=== PATIENT | male | born 1945 | race Caucasian/White ===

== ENCOUNTER 2018-04-16 14:55 | Inpatient (IN) | payer MEDICARE ==
[~2018-04-16] VITALS: Ht 170.2 cm; Wt 80.9 kg
[2018-04-16] MEDS: OLANZapine IM 10 MG VIAL. IM PRN (18:30)
--- NOTE | 2018-04-16 19:59 | NUR ---
1430- RN received report from [facility] regarding patient. Was given in report that patient is confused, can identify family, and was hitting himself in the head last night with a nurses call light in order to give himself a concussion so that staff would have to stay with him. RN notified NCM and Nurse Navy Fighter Pilot. Plan to consult Dr Dodge with Psych when patient arrives, will still admit to SNU. 1800- EMS arrives with patient, they report they had to restrain patient in route for combativeness, trying to hit and kick and trying to exit ambulance. Pt placed into room 107 for close monitoring. This RN let the patient out of restraints, patient began making threats, said to this RN, "are you protecting your balbuena? Because Im going to hit it!". Pt began hitting and kicking. Pt placed in soft restraints. Security called. 1814- Dr Carmichael notified. Order for restraints and zyprexa IM. Consult for Dr Dodge. Family present, attempting to calm patient. Pt calling family names, stating staff is from the government and he isn't talking to us. Pt still trying to hit. Daughter Angela, ADELAIDA, aware of restraints and agrees, states, "Do what you need to do to get him better and to protect yourselves." Pt told family to leave. Family left. 1829- Pt tore soft restraints, violent restraints placed by security. Zyprexa IM given. 1839- Dr Dodge on floor, notified of consult. Per Dr Dodge may give Zyprexa 2.5mg orally q 2 hours. Will re-evaluate patient in morning for potential admission upstairs. Pt placed in 1:1 observation. 1899- Pt still combative, making threats. 1929- Pt is beginning to calm down. Is wanting to eat, getting boxed lunch for patient. Patient states he will behave if the RAIL SPECIALIST stays in room with him. 1999- RN entered room, pt stated, "go fuck yourself". Pt still in restraints.
[2018-04-16 20:25] VITALS: BP 134/72
--- NOTE | 2018-04-16 21:30 | NUR ---
PT released from restraints at 2114 for improved behaviors. PT no longer threatening to leave or harm himself or others. PT is still delusional talking about an Ed person. PT thinking everyone is this Ed person but is able to follow directions and is compliant with care.
[2018-04-16 22:57] VITALS: BP 112/67
[2018-04-16] MEDS ORDERED: QUETIAPINE FUMARATE 12.5 MG PO PRN (23:00)
[2018-04-16] MEDS ORDERED: NON FORMULARY ITEM (Melatonin 6 MG) PO PRN (23:00)
[2018-04-17] MEDS ORDERED: BISO1TAB4 PO (00:19)
[2018-04-17] MEDS ORDERED: ACET325T9 PO (00:19)
[2018-04-17] MEDS ORDERED: SENN1TAB7 PO (00:20)
[2018-04-17] MEDS ORDERED: BUDE3CAP15 PO (00:20)
[2018-04-17] MEDS ORDERED: QUET50TA5 PO (00:20)
[2018-04-17] MEDS ORDERED: CARB1TAB2 PO (00:20)
[2018-04-17] MEDS ORDERED: SIMV40TA3 PO (00:20)
[2018-04-17] MEDS ORDERED: KETO15CR2 TP (00:20)
[2018-04-17] MEDS ORDERED: GABA-586 PO (00:20)
[2018-04-17] MEDS ORDERED: QUET25TA5 PO (00:20)
[2018-04-17] MEDS ORDERED: PANT40TA5 PO (00:20)
[2018-04-17] MEDS ORDERED: LIRA0.6P2 SQ (00:20)
[2018-04-17] MEDS ORDERED: LISI10TA2 PO (00:20)
[2018-04-17] MEDS ORDERED: HYDR453.3 TP (00:20)
[2018-04-17] MEDS ORDERED: MELA3TAB2 PO (00:20)
[2018-04-17] MEDS ORDERED: PIOG15TA42 PO (00:20)
[2018-04-17] MEDS ORDERED: PRAM0.255 PO (00:20)
[2018-04-17] MEDS ORDERED: MELATONIN 3 MG TABLET PO PRN (00:30)
[2018-04-17] MEDS ORDERED: QUEtiapine 25 MG TABLET. PO PRN (00:30)
[2018-04-17 06:46] VITALS: BP 122/67
[2018-04-17] MEDS ORDERED: CARBIDOPA/LEVODOPA 25/100MG TABLET PO SCH (08:00)
[2018-04-17] MEDS ORDERED: GABAPENTIN 300 MG CAPSULE. PO PRN (08:00)
[2018-04-17] MEDS ORDERED: PANTOPRAZOLE 40 MG TABLET. PO SCH (08:00)
[2018-04-17] MEDS ORDERED: ACETAMINOPHEN 325 MG TABLET PO PRN (08:00)
--- NOTE | 2018-04-17 08:14 | NUR ---
Nursing Note: This nurse called to pt's room by FEDERICA d/alma pt throwing food from his tray. Upon entering the room, pt was laying in bed and there was a piece of food on the floor. Upon asking the pt what was going on, the pt stated "are my green plaid pants over there?" pointing to chair in corner of room. Upon looking around the room, this nurse noticed the pt's pants in a belongings bag beside the window. Per NEUROSURGERY RESEARCH DIRECTOR, pt was incontinent this morning and pants were wet. After showing the pt the pants, he asked this nurse "are you ready to rub gravel?" After asking for clarification, the pt stated to this nurse "you should know what that phrase means. It means go fuck yourself. And ask him what he's been doing with my . I hope he dies for it." This nurse asked the pt who "he" is but the pt just stated "you don't need it. It's up there," and pointed to the ceiling. Continue to monitor. Addendum: 04/17/18 at 0822 by HEATHER CASTRO RN Pt's call light went off as this nurse was completing this note and upon entering the room, this nurse heard the pt ask the NEUROSURGERY RESEARCH DIRECTOR "am I supposed to put you in the corner and use you as a hostage?" Per NEUROSURGERY RESEARCH DIRECTOR, the "he" the pt was referring to in above note is a person named "Ed." Continue to monitor behaviors.
[2018-04-17] MEDS: OLANZapine IM 10 MG VIAL. IM PRN (08:44)
[2018-04-17] MEDS ORDERED: hydroCHLOROthiazide 25 MG TABLET PO SCH (09:00)
[2018-04-17] MEDS ORDERED: HCTZ PO SCH (09:00)
[2018-04-17] MEDS ORDERED: KETOCONAZOLE 2% TOPICAL CREAM 30GM TUBE. TP SCH (09:00)
[2018-04-17] MEDS ORDERED: BUDESONIDE 3 MG CAP.ER.24H. PO SCH (09:00)
[2018-04-17] MEDS ORDERED: NON FORMULARY ITEM (Liraglutide (Victoza 3-Pak) 0.6 MG) SQ SCH (09:00)
[2018-04-17] MEDS ORDERED: PIOGLITAZONE 15 MG TABLET. PO SCH (09:00)
[2018-04-17] MEDS ORDERED: PRAMIPEXOLE 0.5 MG TABLET. PO SCH (09:00)
[2018-04-17] MEDS ORDERED: HYDROCORTISONE 1% TOPICAL CREAM 30GM TUBE. TP SCH (09:00)
[2018-04-17] MEDS ORDERED: BISOPROLOL FUMARATE PO SCH (09:00)
[2018-04-17] MEDS ORDERED: LISINOPRIL 10 MG TABLET PO SCH (09:00)
[2018-04-17] MEDS ORDERED: SENNOSIDES/DOCUSATE 8.6/50MG TABLET. PO SCH (09:00)
[2018-04-17] MEDS ORDERED: ATENOLOL 50 MG TABLET PO SCH (09:00)
--- NOTE | 2018-04-17 09:32 | NUR ---
Nursing Note: TOOL GRINDER OPERATOR EXTERNAL requested assistance from nurses after pt became agitated and began trying to get out of bed. Two nurses, including this nurse, responded and pt was attempting to stand up and was hitting and kicking at staff as we attempted to stop pt from getting out of bed. Pt is very unsteady and unable to ambulate. Piper Rain called as pt's agitation continued to increase and pt became more combative. Pt began threatening nurses stating "I'll get that knee to bend the other way" and calling out for "Ed" to come because "I want to hurt somebody!" When additional staff responded to Piper Rain, pt stated "things have changed" and made a stronger attempt to get out of bed. Pt continued to attempt to hit and kick at staff and grabbed at his throat in an attempt to choke himself. Pt placed back in bed and 4-point restraints applied at 0840 and PRN Zyprexa administered IM. Pt then attempted to remove his glasses and chew them. Glasses removed from pt for his safety. Dr. Carmichael paged at 0853 and return call received at 0900. DPOA (daughter, Angela) notified of situation as well. Pt reassessed at 0930 and pt stated to this nurse "go fuck yourself. Give Angela a message for me. Tell her to go fuck herself. Tell my other daughter the same thing. Tell anyone daughter with my blood to go fuck themselves." While attempting to check restraints for pt's comfort, pt attempted to hit this nurse. TOOL GRINDER OPERATOR EXTERNAL assessed pt's vitals and BP noted to be elevated. Pt was flexing and fighting restraints while vitals assessed. Continue to monitor.
--- NOTE | 2018-04-17 10:30 | NUR ---
Nursing Note: Pt reassessed and continues to fight with staff during cares. RESEARCH PHYSICIST asked pt if he could behave appropriately if taken out of restraints. Per RESEARCH PHYSICIST, pt stated that he would kill himself. Continue to monitor.
--- NOTE | 2018-04-17 11:00 | NUR ---
Discharge Note: RYLEE GIMENEZ Pt is being discharged from Swing Bed status and readmitted to Med/Surg status. Pt's room number will not change. Continue to monitor.
[2018-04-17] MEDS ORDERED: QUEtiapine 50 MG TABLET. PO SCH ×2 (14:00→21:00)
--- NOTE | 2018-04-17 20:06 | HP ---
ADMIT DATE: 04/16/2018 The patient is a 72-year-old male patient who was transferred from [facility], apparently initially to swing bed, the patient was extremely psychotic and a decision was made to admit him to acute care for further evaluation as he was so combative, restless, agitated, required rest and wrist restraints. All these symptoms started when apparently was diagnosed with what seems to be Crohn's disease and was started on steroids in the form of budesonide 9 mg daily. HISTORY OF PRESENT ILLNESS: The patient is a 72-year-old male with a past medical history significant for Parkinson's disease, type 2 diabetes, coronary artery disease with previous bypass surgery, multiple back surgeries, chronic back, presented to [facility] with 4 days history of diarrhea, malaise, foggy memory, presenting to the ER. He was initially found to be hypoglycemic and received IV dextrose. CT scan of the abdomen and pelvis showed finding of ileus with small bowel wall thickening and mesenteric adenopathy of undetermined significance. The Gastroenterology team was consulted. There was consideration of possible viral gastroenteritis versus food poisoning aggravated by antidiabetic medication as underlying cause, however, given his anemia, he was still concerned for GI pathology. Apparently, the patient had an EGD and colonoscopy that revealed possible Crohn disease on 04/10/2018. EGD showed a superficial nonbleeding pyloric ulcer. The patient was presumptively started on budesonide 9 mg daily, Protonix 40 mg twice a day before meals. The pathology report came back showing chronic ileitis, likely related to inflammatory bowel disease versus chronic nonsteroidal anti-inflammatory medication. His stomach pain and diarrhea have resolved; however, his stay has been complicated by persistent psychosis, delusion and pressured speech and agitation. He was started on Seroquel and has been up titrating as needed. He was seen by the Neurology services and felt that the acute episode of psychosis likely brought on by prolonged hospital stay superimposed on Parkinson's disease and possible medication side effects. He has not cleared greatly, Haldol was tried without much success and he was treated mostly with Seroquel in the morning and at bedtime, and the patient was stabilized medically and he was seen by psychiatrist on 04/16/2018 and they agreed with [facility] placement in order to help stabilize the patient and recover. For some reason, the patient was transferred to swing bed at [facility]. However, the patient continued to be extremely psychotic, delusional and he was not deemed appropriate to be admitted to [facility] upstairs and therefore, a decision was made to admit him to acute care bed in [address] [place] [address] to consult the psychiatrist, Dr. Dodge and neurologist, Dr. Calderon. PAST MEDICAL HISTORY: Significant for Parkinson's disease, type 2 diabetes, chronic coronary artery disease, and chronic back pain. PAST SURGICAL HISTORY: Significant for coronary artery bypass graft surgery, multiple back surgeries. He has also undergone esophageal gastric endoscopy and colonoscopy. ALLERGIES: HE IS ALLERGIC TO METFORMIN AND SITAGLIPTIN. MEDICATIONS: He is currently on following medications: He is on simvastatin 40 mg at bedtime, bisoprolol fumarate/hydrochlorothiazide 1 tablet daily, lisinopril 10 mg once a day, acetaminophen 650 mg p.o. q.4-6 hourly as needed, gabapentin 300 mg daily, quetiapine fumarate 12.5 mg daily, quetiapine fumarate 50 mg 3 times a day, carbidopa/levodopa for Sinemet 25/100 one tablet 3 times a day with meals, Mirapex 0.5 mg 3 times a day, Senna-S 1 tablet twice a day, Protonix 40 mg twice a day, budesonide for Entocort 3 capsules 90 mg daily, liraglutide for Victoza 0.6 mg subcutaneously daily, pioglitazone for Actos 15 mg daily, ketoconazole cream applied topically daily, hydrocortisone cream applied topically twice a day, and melatonin 3 mg at bedtime. FAMILY HISTORY: Unobtainable. SOCIAL HISTORY: Also unobtainable at least for the time being as there are no family members here and I could not get any useful information from the medical record that was sent from the other hospital. His code status is full. PHYSICAL EXAMINATION: GENERAL: When I examined him this afternoon, he was resting slightly propped up in bed, in no apparent distress, slightly pale, but no jaundice, cyanosis, or thyromegaly. No jugular venous distension. No lower limb edema. VITAL SIGNS: Heart rate was 63, blood pressure 122/67, temperature was 98.3, respiratory rate was 18 and oxygen saturation was 97%. HEAD, EYES, EARS, NOSE AND THROAT: Showed he is normocephalic, atraumatic. NECK: Supple. HEART: Showed normal first and second sounds. No gallop, rub or murmur. CHEST: Clear to auscultation. No crepitation or rhonchi. ABDOMEN: Distended, soft, nontender. No guarding or rigidity. No organomegaly. Hernial orifices were intact. Bowel sounds normal. NEUROLOGIC: He is awake, alert, responding. All his cranial nerves are intact. EXTREMITIES: He moves extremities without difficulty. PSYCHOLOGIC: He extremely has pressured speech. He does not stop talking, has flight of ideas and he is clearly psychotic. ASSESSMENT AND PLAN: We will consult Dr. Calderon and also Dr. Dodge. I think it is better to discontinue at least the steroids that might have induced the severe psychosis as the pathology report was not really confirmatory and there is only speculation that this could be ileitis versus a side effect of nonsteroidal anti-inflammatory medication. The patient is not really in any serious condition. He does not have any evidence of bowel obstruction. He is not having nausea or vomiting, and I would definitely discontinue the steroids. I am not sure whether we will be able to substitute his Parkinson disease from Sinemet to perhaps Requip and I leave the decision obviously to Dr. Calderon to eliminate these 2 sources of his psychosis. Meanwhile, we should continue at least with the Seroquel for the time being. We will send blood for CBC, CMP, C-reactive protein and ASR and decide on further management accordingly. DINESH STEVENS MD DR: AMBAR/rebecca JOB#: [id number] / [id number]
[2018-04-17] MEDS ORDERED: SIMVASTATIN 40 MG TABLET. PO SCH (21:00)
== END 2018-04-17 11:19 | disposition short-term general hospital (02) | DRG 392 ==
LOC: 1 SOUTH 18:21
PROVIDERS: ADMIT Internal Medicine; ATTEND Internal Medicine
DX: K52.9 Noninfective gastroenteritis and colitis, unspecified (principal); I25.10 Atherosclerotic heart disease of native coronary artery without angina pectoris; G20 Parkinson's disease; F22 Delusional disorders; G89.29 Other chronic pain; E11.9 Type 2 diabetes mellitus without complications; T39.395A Adverse effect of other nonsteroidal anti-inflammatory drugs [NSAID], initial encounter; Y92.89 Other specified places as the place of occurrence of the external cause; Z88.8 Allergy status to other drugs, medicaments and biological substances; Z79.899 Other long term (current) drug therapy; Z95.1 Presence of aortocoronary bypass graft
CPT/HCPCS: 82947; J3490

== ENCOUNTER 2018-04-17 11:00 | Inpatient (IN) | payer MEDICARE ==
[~2018-04-17] VITALS: Ht 170.2 cm; Wt 77.8 kg
[~2018-04-17 11:00] MED LIST: ACET325T9 PO; BISO1TAB4 PO; BUDE3CAP15 PO; CARB1TAB2 PO; GABA-586 PO; HYDR453.3 TP; KETO15CR2 TP; LIRA0.6P2 SQ; LISI10TA2 PO; MELA3TAB2 PO; PANT40TA5 PO; PIOG15TA42 PO; PRAM0.255 PO; QUET25TA5 PO; QUET50TA5 PO; SENN1TAB7 PO; SIMV40TA3 PO
[2018-04-17 11:32] VITALS: BP 170/64
[2018-04-17 13:51] VITALS: BP 180/63
[2018-04-17] MEDS ORDERED: cloNIDine TTS-2 1 PATCH PATCH TD SCH (15:00)
[2018-04-17] MEDS ORDERED: GABAPENTIN 300 MG CAPSULE. PO PRN (15:15)
[2018-04-17] MEDS ORDERED: ACETAMINOPHEN 325 MG TABLET PO PRN (15:15)
[2018-04-17] MEDS ORDERED: QUEtiapine 25 MG TABLET. PO PRN (15:30)
[2018-04-17] MEDS: QUEtiapine 50 MG TABLET. PO SCH ×2 (15:30→21:23)
[2018-04-17 15:37] VITALS: BP 165/63
[2018-04-17] MEDS: PANTOPRAZOLE 40 MG TABLET. PO SCH ×2 (16:30→18:08)
[2018-04-17] MEDS: CARBIDOPA/LEVODOPA 25/100MG TABLET PO SCH ×2 (17:00→18:07)
--- NOTE | 2018-04-17 17:37 | PDOC ---
Exam Note: [facility] Note: Please also refer to the separate dictated note~for this date of service dictated separately.~Patient seen individually. Discussed the patient with Nursing staff reviewed the chart.~Reviewed interim history and current functioning. Reviewed vital signs,~Labs/ Radiology~and current medications noted below. Continue current treatment with the changes noted in the dictated addendum note. Late entry for 04/16/18 Assessment: Vital Signs: VS - Last 72 Hours, by Label Date Time Temp Pulse Resp B/P (MAP) Pulse Ox O2 Delivery O2 Flow Rate FiO2 04/17/18 15:37 98.2 76 20 165/63 (97) 97 Room Air 04/17/18 13:51 98.2 66 18 180/63 (102) 96 Room Air 04/17/18 11:32 97.8 73 20 170/64 (99) 94 Room Air Vital Signs Date Time Temp Pulse Resp B/P (MAP) Pulse Ox O2 Delivery O2 Flow Rate FiO2 04/17/18 15:37 98.2 76 20 165/63 (97) 97 Room Air Labs: Laboratory Tests Test 04/17/18 11:40 Glucose (Fingerstick) 134 mg/dL (70-99) H Current Medications: Meds: Current Medications Clonidine HCl (Catapres Tts-2) 1 patch WEEKLY TD Last administered on at 15:06; Start 04/17/18 at 15:00 Acetaminophen (Tylenol) 650 mg PRN Q6HRS PRN PO PAIN / TEMP; Start 04/17/18 at 15:15 Carbidopa/Levodopa (Sinemet 25/100) 1 tab TIDWMEALS PO ; Start 04/17/18 at 17:00 Gabapentin (Neurontin) 300 mg PRN DAILY PRN PO NEUROPATHY; Start 04/17/18 at 15 :15 Ketoconazole (Nizoral 2% Topical) 1 giorgio DAILY TP ; Start 04/18/18 at 09:00 Lisinopril (Prinivil) 10 mg DAILY PO ; Start 04/18/18 at 09:00 Senna/Docusate Sodium (Senna Plus) 1 tab BID PO ; Start 04/17/18 at 21:00 Simvastatin (Zocor) 40 mg QHS PO ; Start 04/17/18 at 21:00 Non-Formulary Medication (Bisoprolol Fumarate/Hctz (Bisoprolol-Hctz 5-6.25 Mg Tab)) 1 tab DAILY PO ; Start 04/18/18 at 09:00; Stop 04/18/18 at 09:00; Status DC Budesonide (Entocort) 3 mg DAILY PO ; Start 04/18/18 at 09:00; Stop 04/18/18 at 09:00; Status DC Hydrocortisone (Cortaid) 1 giorgio BID TP ; Start 04/17/18 at 21:00 Non-Formulary Medication (Liraglutide (Victoza 3-Melvin)) 0.6 mg DAILY SQ ; Start 04/18/18 at 09:00; Status UNV Melatonin 6 mg QHS PO ; Start 04/17/18 at 21:00 Pantoprazole Sodium (Protonix) 40 mg BIDBFRMEAL PO ; Start 04/17/18 at 16:30 Pioglitazone HCl (Actos) 15 mg DAILY PO ; Start 04/18/18 at 09:00 Pramipexole Dihydrochloride (miraPEX) 0.5 mg FSC075 PO ; Start 04/17/18 at 21:00 Quetiapine Fumarate (SEROquel) 12.5 mg PRN DAILY PRN PO ANXIETY/AGITATION; Start 04/17/18 at 15:30 Quetiapine Fumarate (SEROquel) 50 mg TID PO ; Start 04/17/18 at 15:30 Olanzapine (ZyPREXA IM) 5 mg PRN Q4HRS PRN IM AGITATION; Start 04/17/18 at 15: 30 Atenolol (Tenormin) 50 mg DAILY PO ; Start 04/18/18 at 09:00 Hydrochlorothiazide (Hydrodiuril) 6.25 mg DAILY PO ; Start 04/18/18 at 09:00 Active Scripts Active Reported Victoza 3-Melvin (Liraglutide) 0.6 Mg/0.1 Ml Pen.injctr 0.6 Mg SQ DAILY Simvastatin 40 Mg Tablet 1 Tab PO QHS Senna-Docusate Sodium Tablet (Sennosides/Docusate Sodium) 1 Each Tablet 1 Each PO BID Seroquel (Quetiapine Fumarate) 50 Mg Tablet 1 Tab PO TID Seroquel (Quetiapine Fumarate) 25 Mg Tablet 12.5 Mg PO PRN DAILY PRN Mirapex (Pramipexole Di-Hcl) 0.25 Mg Tablet 0.5 Mg PO TID Actos (Pioglitazone Hcl) 15 Mg Tablet 1 Tab PO DAILY Pantoprazole Sodium 40 Mg Tablet.dr 1 Tab PO BIDBFRMEAL Melatonin 3 Mg Tablet 6 Mg PO QHS Lisinopril 10 Mg Tablet 10 Mg PO DAILY Ketoconazole 15 Gm Cream..g. 1 Giorgio TP DAILY Hydrocortisone 453.6 Gm Cream..g. 1 Giorgio TP BID Gabapentin 300 Mg Capsule 300 Mg PO PRN DAILY PRN Sinemet 25-100 Mg Tablet (Carbidopa/Levodopa) 1 Each Tablet 1 Tab PO TIDWMEALS Entocort Ec (Budesonide) 3 Mg Capdr...er 3 Cap PO DAILY Bisoprolol-Hctz 5-6.25 Mg Tab (Bisoprolol Fumarate/Hctz) 1 Each Tablet 1 Tab PO DAILY Tylenol (Acetaminophen) 325 Mg Tablet 650 Mg PO PRN Q6HRS PRN I have reviewed the current psychotropics carefully including drug interactions. Risk benefit ratio favors no change other than as noted in my dictated progress note. Diagnosis: Problems: (1) Anxiety disorder (2) Bipolar affective disorder, mixed (3) Dementia due to Parkinson's disease with behavioral disturbance (4) Impulse control disorder (5) Parkinson's disease ALYSHA CHAMPAGNE MD Apr 17, 2018 17:36
[2018-04-17 19:05] VITALS: BP 171/72
[2018-04-17] MEDS ORDERED: risperiDONE ORAL 1 MG/ML 30ml BOTTLE. SL ONE ×2 (19:45→22:15)
--- NOTE | 2018-04-17 20:30 | PDOC ---
Exam Note: [facility]olas Note: Please also refer to the separate dictated note~for this date of service dictated separately.~Patient seen individually. Discussed the patient with Nursing staff reviewed the chart.~Reviewed interim history and current functioning. Reviewed vital signs,~Labs/ Radiology~and current medications noted below. Continue current treatment with the changes noted in the dictated addendum note Assessment: Vital Signs: Vital Signs Date Time Temp Pulse Resp B/P (MAP) Pulse Ox O2 Delivery O2 Flow Rate FiO2 04/17/18 15:37 98.2 76 20 165/63 (97) 97 Room Air Labs: Laboratory Tests Test 04/17/18 11:40 Glucose (Fingerstick) 134 mg/dL (70-99) H Current Medications: Meds: Current Medications Clonidine HCl (Catapres Tts-2) 1 patch WEEKLY TD Last administered on at 15:06; Start 04/17/18 at 15:00 Acetaminophen (Tylenol) 650 mg PRN Q6HRS PRN PO PAIN / TEMP; Start 04/17/18 at 15:15 Carbidopa/Levodopa (Sinemet 25/100) 1 tab TIDWMEALS PO Last administered on at 18:07; Start 04/17/18 at 17:00 Gabapentin (Neurontin) 300 mg PRN DAILY PRN PO NEUROPATHY; Start 04/17/18 at 15 :15 Ketoconazole (Nizoral 2% Topical) 1 giorgio DAILY TP ; Start 04/18/18 at 09:00 Lisinopril (Prinivil) 10 mg DAILY PO ; Start 04/18/18 at 09:00 Senna/Docusate Sodium (Senna Plus) 1 tab BID PO ; Start 04/17/18 at 21:00 Simvastatin (Zocor) 40 mg QHS PO ; Start 04/17/18 at 21:00 Non-Formulary Medication (Bisoprolol Fumarate/Hctz (Bisoprolol-Hctz 5-6.25 Mg Tab)) 1 tab DAILY PO ; Start 04/18/18 at 09:00; Stop 04/18/18 at 09:00; Status DC Budesonide (Entocort) 3 mg DAILY PO ; Start 04/18/18 at 09:00; Stop 04/18/18 at 09:00; Status DC Hydrocortisone (Cortaid) 1 giorgio BID TP ; Start 04/17/18 at 21:00 Non-Formulary Medication (Liraglutide (Victoza 3-Melvin)) 0.6 mg DAILY SQ ; Start 04/18/18 at 09:00; Status UNV Melatonin 6 mg QHS PO ; Start 04/17/18 at 21:00 Pantoprazole Sodium (Protonix) 40 mg BIDBFRMEAL PO Last administered on at 18:08; Start 04/17/18 at 16:30 Pioglitazone HCl (Actos) 15 mg DAILY PO ; Start 04/18/18 at 09:00 Pramipexole Dihydrochloride (miraPEX) 0.5 mg [id number] PO ; Start 04/17/18 at 21:00 Quetiapine Fumarate (SEROquel) 12.5 mg PRN DAILY PRN PO ANXIETY/AGITATION; Start 04/17/18 at 15:30 Quetiapine Fumarate (SEROquel) 50 mg TID PO ; Start 04/17/18 at 15:30 Olanzapine (ZyPREXA IM) 5 mg PRN Q4HRS PRN IM AGITATION; Start 04/17/18 at 15: 30 Atenolol (Tenormin) 50 mg DAILY PO ; Start 04/18/18 at 09:00 Hydrochlorothiazide (Hydrodiuril) 6.25 mg DAILY PO ; Start 04/18/18 at 09:00 Pneumococcal Polyvalent Vaccine (Pneumovax 23) 0.5 ml ONCE ONCE VAX IM ; Start 04/17/18 at 21:00; Stop 04/17/18 at 21:01 Risperidone (RisperDAL) 0.5 mg 1X ONCE SL Last administered on 04/17/18at 20:08 ; Start 04/17/18 at 19:45; Stop 04/17/18 at 19:46; Status DC Active Scripts Active Reported Victoza 3-Melvin (Liraglutide) 0.6 Mg/0.1 Ml Pen.injctr 0.6 Mg SQ DAILY Simvastatin 40 Mg Tablet 1 Tab PO QHS Senna-Docusate Sodium Tablet (Sennosides/Docusate Sodium) 1 Each Tablet 1 Each PO BID Seroquel (Quetiapine Fumarate) 50 Mg Tablet 1 Tab PO TID Seroquel (Quetiapine Fumarate) 25 Mg Tablet 12.5 Mg PO PRN DAILY PRN Mirapex (Pramipexole Di-Hcl) 0.25 Mg Tablet 0.5 Mg PO TID Actos (Pioglitazone Hcl) 15 Mg Tablet 1 Tab PO DAILY Pantoprazole Sodium 40 Mg Tablet.dr 1 Tab PO BIDBFRMEAL Melatonin 3 Mg Tablet 6 Mg PO QHS Lisinopril 10 Mg Tablet 10 Mg PO DAILY Ketoconazole 15 Gm Cream..g. 1 Giorgio TP DAILY Hydrocortisone 453.6 Gm Cream..g. 1 Giorgio TP BID Gabapentin 300 Mg Capsule 300 Mg PO PRN DAILY PRN Sinemet 25-100 Mg Tablet (Carbidopa/Levodopa) 1 Each Tablet 1 Tab PO TIDWMEALS Entocort Ec (Budesonide) 3 Mg Capdr...er 3 Cap PO DAILY Bisoprolol-Hctz 5-6.25 Mg Tab (Bisoprolol Fumarate/Hctz) 1 Each Tablet 1 Tab PO DAILY Tylenol (Acetaminophen) 325 Mg Tablet 650 Mg PO PRN Q6HRS PRN I have reviewed the current psychotropics carefully including drug interactions. Risk benefit ratio favors no change other than as noted in my dictated progress note. Diagnosis: Problems: (1) Psychosis (2) Anxiety disorder (3) Impulse control disorder (4) Bipolar affective disorder, mixed (5) Parkinson's disease (6) Dementia due to Parkinson's disease with behavioral disturbance ALYSHA CHAMPAGNE MD Apr 17, 2018 20:30
[2018-04-17] MEDS: SIMVASTATIN 40 MG TABLET. PO SCH ×2 (21:00→21:23)
[2018-04-17] MEDS: SENNOSIDES/DOCUSATE 8.6/50MG TABLET. PO SCH ×2 (21:00→21:23)
[2018-04-17] MEDS ORDERED: PNEUMOC CONJ VACC 23-VALENT 0.5 ML VIAL. VAX IM ONE (21:00)
[2018-04-17] MEDS: HYDROCORTISONE 1% TOPICAL CREAM 30GM TUBE. TP SCH ×2 (21:00→21:25)
[2018-04-17] MEDS: MELATONIN 3 MG TABLET PO SCH (21:23)
[2018-04-17] MEDS: PRAMIPEXOLE 0.5 MG TABLET. PO SCH (21:25)
[2018-04-17] MEDS: OLANZapine IM 10 MG VIAL. IM PRN (22:13)
[2018-04-18 00:30] VITALS: BP 161/78
[2018-04-18] MEDS: QUEtiapine 50 MG TABLET. PO SCH ×4 (01:30→21:00)
[2018-04-18] MEDS: MELATONIN 3 MG TABLET PO SCH ×2 (01:31→21:00)
[2018-04-18 06:34] VITALS: BP 153/78
[2018-04-18] MEDS: NON FORMULARY ITEM (Liraglutide (Victoza 3-Pak) 0.6 MG) SQ SCH (07:55)
[2018-04-18] MEDS ORDERED: BUDESONIDE 3 MG CAP.ER.24H. PO SCH (09:00)
[2018-04-18] MEDS ORDERED: BISOPROLOL FUMARATE PO SCH (09:00)
[2018-04-18] MEDS: KETOCONAZOLE 2% TOPICAL CREAM 30GM TUBE. TP SCH (09:00)
[2018-04-18] MEDS: HYDROCORTISONE 1% TOPICAL CREAM 30GM TUBE. TP SCH ×2 (09:00→21:00)
[2018-04-18] MEDS ORDERED: HCTZ PO SCH (09:00)
[2018-04-18] MEDS: hydroCHLOROthiazide 25 MG TABLET PO SCH (09:00)
[2018-04-18] MEDS: PRAMIPEXOLE 0.5 MG TABLET. PO SCH ×3 (09:00→21:00)
[2018-04-18] MEDS: CARBIDOPA/LEVODOPA 25/100MG TABLET PO SCH ×3 (09:16→17:18)
[2018-04-18] MEDS: SENNOSIDES/DOCUSATE 8.6/50MG TABLET. PO SCH ×2 (09:16→21:00)
[2018-04-18] MEDS: PIOGLITAZONE 15 MG TABLET. PO SCH (09:16)
[2018-04-18] MEDS: PANTOPRAZOLE 40 MG TABLET. PO SCH ×2 (09:16→17:18)
[2018-04-18] MEDS: LISINOPRIL 10 MG TABLET PO SCH (09:16)
[2018-04-18] MEDS: ATENOLOL 50 MG TABLET PO SCH (09:17)
[2018-04-18 11:27] VITALS: BP 101/63
--- NOTE | 2018-04-18 11:28 | CONS ---
DATE OF CONSULTATION: 04/17/2018 This is a late entry for 04/16/2018 and covers elements not covered in my initial note. IDENTIFYING DATA: The patient is a 72-year-old male, seen in bed [address], [address], [facility], very shortly after he arrived from [facility] with increasing agitation, psychosis, suicidal ideation and marked disruptive, aggressive, out of control behaviors for which he had to be restrained since he was trying to strike out at everyone around him and threatening to kill himself and actively hallucinating intermittently. I have been asked and requested to follow the patient from a psychiatric standpoint for his psychosis. He has been making statements to the nursing staff, "If you were really helping me, why would not you let me to kill myself." HISTORY OF PRESENT ILLNESS: Reportedly, the patient was an inpatient on the medical/surgical side at [facility] where he presented from home. After he was medically stabilized, he continued to be extremely psychotic, aggressive, disruptive, threatening to kill himself and striking out at others around him. He was actively hallucinating, appeared confused and disorganized. He was transferred to [facility] for skilled care and possible inpatient psychiatric stabilization. I am unaware of past relevant psychiatric history. He has nevertheless been living at home by himself and family have been involved in his care. PAST MEDICAL HISTORY: Positive Parkinson's disease, diabetes mellitus, hyperlipidemia, hypertension, possible Crohn's disease. ALLERGIES: METFORMIN, SITAGLIPTIN. CURRENT PSYCHOTROPICS: Seroquel 50 mg p.o. at bedtime, melatonin 6 mg at bedtime and we had added Zyprexa p.r.n. following admission given his marked psychosis, mood lability. FAMILY HISTORY: Noncontributory. SOCIAL HISTORY: Not aware of any alcohol or drug abuse history. MENTAL STATUS EXAMINATION: The patient was seen individually evening of 04/16/2018. He is oriented to himself, unaware of the date, unaware when he came to the hospital. He is in a 4-point restraint because he has been trying to punch at nursing staff, trying to hit himself, banging his head. Speech coherent, rapid. Abstraction fair, computation impaired, language function intact. Mood and affect remains labile. He admits to the suicidal ideation, and wanting to hit anyone around him, "Just let my hand loose and let me punch you." IMPRESSION: Psychotic disorder, unspecified, probable bipolar 1 disorder, mixed with psychotic features; impulse control disorder; anxiety disorder, unspecified; cognitive disorder, unspecified versus major neurocognitive disorder, vascular with delusions, possible psychosis, aggravated by his anti-parkinsonian medications. PLAN: Would suggest Neurology consult with Dr. Calderon to see if his anti-parkinsonian medications could be reduced and the Entocort discontinued if possible since the steroids could be worsening the psychosis. We will increase the Seroquel to 50 mg 3 times a day, start Zyprexa p.r.n. Consider Depakote as a mood stabilizer. Consider transferring [facility] once he is medically stable. Dr. Carmichael, thank you for the opportunity to participate in your patient's care. We will follow with you. We will have a CT head done if not done recently. ALYSHA CHAMPAGNE MD DR: SERENITY/rebecca JOB#: [id number] / [id number]
[2018-04-18 12:47] LABS: BASO # 0.1 x10^3/uL (0.0-0.2); BASO % 1 % (0-3); EOS # 0.3 x10^3/uL (0.0-0.7); EOS % 4 % (0-3); HEMATOCRIT 34.4 % (39.0-53.0); HEMOGLOBIN 10.8 g/dL (13.0-17.5); LYMPH # 2.6 x10^3/uL (1.0-4.8); LYMPH % 27 % (24-48); MEAN CORPUSCULAR HEMOGLOBIN 24 pg (25-35); MEAN CORPUSCULAR HGB CONC 31 g/dL (31-37); MEAN CORPUSCULAR VOLUME 77 fL (79-100); MONO # 0.7 x10^3/uL (0.0-1.1); MONO % 7 % (0-9); NEUT % 61 % (31-73); PLATELET COUNT 242 x10^3/uL (140-400); RED BLOOD COUNT 4.47 x10^6/uL (4.30-5.70); RED CELL DISTRIBUTION WIDTH 16.6 % (11.5-14.5); WHITE BLOOD COUNT 9.8 x10^3/uL (4.0-11.0)
[2018-04-18 12:57] LABS: ALBUMIN 2.7 g/dL (3.4-5.0); ALBUMIN/GLOBULIN RATIO 0.7 (1.0-1.7); C REACTIVE PROTEIN 23.4 mg/L (0-3.3); CALCIUM 8.8 mg/dL (8.5-10.1); CREATININE 1.4 mg/dL (0.7-1.3); GFR 49.8; POTASSIUM 3.9 mmol/L (3.5-5.1); TOTAL BILIRUBIN 0.5 mg/dL (0.2-1.0); TOTAL PROTEIN 6.8 g/dL (6.4-8.2)
--- NOTE | 2018-04-18 13:35 | PDOC ---
SUBJECTIVE: I find the patient to be sleeping soundly upon arrival to his room. The patient skin care specialist says the patient has been asleep for approximately the past hour. He says the patient was up all night and appeared to be coherent. He says that he played cards with the patient and that they discuss the patient's daughters and other various interests of the patient including guns. When I wake the patient he rouses easily to verbal stimuli but does appear to be confused. He answers correctly to the year 2018 and to the name of the president however then asks "will you take me shopping first." The patient denies any current pain complaints and no trouble breathing. No family is available to talk with. Patient's vital signs were stable overnight and his fingerstick blood sugars ran in the 130s. CBC, CMP, and inflammatory markers were not ordered and will be done so at this time. OBJECTIVE: Vital Signs: Vital Signs Date Time Temp Pulse Resp B/P (MAP) Pulse Ox O2 Delivery O2 Flow Rate FiO2 04/18/18 11:27 97.3 62 18 101/63 (76) 94 Room Air I & O Intake and Output 04/18/18 07:00 Intake Total 290 ml Balance 290 ml Intake Oral 290 ml # Voids 4 Labs: Laboratory Tests Test 04/17/18 11:40 04/17/18 20:27 04/18/18 07:55 04/18/18 12:37 Glucose (Fingerstick) 134 mg/dL (70-99) 144 mg/dL (70-99) 122 mg/dL (70-99) White Blood Count 9.8 x10^3/uL (4.0-11.0) Red Blood Count 4.47 x10^6/uL (4.30-5.70) Hemoglobin 10.8 g/dL (13.0-17.5) Hematocrit 34.4 % (39.0-53.0) Mean Corpuscular Volume 77 fL (79-100) Mean Corpuscular Hemoglobin 24 pg (25-35) Mean Corpuscular Hemoglobin Concent 31 g/dL (31-37) Red Cell Distribution Width 16.6 % (11.5-14.5) Platelet Count 242 x10^3/uL (140-400) Neutrophils (%) (Auto) 61 % (31-73) Lymphocytes (%) (Auto) 27 % (24-48) Monocytes (%) (Auto) 7 % (0-9) Eosinophils (%) (Auto) 4 % (0-3) Basophils (%) (Auto) 1 % (0-3) Neutrophils # (Auto) 6.0 x10^3uL (1.8-7.7) Lymphocytes # (Auto) 2.6 x10^3/uL (1.0-4.8) Monocytes # (Auto) 0.7 x10^3/uL (0.0-1.1) Eosinophils # (Auto) 0.3 x10^3/uL (0.0-0.7) Basophils # (Auto) 0.1 x10^3/uL (0.0-0.2) Sodium Level 141 mmol/L (136-145) Potassium Level 3.9 mmol/L (3.5-5.1) Chloride Level 104 mmol/L (98-107) Carbon Dioxide Level 32 mmol/L (21-32) Anion Gap 5 (6-14) Blood Urea Nitrogen 21 mg/dL (8-26) Creatinine 1.4 mg/dL (0.7-1.3) Estimated GFR (Cockcroft-Gault) 49.8 BUN/Creatinine Ratio 15 (6-20) Glucose Level 137 mg/dL (70-99) Calcium Level 8.8 mg/dL (8.5-10.1) Total Bilirubin 0.5 mg/dL (0.2-1.0) Aspartate Amino Transf (AST/SGOT) 38 U/L (15-37) Alanine Aminotransferase (ALT/SGPT) 9 U/L (16-63) Alkaline Phosphatase 81 U/L (46-116) C-Reactive Protein 23.4 mg/L (0-3.3) Total Protein 6.8 g/dL (6.4-8.2) Albumin 2.7 g/dL (3.4-5.0) Albumin/Globulin Ratio 0.7 (1.0-1.7) ASSESSMENT: 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
[2018-04-18 13:52] LABS: SEDIMENTATION RATE 42 (0-15)
[2018-04-18] MEDS: OLANZapine IM 10 MG VIAL. IM PRN ×2 (14:19→22:39)
[2018-04-18] MEDS: SIMVASTATIN 40 MG TABLET. PO SCH (21:00)
[2018-04-18] MEDS: risperiDONE ORAL 1 MG/ML 30ml BOTTLE. SL SCH (21:00)
--- NOTE | 2018-04-18 21:27 | PDOC ---
Exam Note: Nickolas Note: Please also refer to the separate dictated note~for this date of service dictated separately.~Patient seen individually. Discussed the patient with Nursing staff reviewed the chart.~Reviewed interim history and current functioning. Reviewed vital signs,~Labs/ Radiology~and current medications noted below. Continue current treatment with the changes noted in the dictated addendum note Assessment: Vital Signs: Vital Signs Date Time Temp Pulse Resp B/P (MAP) Pulse Ox O2 Delivery O2 Flow Rate FiO2 04/18/18 19:57 04/18/18 19:57 Room Air 04/18/18 11:27 97.3 62 18 94 I&O Intake and Output 04/18/18 07:00 Intake Total 290 ml Balance 290 ml Intake Oral 290 ml # Voids 4 Labs: Laboratory Tests Test 04/18/18 07:55 04/18/18 12:37 04/18/18 17:01 Glucose (Fingerstick) 122 mg/dL (70-99) H 140 mg/dL (70-99) H White Blood Count 9.8 x10^3/uL (4.0-11.0) Red Blood Count 4.47 x10^6/uL (4.30-5.70) Hemoglobin 10.8 g/dL (13.0-17.5) L Hematocrit 34.4 % (39.0-53.0) L Mean Corpuscular Volume 77 fL (79-100) L Mean Corpuscular Hemoglobin 24 pg (25-35) L Mean Corpuscular Hemoglobin Concent 31 g/dL (31-37) Red Cell Distribution Width 16.6 % (11.5-14.5) H Platelet Count 242 x10^3/uL (140-400) Neutrophils (%) (Auto) 61 % (31-73) Lymphocytes (%) (Auto) 27 % (24-48) Monocytes (%) (Auto) 7 % (0-9) Eosinophils (%) (Auto) 4 % (0-3) H Basophils (%) (Auto) 1 % (0-3) Neutrophils # (Auto) 6.0 x10^3uL (1.8-7.7) Lymphocytes # (Auto) 2.6 x10^3/uL (1.0-4.8) Monocytes # (Auto) 0.7 x10^3/uL (0.0-1.1) Eosinophils # (Auto) 0.3 x10^3/uL (0.0-0.7) Basophils # (Auto) 0.1 x10^3/uL (0.0-0.2) Erythrocyte Sedimentation Rate 42 (0-15) H Sodium Level 141 mmol/L (136-145) Potassium Level 3.9 mmol/L (3.5-5.1) Chloride Level 104 mmol/L (98-107) Carbon Dioxide Level 32 mmol/L (21-32) Anion Gap 5 (6-14) L Blood Urea Nitrogen 21 mg/dL (8-26) Creatinine 1.4 mg/dL (0.7-1.3) H Estimated GFR (Cockcroft-Gault) 49.8 BUN/Creatinine Ratio 15 (6-20) Glucose Level 137 mg/dL (70-99) H Calcium Level 8.8 mg/dL (8.5-10.1) Total Bilirubin 0.5 mg/dL (0.2-1.0) Aspartate Amino Transferase (AST) 38 U/L (15-37) H Alanine Aminotransferase (ALT) 9 U/L (16-63) L Alkaline Phosphatase 81 U/L (46-116) C-Reactive Protein 23.4 mg/L (0-3.3) H Total Protein 6.8 g/dL (6.4-8.2) Albumin 2.7 g/dL (3.4-5.0) L Albumin/Globulin Ratio 0.7 (1.0-1.7) L Current Medications: Meds: Current Medications Clonidine HCl (Catapres Tts-2) 1 patch WEEKLY TD Last administered on at 15:06; Start 04/17/18 at 15:00 Acetaminophen (Tylenol) 650 mg PRN Q6HRS PRN PO PAIN / TEMP Last administered on 04/18/18at 13:54; Start 04/17/18 at 15:15 Carbidopa/Levodopa (Sinemet 25/100) 1 tab TIDWMEALS PO Last administered on at 17:18; Start 04/17/18 at 17:00 Gabapentin (Neurontin) 300 mg PRN DAILY PRN PO NEUROPATHY; Start 04/17/18 at 15 :15 Ketoconazole (Nizoral 2% Topical) 1 giorgio DAILY TP ; Start 04/18/18 at 09:00 Lisinopril (Prinivil) 10 mg DAILY PO Last administered on 04/18/18at 09:16; Start 04/18/18 at 09:00 Senna/Docusate Sodium (Senna Plus) 1 tab BID PO Last administered on 04/18/18at 09:16; Start 04/17/18 at 21:00 Simvastatin (Zocor) 40 mg QHS PO ; Start 04/17/18 at 21:00 Non-Formulary Medication (Bisoprolol Fumarate/Hctz (Bisoprolol-Hctz 5-6.25 Mg Tab)) 1 tab DAILY PO ; Start 04/18/18 at 09:00; Stop 04/18/18 at 09:00; Status DC Budesonide (Entocort) 3 mg DAILY PO ; Start 04/18/18 at 09:00; Stop 04/18/18 at 09:00; Status DC Hydrocortisone (Cortaid) 1 giorgio BID TP ; Start 04/17/18 at 21:00 Non-Formulary Medication (Liraglutide (Victoza 3-Melvin)) 0.6 mg DAILY SQ ; Start 04/18/18 at 09:00; Status UNV Melatonin 6 mg QHS PO Last administered on 04/18/18at 01:31; Start 04/17/18 at 21:00 Pantoprazole Sodium (Protonix) 40 mg BIDBFRMEAL PO Last administered on at 17:18; Start 04/17/18 at 16:30 Pioglitazone HCl (Actos) 15 mg DAILY PO Last administered on 04/18/18at 09:16; Start 04/18/18 at 09:00 Pramipexole Dihydrochloride (miraPEX) 0.5 mg [id number] PO Last administered on at 21:25; Start 04/17/18 at 21:00 Quetiapine Fumarate (SEROquel) 12.5 mg PRN DAILY PRN PO ANXIETY/AGITATION; Start 04/17/18 at 15:30 Quetiapine Fumarate (SEROquel) 50 mg TID PO Last administered on 04/18/18at 09: 16; Start 04/17/18 at 15:30 Olanzapine (ZyPREXA IM) 5 mg PRN Q4HRS PRN IM AGITATION Last administered on at 14:19; Start 04/17/18 at 15:30 Atenolol (Tenormin) 50 mg DAILY PO Last administered on 04/18/18at 09:17; Start 04/18/18 at 09:00 Hydrochlorothiazide (Hydrodiuril) 6.25 mg DAILY PO ; Start 04/18/18 at 09:00 Pneumococcal Polyvalent Vaccine (Pneumovax 23) 0.5 ml ONCE ONCE VAX IM ; Start 04/17/18 at 21:00; Stop 04/17/18 at 21:01; Status DC Risperidone (RisperDAL) 0.5 mg 1X ONCE SL Last administered on 04/17/18at 20:08 ; Start 04/17/18 at 19:45; Stop 04/17/18 at 19:46; Status DC Risperidone (RisperDAL) 0.5 mg 1X ONCE SL ; Start 04/17/18 at 22:15; Stop 04/17 at 22:16; Status DC Risperidone (RisperDAL) 1 mg QHS SL ; Start 04/18/18 at 21:00 Active Scripts Active Reported Victoza 3-Melvin (Liraglutide) 0.6 Mg/0.1 Ml Pen.injctr 0.6 Mg SQ DAILY Simvastatin 40 Mg Tablet 1 Tab PO QHS Senna-Docusate Sodium Tablet (Sennosides/Docusate Sodium) 1 Each Tablet 1 Each PO BID Seroquel (Quetiapine Fumarate) 50 Mg Tablet 1 Tab PO TID Seroquel (Quetiapine Fumarate) 25 Mg Tablet 12.5 Mg PO PRN DAILY PRN Mirapex (Pramipexole Di-Hcl) 0.25 Mg Tablet 0.5 Mg PO TID Actos (Pioglitazone Hcl) 15 Mg Tablet 1 Tab PO DAILY Pantoprazole Sodium 40 Mg Tablet.dr 1 Tab PO BIDBFRMEAL Melatonin 3 Mg Tablet 6 Mg PO QHS Lisinopril 10 Mg Tablet 10 Mg PO DAILY Ketoconazole 15 Gm Cream..g. 1 Giorgio TP DAILY Hydrocortisone 453.6 Gm Cream..g. 1 Giorgio TP BID Gabapentin 300 Mg Capsule 300 Mg PO PRN DAILY PRN Sinemet 25-100 Mg Tablet (Carbidopa/Levodopa) 1 Each Tablet 1 Tab PO TIDWMEALS Entocort Ec (Budesonide) 3 Mg Capdr...er 3 Cap PO DAILY Bisoprolol-Hctz 5-6.25 Mg Tab (Bisoprolol Fumarate/Hctz) 1 Each Tablet 1 Tab PO DAILY Tylenol (Acetaminophen) 325 Mg Tablet 650 Mg PO PRN Q6HRS PRN I have reviewed the current psychotropics carefully including drug interactions. Risk benefit ratio favors no change other than as noted in my dictated progress note. 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
--- NOTE | 2018-04-19 03:52 | CONS ---
DATE OF CONSULTATION: 04/17/2018 NEUROLOGIC CONSULTATION REFERRING PHYSICIAN: Dr. Carmichael. REASON FOR CONSULTATION: Acute mental status changes. HISTORY OF PRESENT ILLNESS: This is a 72-year-old right-handed male, who has had longstanding history of Parkinson disease, was transferred from [facility] to be [facility] to [facility]. The patient apparently had been at [facility] - medical floor for approximately 7-8 days. He was admitted because of diarrhea and abdominal pain. The patient had a complete GI workup including EGD, which showed a superficial nonbleeding pyloric ulcer and had a colonoscopy, which revealed possible Crohn disease. According to his daughter, the patient's mental status deteriorated and started having agitation, delusion, and psychosis. The symptoms have been aggravated after taking steroid treatment for possible underlying acute Crohn disease. Neuro consult was requested because of the patient's mental status has been worsened and because the patient needs evaluation for Parkinson disease and his medications. Apparently, the patient refused to take his Parkinson medicine and others since he has been in [facility]. He is very restless, agitated with destructive behavior. He has been aggressive, threatening to kill himself and striking out at the others. He has had intermittent suicidal ideation. According to his daughter, the patient [facility], which revealed no significant abnormalities. The patient has been on carbidopa/levodopa and Mirapex, which was reduced by his previous neurologist to 0.5 mg t.i.d. During the interview, the patient was found to be extremely agitated and striking out at others around him. He refused to answer questions and he was not cooperative. PAST MEDICAL HISTORY: Quite significant for coronary artery disease, status post coronary artery bypass graft, diabetes mellitus type 2, intermittent hypoglycemia, recent diagnosis of possible Crohn disease and pyloric nonbleeding ulcer, anxiety disorders and possible depression, hyperlipidemia, chronic lower back pain, and Parkinson disease diagnosed 7 years ago. PAST SURGICAL HISTORY: Significant for lumbar spine surgery, lumbosacral ____, and status post coronary artery bypass graft. FAMILY HISTORY: Mother had heart disease. Father had bone cancer. SOCIAL HISTORY: The patient is a . His 5 years ago, and he has been depressed and anxious since he lives independently. He drives. He denies smoking but he drinks alcohol occasionally. CURRENT HOSPITAL MEDICATIONS: Hydrochlorothiazide 6.25 mg daily, atenolol 50 mg daily, Actos 15 mg daily, Victoza, lisinopril 10 mg daily, ketoconazole 2% topical, Mirapex 0.5 mg t.i.d., melatonin 6 mg at bedtime, simvastatin or Zocor 40 mg at bedtime, carbidopa/levodopa 25/100 t.i.d., Protonix 40 mg b.i.d. before meals, Zyprexa 5 mg IM q.4 hours p.r.n. for agitation, Seroquel 50 mg t.i.d., gabapentin 300 mg daily, Tylenol, and clonidine patches TTS-2 one patch weekly. ALLERGIES: METFORMIN AND SITAGLIPTIN. REVIEW OF SYSTEMS: A 10-point review of system was performed as mentioned above in the history of present illness. PHYSICAL EXAMINATION: GENERAL: A well-developed and well-nourished male, not in acute distress. He weighs 170 pounds. VITAL SIGNS: Blood pressure 165/63, respiratory rate 20, pulse 76 and regular, temperature 98.2, and oxygen saturation 97% on room air. HEENT: Normocephalic and atraumatic. Otherwise, no obvious abnormalities. NECK: Supple. Negative for carotid bruit, lymphadenopathy or thyromegaly. LUNGS: Clear to A and P. CARDIOVASCULAR: Regular rate and rhythm, normal S1 and S2. ABDOMEN: Soft. Bowel sounds positive. EXTREMITIES: Negative for cyanosis, clubbing, pitting edema. NEUROLOGICAL: MENTAL STATUS: The patient is awake, but restless, agitated, refused to cooperate further with mental status evaluation, he refused to follow any commands. CRANIAL NERVES: The patient appears to have equal pupils, reactive to light and accommodation. The extraocular movements are intact. No nystagmus. No facial motor or sensory deficit. Hearing appeared to be intact. Further evaluation is limited at this time. MOTOR EXAMINATION: The patient moves all extremities equally. The tone was normal. The strength is difficult to evaluate at this time. The patient has persistent resting tremor of the upper extremity, more prominent on the right side. SENSORY EXAMINATION: Normal pinprick and light touch senses throughout. Deep tendon reflexes were symmetric and hypoactive. Gait not tested. LABORATORY DATA: From 04/15/2018, revealed sodium of 142, potassium 3.8, chloride 102, CO2 of 29, glucose 159, BUN 24, creatinine 1.1. CBC revealed white blood cells of 9200, hemoglobin 10.3, hematocrit 33, and platelet count 279,000. DIAGNOSTIC DATA: Nonenhanced head CT scan performed on 04/11/2018, revealed no acute intracranial process, otherwise unremarkable. IMPRESSION: 1. Acute encephalopathy, probably due to prolonged hospitalization complicated with psychosis, which is probably aggravated by underlying medical conditions and parkinsonism; however, psychosis has started before the patient receive steroid for possible underlying Crohn disease. 2. Multiple medical problems include possible Crohn disease, hypertension, hyperlipidemia, diabetes mellitus, coronary artery disease, anemia, and chronic low back pain. 3. Multiple psychiatric problems include anxiety, possible history of depressions or bipolar. RECOMMENDATIONS: 1. Continue with current management initiated by Dr. Carmichael. 2. Agree with discontinuing the steroids for now. 3. Continue with current medication for Parkinson's disease including Mirapex 0.5 mg t.i.d. and carbidopa/levodopa 25/100 t.i.d. 4. Psychiatric evaluation. M Sp STRONG MD DR: MARCUS/rebecca JOB#: [id number] / [id number]
[2018-04-19 07:03] LABS: CALCIUM 8.8 mg/dL (8.5-10.1); CREATININE 1.3 mg/dL (0.7-1.3); GFR 54.3; POTASSIUM 3.9 mmol/L (3.5-5.1)
[2018-04-19 07:09] VITALS: BP 157/74
[2018-04-19 07:09] LABS: BASO # 0.1 x10^3/uL (0.0-0.2); BASO % 1 % (0-3); EOS # 0.5 x10^3/uL (0.0-0.7); EOS % 5 % (0-3); HEMATOCRIT 35.8 % (39.0-53.0); HEMOGLOBIN 11.2 g/dL (13.0-17.5); LYMPH # 2.8 x10^3/uL (1.0-4.8); LYMPH % 26 % (24-48); MEAN CORPUSCULAR HEMOGLOBIN 24 pg (25-35); MEAN CORPUSCULAR HGB CONC 31 g/dL (31-37); MEAN CORPUSCULAR VOLUME 77 fL (79-100); MONO # 0.6 x10^3/uL (0.0-1.1); MONO % 6 % (0-9); NEUT # 6.9 x10^3uL (1.8-7.7); NEUT % 63 % (31-73); PLATELET COUNT 269 x10^3/uL (140-400); RED BLOOD COUNT 4.65 x10^6/uL (4.30-5.70); RED CELL DISTRIBUTION WIDTH 17.1 % (11.5-14.5); WHITE BLOOD COUNT 10.9 x10^3/uL (4.0-11.0)
[2018-04-19] MEDS: SENNOSIDES/DOCUSATE 8.6/50MG TABLET. PO SCH (07:32)
[2018-04-19] MEDS: PIOGLITAZONE 15 MG TABLET. PO SCH (07:32)
[2018-04-19] MEDS: LISINOPRIL 10 MG TABLET PO SCH (07:32)
[2018-04-19] MEDS: QUEtiapine 50 MG TABLET. PO SCH ×2 (07:32→13:32)
[2018-04-19 07:33] VITALS: BP 157/74
[2018-04-19] MEDS: PRAMIPEXOLE 0.5 MG TABLET. PO SCH ×2 (07:33→13:32)
[2018-04-19] MEDS: CARBIDOPA/LEVODOPA 25/100MG TABLET PO SCH ×3 (07:33→16:42)
[2018-04-19] MEDS: hydroCHLOROthiazide 25 MG TABLET PO SCH (07:33)
[2018-04-19] MEDS: ATENOLOL 50 MG TABLET PO SCH (07:33)
[2018-04-19] MEDS: PANTOPRAZOLE 40 MG TABLET. PO SCH ×2 (07:33→16:42)
[2018-04-19] MEDS: NON FORMULARY ITEM (Liraglutide (Victoza 3-Pak) 0.6 MG) SQ SCH (07:35)
[2018-04-19] MEDS: HYDROCORTISONE 1% TOPICAL CREAM 30GM TUBE. TP SCH (07:35)
[2018-04-19] MEDS: KETOCONAZOLE 2% TOPICAL CREAM 30GM TUBE. TP SCH (07:35)
--- NOTE | 2018-04-19 09:39 | PN ---
DATE: 04/18/2018 SUBJECTIVE: The patient denies any new medical or neurological complaints. The patient has been restless and sometime agitated. He could not sleep last night; however, his mental status has been somewhat better this morning, but currently he is somewhat cooperative and also some questions, but he continues to be confused and restless. OBJECTIVE: GENERAL: Well-developed, well-nourished male, not in acute distress. VITAL SIGNS: Blood pressure 101/63, respiratory rate 18, pulse 62, temperature 97.3, oxygen saturation 94% on room air. HEENT: Normocephalic, atraumatic, otherwise unremarkable. NECK: Supple. LUNGS: Clear. CARDIOVASCULAR: Regular rate and rhythm, normal S1, S2. ABDOMEN: Soft. EXTREMITIES: Are negative for cyanosis, clubbing or pitting edema. NEUROLOGIC: The patient is alert and he knows he is in the hospital, but further evaluation is limited at this time. Cranial nerves appeared to be grossly intact; however, the examination is limited. Motor examination: The patient moves his all upper and lower extremities, but he refused to cooperate with manual muscle examination. Sensory examination revealed normal pinprick and light touch senses. Further neurological examination is limited at this time. LABORATORY DATA: CBC revealed white blood cells of 9.8 thousand, hemoglobin 10.8, hematocrit 34.4, platelet count 242,000. Chemistry revealed sodium of 141, potassium 3.9, chloride 104, CO2 of 32, BUN 21, creatinine 1.4, glucose 137, calcium 8.8. Liver enzymes are slightly elevated, AST and low ALT with elevated CRP. IMPRESSION: 1. Acute encephalopathy -- intermittent acute psychosis. 2. Parkinson's disease. 3. Possible Crohn disease. 4. Multiple medical problems include diabetes mellitus, hypertension, hyperlipidemia, coronary artery disease. 5. Multiple psychiatric problems including anxiety, depressive disorders, and possible underlying early dementia. RECOMMENDATIONS: Would continue with current managements initiated by Dr. Carmichael and Dr. Dodge and continue with current medications including Mirapex and carbidopa/levodopa. M Sp STRONG MD DR: MARCUS/rebecca JOB#: [id number] / [id number]
--- NOTE | 2018-04-19 12:25 | PN ---
DATE: 04/17/2018 This late entry, 04/17/2018, covers elements not covered in my initial note. SUBJECTIVE: I met with the patient in the evening. Discussed with nursing staff on a couple of occasions earlier in the day. The patient remains extremely psychotic, agitated, remains on one-on-one status, threatening to hurt himself. He has not acted out on it, but very paranoid, rambling in his speech. REVIEW OF SYSTEMS: Ambulation impaired. No CV, , pulmonary, eye, ENT system symptoms on review. Reliability poor. MENTAL STATUS EXAM: Oriented to himself and situation. Speech is coherent, pressured. Abstraction fair, computation impaired, language function intact, attention span short. The patient did not remember meeting me the evening before or any of the conversation we had had at that time. He threatened to hurt the nursing staff on one occasion earlier in the day as well. LABORATORY DATA: Reviewed. I have also reviewed extensive records from the psychiatric consult at [facility]. IMPRESSION: Possible diagnosis of bipolar disorder and psychosis secondary to general medical condition and perhaps anti-parkinsonian medications. Additional review is suggestive of possible Lewy body dementia or dementia secondary to Parkinson's with psychosis. PLAN: Dr. Calderon has seen the patient for Neurology consult and Sinemet dosage is not being reduced. The restraints continue intermittently. We will go ahead and start Risperdal 0.5 mg p.o. at bedtime x 1. If he tolerates it well, we will repeat it and I would call the nursing staff back after my rounds to initiate this. Continue rest unchanged. Consider Depakote as a mood stabilizer. MAN Dalton CHAMPAGNE MD DR: SERENITY/rebecca JOB#: [id number] / [id number]
--- NOTE | 2018-04-19 12:29 | PN ---
DATE: 04/18/2018 This note covers elements not covered in my initial note, 04/18/2018. SUBJECTIVE: I met with the patient in the evening. Discussed with nursing staff. The patient remains intermittently psychotic. He has received Zyprexa IM yesterday and today as well. He is no longer in restraints, remains on one-on-one status, quite anxious, restless, disorganized, repetitively rubbing on the tags he has removed from his pillow. REVIEW OF SYSTEMS: No CV, , pulmonary, eye, ENT system symptoms on review. MENTAL STATUS EXAM: Oriented to himself. Insight, judgment, recent memory is impaired. Language function intact. Attention span short. Mood and affect remains somewhat labile. LABORATORY DATA: Reviewed. IMPRESSION: Bipolar I disorder, mixed with psychotic features; anxiety disorder, unspecified; Lewy body dementia versus major neurocognitive disorder secondary to Parkinson's with delusions; psychosis due to general medical condition. PLAN: We will go ahead and increase the Risperdal to 1 mg p.o. at bedtime. Continue the Zyprexa p.r.n. Consider adding Depakote as a mood stabilizer. He remains on Seroquel 50 mg 3 times a day and for now, we will continue this, but once he responds to the Risperdal, we may go ahead and discontinue it. May consider adding Exelon patch given the questionable diagnosis of Lewy body dementia. ALYSHA CHAMPAGNE MD DR: SERENITY/rebecca JOB#: [id number] / [id number]
[2018-04-19] MEDS: risperiDONE ORAL 1 MG/ML 30ml BOTTLE. SL SCH (13:07)
[2018-04-19] MEDS ORDERED: RISP37.5 SL (18:26)
[2018-04-19] MEDS ORDERED: CLON0.1T PO (18:26)
[2018-04-19] MEDS ORDERED: OLAN5TAB9 PO (18:26)
[2018-04-19] MEDS ORDERED: CLON1PAT2 TD (19:41)
--- NOTE | 2018-04-20 04:31 | PN ---
DATE: SUBJECTIVE: The patient denies any new medical neurological complaints. He has been more cooperative and resting comfortably. However, he has difficulty to walk without assistance. He denies headache, visual disturbances, nausea, vomiting, chest pain, shortness of breath or palpitation. OBJECTIVE: GENERAL: Well developed and well nourished male, not in acute distress. VITAL SIGNS: Afebrile, temperature 97.8, oxygen saturation is 99%, pulse is 60 and regular, blood pressure 152/74 with a respiratory rate of 22. HEENT: Normocephalic and atraumatic, otherwise unremarkable. NECK: Supple. Negative for carotid bruit, lymphadenopathy or thyromegaly. LUNGS: Clear to A and P. CARDIOVASCULAR: Regular rate and rhythm. Normal S1 and S2. There is no S3, S4 or murmur. ABDOMEN: Soft. Bowel sounds positive. EXTREMITIES: Negative for cyanosis, clubbing or pitting edema. NEUROLOGICAL EXAM: Mental Status: The patient is alert and oriented to himself, place, and person. He named the [employer]. He is oriented to time. He denies hallucination or delusion. Cranial nerves are grossly intact. No focal motor or sensory deficit. Deep tendon reflexes were symmetric and hypoactive with absent Achilles responses. Gait not tested as the patient declined. LABORATORY DATA: CBC revealed white blood cells of 10.9, hemoglobin 11.2, hematocrit 35.8, and platelet count 269,000. IMPRESSION: 1. Acute encephalopathy with intermittent psychosis - improved. 2. Longstanding history of Parkinson's disease. 3. Possible underlying dementia. 4. Multiple medical problems including hypertension, hyperlipidemia, and diabetes mellitus. 5. Multiple psychiatric problems including anxiety disorders and possible bipolar disorder. RECOMMENDATIONS: 1. Continue with current management. Continue with current medical and psychiatric care. 2. We will follow up with Dr. Dodge and possible starting tapering his anti-Parkinson medications. M Sp STRONG MD DR: MARCUS/rebecca JOB#: [id number] / [id number]
== END 2018-04-19 17:00 | DRG 71 ==
LOC: 1 SOUTH 11:20
PROVIDERS: ADMIT Internal Medicine; ATTEND Internal Medicine
DX: G93.40 Encephalopathy, unspecified (principal); F02.81 Dementia in other diseases classified elsewhere, unspecified severity, with behavioral disturbance; F23 Brief psychotic disorder; F31.60 Bipolar disorder, current episode mixed, unspecified; R45.851 Suicidal ideations; E11.9 Type 2 diabetes mellitus without complications; E78.5 Hyperlipidemia, unspecified; G20 Parkinson's disease; F09 Unspecified mental disorder due to known physiological condition; F41.9 Anxiety disorder, unspecified; F63.9 Impulse disorder, unspecified; I10 Essential (primary) hypertension; I25.10 Atherosclerotic heart disease of native coronary artery without angina pectoris; Z79.899 Other long term (current) drug therapy; Z80.8 Family history of malignant neoplasm of other organs or systems; Z82.49 Family history of ischemic heart disease and other diseases of the circulatory system; Z95.1 Presence of aortocoronary bypass graft; Z88.8 Allergy status to other drugs, medicaments and biological substances
CPT/HCPCS: 36415; 80048; 80053; 82947; 85025; 85651; 86140; J3490

== ENCOUNTER 2018-04-19 17:25 | Inpatient (IN) | payer MEDICARE ==
[~2018-04-19] VITALS: Ht 170.2 cm; Wt 80.6 kg
[2018-04-19] MEDS ORDERED: METHYL SALICYLATE/MENTHOL TOPICAL OINTMENT 29GM TUBE. TP PRN (18:00)
[2018-04-19] MEDS ORDERED: MAG HYDROX/AL HYDROX/SIMETH 30 ML ORAL.SUSP PO PRN (18:00)
[2018-04-19 18:09] VITALS: BP 117/55
[2018-04-19] MEDS ORDERED: OLAN5TAB9 PO (18:26)
[2018-04-19] MEDS ORDERED: CLON0.1T PO (18:26)
[2018-04-19] MEDS ORDERED: RISP37.5 SL (18:26)
[2018-04-19] MEDS ORDERED: GABAPENTIN 300 MG CAPSULE. PO PRN (19:30)
[2018-04-19] MEDS ORDERED: ACETAMINOPHEN 325 MG TABLET PO PRN (19:30)
[2018-04-19] MEDS ORDERED: CLON1PAT2 TD (19:41)
[2018-04-19] MEDS ORDERED: OLANZapine IM 10 MG VIAL. IM PRN (19:45)
[2018-04-19] MEDS ORDERED: QUEtiapine 25 MG TABLET. PO PRN (19:45)
[2018-04-19] MEDS ORDERED: OLANZapine 5 MG TABLET PO PRN (19:49)
[2018-04-19] MEDS: MELATONIN 3 MG TABLET PO SCH (19:54)
[2018-04-19] MEDS: SIMVASTATIN 40 MG TABLET. PO SCH (19:54)
[2018-04-19] MEDS: QUEtiapine 50 MG TABLET. PO SCH (19:54)
[2018-04-19] MEDS: SENNOSIDES/DOCUSATE 8.6/50MG TABLET. PO SCH (19:55)
[2018-04-19] MEDS: PRAMIPEXOLE 0.5 MG TABLET. PO SCH (19:55)
[2018-04-19] MEDS: HYDROCORTISONE 1% TOPICAL CREAM 30GM TUBE. TP SCH (20:32)
--- NOTE | 2018-04-19 20:49 | PDOC ---
Exam Note: Nickolas Note: Please also refer to the separate dictated note~for this date of service dictated separately.~Patient seen individually. Discussed the patient with Nursing staff reviewed the chart.~Reviewed interim history and current functioning. Reviewed vital signs,~Labs/ Radiology~and current medications noted below. Continue current treatment with the changes noted in the dictated addendum note Assessment: Vital Signs: Vital Signs Date Time Temp Pulse Resp B/P (MAP) Pulse Ox O2 Delivery O2 Flow Rate FiO2 04/19/18 18:09 98.5 84 20 117/55 (75) 92 Labs: Laboratory Tests Test 04/19/18 18:20 04/19/18 19:50 Magnesium Level 1.9 mg/dL (1.8-2.4) Glucose (Fingerstick) 176 mg/dL (70-99) H Current Medications: Meds: Current Medications Acetaminophen (Tylenol) 650 mg PRN Q6HRS PRN PO PAIN / TEMP; Start 04/19/18 at 18:00 Multi-Ingredient Ointment (Analgesic [place]) 1 giorgio PRN QID PRN TP MUSCLE PAIN; Start 04/19/18 at 18:00 Al Hydroxide/Mg Hydroxide (Mylanta Plus Xs) 15 ml PRN AFTMEALHC PRN PO DYSPEPSIA; Start 04/19/18 at 18:00 Magnesium Hydroxide (Milk Of Magnesia) 2,400 mg PRN QHS PRN PO CONSTIPATION; Start 04/19/18 at 18:00 Melatonin 6 mg QHS PO Last administered on 04/19/18at 19:54; Start 04/19/18 at 21:00 Olanzapine (ZyPREXA IM) 5 mg PRN Q4HRS PRN IM AGITATION; Start 04/19/18 at 19: 45; Status Cancel Quetiapine Fumarate (SEROquel) 12.5 mg PRN DAILY PRN PO ANXIETY / AGITATION; Start 04/19/18 at 19:45 Quetiapine Fumarate (SEROquel) 50 mg TID PO Last administered on 04/19/18at 19: 54; Start 04/19/18 at 21:00 Acetaminophen (Tylenol) 650 mg PRN Q6HRS PRN PO PAIN / TEMP; Start 04/19/18 at 19:30; Status UNV Carbidopa/Levodopa (Sinemet 25/100) 1 tab TIDWMEALS PO ; Start 04/20/18 at 08:00 Clonidine HCl (Catapres Tts-2) 1 patch WEEKLY TD ; Start 04/24/18 at 09:00 Gabapentin (Neurontin) 300 mg PRN DAILY PRN PO NEUROPATHY; Start 04/19/18 at 19 :30 Ketoconazole (Nizoral 2% Topical) 1 giorgio DAILY TP ; Start 04/20/18 at 09:00 Lisinopril (Prinivil) 10 mg DAILY PO ; Start 04/20/18 at 09:00 Senna/Docusate Sodium (Senna Plus) 1 tab BID PO Last administered on 04/19/18at 19:55; Start 04/19/18 at 21:00 Simvastatin (Zocor) 40 mg QHS PO Last administered on 04/19/18at 19:54; Start at 21:00 Atenolol (Tenormin) 50 mg DAILY PO ; Start 04/20/18 at 09:00 Budesonide (Entocort) 3 mg DAILY PO ; Start 04/20/18 at 09:00 Hydrocortisone (Cortaid) 1 giorgio BID TP ; Start 04/19/18 at 21:00 Non-Formulary Medication (Liraglutide (Victoza 3-Melvin)) 0.6 mg DAILY SQ ; Start 04/20/18 at 09:00; Status UNV Pantoprazole Sodium (Protonix) 40 mg BIDBFRMEAL PO ; Start 04/20/18 at 07:30 Pioglitazone HCl (Actos) 15 mg DAILY PO ; Start 04/20/18 at 09:00 Pramipexole Dihydrochloride (miraPEX) 0.5 mg [id number] PO Last administered on at 19:55; Start 04/19/18 at 21:00 Risperidone (RisperDAL) 1 mg DAILY SL ; Start 04/20/18 at 09:00 Olanzapine (ZyPREXA ZYDIS) 5 mg PRN Q2HR PRN PO ANXIETY / AGITATION Last administered on 04/19/18at 19:55; Start 04/19/18 at 20:00 Olanzapine (ZyPREXA) 5 mg PRN Q4HRS PRN PO AGITATION; Start 04/19/18 at 19:49; Status Cancel Hydrochlorothiazide (Hydrodiuril) 6.25 mg DAILY PO ; Start 04/20/18 at 09:00 Active Scripts Active Reported Clonidine Tts-2 (Clonidine) 1 Each Patch.tdwk 1 Patch TD WEEKLY Olanzapine 5 Mg Tablet 1 Tab PO PRN Q4HRS PRN Victoza 3-Melvin (Liraglutide) 0.6 Mg/0.1 Ml Pen.injctr 0.6 Mg SQ DAILY Simvastatin 40 Mg Tablet 1 Tab PO QHS Senna-Docusate Sodium Tablet (Sennosides/Docusate Sodium) 1 Each Tablet 1 Each PO BID Seroquel (Quetiapine Fumarate) 50 Mg Tablet 1 Tab PO TID Seroquel (Quetiapine Fumarate) 25 Mg Tablet 12.5 Mg PO PRN DAILY PRN Mirapex (Pramipexole Di-Hcl) 0.25 Mg Tablet 0.5 Mg PO TID Actos (Pioglitazone Hcl) 15 Mg Tablet 1 Tab PO DAILY Pantoprazole Sodium 40 Mg Tablet.dr 1 Tab PO BIDBFRMEAL Melatonin 3 Mg Tablet 6 Mg PO QHS Lisinopril 10 Mg Tablet 10 Mg PO DAILY Ketoconazole 15 Gm Cream..g. 1 Giorgio TP DAILY Hydrocortisone 453.6 Gm Cream..g. 1 Giorgio TP BID Gabapentin 300 Mg Capsule 300 Mg PO PRN DAILY PRN Sinemet 25-100 Mg Tablet (Carbidopa/Levodopa) 1 Each Tablet 1 Tab PO TIDWMEALS Entocort Ec (Budesonide) 3 Mg Capdr...er 3 Cap PO DAILY Bisoprolol-Hctz 5-6.25 Mg Tab (Bisoprolol Fumarate/Hctz) 1 Each Tablet 1 Tab PO DAILY Tylenol (Acetaminophen) 325 Mg Tablet 650 Mg PO PRN Q6HRS PRN I have reviewed the current psychotropics carefully including drug interactions. Risk benefit ratio favors no change other than as noted in my dictated progress note. Diagnosis: Problems: (1) Anxiety disorder (2) Impulse control disorder (3) Bipolar affective disorder, mixed (4) Parkinson's disease (5) Dementia due to Parkinson's disease with behavioral disturbance (6) Psychosis ALYSHA CHAMPAGNE MD Apr 19, 2018 20:49
[2018-04-20 06:19] LABS: BACTERIA,URINE FEW /HPF (0-FEW); BILIRUBIN,URINE NEG (NEG); CLARITY,URINE HAZY; COLOR,URINE YELLOW; GLUCOSE,URINE NEG (NEG); HYALINE CASTS, URINE MOD /HPF; NITRITE,URINE NEG (NEG); SQUAMOUS EPITHELIAL CELL,UR FEW /LPF; UROBILINOGEN,URINE 1 mg/dL (0.2 mg/dL)
[2018-04-20 06:20] LABS: GRANULAR CASTS,URINE OCC /HPF; SPERM,URINE PRESENT /HPF
[2018-04-20 06:21] VITALS: BP 118/67
[2018-04-20] MEDS: PANTOPRAZOLE 40 MG TABLET. PO SCH ×2 (07:30→16:30)
[2018-04-20] MEDS: CARBIDOPA/LEVODOPA 25/100MG TABLET PO SCH ×3 (08:00→17:16)
[2018-04-20] MEDS: KETOCONAZOLE 2% TOPICAL CREAM 30GM TUBE. TP SCH (09:00)
[2018-04-20] MEDS: ATENOLOL 50 MG TABLET PO SCH (09:00)
[2018-04-20] MEDS: hydroCHLOROthiazide 25 MG TABLET PO SCH (09:00)
[2018-04-20] MEDS: QUEtiapine 50 MG TABLET. PO SCH (09:00)
[2018-04-20] MEDS: SENNOSIDES/DOCUSATE 8.6/50MG TABLET. PO SCH ×2 (09:00→21:00)
[2018-04-20] MEDS: LISINOPRIL 10 MG TABLET PO SCH (09:00)
[2018-04-20] MEDS: HYDROCORTISONE 1% TOPICAL CREAM 30GM TUBE. TP SCH ×2 (09:00→21:00)
[2018-04-20] MEDS: BUDESONIDE 3 MG CAP.ER.24H. PO SCH (09:00)
[2018-04-20] MEDS: PIOGLITAZONE 15 MG TABLET. PO SCH (09:00)
[2018-04-20] MEDS: PRAMIPEXOLE 0.5 MG TABLET. PO SCH ×3 (09:00→21:00)
[2018-04-20] MEDS ORDERED: NON FORMULARY ITEM (Liraglutide (Victoza 3-Pak) 0.6 MG) SQ SCH (09:00)
[2018-04-20] MEDS: OLANZapine IM 10 MG VIAL. IM SCH (10:51)
[2018-04-20] MEDS: risperiDONE ORAL 1 MG/ML 30ml BOTTLE. SL SCH ×2 (13:41→14:38)
[2018-04-20 14:04] LABS: THYROID STIM HORMONE (TSH) 3.323 uIU/mL (0.358-3.740)
[2018-04-20 16:27] VITALS: BP 122/78
[2018-04-20] MEDS ORDERED: cloNIDine TTS-2 1 PATCH PATCH TD ONE (18:15)
--- NOTE | 2018-04-20 18:24 | HP ---
ADMIT DATE: 04/19/2018 This is a late entry, 04/19/2018, covers the elements not covered in my initial note. SUMMARY OF PROGRESS: I met with the patient evening of 04/19/2018, previously discussed with the nursing staff on 4 or 5 occasions, both on [address] [place] [address] where he was admitted prior to this admission on the medical/surgical floor and since he has been transferred to the [facility] for ongoing psychotic symptoms, agitation, aggression, marked mood lability. IDENTIFYING DATA: The patient is a 72-year-old male who was initially referred to [facility] from [facility] following an endoscopic procedure, after which he had become extremely psychotic, agitated, aggressive, threatening to kill himself and everyone around him. He was sent to the half-way unit admitted to [address] [place] [address] where I followed him as a consultation. At certain points, he was trying to suffocate himself with a pillow banging his head on the bed rail, was on one-on-one status for extended period of time. He had a Neurology consult for his Parkinson's, but the anti-Parkinson's medications were not reduced. We did start him on atypical antipsychotics and I reviewed extensive records from [facility] including a psychiatric consultation with a diagnosis of psychosis versus bipolar, mixed with psychotic features. In the psychosis, the consequence of his Parkinson's medications are general medical condition. Behavior is persisted. He was unmanageable on [address] [place] [address], needing psychiatric stabilization and then referred to the [facility]. CHIEF COMPLAINT: "There is always so much noise here." It was somewhat noisy evening of 04/19/2018, when I met with him and I reassured him that most of the time things are less noisy." HISTORY OF PRESENT ILLNESS: The patient reportedly was living home alone in his apartment being assisted by his family and then went in for endoscopic procedure at [facility] and since then as noted, he has been extremely psychotic, aggressive, disruptive, volatile. He has had significant mood swings, sleep and appetite changes. He has appeared more confused as well. CT head at [facility] was unremarkable. PAST PSYCHIATRIC HISTORY: Nothing significant prior to this. PAST MEDICAL HISTORY: Parkinson's disease, history of coronary artery bypass graft, coronary artery disease, GERD, hypertension, diabetes mellitus, possible Crohn's disease, hyperlipidemia, pyloric nonbleeding ulcer, status post lumbar spine and lumbosacral surgery. Accu-Cheks a.c. and at bedtime. CODE STATUS: DNR. ALLERGIES: METFORMIN, SITAGLIPTIN. DIET: Regular diabetic. MEDICATIONS: Takes medications, takes them hidden, and takes them whole when he is not psychotic. Ambulates in a wheelchair with 2-person assist to transfer. Psychotropics at the time of this transfer, Risperdal 1 mg daily, Zyprexa IM 5 mg daily, Seroquel 25 mg 3 times a day. FAMILY HISTORY: Noncontributory. SOCIAL HISTORY: No alcohol, drug abuse, physical, sexual or elder abuse history is noted. Not known to be a perpetrator. MENTAL STATUS EXAMINATION: The patient was seen individually evening of 04/19/2018. He is quite anxious, restless, paranoid, suspicious, irritable, but denies active suicidal or homicidal ideation. He appears quite impulsive. Attention span short. Language function intact. Intellect average. Insight poor. Judgment marginal. Again, no active suicidal or homicidal ideation. ASSETS: Supportive family. Reaction to hospitalization, the patient is agreeable to it, reluctantly. IMPRESSION: Psychotic disorder, unspecified, probable bipolar 1 disorder, mixed with psychotic features; anxiety disorder, unspecified; impulse control disorder, unspecified; possible major neurocognitive disorder, Lewy body with delusion, depression, behavioral disturbance. Rest unchanged from above. PLAN: Admit to geropsychiatry unit at [facility]. I will see the patient daily individually from a psychiatric standpoint, medical followup per Dr. Carmichael/Dr. Buckner. Stop the patient's Seroquel. Continue the Zyprexa scheduled intramuscularly for efficacy, Risperdal liquid 1 mg daily, anytime of the day, he takes it. Consider adding Depakote. Further changes depending on his progress. We will consult Dr. Calderon for neurological followup and Parkinson's. MAN Dalton CHAMPAGNE MD DR: SERENITY/rebecca JOB#: [id number] / [id number]
[2018-04-20 19:08] LABS: THYROXINE 10.2 ug/dL (4.5-12.0)
--- NOTE | 2018-04-20 19:52 | PDOC ---
Exam Note: Nickolas Note: Please also refer to the separate dictated note~for this date of service dictated separately.~Patient seen individually. Discussed the patient with Nursing staff reviewed the chart.~Reviewed interim history and current functioning. Reviewed vital signs,~Labs/ Radiology~and current medications noted below. Continue current treatment with the changes noted in the dictated addendum note Assessment: Vital Signs: Vital Signs Date Time Temp Pulse Resp B/P (MAP) Pulse Ox O2 Delivery O2 Flow Rate FiO2 04/20/18 16:27 97.3 79 20 122/78 (93) 92 I&O Intake and Output 04/20/18 06:59 Intake Total 480 ml Balance 480 ml Intake Oral 480 ml Labs: Laboratory Tests Test 04/20/18 06:00 04/20/18 07:43 04/20/18 11:42 04/20/18 17:05 Urine Collection Type Unknown Urine Color Yellow Urine Clarity Hazy Urine pH 6.0 Urine Specific [place] <=1.005 Urine Protein Neg (NEG-TRACE) Urine Glucose (UA) Neg mg/dL (NEG) Urine Ketones (Stick) Trace mg/dL (NEG) Urine Blood Neg (NEG) Urine Nitrite Neg (NEG) Urine Bilirubin Neg (NEG) Urine Urobilinogen Dipstick 1 mg/dL (0.2 mg/dL) Urine Leukocyte Esterase Neg (NEG) Urine RBC 1-2 /HPF (0-2) Urine WBC 1-4 /HPF (0-4) Urine Squamous Epithelial Cells Few /LPF Urine Transitional Epithelial Cells /LPF Urine Bacteria Few /HPF (0-FEW) Urine Hyaline Casts Mod /HPF Urine Granular Casts Occ /HPF Urine Mucus Slight /LPF Urine Sperm Present /HPF Glucose (Fingerstick) 130 mg/dL (70-99) H 149 mg/dL (70-99) H 173 mg/dL (70-99) H Test 04/20/18 19:10 Glucose (Fingerstick) 138 mg/dL (70-99) H Current Medications: Meds: Current Medications Acetaminophen (Tylenol) 650 mg PRN Q6HRS PRN PO PAIN / TEMP; Start 04/19/18 at 18:00 Multi-Ingredient Ointment (Analgesic [employer]) 1 giorgio PRN QID PRN TP MUSCLE PAIN; Start 04/19/18 at 18:00 Al Hydroxide/Mg Hydroxide (Mylanta Plus Xs) 15 ml PRN AFTMEALHC PRN PO DYSPEPSIA; Start 04/19/18 at 18:00 Magnesium Hydroxide (Milk Of Magnesia) 2,400 mg PRN QHS PRN PO CONSTIPATION; Start 04/19/18 at 18:00 Melatonin 6 mg QHS PO Last administered on 04/19/18at 19:54; Start 04/19/18 at 21:00 Olanzapine (ZyPREXA IM) 5 mg PRN Q4HRS PRN IM AGITATION; Start 04/19/18 at 19: 45; Status Cancel Quetiapine Fumarate (SEROquel) 12.5 mg PRN DAILY PRN PO ANXIETY / AGITATION; Start 04/19/18 at 19:45; Stop 04/20/18 at 13:43; Status DC Quetiapine Fumarate (SEROquel) 50 mg TID PO Last administered on 04/19/18at 19: 54; Start 04/19/18 at 21:00; Stop 04/20/18 at 13:43; Status DC Acetaminophen (Tylenol) 650 mg PRN Q6HRS PRN PO PAIN / TEMP; Start 04/19/18 at 19:30; Status UNV Carbidopa/Levodopa (Sinemet 25/100) 1 tab TIDWMEALS PO ; Start 04/20/18 at 08:00 Clonidine HCl (Catapres Tts-2) 1 patch WEEKLY TD ; Start 04/24/18 at 09:00 Gabapentin (Neurontin) 300 mg PRN DAILY PRN PO NEUROPATHY; Start 04/19/18 at 19 :30 Ketoconazole (Nizoral 2% Topical) 1 giorgio DAILY TP ; Start 04/20/18 at 09:00 Lisinopril (Prinivil) 10 mg DAILY PO ; Start 04/20/18 at 09:00 Senna/Docusate Sodium (Senna Plus) 1 tab BID PO Last administered on 04/19/18at 19:55; Start 04/19/18 at 21:00 Simvastatin (Zocor) 40 mg QHS PO Last administered on 04/19/18at 19:54; Start at 21:00 Atenolol (Tenormin) 50 mg DAILY PO ; Start 04/20/18 at 09:00 Budesonide (Entocort) 3 mg DAILY PO ; Start 04/20/18 at 09:00 Hydrocortisone (Cortaid) 1 giorgio BID TP ; Start 04/19/18 at 21:00 Non-Formulary Medication (Liraglutide (Victoza 3-Melvin)) 0.6 mg DAILY SQ ; Start 04/20/18 at 09:00; Status UNV Pantoprazole Sodium (Protonix) 40 mg BIDBFRMEAL PO ; Start 04/20/18 at 07:30 Pioglitazone HCl (Actos) 15 mg DAILY PO ; Start 04/20/18 at 09:00 Pramipexole Dihydrochloride (miraPEX) 0.5 mg [id number] PO Last administered on at 19:55; Start 04/19/18 at 21:00 Risperidone (RisperDAL) 1 mg DAILY SL Last administered on 04/20/18at 14:38; Start 04/20/18 at 09:00 Olanzapine (ZyPREXA ZYDIS) 5 mg PRN Q2HR PRN PO ANXIETY / AGITATION Last administered on 04/19/18at 19:55; Start 04/19/18 at 20:00 Olanzapine (ZyPREXA) 5 mg PRN Q4HRS PRN PO AGITATION; Start 04/19/18 at 19:49; Status Cancel Hydrochlorothiazide (Hydrodiuril) 6.25 mg DAILY PO ; Start 04/20/18 at 09:00 Olanzapine (ZyPREXA IM) 5 mg DAILY IM Last administered on 04/20/18at 10:51; Start 04/20/18 at 10:00 Clonidine HCl (Catapres Tts-2) 1 patch 1X ONCE TD Last administered on at 18:11; Start 04/20/18 at 18:15; Stop 04/20/18 at 18:16; Status DC Active Scripts Active Reported Clonidine Tts-2 (Clonidine) 1 Each Patch.tdwk 1 Patch TD WEEKLY Olanzapine 5 Mg Tablet 1 Tab PO PRN Q4HRS PRN Victoza 3-Melvin (Liraglutide) 0.6 Mg/0.1 Ml Pen.injctr 0.6 Mg SQ DAILY Simvastatin 40 Mg Tablet 1 Tab PO QHS Senna-Docusate Sodium Tablet (Sennosides/Docusate Sodium) 1 Each Tablet 1 Each PO BID Seroquel (Quetiapine Fumarate) 50 Mg Tablet 1 Tab PO TID Seroquel (Quetiapine Fumarate) 25 Mg Tablet 12.5 Mg PO PRN DAILY PRN Mirapex (Pramipexole Di-Hcl) 0.25 Mg Tablet 0.5 Mg PO TID Actos (Pioglitazone Hcl) 15 Mg Tablet 1 Tab PO DAILY Pantoprazole Sodium 40 Mg Tablet.dr 1 Tab PO BIDBFRMEAL Melatonin 3 Mg Tablet 6 Mg PO QHS Lisinopril 10 Mg Tablet 10 Mg PO DAILY Ketoconazole 15 Gm Cream..g. 1 Giorgio TP DAILY Hydrocortisone 453.6 Gm Cream..g. 1 Giorgio TP BID Gabapentin 300 Mg Capsule 300 Mg PO PRN DAILY PRN Sinemet 25-100 Mg Tablet (Carbidopa/Levodopa) 1 Each Tablet 1 Tab PO TIDWMEALS Entocort Ec (Budesonide) 3 Mg Capdr...er 3 Cap PO DAILY Bisoprolol-Hctz 5-6.25 Mg Tab (Bisoprolol Fumarate/Hctz) 1 Each Tablet 1 Tab PO DAILY Tylenol (Acetaminophen) 325 Mg Tablet 650 Mg PO PRN Q6HRS PRN I have reviewed the current psychotropics carefully including drug interactions. Risk benefit ratio favors no change other than as noted in my dictated progress note. Diagnosis: Problems: (1) Anxiety disorder (2) Impulse control disorder (3) Bipolar affective disorder, mixed (4) Parkinson's disease (5) Dementia due to Parkinson's disease with behavioral disturbance (6) Psychosis ALYSHA CHAMPAGNE MD Apr 20, 2018 19:52
[2018-04-20] MEDS: MELATONIN 3 MG TABLET PO SCH (21:00)
[2018-04-20] MEDS: SIMVASTATIN 40 MG TABLET. PO SCH (21:00)
[2018-04-21 03:12] LABS: HEMOGLOBIN A1C 6.9 % (4.8-5.6)
[2018-04-21 05:54] VITALS: BP 124/62
[2018-04-21] MEDS: CARBIDOPA/LEVODOPA 25/100MG TABLET PO SCH ×3 (08:01→17:06)
[2018-04-21] MEDS: ATENOLOL 50 MG TABLET PO SCH (08:01)
[2018-04-21] MEDS: hydroCHLOROthiazide 25 MG TABLET PO SCH (08:01)
[2018-04-21] MEDS: LISINOPRIL 10 MG TABLET PO SCH (08:01)
[2018-04-21] MEDS: PRAMIPEXOLE 0.5 MG TABLET. PO SCH ×3 (08:01→19:55)
[2018-04-21] MEDS: SENNOSIDES/DOCUSATE 8.6/50MG TABLET. PO SCH ×2 (08:01→19:54)
[2018-04-21] MEDS: PANTOPRAZOLE 40 MG TABLET. PO SCH ×2 (08:01→17:06)
[2018-04-21] MEDS: PIOGLITAZONE 15 MG TABLET. PO SCH (08:02)
[2018-04-21] MEDS: risperiDONE ORAL 1 MG/ML 30ml BOTTLE. SL SCH (08:04)
[2018-04-21] MEDS: BUDESONIDE 3 MG CAP.ER.24H. PO SCH (08:04)
[2018-04-21] MEDS: KETOCONAZOLE 2% TOPICAL CREAM 30GM TUBE. TP SCH (09:00)
[2018-04-21] MEDS: HYDROCORTISONE 1% TOPICAL CREAM 30GM TUBE. TP SCH ×2 (09:00→19:55)
[2018-04-21] MEDS: OLANZapine IM 10 MG VIAL. IM SCH (12:10)
[2018-04-21] MEDS: CHOLECALCIFEROL (VITAMIN D3) 50,000 UNIT CAPSULE PO SCH (14:31)
[2018-04-21 15:57] VITALS: BP 103/59
[2018-04-21] MEDS ORDERED: traZODone 100 MG TABLET. PO PRN (17:00)
--- NOTE | 2018-04-21 19:50 | PDOC ---
Exam Note: Nickolas Note: Please also refer to the separate dictated note~for this date of service dictated separately.~Patient seen individually. Discussed the patient with Nursing staff reviewed the chart.~Reviewed interim history and current functioning. Reviewed vital signs,~Labs/ Radiology~and current medications noted below. Continue current treatment with the changes noted in the dictated addendum note Assessment: Vital Signs: Vital Signs Date Time Temp Pulse Resp B/P (MAP) Pulse Ox O2 Delivery O2 Flow Rate FiO2 04/21/18 15:57 97.6 65 16 103/59 (74) 94 I&O Intake and Output 04/21/18 07:00 Intake Total 600 ml Balance 600 ml Intake Oral 600 ml # Voids 1 Labs: Laboratory Tests Test 04/21/18 07:04 04/21/18 11:28 Glucose (Fingerstick) 115 mg/dL (70-99) H 143 mg/dL (70-99) H Current Medications: Meds: Current Medications Acetaminophen (Tylenol) 650 mg PRN Q6HRS PRN PO PAIN / TEMP; Start 04/19/18 at 18:00 Multi-Ingredient Ointment (Analgesic [place]) 1 giorgio PRN QID PRN TP MUSCLE PAIN; Start 04/19/18 at 18:00 Al Hydroxide/Mg Hydroxide (Mylanta Plus Xs) 15 ml PRN AFTMEALHC PRN PO DYSPEPSIA; Start 04/19/18 at 18:00 Magnesium Hydroxide (Milk Of Magnesia) 2,400 mg PRN QHS PRN PO CONSTIPATION; Start 04/19/18 at 18:00 Melatonin 6 mg QHS PO Last administered on 04/19/18at 19:54; Start 04/19/18 at 21:00 Olanzapine (ZyPREXA IM) 5 mg PRN Q4HRS PRN IM AGITATION; Start 04/19/18 at 19: 45; Status Cancel Quetiapine Fumarate (SEROquel) 12.5 mg PRN DAILY PRN PO ANXIETY / AGITATION; Start 04/19/18 at 19:45; Stop 04/20/18 at 13:43; Status DC Quetiapine Fumarate (SEROquel) 50 mg TID PO Last administered on 04/19/18at 19: 54; Start 04/19/18 at 21:00; Stop 04/20/18 at 13:43; Status DC Acetaminophen (Tylenol) 650 mg PRN Q6HRS PRN PO PAIN / TEMP; Start 04/19/18 at 19:30; Status UNV Carbidopa/Levodopa (Sinemet 25/100) 1 tab TIDWMEALS PO Last administered on at 17:06; Start 04/20/18 at 08:00 Clonidine HCl (Catapres Tts-2) 1 patch WEEKLY TD ; Start 04/24/18 at 09:00 Gabapentin (Neurontin) 300 mg PRN DAILY PRN PO NEUROPATHY; Start 04/19/18 at 19 :30 Ketoconazole (Nizoral 2% Topical) 1 giorgio DAILY TP ; Start 04/20/18 at 09:00 Lisinopril (Prinivil) 10 mg DAILY PO Last administered on 04/21/18at 08:01; Start 04/20/18 at 09:00 Senna/Docusate Sodium (Senna Plus) 1 tab BID PO Last administered on 04/21/18at 08:01; Start 04/19/18 at 21:00 Simvastatin (Zocor) 40 mg QHS PO Last administered on 04/19/18at 19:54; Start at 21:00 Atenolol (Tenormin) 50 mg DAILY PO Last administered on 04/21/18at 08:01; Start 04/20/18 at 09:00 Budesonide (Entocort) 3 mg DAILY PO Last administered on 04/21/18at 08:04; Start 04/20/18 at 09:00 Hydrocortisone (Cortaid) 1 giorgio BID TP ; Start 04/19/18 at 21:00 Non-Formulary Medication (Liraglutide (Victoza 3-Melvin)) 0.6 mg DAILY SQ ; Start 04/20/18 at 09:00; Status UNV Pantoprazole Sodium (Protonix) 40 mg BIDBFRMEAL PO Last administered on at 17:06; Start 04/20/18 at 07:30 Pioglitazone HCl (Actos) 15 mg DAILY PO Last administered on 04/21/18at 08:02; Start 04/20/18 at 09:00 Pramipexole Dihydrochloride (miraPEX) 0.5 mg [id number] PO Last administered on at 14:31; Start 04/19/18 at 21:00 Risperidone (RisperDAL) 1 mg DAILY SL Last administered on 04/21/18at 08:04; Start 04/20/18 at 09:00; Stop 04/21/18 at 18:50; Status DC Olanzapine (ZyPREXA ZYDIS) 5 mg PRN Q2HR PRN PO ANXIETY / AGITATION Last administered on 04/19/18at 19:55; Start 04/19/18 at 20:00 Olanzapine (ZyPREXA) 5 mg PRN Q4HRS PRN PO AGITATION; Start 04/19/18 at 19:49; Status Cancel Hydrochlorothiazide (Hydrodiuril) 6.25 mg DAILY PO Last administered on at 08:01; Start 04/20/18 at 09:00 Olanzapine (ZyPREXA IM) 5 mg DAILY IM Last administered on 04/21/18at 12:10; Start 04/20/18 at 10:00 Clonidine HCl (Catapres Tts-2) 1 patch 1X ONCE TD Last administered on at 18:11; Start 04/20/18 at 18:15; Stop 04/20/18 at 18:16; Status DC Vitamin D (Vitamin D3) 50,000 unit WEEKLY PO Last administered on 04/21/18at 14: 31; Start 04/21/18 at 13:30 Cyanocobalamin (Vitamin B-12) 1,000 mcg DAILY IM ; Start 04/22/18 at 09:00 Trazodone HCl (Desyrel) 100 mg QHS PO ; Start 04/21/18 at 21:00 Trazodone HCl (Desyrel) 100 mg PRN QHS PRN PO insomnia; Start 04/21/18 at 17:00 Active Scripts Active Reported Clonidine Tts-2 (Clonidine) 1 Each Patch.tdwk 1 Patch TD WEEKLY Olanzapine 5 Mg Tablet 1 Tab PO PRN Q4HRS PRN Victoza 3-Melvin (Liraglutide) 0.6 Mg/0.1 Ml Pen.injctr 0.6 Mg SQ DAILY Simvastatin 40 Mg Tablet 1 Tab PO QHS Senna-Docusate Sodium Tablet (Sennosides/Docusate Sodium) 1 Each Tablet 1 Each PO BID Seroquel (Quetiapine Fumarate) 50 Mg Tablet 1 Tab PO TID Seroquel (Quetiapine Fumarate) 25 Mg Tablet 12.5 Mg PO PRN DAILY PRN Mirapex (Pramipexole Di-Hcl) 0.25 Mg Tablet 0.5 Mg PO TID Actos (Pioglitazone Hcl) 15 Mg Tablet 1 Tab PO DAILY Pantoprazole Sodium 40 Mg Tablet.dr 1 Tab PO BIDBFRMEAL Melatonin 3 Mg Tablet 6 Mg PO QHS Lisinopril 10 Mg Tablet 10 Mg PO DAILY Ketoconazole 15 Gm Cream..g. 1 Giorgio TP DAILY Hydrocortisone 453.6 Gm Cream..g. 1 Giorgio TP BID Gabapentin 300 Mg Capsule 300 Mg PO PRN DAILY PRN Sinemet 25-100 Mg Tablet (Carbidopa/Levodopa) 1 Each Tablet 1 Tab PO TIDWMEALS Entocort Ec (Budesonide) 3 Mg Capdr...er 3 Cap PO DAILY Bisoprolol-Hctz 5-6.25 Mg Tab (Bisoprolol Fumarate/Hctz) 1 Each Tablet 1 Tab PO DAILY Tylenol (Acetaminophen) 325 Mg Tablet 650 Mg PO PRN Q6HRS PRN I have reviewed the current psychotropics carefully including drug interactions. Risk benefit ratio favors no change other than as noted in my dictated progress note. Diagnosis: Problems: (1) Anxiety disorder (2) Impulse control disorder (3) Bipolar affective disorder, mixed (4) Parkinson's disease (5) Dementia due to Parkinson's disease with behavioral disturbance (6) Psychosis ALYSHA CHAMPAGNE MD Apr 21, 2018 19:50
[2018-04-21] MEDS: SIMVASTATIN 40 MG TABLET. PO SCH (19:54)
[2018-04-21] MEDS: MELATONIN 3 MG TABLET PO SCH (19:54)
[2018-04-21] MEDS: traZODone 100 MG TABLET. PO SCH (19:54)
[2018-04-22 05:41] VITALS: BP 124/58
--- NOTE | 2018-04-22 08:39 | PN ---
DATE: 04/20/2018 PSYCHIATRIC PROGRESS NOTE This is a late entry 04/20/2018, covers elements not covered in my initial note. SUBJECTIVE: I met with the patient in the evening of 04/20/2018 and had been called by the nursing staff on 4 or 5 separate occasions, all during the night and during the day on 04/20/2018 on account of his marked mood lability, agitation, aggression. At one point, he had grabbed the nursing staff by the arm, threatening to break her arm and then threatening to hurt other staff members, threatening to break down the television set. He was refusing his psychotropic, started on Zyprexa, scheduled IM 5 mg daily, also remains on the Risperdal 1 mg liquid daily and we will stop the Seroquel 50 mg 3 times a day. We will defer the Depakote until we have some stability on his psychosis on the atypical antipsychotics. REVIEW OF SYSTEMS: Ambulation impaired, in wheelchair. No CV, , pulmonary, eye, ENT system symptoms on review. Reliability poor. MENTAL STATUS EXAM: Oriented to himself. Insight, judgment, recent and remote memory, attention, concentration, fund of knowledge poor, consistent with his diagnoses. IMPRESSION: Bipolar 1 disorder, mixed with psychotic features; major neurocognitive disorder, early Lewy body with delusion, behavioral disturbance; anxiety disorder, unspecified; impulse control disorder, unspecified. PLAN: Continue psychotropics mentioned in my initial note. Consider adding Depakote in due course. ALYSHA CHAMPAGNE MD DR: SERENITY/rebecca JOB#: [id number] / [id number]
--- NOTE | 2018-04-22 09:17 | CONS ---
DATE OF CONSULTATION: 04/21/2018 REASON FOR CONSULTATION: Medical management. 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 He became extremely psychotic, agitated, aggressive, threatening to kill himself and everyone around him. He was initially sent to the jail unit and admitted to [address] [place] [address] where he at certain point in time he is trying to suffocate himself with a pillow, banging his head on the bed rail and was 1:1 status for extended period of time. He was seen in consultation by the neurologist for his Parkinson's disease. I did actually discontinue his steroids and he was seen by Dr. Calderon and also Dr. Dodge and given that his behavior becomes unmanageable because of his psychosis he was [facility] for inpatient psychiatric stabilization. PAST MEDICAL HISTORY: Significant for Parkinson's disease, coronary artery disease, status post bypass graft surgery, gastroesophageal reflux disease, hypertension, type 2 diabetes, possible Crohn's disease, hyperlipidemia, pyloric nonbleeding ulcer. PAST SURGICAL HISTORY: Significant for coronary artery bypass graft surgery, lumbar spine and lumbosacral surgery, esophagogastroduodenoscopy, and colonoscopy. ALLERGIES: He is allergic to METFORMIN and SITAGLIPTIN. MEDICATIONS: He is currently on following medications: He is currently on simvastatin 40 mg at bedtime, clonidine patch TTS-2 one patch weekly, bisoprolol fumarate/hydrochlorothiazide 5/6.25 mg 1 tablet daily, lisinopril 10 mg once a day, Tylenol 650 mg every 6 hours, gabapentin 300 mg daily, olanzapine 5 mg every 4 hours, quetiapine fumarate 12.5 mg daily, Seroquel 50 mg 3 times a day, carbidopa/levodopa 25/100 one tablet 3 times a day, pramipexole 0.25 mg 3 times a day, Senna S 1 tablet twice a day, Protonix 40 mg twice a day, Entocort 9 mg daily, Victoza 0.6 mg subcutaneous daily, pioglitazone 15 mg tablet daily, ketoconazole 15 gram cream applied topically daily, hydrocortisone apply topically twice a day and melatonin 6 mg at bedtime. REVIEW OF SYSTEMS: Unobtainable. PHYSICAL EXAMINATION: GENERAL: When I saw him today, he was sitting comfortably in his wheelchair, in no apparent respiratory distress, slightly pale, but no jaundice, cyanosis, or thyromegaly. No jugular venous distension. No limb edema. VITAL SIGNS: His heart rate was 77, blood pressure was 124/62, temperature was 97.6, respiratory rate 20, and oxygen saturation was 98%. HEAD, EYES, EARS, NOSE AND THROAT: Showed normocephalic, atraumatic. NECK: Supple. HEART: Showed normal first and second heart sounds. No gallop, rub or murmur. CHEST: Clear to auscultation. No crepitation or rhonchi. ABDOMEN: Distended, soft, nontender. No guarding or rigidity. No organomegaly. All hernial orifice intact. Bowel sounds normal. NEUROLOGIC: He is definitely more lucid. Not restless, agitated or combative. He was downstairs. All his cranial nerves are intact. EXTREMITIES: He moves extremities without difficulty, although he is wheelchair bound. He apparently ambulates with a walker. LABORATORY DATA: His urine analysis showed the urine was yellow, hazy with a pH of 6, specific gravity 1.005. The urine was negative for protein, glucose, ketones, blood, nitrite and leukocyte esterase. There are 1-2 rbc's, 1-4 wbc's, very few bacteria. His blood sugar seems to be reasonably controlled. His treponema pallidum antibodies unreactive. His most recent lab work showed a white cell count 10,900, hemoglobin 11, hematocrit 36, MCV 77 and platelet count 269,000. His chemistry showed that his serum sodium was 143, potassium 3.9, chloride 104, bicarbonate 31, anion gap of 8, BUN 20, creatinine 1.3, estimated GFR was 54 mL per minute. His glucose 127, calcium was 8.8. Total bilirubin, AST, ALT, alkaline phosphatase were normal. Total protein was 6.8, albumin 2.7. His sedimentation rate was 42 mm per hour and his C-reactive protein was 23 mg/dL. His magnesium was 1.6. Hemoglobin A1c was 6.9. Serum triglycerides was 103. Total cholesterol 113, LDL cholesterol was 52, VLDL was 20, and HDL cholesterol was 41. The ratio was 2. His TSH was 3.323. His total T4 was 10.2 mcg/dL and total T4 was 95 mg/dL. His 25-hydroxy vitamin D3 was only 10.8 mg/dL, which is low. Also vitamin B12 is extremely low at 189 mcg/dL. IMPRESSION: In summary, this is a 72-year-old male patient, who developed acute psychosis after he was admitted to [facility] with what seems to be bowel obstruction. He has upper and lower GI endoscopy to assess and biopsies showed possible Crohn's disease for which he was started on Entocort 9 mg daily and became extremely restless, agitated, combative and banging his head, threatening to kill himself and the surrounding him. Medically, he has multiple medical problems including Parkinson's disease, type 2 diabetes, coronary artery disease, chronic back pain and possible Crohn's disease. The patient seems to be stable. His vital signs are well within normal limits. His lab work as well as blood sugar within acceptable range. He definitely has vitamin D deficiency as well as vitamin B12 deficiency. I will start him on cholecalciferol 50,000 units once a week as well as cyanocobalamin 1000 mcg/mL intramuscular daily for 5 days, then weekly for 4 weeks and finally monthly thereafter. Thank you, Dr. Dodge for allowing me to participate in the care of this patient. DINESH STEVENS MD DR: AMBAR/rebecca JOB#: [id number] / [id number]
[2018-04-22] MEDS: PRAMIPEXOLE 0.5 MG TABLET. PO SCH ×3 (11:25→20:02)
[2018-04-22] MEDS: CARBIDOPA/LEVODOPA 25/100MG TABLET PO SCH ×3 (11:25→17:03)
[2018-04-22] MEDS: LISINOPRIL 10 MG TABLET PO SCH (11:25)
[2018-04-22] MEDS: PANTOPRAZOLE 40 MG TABLET. PO SCH ×2 (11:25→17:03)
[2018-04-22] MEDS: ATENOLOL 50 MG TABLET PO SCH (11:25)
[2018-04-22] MEDS: SENNOSIDES/DOCUSATE 8.6/50MG TABLET. PO SCH ×2 (11:25→19:59)
[2018-04-22] MEDS: PIOGLITAZONE 15 MG TABLET. PO SCH (11:25)
[2018-04-22] MEDS: KETOCONAZOLE 2% TOPICAL CREAM 30GM TUBE. TP SCH (11:26)
[2018-04-22] MEDS: hydroCHLOROthiazide 25 MG TABLET PO SCH (11:26)
[2018-04-22] MEDS: HYDROCORTISONE 1% TOPICAL CREAM 30GM TUBE. TP SCH ×2 (11:26→20:02)
[2018-04-22] MEDS: CYANOCOBALAMIN (VITAMIN B-12) 1,000 MCG/ML VIAL IM SCH (11:28)
[2018-04-22] MEDS: OLANZapine IM 10 MG VIAL. IM SCH (11:28)
[2018-04-22] MEDS: BUDESONIDE 3 MG CAP.ER.24H. PO SCH (11:28)
[2018-04-22 15:48] VITALS: BP 101/57
[2018-04-22] MEDS: SIMVASTATIN 40 MG TABLET. PO SCH (19:58)
[2018-04-22] MEDS: traZODone 100 MG TABLET. PO SCH (19:58)
[2018-04-22] MEDS: MELATONIN 3 MG TABLET PO SCH (19:58)
--- NOTE | 2018-04-22 20:49 | PDOC ---
Exam Note: Nickolas Note: Please also refer to the separate dictated note~for this date of service dictated separately.~Patient seen individually. Discussed the patient with Nursing staff reviewed the chart.~Reviewed interim history and current functioning. Reviewed vital signs,~Labs/ Radiology~and current medications noted below. Continue current treatment with the changes noted in the dictated addendum note Assessment: Vital Signs: Vital Signs Date Time Temp Pulse Resp B/P (MAP) Pulse Ox O2 Delivery O2 Flow Rate FiO2 04/22/18 15:48 98.1 67 18 101/57 (72) 96 I&O Intake and Output 04/22/18 07:00 Intake Total 1200 ml Balance 1200 ml Intake Oral 1200 ml # Voids 1 Current Medications: Meds: Current Medications Acetaminophen (Tylenol) 650 mg PRN Q6HRS PRN PO PAIN / TEMP; Start 04/19/18 at 18:00 Multi-Ingredient Ointment (Analgesic [place]) 1 giorgio PRN QID PRN TP MUSCLE PAIN; Start 04/19/18 at 18:00 Al Hydroxide/Mg Hydroxide (Mylanta Plus Xs) 15 ml PRN AFTMEALHC PRN PO DYSPEPSIA; Start 04/19/18 at 18:00 Magnesium Hydroxide (Milk Of Magnesia) 2,400 mg PRN QHS PRN PO CONSTIPATION; Start 04/19/18 at 18:00 Melatonin 6 mg QHS PO Last administered on 04/22/18at 19:58; Start 04/19/18 at 21 :00 Olanzapine (ZyPREXA IM) 5 mg PRN Q4HRS PRN IM AGITATION; Start 04/19/18 at 19: 45; Status Cancel Quetiapine Fumarate (SEROquel) 12.5 mg PRN DAILY PRN PO ANXIETY / AGITATION; Start 04/19/18 at 19:45; Stop 04/20/18 at 13:43; Status DC Quetiapine Fumarate (SEROquel) 50 mg TID PO Last administered on 04/19/18at 19: 54; Start 04/19/18 at 21:00; Stop 04/20/18 at 13:43; Status DC Acetaminophen (Tylenol) 650 mg PRN Q6HRS PRN PO PAIN / TEMP; Start 04/19/18 at 19:30; Status UNV Carbidopa/Levodopa (Sinemet 25/100) 1 tab TIDWMEALS PO Last administered on 04/22 17:03; Start 04/20/18 at 08:00 Clonidine HCl (Catapres Tts-2) 1 patch WEEKLY TD ; Start 04/24/18 at 09:00 Gabapentin (Neurontin) 300 mg PRN DAILY PRN PO NEUROPATHY; Start 04/19/18 at 19 :30 Ketoconazole (Nizoral 2% Topical) 1 giorgio DAILY TP Last administered on 04/22/18 11:26; Start 04/20/18 at 09:00 Lisinopril (Prinivil) 10 mg DAILY PO Last administered on 04/22/18 11:25; Start 04/20/18 at 09:00 Senna/Docusate Sodium (Senna Plus) 1 tab BID PO Last administered on 04/22/18 19:59; Start 04/19/18 at 21:00 Simvastatin (Zocor) 40 mg QHS PO Last administered on 04/22/18 19:58; Start at 21:00 Atenolol (Tenormin) 50 mg DAILY PO Last administered on 04/22/18 11:25; Start 04/20/18 at 09:00 Budesonide (Entocort) 3 mg DAILY PO Last administered on 04/22/18 11:28; Start 04/20/18 at 09:00 Hydrocortisone (Cortaid) 1 giorgio BID TP Last administered on 04/22/18 20:02; Start 04/19/18 at 21:00 Non-Formulary Medication (Liraglutide (Victoza 3-Melvin)) 0.6 mg DAILY SQ ; Start 04/20/18 at 09:00; Status UNV Pantoprazole Sodium (Protonix) 40 mg BIDBFRMEAL PO Last administered on 17:03; Start 04/20/18 at 07:30 Pioglitazone HCl (Actos) 15 mg DAILY PO Last administered on 04/22/18 11:25; Start 04/20/18 at 09:00 Pramipexole Dihydrochloride (miraPEX) 0.5 mg [id number] PO Last administered on 04/22 20:02; Start 04/19/18 at 21:00 Risperidone (RisperDAL) 1 mg DAILY SL Last administered on 7/31/18at 08:04; Start 04/20/18 at 09:00; Stop 04/21/18 at 18:50; Status DC Olanzapine (ZyPREXA ZYDIS) 5 mg PRN Q2HR PRN PO ANXIETY / AGITATION Last administered on 04/19/18at 19:55; Start 04/19/18 at 20:00 Olanzapine (ZyPREXA) 5 mg PRN Q4HRS PRN PO AGITATION; Start 04/19/18 at 19:49; Status Cancel Hydrochlorothiazide (Hydrodiuril) 6.25 mg DAILY PO Last administered on at 11:26; Start 04/20/18 at 09:00 Olanzapine (ZyPREXA IM) 5 mg DAILY IM Last administered on 04/22/18at 11:28; Start 04/20/18 at 10:00; Stop 04/22/18 at 16:24; Status DC Clonidine HCl (Catapres Tts-2) 1 patch 1X ONCE TD Last administered on at 18:11; Start 04/20/18 at 18:15; Stop 04/20/18 at 18:16; Status DC Vitamin D (Vitamin D3) 50,000 unit WEEKLY PO Last administered on 04/21/18at 14: 31; Start 04/21/18 at 13:30 Cyanocobalamin (Vitamin B-12) 1,000 mcg DAILY IM Last administered on 04/22/18at 11:28; Start 04/22/18 at 09:00 Trazodone HCl (Desyrel) 100 mg QHS PO Last administered on 04/22/18at 19:58; Start 04/21/18 at 21:00 Trazodone HCl (Desyrel) 100 mg PRN QHS PRN PO insomnia; Start 04/21/18 at 17:00 Olanzapine (ZyPREXA ZYDIS) 5 mg DAILY PO ; Start 04/23/18 at 09:00 Active Scripts Active Reported Clonidine Tts-2 (Clonidine) 1 Each Patch.tdwk 1 Patch TD WEEKLY Olanzapine 5 Mg Tablet 1 Tab PO PRN Q4HRS PRN Victoza 3-Melvin (Liraglutide) 0.6 Mg/0.1 Ml Pen.injctr 0.6 Mg SQ DAILY Simvastatin 40 Mg Tablet 1 Tab PO QHS Senna-Docusate Sodium Tablet (Sennosides/Docusate Sodium) 1 Each Tablet 1 Each PO BID Seroquel (Quetiapine Fumarate) 50 Mg Tablet 1 Tab PO TID Seroquel (Quetiapine Fumarate) 25 Mg Tablet 12.5 Mg PO PRN DAILY PRN Mirapex (Pramipexole Di-Hcl) 0.25 Mg Tablet 0.5 Mg PO TID Actos (Pioglitazone Hcl) 15 Mg Tablet 1 Tab PO DAILY Pantoprazole Sodium 40 Mg Tablet.dr 1 Tab PO BIDBFRMEAL Melatonin 3 Mg Tablet 6 Mg PO QHS Lisinopril 10 Mg Tablet 10 Mg PO DAILY Ketoconazole 15 Gm Cream..g. 1 Giorgio TP DAILY Hydrocortisone 453.6 Gm Cream..g. 1 Giorgio TP BID Gabapentin 300 Mg Capsule 300 Mg PO PRN DAILY PRN Sinemet 25-100 Mg Tablet (Carbidopa/Levodopa) 1 Each Tablet 1 Tab PO TIDWMEALS Entocort Ec (Budesonide) 3 Mg Capdr...er 3 Cap PO DAILY Bisoprolol-Hctz 5-6.25 Mg Tab (Bisoprolol Fumarate/Hctz) 1 Each Tablet 1 Tab PO DAILY Tylenol (Acetaminophen) 325 Mg Tablet 650 Mg PO PRN Q6HRS PRN I have reviewed the current psychotropics carefully including drug interactions. Risk benefit ratio favors no change other than as noted in my dictated progress note. Diagnosis: Problems: (1) Anxiety disorder (2) Impulse control disorder (3) Bipolar affective disorder, mixed (4) Parkinson's disease (5) Dementia due to Parkinson's disease with behavioral disturbance (6) Psychosis ALYSHA CHAMPAGNE MD Apr 22, 2018 20:49
--- NOTE | 2018-04-23 04:22 | PN ---
DATE: 04/21/2018 This is a late entry, 04/21, covers elements not covered in my initial note. SUBJECTIVE: I met with the patient in the evening. The patient is somewhat withdrawn to his room after breakfast. Received his IM Zyprexa, then was less agitated, slept 4-1/4 hours previous evening. When I met with him in the evening, he was somewhat withdrawn with some worsening of his parkinsonian features. He has been overall less aggressive, confused . REVIEW OF SYSTEMS: Ambulation impaired. No CV, , pulmonary, eye, ENT system symptoms on review. MENTAL STATUS EXAM: Oriented to himself. Insight, judgment, recent and remote memory, attention, concentration, fund of knowledge poor, consistent with his diagnosis. IMPRESSION: Bipolar 1 disorder, mixed with psychotic features; Lewy body dementia with delusion; behavioral disturbance; psychotic disorder, unspecified. PLAN: Stop the Risperdal for now, continue Zyprexa 5 mg IM daily. Add trazodone 100 mg at bedtime p.r.n., january repeat x 1 for insomnia. Further adjustments as clinically indicated. ALYSHA CHAMPAGNE MD DR: SERENITY/rebecca JOB#: [id number] / [id number]
[2018-04-23 05:29] VITALS: BP 137/66
[2018-04-23] MEDS: CYANOCOBALAMIN (VITAMIN B-12) 1,000 MCG/ML VIAL IM SCH ×2 (08:07→08:20)
[2018-04-23] MEDS: SENNOSIDES/DOCUSATE 8.6/50MG TABLET. PO SCH ×3 (08:07→20:22)
[2018-04-23] MEDS: LISINOPRIL 10 MG TABLET PO SCH ×2 (08:07→08:20)
[2018-04-23] MEDS: PANTOPRAZOLE 40 MG TABLET. PO SCH ×3 (08:07→16:21)
[2018-04-23] MEDS: PIOGLITAZONE 15 MG TABLET. PO SCH ×2 (08:07→08:20)
[2018-04-23] MEDS: PRAMIPEXOLE 0.5 MG TABLET. PO SCH ×4 (08:08→20:22)
[2018-04-23] MEDS: ATENOLOL 50 MG TABLET PO SCH ×2 (08:08→08:20)
[2018-04-23] MEDS: CARBIDOPA/LEVODOPA 25/100MG TABLET PO SCH ×4 (08:08→16:21)
[2018-04-23] MEDS: hydroCHLOROthiazide 25 MG TABLET PO SCH ×2 (08:08→08:20)
[2018-04-23] MEDS: BUDESONIDE 3 MG CAP.ER.24H. PO SCH ×2 (08:09→08:20)
[2018-04-23] MEDS: HYDROCORTISONE 1% TOPICAL CREAM 30GM TUBE. TP SCH ×2 (08:39→20:25)
[2018-04-23] MEDS: KETOCONAZOLE 2% TOPICAL CREAM 30GM TUBE. TP SCH (08:39)
[2018-04-23 15:52] VITALS: BP 104/65
[2018-04-23] MEDS: SIMVASTATIN 40 MG TABLET. PO SCH (20:21)
[2018-04-23] MEDS: MELATONIN 3 MG TABLET PO SCH (20:21)
[2018-04-23] MEDS: traZODone 100 MG TABLET. PO SCH (20:22)
--- NOTE | 2018-04-23 20:48 | PDOC ---
Exam Note: Nickolas Note: Please also refer to the separate dictated note~for this date of service dictated separately.~Patient seen individually. Discussed the patient with Nursing staff reviewed the chart.~Reviewed interim history and current functioning. Reviewed vital signs,~Labs/ Radiology~and current medications noted below. Continue current treatment with the changes noted in the dictated addendum note Assessment: Vital Signs: Vital Signs Date Time Temp Pulse Resp B/P (MAP) Pulse Ox O2 Delivery O2 Flow Rate FiO2 04/23/18 15:52 97.5 62 20 104/65 (78) 98 I&O Intake and Output 04/23/18 07:00 Intake Total 960 ml Balance 960 ml Intake Oral 960 ml # Voids 1 Labs: Laboratory Tests Test 04/23/18 12:55 04/23/18 14:04 04/23/18 17:07 Glucose (Fingerstick) 237 mg/dL (70-99) H 224 mg/dL (70-99) H 212 mg/dL (70-99) H Current Medications: Meds: Current Medications Acetaminophen (Tylenol) 650 mg PRN Q6HRS PRN PO PAIN / TEMP; Start 04/19/18 at 18:00 Multi-Ingredient Ointment (Analgesic [place]) 1 giorgio PRN QID PRN TP MUSCLE PAIN; Start 04/19/18 at 18:00 Al Hydroxide/Mg Hydroxide (Mylanta Plus Xs) 15 ml PRN AFTMEALHC PRN PO DYSPEPSIA; Start 04/19/18 at 18:00 Magnesium Hydroxide (Milk Of Magnesia) 2,400 mg PRN QHS PRN PO CONSTIPATION; Start 04/19/18 at 18:00 Melatonin 6 mg QHS PO Last administered on 04/23/18at 20:21; Start 04/19/18 at 21 :00 Olanzapine (ZyPREXA IM) 5 mg PRN Q4HRS PRN IM AGITATION; Start 04/19/18 at 19: 45; Status Cancel Quetiapine Fumarate (SEROquel) 12.5 mg PRN DAILY PRN PO ANXIETY / AGITATION; Start 04/19/18 at 19:45; Stop 04/20/18 at 13:43; Status DC Quetiapine Fumarate (SEROquel) 50 mg TID PO Last administered on 04/19/18at 19: 54; Start 04/19/18 at 21:00; Stop 04/20/18 at 13:43; Status DC Acetaminophen (Tylenol) 650 mg PRN Q6HRS PRN PO PAIN / TEMP; Start 04/19/18 at 19:30; Status UNV Carbidopa/Levodopa (Sinemet 25/100) 1 tab TIDWMEALS PO Last administered on 04/23 16:21; Start 04/20/18 at 08:00 Clonidine HCl (Catapres Tts-2) 1 patch WEEKLY TD ; Start 04/24/18 at 09:00 Gabapentin (Neurontin) 300 mg PRN DAILY PRN PO NEUROPATHY; Start 04/19/18 at 19 :30 Ketoconazole (Nizoral 2% Topical) 1 giorgio DAILY TP Last administered on 04/22/18 11:26; Start 04/20/18 at 09:00 Lisinopril (Prinivil) 10 mg DAILY PO Last administered on 04/22/18 11:25; Start 04/20/18 at 09:00 Senna/Docusate Sodium (Senna Plus) 1 tab BID PO Last administered on 04/23/18 20:22; Start 04/19/18 at 21:00 Simvastatin (Zocor) 40 mg QHS PO Last administered on 04/23/18 20:21; Start at 21:00 Atenolol (Tenormin) 50 mg DAILY PO Last administered on 04/22/18 11:25; Start 04/20/18 at 09:00 Budesonide (Entocort) 3 mg DAILY PO Last administered on 04/22/18 11:28; Start 04/20/18 at 09:00 Hydrocortisone (Cortaid) 1 giorgio BID TP Last administered on 04/22/18 20:02; Start 04/19/18 at 21:00 Non-Formulary Medication (Liraglutide (Victoza 3-Melvin)) 0.6 mg DAILY SQ ; Start 04/20/18 at 09:00; Status UNV Pantoprazole Sodium (Protonix) 40 mg BIDBFRMEAL PO Last administered on 16:21; Start 04/20/18 at 07:30 Pioglitazone HCl (Actos) 15 mg DAILY PO Last administered on 04/22/18 11:25; Start 04/20/18 at 09:00 Pramipexole Dihydrochloride (miraPEX) 0.5 mg [id number] PO Last administered on 04/23 20:22; Start 04/19/18 at 21:00 Risperidone (RisperDAL) 1 mg DAILY SL Last administered on 04/21/18at 08:04; Start 04/20/18 at 09:00; Stop 04/21/18 at 18:50; Status DC Olanzapine (ZyPREXA ZYDIS) 5 mg PRN Q2HR PRN PO ANXIETY / AGITATION Last administered on 04/19/18at 19:55; Start 04/19/18 at 20:00 Olanzapine (ZyPREXA) 5 mg PRN Q4HRS PRN PO AGITATION; Start 04/19/18 at 19:49; Status Cancel Hydrochlorothiazide (Hydrodiuril) 6.25 mg DAILY PO Last administered on at 11:26; Start 04/20/18 at 09:00 Olanzapine (ZyPREXA IM) 5 mg DAILY IM Last administered on 04/22/18at 11:28; Start 04/20/18 at 10:00; Stop 04/22/18 at 16:24; Status DC Clonidine HCl (Catapres Tts-2) 1 patch 1X ONCE TD Last administered on at 18:11; Start 04/20/18 at 18:15; Stop 04/20/18 at 18:16; Status DC Vitamin D (Vitamin D3) 50,000 unit WEEKLY PO Last administered on 04/21/18at 14: 31; Start 04/21/18 at 13:30 Cyanocobalamin (Vitamin B-12) 1,000 mcg DAILY IM Last administered on 04/22/18at 11:28; Start 04/22/18 at 09:00 Trazodone HCl (Desyrel) 100 mg QHS PO Last administered on 04/23/18 20:22; Start 04/21/18 at 21:00 Trazodone HCl (Desyrel) 100 mg PRN QHS PRN PO insomnia; Start 04/21/18 at 17:00 Olanzapine (ZyPREXA ZYDIS) 5 mg DAILY PO Last administered on 04/23/18at 08:10; Start 04/23/18 at 09:00 Active Scripts Active Reported Clonidine Tts-2 (Clonidine) 1 Each Patch.tdwk 1 Patch TD WEEKLY Olanzapine 5 Mg Tablet 1 Tab PO PRN Q4HRS PRN Victoza 3-Melvin (Liraglutide) 0.6 Mg/0.1 Ml Pen.injctr 0.6 Mg SQ DAILY Simvastatin 40 Mg Tablet 1 Tab PO QHS Senna-Docusate Sodium Tablet (Sennosides/Docusate Sodium) 1 Each Tablet 1 Each PO BID Seroquel (Quetiapine Fumarate) 50 Mg Tablet 1 Tab PO TID Seroquel (Quetiapine Fumarate) 25 Mg Tablet 12.5 Mg PO PRN DAILY PRN Mirapex (Pramipexole Di-Hcl) 0.25 Mg Tablet 0.5 Mg PO TID Actos (Pioglitazone Hcl) 15 Mg Tablet 1 Tab PO DAILY Pantoprazole Sodium 40 Mg Tablet.dr 1 Tab PO BIDBFRMEAL Melatonin 3 Mg Tablet 6 Mg PO QHS Lisinopril 10 Mg Tablet 10 Mg PO DAILY Ketoconazole 15 Gm Cream..g. 1 Giorgio TP DAILY Hydrocortisone 453.6 Gm Cream..g. 1 Giorgio TP BID Gabapentin 300 Mg Capsule 300 Mg PO PRN DAILY PRN Sinemet 25-100 Mg Tablet (Carbidopa/Levodopa) 1 Each Tablet 1 Tab PO TIDWMEALS Entocort Ec (Budesonide) 3 Mg Capdr...er 3 Cap PO DAILY Bisoprolol-Hctz 5-6.25 Mg Tab (Bisoprolol Fumarate/Hctz) 1 Each Tablet 1 Tab PO DAILY Tylenol (Acetaminophen) 325 Mg Tablet 650 Mg PO PRN Q6HRS PRN I have reviewed the current psychotropics carefully including drug interactions. Risk benefit ratio favors no change other than as noted in my dictated progress note. 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
--- NOTE | 2018-04-23 20:54 | PN ---
DATE: 04/22/2018 This is a late entry, 04/22/2018, covers the elements not covered in my initial note. SUBJECTIVE: I met with the patient evening of 04/22/2018. The patient slept 7 hours and more the previous night and slept partly during the day, slept until lunchtime. He is cooperative with physical therapy staff and his medications. We will go ahead and change the scheduled Zyprexa 5 mg IM to p.o. He is on vitamin B supplements. He was somewhat delusional previous night, per nursing report, was asking if one of the female nursing staff was "real." REVIEW OF SYSTEMS: Ambulation impaired, in wheelchair. No CV, , pulmonary, eye, ENT system symptoms on review. Gait unsteady. He is not very verbal and interactive some stiffness as well. MENTAL STATUS EXAM: Oriented to himself. Insight, judgment, recent and remote memory, attention, concentration, fund of knowledge poor, consistent with his diagnosis. LABORATORY DATA: Psychotic disorder, unspecified, bipolar 1 disorder, mixed with psychotic features, Lewy body dementia with delusion, behavioral disturbance. PLAN: Stop the oral Risperdal, change intramuscular Zyprexa to schedule by mouth, continue rest unchanged. ALYSHA CHAMPAGNE MD DR: SERENITY/rebecca JOB#: [id number] / [id number]
[2018-04-24 05:51] VITALS: BP 120/63
[2018-04-24] MEDS: CARBIDOPA/LEVODOPA 25/100MG TABLET PO SCH ×3 (08:35→16:33)
[2018-04-24] MEDS: PANTOPRAZOLE 40 MG TABLET. PO SCH ×2 (08:35→16:33)
[2018-04-24] MEDS: BUDESONIDE 3 MG CAP.ER.24H. PO SCH (08:35)
[2018-04-24] MEDS: SENNOSIDES/DOCUSATE 8.6/50MG TABLET. PO SCH ×2 (08:36→19:41)
[2018-04-24] MEDS: LISINOPRIL 10 MG TABLET PO SCH (08:36)
[2018-04-24] MEDS: ATENOLOL 50 MG TABLET PO SCH (08:36)
[2018-04-24] MEDS: PRAMIPEXOLE 0.5 MG TABLET. PO SCH ×3 (08:36→19:41)
[2018-04-24] MEDS: CYANOCOBALAMIN (VITAMIN B-12) 1,000 MCG/ML VIAL IM SCH ×2 (08:36→12:14)
[2018-04-24] MEDS: hydroCHLOROthiazide 25 MG TABLET PO SCH (08:37)
[2018-04-24] MEDS: PIOGLITAZONE 15 MG TABLET. PO SCH (08:37)
[2018-04-24] MEDS: cloNIDine TTS-2 1 PATCH PATCH TD SCH (08:41)
[2018-04-24] MEDS: HYDROCORTISONE 1% TOPICAL CREAM 30GM TUBE. TP SCH ×2 (08:41→19:41)
[2018-04-24] MEDS: KETOCONAZOLE 2% TOPICAL CREAM 30GM TUBE. TP SCH (08:43)
[2018-04-24] MEDS ORDERED: CYANOCOBALAMIN (VITAMIN B-12) 1,000 MCG/ML VIAL IM ONE (12:00)
[2018-04-24 15:56] VITALS: BP 112/68
[2018-04-24] MEDS: traZODone 100 MG TABLET. PO SCH (19:40)
[2018-04-24] MEDS: MELATONIN 3 MG TABLET PO SCH (19:41)
[2018-04-24] MEDS: SIMVASTATIN 40 MG TABLET. PO SCH (19:41)
--- NOTE | 2018-04-24 20:43 | PDOC ---
Exam Note: Nickolas Note: Please also refer to the separate dictated note~for this date of service dictated separately.~Patient seen individually. Discussed the patient with Nursing staff reviewed the chart.~Reviewed interim history and current functioning. Reviewed vital signs,~Labs/ Radiology~and current medications noted below. Continue current treatment with the changes noted in the dictated addendum note Assessment: Vital Signs: Vital Signs Date Time Temp Pulse Resp B/P (MAP) Pulse Ox O2 Delivery O2 Flow Rate FiO2 04/24/18 15:56 97.5 62 18 112/68 (83) 96 I&O Intake and Output 04/24/18 07:00 Intake Total 820 ml Balance 820 ml Intake Oral 720 ml Tube Feeding 100 ml # Voids 1 Current Medications: Meds: Current Medications Acetaminophen (Tylenol) 650 mg PRN Q6HRS PRN PO PAIN / TEMP; Start 04/19/18 at 18:00 Multi-Ingredient Ointment (Analgesic [place]) 1 giorgio PRN QID PRN TP MUSCLE PAIN; Start 04/19/18 at 18:00 Al Hydroxide/Mg Hydroxide (Mylanta Plus Xs) 15 ml PRN AFTMEALHC PRN PO DYSPEPSIA; Start 04/19/18 at 18:00 Magnesium Hydroxide (Milk Of Magnesia) 2,400 mg PRN QHS PRN PO CONSTIPATION; Start 04/19/18 at 18:00 Melatonin 6 mg QHS PO Last administered on 04/24/18at 19:41; Start 04/19/18 at 21 :00 Olanzapine (ZyPREXA IM) 5 mg PRN Q4HRS PRN IM AGITATION; Start 04/19/18 at 19: 45; Status Cancel Quetiapine Fumarate (SEROquel) 12.5 mg PRN DAILY PRN PO ANXIETY / AGITATION; Start 04/19/18 at 19:45; Stop 04/20/18 at 13:43; Status DC Quetiapine Fumarate (SEROquel) 50 mg TID PO Last administered on 04/19/18at 19: 54; Start 04/19/18 at 21:00; Stop 04/20/18 at 13:43; Status DC Acetaminophen (Tylenol) 650 mg PRN Q6HRS PRN PO PAIN / TEMP; Start 04/19/18 at 19:30; Status UNV Carbidopa/Levodopa (Sinemet 25/100) 1 tab TIDWMEALS PO Last administered on 04/24 16:33; Start 04/20/18 at 08:00 Clonidine HCl (Catapres Tts-2) 1 patch WEEKLY TD Last administered on 04/24/18 08:41; Start 04/24/18 at 09:00 Gabapentin (Neurontin) 300 mg PRN DAILY PRN PO NEUROPATHY; Start 04/19/18 at 19 :30 Ketoconazole (Nizoral 2% Topical) 1 giorgio DAILY TP Last administered on 04/24/18 08:43; Start 04/20/18 at 09:00 Lisinopril (Prinivil) 10 mg DAILY PO Last administered on 04/24/18 08:36; Start 04/20/18 at 09:00 Senna/Docusate Sodium (Senna Plus) 1 tab BID PO Last administered on 04/24/18 19:41; Start 04/19/18 at 21:00 Simvastatin (Zocor) 40 mg QHS PO Last administered on 04/24/18 19:41; Start at 21:00 Atenolol (Tenormin) 50 mg DAILY PO Last administered on 04/24/18 08:36; Start 04/20/18 at 09:00 Budesonide (Entocort) 3 mg DAILY PO Last administered on 04/24/18 08:35; Start 04/20/18 at 09:00 Hydrocortisone (Cortaid) 1 giorgio BID TP Last administered on 04/24/18 19:41; Start 04/19/18 at 21:00 Non-Formulary Medication (Liraglutide (Victoza 3-Melvin)) 0.6 mg DAILY SQ ; Start 04/20/18 at 09:00; Status UNV Pantoprazole Sodium (Protonix) 40 mg BIDBFRMEAL PO Last administered on 16:33; Start 04/20/18 at 07:30 Pioglitazone HCl (Actos) 15 mg DAILY PO Last administered on 04/24/18 08:37; Start 04/20/18 at 09:00 Pramipexole Dihydrochloride (miraPEX) 0.5 mg [id number] PO Last administered on 04/24 19:41; Start 04/19/18 at 21:00 Risperidone (RisperDAL) 1 mg DAILY SL Last administered on 04/21/18at 08:04; Start 04/20/18 at 09:00; Stop 04/21/18 at 18:50; Status DC Olanzapine (ZyPREXA ZYDIS) 5 mg PRN Q2HR PRN PO ANXIETY / AGITATION Last administered on 04/19/18at 19:55; Start 04/19/18 at 20:00 Olanzapine (ZyPREXA) 5 mg PRN Q4HRS PRN PO AGITATION; Start 04/19/18 at 19:49; Status Cancel Hydrochlorothiazide (Hydrodiuril) 6.25 mg DAILY PO Last administered on at 08:37; Start 04/20/18 at 09:00 Olanzapine (ZyPREXA IM) 5 mg DAILY IM Last administered on 04/22/18at 11:28; Start 04/20/18 at 10:00; Stop 04/22/18 at 16:24; Status DC Clonidine HCl (Catapres Tts-2) 1 patch 1X ONCE TD Last administered on at 18:11; Start 04/20/18 at 18:15; Stop 04/20/18 at 18:16; Status DC Vitamin D (Vitamin D3) 50,000 unit WEEKLY PO Last administered on 04/21/18at 14: 31; Start 04/21/18 at 13:30 Cyanocobalamin (Vitamin B-12) 1,000 mcg DAILY IM Last administered on 04/24/18at 08:36; Start 04/22/18 at 09:00 Trazodone HCl (Desyrel) 100 mg QHS PO Last administered on 04/24/18at 19:40; Start 04/21/18 at 21:00 Trazodone HCl (Desyrel) 100 mg PRN QHS PRN PO insomnia; Start 04/21/18 at 17:00 Olanzapine (ZyPREXA ZYDIS) 5 mg DAILY PO Last administered on 04/24/18at 08:36; Start 04/23/18 at 09:00 Cyanocobalamin (Vitamin B-12) 1,000 mcg 1X ONCE IM Last administered on at 12:13; Start 04/24/18 at 12:00; Stop 04/24/18 at 12:01; Status DC Active Scripts Active Reported Clonidine Tts-2 (Clonidine) 1 Each Patch.tdwk 1 Patch TD WEEKLY Olanzapine 5 Mg Tablet 1 Tab PO PRN Q4HRS PRN Victoza 3-Melvin (Liraglutide) 0.6 Mg/0.1 Ml Pen.injctr 0.6 Mg SQ DAILY Simvastatin 40 Mg Tablet 1 Tab PO QHS Senna-Docusate Sodium Tablet (Sennosides/Docusate Sodium) 1 Each Tablet 1 Each PO BID Seroquel (Quetiapine Fumarate) 50 Mg Tablet 1 Tab PO TID Seroquel (Quetiapine Fumarate) 25 Mg Tablet 12.5 Mg PO PRN DAILY PRN Mirapex (Pramipexole Di-Hcl) 0.25 Mg Tablet 0.5 Mg PO TID Actos (Pioglitazone Hcl) 15 Mg Tablet 1 Tab PO DAILY Pantoprazole Sodium 40 Mg Tablet.dr 1 Tab PO BIDBFRMEAL Melatonin 3 Mg Tablet 6 Mg PO QHS Lisinopril 10 Mg Tablet 10 Mg PO DAILY Ketoconazole 15 Gm Cream..g. 1 Giorgio TP DAILY Hydrocortisone 453.6 Gm Cream..g. 1 Giorgio TP BID Gabapentin 300 Mg Capsule 300 Mg PO PRN DAILY PRN Sinemet 25-100 Mg Tablet (Carbidopa/Levodopa) 1 Each Tablet 1 Tab PO TIDWMEALS Entocort Ec (Budesonide) 3 Mg Capdr...er 3 Cap PO DAILY Bisoprolol-Hctz 5-6.25 Mg Tab (Bisoprolol Fumarate/Hctz) 1 Each Tablet 1 Tab PO DAILY Tylenol (Acetaminophen) 325 Mg Tablet 650 Mg PO PRN Q6HRS PRN I have reviewed the current psychotropics carefully including drug interactions. Risk benefit ratio favors no change other than as noted in my dictated progress note. Diagnosis: Problems: (1) Anxiety disorder (2) Impulse control disorder (3) Bipolar affective disorder, mixed (4) Parkinson's disease (5) Dementia due to Parkinson's disease with behavioral disturbance (6) Psychosis ALYSHA CHAMPAGNE MD Apr 24, 2018 20:43
--- NOTE | 2018-04-25 01:49 | PN ---
DATE: 04/23/2018 PSYCHIATRIC PROGRESS NOTE This is a late entry for 04/23/2018, covers elements not covered in my initial note. SUBJECTIVE: I met with the patient in the evening and staffed a treatment team, meeting with the entire team in the morning and the patient's daughter, Angela, attended the conference. Lengthy discussion about his history. No clear premorbid history of bipolar disorder. Angela stated her father was always into motorcycles and dirt bikes and guns, and he was learning the guitar and owns 3 guitars prior to all this changing his cognition, psychosis. 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 He slept 6-1/2 hours previous evening, sleeps in the morning, goes to groups, but disorganized. REVIEW OF SYSTEMS: Ambulation impaired, in wheelchair. No CV, , pulmonary, eye, ENT system symptoms on review. MENTAL STATUS EXAM: Oriented to himself. Insight, judgment, recent and remote memory, attention, concentration, fund of knowledge poor, consistent with his diagnosis mentioned in my initial note. Angela wants a letter for her criminal attorney that she can make financial decisions for the patient including shutting off his cable television and paying other bills. She already has the medical power of criminal attorney. Social service staff will check see what needs to be in the letter, will draft one to help facilitate this. LABORATORY DATA: Reviewed. IMPRESSION: Psychotic disorder, unspecified; possible Lewy body dementia, rule out bipolar 1 disorder, mixed with psychotic features. PLAN: Continue current psychotropics, Zyprexa 5 mg daily, Seroquel 50 mg t.i.d., trazodone at bedtime p.r.n. May consider Depakote as a mood stabilizer. ALYSHA CHAMPAGNE MD DR: SERENITY/rebecca JOB#: [id number] / [id number]
[2018-04-25] MEDS: BUDESONIDE 3 MG CAP.ER.24H. PO SCH (08:06)
[2018-04-25] MEDS: PRAMIPEXOLE 0.5 MG TABLET. PO SCH ×3 (08:07→19:50)
[2018-04-25] MEDS: PANTOPRAZOLE 40 MG TABLET. PO SCH ×2 (08:07→16:32)
[2018-04-25] MEDS: hydroCHLOROthiazide 25 MG TABLET PO SCH (08:07)
[2018-04-25] MEDS: ATENOLOL 50 MG TABLET PO SCH (08:07)
[2018-04-25] MEDS: CARBIDOPA/LEVODOPA 25/100MG TABLET PO SCH ×3 (08:08→16:32)
[2018-04-25] MEDS: LISINOPRIL 10 MG TABLET PO SCH (08:08)
[2018-04-25] MEDS: PIOGLITAZONE 15 MG TABLET. PO SCH (08:09)
[2018-04-25] MEDS: SENNOSIDES/DOCUSATE 8.6/50MG TABLET. PO SCH ×2 (08:09→19:50)
[2018-04-25] MEDS: CYANOCOBALAMIN (VITAMIN B-12) 1,000 MCG/ML VIAL IM SCH (08:12)
[2018-04-25] MEDS: HYDROCORTISONE 1% TOPICAL CREAM 30GM TUBE. TP SCH ×2 (08:12→20:01)
[2018-04-25] MEDS: KETOCONAZOLE 2% TOPICAL CREAM 30GM TUBE. TP SCH ×2 (08:13→19:51)
[2018-04-25 16:10] VITALS: BP 127/58
[2018-04-25] MEDS: traZODone 100 MG TABLET. PO SCH (19:50)
[2018-04-25] MEDS: SIMVASTATIN 40 MG TABLET. PO SCH (19:50)
[2018-04-25] MEDS: MELATONIN 3 MG TABLET PO SCH (19:50)
[2018-04-26 05:46] VITALS: BP 104/59
[2018-04-26] MEDS: CARBIDOPA/LEVODOPA 25/100MG TABLET PO SCH ×3 (08:11→16:52)
[2018-04-26] MEDS: CYANOCOBALAMIN (VITAMIN B-12) 1,000 MCG/ML VIAL IM SCH (08:11)
[2018-04-26] MEDS: SENNOSIDES/DOCUSATE 8.6/50MG TABLET. PO SCH ×2 (08:11→19:55)
[2018-04-26] MEDS: PANTOPRAZOLE 40 MG TABLET. PO SCH ×3 (08:11→17:00)
[2018-04-26] MEDS: BUDESONIDE 3 MG CAP.ER.24H. PO SCH (08:12)
[2018-04-26] MEDS: PIOGLITAZONE 15 MG TABLET. PO SCH (08:12)
[2018-04-26] MEDS: HYDROCORTISONE 1% TOPICAL CREAM 30GM TUBE. TP SCH ×2 (08:13→19:58)
[2018-04-26] MEDS: PRAMIPEXOLE 0.5 MG TABLET. PO SCH ×3 (08:13→19:55)
[2018-04-26] MEDS: hydroCHLOROthiazide 25 MG TABLET PO SCH (09:00)
[2018-04-26] MEDS: ATENOLOL 50 MG TABLET PO SCH (09:00)
[2018-04-26] MEDS: LISINOPRIL 10 MG TABLET PO SCH (09:00)
[2018-04-26 10:44] LABS: BASO # 0.1 x10^3/uL (0.0-0.2); BASO % 1 % (0-3); EOS # 0.4 x10^3/uL (0.0-0.7); EOS % 4 % (0-3); HEMATOCRIT 32.6 % (39.0-53.0); HEMOGLOBIN 10.3 g/dL (13.0-17.5); LYMPH # 2.3 x10^3/uL (1.0-4.8); LYMPH % 22 % (24-48); MEAN CORPUSCULAR HEMOGLOBIN 24 pg (25-35); MEAN CORPUSCULAR HGB CONC 32 g/dL (31-37); MEAN CORPUSCULAR VOLUME 77 fL (79-100); MONO # 0.5 x10^3/uL (0.0-1.1); MONO % 5 % (0-9); NEUT # 6.9 x10^3uL (1.8-7.7); NEUT % 69 % (31-73); PLATELET COUNT 239 x10^3/uL (140-400); RED BLOOD COUNT 4.21 x10^6/uL (4.30-5.70); RED CELL DISTRIBUTION WIDTH 16.9 % (11.5-14.5); WHITE BLOOD COUNT 10.1 x10^3/uL (4.0-11.0)
[2018-04-26] MEDS: MAGNESIUM HYDROXIDE 2,400 MG/30 ML ORAL.SUSP. PO PRN (10:47)
[2018-04-26 11:11] LABS: ALBUMIN 2.5 g/dL (3.4-5.0); ALBUMIN/GLOBULIN RATIO 0.6 (1.0-1.7); CALCIUM 8.5 mg/dL (8.5-10.1); CREATININE 1.7 mg/dL (0.7-1.3); GFR 39.8; POTASSIUM 4.6 mmol/L (3.5-5.1); TOTAL BILIRUBIN 0.3 mg/dL (0.2-1.0); TOTAL PROTEIN 6.5 g/dL (6.4-8.2)
[2018-04-26 16:19] VITALS: BP 102/65
--- NOTE | 2018-04-26 19:49 | PDOC ---
Exam Note: Nickolas Note: Late entry for date of service April. Please also refer to the separate dictated note~for this date of service dictated separately.~Patient seen individually. Discussed the patient with Nursing staff reviewed the chart.~ Reviewed interim history and current functioning. Reviewed vital signs,~Labs/ Radiology~and current medications noted below. Continue current treatment with the changes noted in the dictated addendum note Assessment: Vital Signs: VS - Last 72 Hours, by Label Date Time Temp Pulse Resp B/P (MAP) Pulse Ox O2 Delivery O2 Flow Rate FiO2 04/26/18 16:19 99.0 72 16 102/65 (77) 94 Room Air 04/26/18 05:46 97.2 54 20 104/59 (74) 96 04/25/18 16:10 98.0 58 18 127/58 (81) 94 04/25/18 08:08 62 112/68 04/25/18 08:07 62 112/68 04/24/18 15:56 97.5 62 18 112/68 (83) 96 04/24/18 08:36 61 120/63 04/24/18 08:36 61 120/63 04/24/18 05:51 97.3 61 17 120/63 (82) 98 Vital Signs Date Time Temp Pulse Resp B/P (MAP) Pulse Ox O2 Delivery O2 Flow Rate FiO2 04/26/18 16:19 99.0 72 16 102/65 (77) 94 Room Air I&O Intake and Output 04/26/18 07:00 Intake Total 720 ml Balance 720 ml Intake Oral 720 ml Labs: Laboratory Tests Test 04/26/18 10:22 White Blood Count 10.1 x10^3/uL (4.0-11.0) Red Blood Count 4.21 x10^6/uL (4.30-5.70) L Hemoglobin 10.3 g/dL (13.0-17.5) L Hematocrit 32.6 % (39.0-53.0) L Mean Corpuscular Volume 77 fL (79-100) L Mean Corpuscular Hemoglobin 24 pg (25-35) L Mean Corpuscular Hemoglobin Concent 32 g/dL (31-37) Red Cell Distribution Width 16.9 % (11.5-14.5) H Platelet Count 239 x10^3/uL (140-400) Neutrophils (%) (Auto) 69 % (31-73) Lymphocytes (%) (Auto) 22 % (24-48) L Monocytes (%) (Auto) 5 % (0-9) Eosinophils (%) (Auto) 4 % (0-3) H Basophils (%) (Auto) 1 % (0-3) Neutrophils # (Auto) 6.9 x10^3uL (1.8-7.7) Lymphocytes # (Auto) 2.3 x10^3/uL (1.0-4.8) Monocytes # (Auto) 0.5 x10^3/uL (0.0-1.1) Eosinophils # (Auto) 0.4 x10^3/uL (0.0-0.7) Basophils # (Auto) 0.1 x10^3/uL (0.0-0.2) Sodium Level 133 mmol/L (136-145) L Potassium Level 4.6 mmol/L (3.5-5.1) Chloride Level 99 mmol/L (98-107) Carbon Dioxide Level 27 mmol/L (21-32) Anion Gap 7 (6-14) Blood Urea Nitrogen 43 mg/dL (8-26) H Creatinine 1.7 mg/dL (0.7-1.3) H Estimated GFR (Cockcroft-Gault) 39.8 BUN/Creatinine Ratio 25 (6-20) H Glucose Level 269 mg/dL (70-99) H Calcium Level 8.5 mg/dL (8.5-10.1) Total Bilirubin 0.3 mg/dL (0.2-1.0) Aspartate Amino Transferase (AST) 23 U/L (15-37) Alanine Aminotransferase (ALT) 10 U/L (16-63) L Alkaline Phosphatase 95 U/L (46-116) Total Protein 6.5 g/dL (6.4-8.2) Albumin 2.5 g/dL (3.4-5.0) L Albumin/Globulin Ratio 0.6 (1.0-1.7) L Current Medications: Meds: Current Medications Acetaminophen (Tylenol) 650 mg PRN Q6HRS PRN PO PAIN / TEMP; Start 04/19/18 at 18:00 Multi-Ingredient Ointment (Analgesic [place]) 1 giorgio PRN QID PRN TP MUSCLE PAIN; Start 04/19/18 at 18:00 Al Hydroxide/Mg Hydroxide (Mylanta Plus Xs) 15 ml PRN AFTMEALHC PRN PO DYSPEPSIA; Start 04/19/18 at 18:00 Magnesium Hydroxide (Milk Of Magnesia) 2,400 mg PRN QHS PRN PO CONSTIPATION Last administered on 04/26/18 10:47; Start 04/19/18 at 18:00 Melatonin 6 mg QHS PO Last administered on 04/25/18 19:50; Start 04/19/18 at 21 :00 Olanzapine (ZyPREXA IM) 5 mg PRN Q4HRS PRN IM AGITATION; Start 04/19/18 at 19: 45; Status Cancel Quetiapine Fumarate (SEROquel) 12.5 mg PRN DAILY PRN PO ANXIETY / AGITATION; Start 04/19/18 at 19:45; Stop 04/20/18 at 13:43; Status DC Quetiapine Fumarate (SEROquel) 50 mg TID PO Last administered on 04/19/18at 19: 54; Start 04/19/18 at 21:00; Stop 04/20/18 at 13:43; Status DC Acetaminophen (Tylenol) 650 mg PRN Q6HRS PRN PO PAIN / TEMP; Start 04/19/18 at 19:30; Status UNV Carbidopa/Levodopa (Sinemet 25/100) 1 tab TIDWMEALS PO Last administered on 04/26 16:52; Start 04/20/18 at 08:00 Clonidine HCl (Catapres Tts-2) 1 patch WEEKLY TD Last administered on 04/24/18at 08:41; Start 04/24/18 at 09:00 Gabapentin (Neurontin) 300 mg PRN DAILY PRN PO NEUROPATHY; Start 04/19/18 at 19 :30 Ketoconazole (Nizoral 2% Topical) 1 giorgoi DAILY TP Last administered on 04/25/18 19:51; Start 04/20/18 at 09:00 Lisinopril (Prinivil) 10 mg DAILY PO Last administered on 04/25/18 08:08; Start 04/20/18 at 09:00 Senna/Docusate Sodium (Senna Plus) 1 tab BID PO Last administered on 04/26/18at 08:11; Start 04/19/18 at 21:00 Simvastatin (Zocor) 40 mg QHS PO Last administered on 04/25/18 19:50; Start at 21:00 Atenolol (Tenormin) 50 mg DAILY PO Last administered on 04/25/18 08:07; Start 04/20/18 at 09:00 Budesonide (Entocort) 3 mg DAILY PO Last administered on 04/26/18 08:12; Start 04/20/18 at 09:00 Hydrocortisone (Cortaid) 1 giorgio BID TP Last administered on 04/26/18 08:13; Start 04/19/18 at 21:00 Non-Formulary Medication (Liraglutide (Victoza 3-Melvin)) 0.6 mg DAILY SQ ; Start 04/20/18 at 09:00; Status UNV Pantoprazole Sodium (Protonix) 40 mg BIDBFRMEAL PO Last administered on 08:11; Start 04/20/18 at 07:30 Pioglitazone HCl (Actos) 15 mg DAILY PO Last administered on 04/26/18 08:12; Start 04/20/18 at 09:00 Pramipexole Dihydrochloride (miraPEX) 0.5 mg [id number] PO Last administered on 04/26 12:53; Start 04/19/18 at 21:00 Risperidone (RisperDAL) 1 mg DAILY SL Last administered on 04/21/18at 08:04; Start 04/20/18 at 09:00; Stop 04/21/18 at 18:50; Status DC Olanzapine (ZyPREXA ZYDIS) 5 mg PRN Q2HR PRN PO ANXIETY / AGITATION Last administered on 04/19/18at 19:55; Start 04/19/18 at 20:00 Olanzapine (ZyPREXA) 5 mg PRN Q4HRS PRN PO AGITATION; Start 04/19/18 at 19:49; Status Cancel Hydrochlorothiazide (Hydrodiuril) 6.25 mg DAILY PO Last administered on 08:07; Start 04/20/18 at 09:00 Olanzapine (ZyPREXA IM) 5 mg DAILY IM Last administered on 04/22/18at 11:28; Start 04/20/18 at 10:00; Stop 04/22/18 at 16:24; Status DC Clonidine HCl (Catapres Tts-2) 1 patch 1X ONCE TD Last administered on at 18:11; Start 04/20/18 at 18:15; Stop 04/20/18 at 18:16; Status DC Vitamin D (Vitamin D3) 50,000 unit WEEKLY PO Last administered on 04/21/18at 14: 31; Start 04/21/18 at 13:30 Cyanocobalamin (Vitamin B-12) 1,000 mcg DAILY IM Last administered on 04/26/18at 08:11; Start 04/22/18 at 09:00 Trazodone HCl (Desyrel) 100 mg QHS PO Last administered on 04/25/18at 19:50; Start 04/21/18 at 21:00 Trazodone HCl (Desyrel) 100 mg PRN QHS PRN PO insomnia; Start 04/21/18 at 17:00 Olanzapine (ZyPREXA ZYDIS) 5 mg DAILY PO Last administered on 04/26/18at 08:13; Start 04/23/18 at 09:00 Cyanocobalamin (Vitamin B-12) 1,000 mcg 1X ONCE IM Last administered on at 12:13; Start 04/24/18 at 12:00; Stop 04/24/18 at 12:01; Status DC Active Scripts Active Reported Clonidine Tts-2 (Clonidine) 1 Each Patch.tdwk 1 Patch TD WEEKLY Olanzapine 5 Mg Tablet 1 Tab PO PRN Q4HRS PRN Victoza 3-Melvin (Liraglutide) 0.6 Mg/0.1 Ml Pen.injctr 0.6 Mg SQ DAILY Simvastatin 40 Mg Tablet 1 Tab PO QHS Senna-Docusate Sodium Tablet (Sennosides/Docusate Sodium) 1 Each Tablet 1 Each PO BID Seroquel (Quetiapine Fumarate) 50 Mg Tablet 1 Tab PO TID Seroquel (Quetiapine Fumarate) 25 Mg Tablet 12.5 Mg PO PRN DAILY PRN Mirapex (Pramipexole Di-Hcl) 0.25 Mg Tablet 0.5 Mg PO TID Actos (Pioglitazone Hcl) 15 Mg Tablet 1 Tab PO DAILY Pantoprazole Sodium 40 Mg Tablet.dr 1 Tab PO BIDBFRMEAL Melatonin 3 Mg Tablet 6 Mg PO QHS Lisinopril 10 Mg Tablet 10 Mg PO DAILY Ketoconazole 15 Gm Cream..g. 1 Giorgio TP DAILY Hydrocortisone 453.6 Gm Cream..g. 1 Giorgio TP BID Gabapentin 300 Mg Capsule 300 Mg PO PRN DAILY PRN Sinemet 25-100 Mg Tablet (Carbidopa/Levodopa) 1 Each Tablet 1 Tab PO TIDWMEALS Entocort Ec (Budesonide) 3 Mg Capdr...er 3 Cap PO DAILY Bisoprolol-Hctz 5-6.25 Mg Tab (Bisoprolol Fumarate/Hctz) 1 Each Tablet 1 Tab PO DAILY Tylenol (Acetaminophen) 325 Mg Tablet 650 Mg PO PRN Q6HRS PRN I have reviewed the current psychotropics carefully including drug interactions. Risk benefit ratio favors no change other than as noted in my dictated progress note. Diagnosis: Problems: (1) Anxiety disorder (2) Impulse control disorder (3) Bipolar affective disorder, mixed (4) Parkinson's disease (5) Dementia due to Parkinson's disease with behavioral disturbance (6) Psychosis ALYSHA CHAMPAGNE MD Apr 26, 2018 19:49
--- NOTE | 2018-04-26 19:50 | PDOC ---
Exam Note: Nickolas Note: Please also refer to the separate dictated note~for this date of service dictated separately.~Patient seen individually. Discussed the patient with Nursing staff reviewed the chart.~Reviewed interim history and current functioning. Reviewed vital signs,~Labs/ Radiology~and current medications noted below. Continue current treatment with the changes noted in the dictated addendum note Assessment: Vital Signs: Vital Signs Date Time Temp Pulse Resp B/P (MAP) Pulse Ox O2 Delivery O2 Flow Rate FiO2 04/26/18 16:19 99.0 72 16 102/65 (77) 94 Room Air I&O Intake and Output 04/26/18 07:00 Intake Total 720 ml Balance 720 ml Intake Oral 720 ml Labs: Laboratory Tests Test 04/26/18 10:22 White Blood Count 10.1 x10^3/uL (4.0-11.0) Red Blood Count 4.21 x10^6/uL (4.30-5.70) L Hemoglobin 10.3 g/dL (13.0-17.5) L Hematocrit 32.6 % (39.0-53.0) L Mean Corpuscular Volume 77 fL (79-100) L Mean Corpuscular Hemoglobin 24 pg (25-35) L Mean Corpuscular Hemoglobin Concent 32 g/dL (31-37) Red Cell Distribution Width 16.9 % (11.5-14.5) H Platelet Count 239 x10^3/uL (140-400) Neutrophils (%) (Auto) 69 % (31-73) Lymphocytes (%) (Auto) 22 % (24-48) L Monocytes (%) (Auto) 5 % (0-9) Eosinophils (%) (Auto) 4 % (0-3) H Basophils (%) (Auto) 1 % (0-3) Neutrophils # (Auto) 6.9 x10^3uL (1.8-7.7) Lymphocytes # (Auto) 2.3 x10^3/uL (1.0-4.8) Monocytes # (Auto) 0.5 x10^3/uL (0.0-1.1) Eosinophils # (Auto) 0.4 x10^3/uL (0.0-0.7) Basophils # (Auto) 0.1 x10^3/uL (0.0-0.2) Sodium Level 133 mmol/L (136-145) L Potassium Level 4.6 mmol/L (3.5-5.1) Chloride Level 99 mmol/L (98-107) Carbon Dioxide Level 27 mmol/L (21-32) Anion Gap 7 (6-14) Blood Urea Nitrogen 43 mg/dL (8-26) H Creatinine 1.7 mg/dL (0.7-1.3) H Estimated GFR (Cockcroft-Gault) 39.8 BUN/Creatinine Ratio 25 (6-20) H Glucose Level 269 mg/dL (70-99) H Calcium Level 8.5 mg/dL (8.5-10.1) Total Bilirubin 0.3 mg/dL (0.2-1.0) Aspartate Amino Transferase (AST) 23 U/L (15-37) Alanine Aminotransferase (ALT) 10 U/L (16-63) L Alkaline Phosphatase 95 U/L (46-116) Total Protein 6.5 g/dL (6.4-8.2) Albumin 2.5 g/dL (3.4-5.0) L Albumin/Globulin Ratio 0.6 (1.0-1.7) L Current Medications: Meds: Current Medications Acetaminophen (Tylenol) 650 mg PRN Q6HRS PRN PO PAIN / TEMP; Start 04/19/18 at 18:00 Multi-Ingredient Ointment (Analgesic [place]) 1 giorgio PRN QID PRN TP MUSCLE PAIN; Start 04/19/18 at 18:00 Al Hydroxide/Mg Hydroxide (Mylanta Plus Xs) 15 ml PRN AFTMEALHC PRN PO DYSPEPSIA; Start 04/19/18 at 18:00 Magnesium Hydroxide (Milk Of Magnesia) 2,400 mg PRN QHS PRN PO CONSTIPATION Last administered on 04/26/18at 10:47; Start 04/19/18 at 18:00 Melatonin 6 mg QHS PO Last administered on 04/25/18at 19:50; Start 04/19/18 at 21 :00 Olanzapine (ZyPREXA IM) 5 mg PRN Q4HRS PRN IM AGITATION; Start 04/19/18 at 19: 45; Status Cancel Quetiapine Fumarate (SEROquel) 12.5 mg PRN DAILY PRN PO ANXIETY / AGITATION; Start 04/19/18 at 19:45; Stop 04/20/18 at 13:43; Status DC Quetiapine Fumarate (SEROquel) 50 mg TID PO Last administered on 04/19/18 19: 54; Start 04/19/18 at 21:00; Stop 04/20/18 at 13:43; Status DC Acetaminophen (Tylenol) 650 mg PRN Q6HRS PRN PO PAIN / TEMP; Start 04/19/18 at 19:30; Status UNV Carbidopa/Levodopa (Sinemet 25/100) 1 tab TIDWMEALS PO Last administered on 04/26 16:52; Start 04/20/18 at 08:00 Clonidine HCl (Catapres Tts-2) 1 patch WEEKLY TD Last administered on 04/24/18 08:41; Start 04/24/18 at 09:00 Gabapentin (Neurontin) 300 mg PRN DAILY PRN PO NEUROPATHY; Start 04/19/18 at 19 :30 Ketoconazole (Nizoral 2% Topical) 1 giorgio DAILY TP Last administered on 04/25/18 19:51; Start 04/20/18 at 09:00 Lisinopril (Prinivil) 10 mg DAILY PO Last administered on 04/25/18 08:08; Start 04/20/18 at 09:00 Senna/Docusate Sodium (Senna Plus) 1 tab BID PO Last administered on 04/26/18 08:11; Start 04/19/18 at 21:00 Simvastatin (Zocor) 40 mg QHS PO Last administered on 04/25/18 19:50; Start at 21:00 Atenolol (Tenormin) 50 mg DAILY PO Last administered on 04/25/18 08:07; Start 04/20/18 at 09:00 Budesonide (Entocort) 3 mg DAILY PO Last administered on 04/26/18 08:12; Start 04/20/18 at 09:00 Hydrocortisone (Cortaid) 1 giorgio BID TP Last administered on 04/26/18 08:13; Start 04/19/18 at 21:00 Non-Formulary Medication (Liraglutide (Victoza 3-Melvin)) 0.6 mg DAILY SQ ; Start 04/20/18 at 09:00; Status UNV Pantoprazole Sodium (Protonix) 40 mg BIDBFRMEAL PO Last administered on 08:11; Start 04/20/18 at 07:30 Pioglitazone HCl (Actos) 15 mg DAILY PO Last administered on 04/26/18 08:12; Start 04/20/18 at 09:00 Pramipexole Dihydrochloride (miraPEX) 0.5 mg [id number] PO Last administered on 04/26 12:53; Start 04/19/18 at 21:00 Risperidone (RisperDAL) 1 mg DAILY SL Last administered on 04/21/18 08:04; Start 04/20/18 at 09:00; Stop 04/21/18 at 18:50; Status DC Olanzapine (ZyPREXA ZYDIS) 5 mg PRN Q2HR PRN PO ANXIETY / AGITATION Last administered on 04/19/18at 19:55; Start 04/19/18 at 20:00 Olanzapine (ZyPREXA) 5 mg PRN Q4HRS PRN PO AGITATION; Start 04/19/18 at 19:49; Status Cancel Hydrochlorothiazide (Hydrodiuril) 6.25 mg DAILY PO Last administered on 08:07; Start 04/20/18 at 09:00 Olanzapine (ZyPREXA IM) 5 mg DAILY IM Last administered on 04/22/18 11:28; Start 04/20/18 at 10:00; Stop 04/22/18 at 16:24; Status DC Clonidine HCl (Catapres Tts-2) 1 patch 1X ONCE TD Last administered on at 18:11; Start 04/20/18 at 18:15; Stop 04/20/18 at 18:16; Status DC Vitamin D (Vitamin D3) 50,000 unit WEEKLY PO Last administered on 04/21/18at 14: 31; Start 04/21/18 at 13:30 Cyanocobalamin (Vitamin B-12) 1,000 mcg DAILY IM Last administered on 04/26/18 08:11; Start 04/22/18 at 09:00 Trazodone HCl (Desyrel) 100 mg QHS PO Last administered on 04/25/18 19:50; Start 04/21/18 at 21:00 Trazodone HCl (Desyrel) 100 mg PRN QHS PRN PO insomnia; Start 04/21/18 at 17:00 Olanzapine (ZyPREXA ZYDIS) 5 mg DAILY PO Last administered on 04/26/18at 08:13; Start 04/23/18 at 09:00 Cyanocobalamin (Vitamin B-12) 1,000 mcg 1X ONCE IM Last administered on at 12:13; Start 04/24/18 at 12:00; Stop 04/24/18 at 12:01; Status DC Active Scripts Active Reported Clonidine Tts-2 (Clonidine) 1 Each Patch.tdwk 1 Patch TD WEEKLY Olanzapine 5 Mg Tablet 1 Tab PO PRN Q4HRS PRN Victoza 3-Melivn (Liraglutide) 0.6 Mg/0.1 Ml Pen.injctr 0.6 Mg SQ DAILY Simvastatin 40 Mg Tablet 1 Tab PO QHS Senna-Docusate Sodium Tablet (Sennosides/Docusate Sodium) 1 Each Tablet 1 Each PO BID Seroquel (Quetiapine Fumarate) 50 Mg Tablet 1 Tab PO TID Seroquel (Quetiapine Fumarate) 25 Mg Tablet 12.5 Mg PO PRN DAILY PRN Mirapex (Pramipexole Di-Hcl) 0.25 Mg Tablet 0.5 Mg PO TID Actos (Pioglitazone Hcl) 15 Mg Tablet 1 Tab PO DAILY Pantoprazole Sodium 40 Mg Tablet.dr 1 Tab PO BIDBFRMEAL Melatonin 3 Mg Tablet 6 Mg PO QHS Lisinopril 10 Mg Tablet 10 Mg PO DAILY Ketoconazole 15 Gm Cream..g. 1 Giorgio TP DAILY Hydrocortisone 453.6 Gm Cream..g. 1 Giorgio TP BID Gabapentin 300 Mg Capsule 300 Mg PO PRN DAILY PRN Sinemet 25-100 Mg Tablet (Carbidopa/Levodopa) 1 Each Tablet 1 Tab PO TIDWMEALS Entocort Ec (Budesonide) 3 Mg Capdr...er 3 Cap PO DAILY Bisoprolol-Hctz 5-6.25 Mg Tab (Bisoprolol Fumarate/Hctz) 1 Each Tablet 1 Tab PO DAILY Tylenol (Acetaminophen) 325 Mg Tablet 650 Mg PO PRN Q6HRS PRN I have reviewed the current psychotropics carefully including drug interactions. Risk benefit ratio favors no change other than as noted in my dictated progress note. Diagnosis: Problems: (1) Anxiety disorder (2) Impulse control disorder (3) Bipolar affective disorder, mixed (4) Parkinson's disease (5) Dementia due to Parkinson's disease with behavioral disturbance (6) Psychosis ALYSHA CHAMPAGNE MD Apr 26, 2018 19:50
[2018-04-26] MEDS: SIMVASTATIN 40 MG TABLET. PO SCH (19:55)
[2018-04-26] MEDS: traZODone 100 MG TABLET. PO SCH (19:55)
[2018-04-26] MEDS: MELATONIN 3 MG TABLET PO SCH (19:55)
--- NOTE | 2018-04-26 23:08 | PN ---
DATE: 04/24/2018 PSYCHIATRIC PROGRESS NOTE This is a late entry 04/24/2018 covers elements not covered in my initial note. SUBJECTIVE: I met with the patient in the evening. The patient is doing better with the Zyprexa, seems a little bit clearer cognitively, less psychotic. REVIEW OF SYSTEMS: Ambulation impaired, in wheelchair. No CV, , pulmonary, eye, ENT system symptoms on review. MENTAL STATUS EXAM: Oriented to himself and situation. Speech coherent, abstraction fair, computation impaired, language function intact, attention span short. Mood and affect still somewhat labile. LABORATORY DATA: Reviewed. IMPRESSION: Unchanged from initial note. PLAN: No change from initial note. MAN Dalton CHAMPAGNE MD DR: SERENITY/rebecca JOB#: [id number] / [id number]
[2018-04-27 06:28] VITALS: BP 144/70
[2018-04-27 07:47] LABS: CALCIUM 9.2 mg/dL (8.5-10.1); CREATININE 1.6 mg/dL (0.7-1.3); GFR 42.7; POTASSIUM 4.6 mmol/L (3.5-5.1)
[2018-04-27] MEDS: PANTOPRAZOLE 40 MG TABLET. PO SCH ×2 (08:56→17:10)
[2018-04-27] MEDS: CARBIDOPA/LEVODOPA 25/100MG TABLET PO SCH ×3 (08:56→17:10)
[2018-04-27] MEDS: BUDESONIDE 3 MG CAP.ER.24H. PO SCH (08:57)
[2018-04-27] MEDS: CYANOCOBALAMIN (VITAMIN B-12) 1,000 MCG/ML VIAL IM SCH (08:57)
[2018-04-27] MEDS: PIOGLITAZONE 15 MG TABLET. PO SCH (08:57)
[2018-04-27] MEDS: SENNOSIDES/DOCUSATE 8.6/50MG TABLET. PO SCH ×2 (08:59→20:07)
[2018-04-27] MEDS: PRAMIPEXOLE 0.5 MG TABLET. PO SCH ×3 (08:59→20:07)
[2018-04-27] MEDS: ATENOLOL 50 MG TABLET PO SCH (09:00)
[2018-04-27] MEDS: ACETAMINOPHEN 325 MG TABLET PO PRN (09:00)
[2018-04-27] MEDS: KETOCONAZOLE 2% TOPICAL CREAM 30GM TUBE. TP SCH (09:00)
[2018-04-27] MEDS: HYDROCORTISONE 1% TOPICAL CREAM 30GM TUBE. TP SCH ×2 (09:00→20:08)
[2018-04-27 16:07] VITALS: BP 105/67
[2018-04-27] MEDS: SIMVASTATIN 40 MG TABLET. PO SCH (20:06)
[2018-04-27] MEDS: MELATONIN 3 MG TABLET PO SCH (20:07)
[2018-04-27] MEDS: traZODone 100 MG TABLET. PO SCH (20:07)
--- NOTE | 2018-04-27 20:24 | PN ---
DATE: 04/25/2018 PSYCHIATRIC PROGRESS NOTE This late entry 04/25/2018 covers elements not covered in my initial note. SUBJECTIVE: Met with the patient in the evening. The patient slept 6 hours previous evening. He seems more alert and coherent, believed the date was 04/24/2018, which is quite a change for him. REVIEW OF SYSTEMS: Ambulation impaired, in wheelchair. No CV, , pulmonary, eye system symptoms on review. MENTAL STATUS EXAM: Oriented to himself, situation. Speech has some latency, often responses monosyllabic. Abstraction fair, computation impaired, language function is intact. He remains somewhat paranoid, psychotic, but much improved. LABORATORY DATA: Reviewed. IMPRESSION: Unchanged from initial note. PLAN: No change from initial note. MAN Dalton CHAMPAGNE MD DR: SERENITY/rebecca JOB#: [id number] / [id number]
--- NOTE | 2018-04-27 20:38 | PN ---
DATE: 04/26/2018 PSYCHIATRIC PROGRESS NOTE This late entry 04/26/2018 covers elements not covered in my initial note. SUBJECTIVE: Met with the patient in the evening. The patient slept 6-1/2 hours previous evening. BUN 43, creatinine 1.7. Previous night, he was somewhat grandiose, talking about wanting to pay for the meals of all the other patients. He seemed a little more aware of what medications he was taking. REVIEW OF SYSTEMS: Ambulation impaired, in wheelchair. No CV, , pulmonary, eye, ENT system symptoms on review. MENTAL STATUS EXAM: Oriented to himself, situation. Insight, judgment, recent memory is impaired. Language function intact. Attention span short. Mood and affect showing improvement, much less psychotic. LABORATORY DATA: Reviewed. IMPRESSION: Psychotic disorder, unspecified; bipolar 1 disorder, mixed with psychotic features; major neurocognitive disorder, early Lewy body with delusion, depression, behavioral disturbance. PLAN: No change from initial note. MAN Dalton CHAMPAGNE MD DR: SERENITY/rebecca JOB#: [id number] / [id number]
--- NOTE | 2018-04-27 21:05 | PDOC ---
Exam Note: Nickolas Note: Please also refer to the separate dictated note~for this date of service dictated separately.~Patient seen individually. Discussed the patient with Nursing staff reviewed the chart.~Reviewed interim history and current functioning. Reviewed vital signs,~Labs/ Radiology~and current medications noted below. Continue current treatment with the changes noted in the dictated addendum note Assessment: Vital Signs: Vital Signs Date Time Temp Pulse Resp B/P (MAP) Pulse Ox O2 Delivery O2 Flow Rate FiO2 04/27/18 16:07 97.9 63 18 105/67 (80) 98 04/27/18 06:28 Room Air I&O Intake and Output 04/27/18 07:00 Intake Total 960 ml Balance 960 ml Intake Oral 960 ml # Bowel Movements 1 Labs: Laboratory Tests Test 04/27/18 07:10 Sodium Level 135 mmol/L (136-145) L Potassium Level 4.6 mmol/L (3.5-5.1) Chloride Level 100 mmol/L (98-107) Carbon Dioxide Level 29 mmol/L (21-32) Anion Gap 6 (6-14) Blood Urea Nitrogen 47 mg/dL (8-26) H Creatinine 1.6 mg/dL (0.7-1.3) H Estimated GFR (Cockcroft-Gault) 42.7 Glucose Level 184 mg/dL (70-99) H Calcium Level 9.2 mg/dL (8.5-10.1) Current Medications: Meds: Current Medications Acetaminophen (Tylenol) 650 mg PRN Q6HRS PRN PO PAIN / TEMP Last administered on 04/27/18at 09:00; Start 04/19/18 at 18:00 Multi-Ingredient Ointment (Analgesic [place]) 1 giorgio PRN QID PRN TP MUSCLE PAIN; Start 04/19/18 at 18:00 Al Hydroxide/Mg Hydroxide (Mylanta Plus Xs) 15 ml PRN AFTMEALHC PRN PO DYSPEPSIA; Start 04/19/18 at 18:00 Magnesium Hydroxide (Milk Of Magnesia) 2,400 mg PRN QHS PRN PO CONSTIPATION Last administered on 04/26/18at 10:47; Start 04/19/18 at 18:00 Melatonin 6 mg QHS PO Last administered on 04/27/18at 20:07; Start 04/19/18 at 21 :00 Olanzapine (ZyPREXA IM) 5 mg PRN Q4HRS PRN IM AGITATION; Start 04/19/18 at 19: 45; Status Cancel Quetiapine Fumarate (SEROquel) 12.5 mg PRN DAILY PRN PO ANXIETY / AGITATION; Start 04/19/18 at 19:45; Stop 04/20/18 at 13:43; Status DC Quetiapine Fumarate (SEROquel) 50 mg TID PO Last administered on 04/19/18at 19: 54; Start 04/19/18 at 21:00; Stop 04/20/18 at 13:43; Status DC Acetaminophen (Tylenol) 650 mg PRN Q6HRS PRN PO PAIN / TEMP; Start 04/19/18 at 19:30; Status UNV Carbidopa/Levodopa (Sinemet 25/100) 1 tab TIDWMEALS PO Last administered on 04/27 17:10; Start 04/20/18 at 08:00 Clonidine HCl (Catapres Tts-2) 1 patch WEEKLY TD Last administered on 04/24/18at 08:41; Start 04/24/18 at 09:00 Gabapentin (Neurontin) 300 mg PRN DAILY PRN PO NEUROPATHY; Start 04/19/18 at 19 :30 Ketoconazole (Nizoral 2% Topical) 1 giorgio DAILY TP Last administered on 04/27/18at 09:00; Start 04/20/18 at 09:00 Lisinopril (Prinivil) 10 mg DAILY PO Last administered on 04/25/18 08:08; Start 04/20/18 at 09:00; Stop 04/27/18 at 11:13; Status DC Senna/Docusate Sodium (Senna Plus) 1 tab BID PO Last administered on 04/27/18 20:07; Start 04/19/18 at 21:00 Simvastatin (Zocor) 40 mg QHS PO Last administered on 04/27/18at 20:06; Start at 21:00 Atenolol (Tenormin) 50 mg DAILY PO Last administered on 04/25/18 08:07; Start 04/20/18 at 09:00 Budesonide (Entocort) 3 mg DAILY PO Last administered on 04/27/18at 08:57; Start 04/20/18 at 09:00; Stop 04/27/18 at 11:13; Status DC Hydrocortisone (Cortaid) 1 giorgio BID TP Last administered on 04/27/18at 20:08; Start 04/19/18 at 21:00 Non-Formulary Medication (Liraglutide (Victoza 3-Melvin)) 0.6 mg DAILY SQ ; Start 04/20/18 at 09:00; Status UNV Pantoprazole Sodium (Protonix) 40 mg BIDBFRMEAL PO Last administered on at 17:10; Start 04/20/18 at 07:30 Pioglitazone HCl (Actos) 15 mg DAILY PO Last administered on 04/27/18at 08:57; Start 04/20/18 at 09:00 Pramipexole Dihydrochloride (miraPEX) 0.5 mg [id number] PO Last administered on 04/27at 20:07; Start 04/19/18 at 21:00 Risperidone (RisperDAL) 1 mg DAILY SL Last administered on 04/21/18at 08:04; Start 04/20/18 at 09:00; Stop 04/21/18 at 18:50; Status DC Olanzapine (ZyPREXA ZYDIS) 5 mg PRN Q2HR PRN PO ANXIETY / AGITATION Last administered on 04/19/18at 19:55; Start 04/19/18 at 20:00 Olanzapine (ZyPREXA) 5 mg PRN Q4HRS PRN PO AGITATION; Start 04/19/18 at 19:49; Status Cancel Hydrochlorothiazide (Hydrodiuril) 6.25 mg DAILY PO Last administered on at 08:07; Start 04/20/18 at 09:00; Stop 04/27/18 at 11:13; Status DC Olanzapine (ZyPREXA IM) 5 mg DAILY IM Last administered on 04/22/18at 11:28; Start 04/20/18 at 10:00; Stop 04/22/18 at 16:24; Status DC Clonidine HCl (Catapres Tts-2) 1 patch 1X ONCE TD Last administered on at 18:11; Start 04/20/18 at 18:15; Stop 04/20/18 at 18:16; Status DC Vitamin D (Vitamin D3) 50,000 unit WEEKLY PO Last administered on 04/21/18at 14: 31; Start 04/21/18 at 13:30 Cyanocobalamin (Vitamin B-12) 1,000 mcg DAILY IM Last administered on 04/27/18at 08:57; Start 04/22/18 at 09:00 Trazodone HCl (Desyrel) 100 mg QHS PO Last administered on 04/27/18at 20:07; Start 04/21/18 at 21:00 Trazodone HCl (Desyrel) 100 mg PRN QHS PRN PO insomnia; Start 04/21/18 at 17:00 Olanzapine (ZyPREXA ZYDIS) 5 mg DAILY PO Last administered on 04/27/18at 08:59; Start 04/23/18 at 09:00 Cyanocobalamin (Vitamin B-12) 1,000 mcg 1X ONCE IM Last administered on at 12:13; Start 04/24/18 at 12:00; Stop 04/24/18 at 12:01; Status DC Active Scripts Active Reported Clonidine Tts-2 (Clonidine) 1 Each Patch.tdwk 1 Patch TD WEEKLY Olanzapine 5 Mg Tablet 1 Tab PO PRN Q4HRS PRN Victoza 3-Melvin (Liraglutide) 0.6 Mg/0.1 Ml Pen.injctr 0.6 Mg SQ DAILY Simvastatin 40 Mg Tablet 1 Tab PO QHS Senna-Docusate Sodium Tablet (Sennosides/Docusate Sodium) 1 Each Tablet 1 Each PO BID Seroquel (Quetiapine Fumarate) 50 Mg Tablet 1 Tab PO TID Seroquel (Quetiapine Fumarate) 25 Mg Tablet 12.5 Mg PO PRN DAILY PRN Mirapex (Pramipexole Di-Hcl) 0.25 Mg Tablet 0.5 Mg PO TID Actos (Pioglitazone Hcl) 15 Mg Tablet 1 Tab PO DAILY Pantoprazole Sodium 40 Mg Tablet.dr 1 Tab PO BIDBFRMEAL Melatonin 3 Mg Tablet 6 Mg PO QHS Lisinopril 10 Mg Tablet 10 Mg PO DAILY Ketoconazole 15 Gm Cream..g. 1 Giorgio TP DAILY Hydrocortisone 453.6 Gm Cream..g. 1 Giorgio TP BID Gabapentin 300 Mg Capsule 300 Mg PO PRN DAILY PRN Sinemet 25-100 Mg Tablet (Carbidopa/Levodopa) 1 Each Tablet 1 Tab PO TIDWMEALS Entocort Ec (Budesonide) 3 Mg Capdr...er 3 Cap PO DAILY Bisoprolol-Hctz 5-6.25 Mg Tab (Bisoprolol Fumarate/Hctz) 1 Each Tablet 1 Tab PO DAILY Tylenol (Acetaminophen) 325 Mg Tablet 650 Mg PO PRN Q6HRS PRN I have reviewed the current psychotropics carefully including drug interactions. Risk benefit ratio favors no change other than as noted in my dictated progress note. 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
[2018-04-28 07:31] LABS: BASO # 0.1 x10^3/uL (0.0-0.2); BASO % 1 % (0-3); EOS # 0.4 x10^3/uL (0.0-0.7); EOS % 4 % (0-3); HEMATOCRIT 31.6 % (39.0-53.0); HEMOGLOBIN 10.3 g/dL (13.0-17.5); LYMPH # 2.1 x10^3/uL (1.0-4.8); LYMPH % 26 % (24-48); MEAN CORPUSCULAR HEMOGLOBIN 25 pg (25-35); MEAN CORPUSCULAR HGB CONC 33 g/dL (31-37); MEAN CORPUSCULAR VOLUME 75 fL (79-100); MONO # 0.5 x10^3/uL (0.0-1.1); MONO % 6 % (0-9); NEUT % 63 % (31-73); PLATELET COUNT 233 x10^3/uL (140-400); RED CELL DISTRIBUTION WIDTH 16.6 % (11.5-14.5)
[2018-04-28 07:46] LABS: ALBUMIN 2.7 g/dL (3.4-5.0); ALBUMIN/GLOBULIN RATIO 0.7 (1.0-1.7); CREATININE 1.5 mg/dL (0.7-1.3); POTASSIUM 4.6 mmol/L (3.5-5.1); TOTAL BILIRUBIN 0.4 mg/dL (0.2-1.0); TOTAL PROTEIN 6.7 g/dL (6.4-8.2)
[2018-04-28] MEDS: CYANOCOBALAMIN (VITAMIN B-12) 1,000 MCG/ML VIAL IM SCH (10:39)
[2018-04-28] MEDS: PIOGLITAZONE 15 MG TABLET. PO SCH (10:40)
[2018-04-28] MEDS: PANTOPRAZOLE 40 MG TABLET. PO SCH ×2 (10:40→17:39)
[2018-04-28] MEDS: PRAMIPEXOLE 0.5 MG TABLET. PO SCH ×3 (10:41→20:03)
[2018-04-28] MEDS: SENNOSIDES/DOCUSATE 8.6/50MG TABLET. PO SCH ×2 (10:41→20:03)
[2018-04-28] MEDS: CARBIDOPA/LEVODOPA 25/100MG TABLET PO SCH ×3 (10:41→17:39)
[2018-04-28] MEDS: ATENOLOL 50 MG TABLET PO SCH (10:41)
[2018-04-28] MEDS: KETOCONAZOLE 2% TOPICAL CREAM 30GM TUBE. TP SCH (10:42)
[2018-04-28] MEDS: HYDROCORTISONE 1% TOPICAL CREAM 30GM TUBE. TP SCH ×2 (10:42→20:03)
[2018-04-28] MEDS: CHOLECALCIFEROL (VITAMIN D3) 50,000 UNIT CAPSULE PO SCH (10:42)
[2018-04-28 16:19] VITALS: BP 113/71
[2018-04-28] MEDS: MELATONIN 3 MG TABLET PO SCH (20:02)
[2018-04-28] MEDS: traZODone 100 MG TABLET. PO SCH (20:03)
[2018-04-28] MEDS: SIMVASTATIN 40 MG TABLET. PO SCH (20:03)
[2018-04-28] MEDS: ACETAMINOPHEN 325 MG TABLET PO PRN (20:26)
--- NOTE | 2018-04-28 20:31 | PDOC ---
Exam Note: Nickolas Note: Please also refer to the separate dictated note~for this date of service dictated separately.~Patient seen individually. Discussed the patient with Nursing staff reviewed the chart.~Reviewed interim history and current functioning. Reviewed vital signs,~Labs/ Radiology~and current medications noted below. Continue current treatment with the changes noted in the dictated addendum note Assessment: Vital Signs: Vital Signs Date Time Temp Pulse Resp B/P (MAP) Pulse Ox O2 Delivery O2 Flow Rate FiO2 04/28/18 16:19 98.5 63 18 113/71 (85) 97 04/27/18 06:28 Room Air I&O Intake and Output 04/28/18 06:59 Intake Total 1280 ml Balance 1280 ml Intake Oral 1280 ml # Bowel Movements 1 Labs: Laboratory Tests Test 04/28/18 07:13 White Blood Count 8.0 x10^3/uL (4.0-11.0) Red Blood Count 4.20 x10^6/uL (4.30-5.70) L Hemoglobin 10.3 g/dL (13.0-17.5) L Hematocrit 31.6 % (39.0-53.0) L Mean Corpuscular Volume 75 fL (79-100) L Mean Corpuscular Hemoglobin 25 pg (25-35) Mean Corpuscular Hemoglobin Concent 33 g/dL (31-37) Red Cell Distribution Width 16.6 % (11.5-14.5) H Platelet Count 233 x10^3/uL (140-400) Neutrophils (%) (Auto) 63 % (31-73) Lymphocytes (%) (Auto) 26 % (24-48) Monocytes (%) (Auto) 6 % (0-9) Eosinophils (%) (Auto) 4 % (0-3) H Basophils (%) (Auto) 1 % (0-3) Neutrophils # (Auto) 5.0 x10^3uL (1.8-7.7) Lymphocytes # (Auto) 2.1 x10^3/uL (1.0-4.8) Monocytes # (Auto) 0.5 x10^3/uL (0.0-1.1) Eosinophils # (Auto) 0.4 x10^3/uL (0.0-0.7) Basophils # (Auto) 0.1 x10^3/uL (0.0-0.2) Sodium Level 133 mmol/L (136-145) L Potassium Level 4.6 mmol/L (3.5-5.1) Chloride Level 99 mmol/L (98-107) Carbon Dioxide Level 30 mmol/L (21-32) Anion Gap 4 (6-14) L Blood Urea Nitrogen 40 mg/dL (8-26) H Creatinine 1.5 mg/dL (0.7-1.3) H Estimated GFR (Cockcroft-Gault) 46.0 BUN/Creatinine Ratio 27 (6-20) H Glucose Level 210 mg/dL (70-99) H Calcium Level 9.0 mg/dL (8.5-10.1) Total Bilirubin 0.4 mg/dL (0.2-1.0) Aspartate Amino Transferase (AST) 23 U/L (15-37) Alanine Aminotransferase (ALT) 26 U/L (16-63) Alkaline Phosphatase 99 U/L (46-116) Total Protein 6.7 g/dL (6.4-8.2) Albumin 2.7 g/dL (3.4-5.0) L Albumin/Globulin Ratio 0.7 (1.0-1.7) L Current Medications: Meds: Current Medications Acetaminophen (Tylenol) 650 mg PRN Q6HRS PRN PO PAIN / TEMP Last administered on 04/27/18at 09:00; Start 04/19/18 at 18:00 Multi-Ingredient Ointment (Analgesic [place]) 1 giorgio PRN QID PRN TP MUSCLE PAIN; Start 04/19/18 at 18:00 Al Hydroxide/Mg Hydroxide (Mylanta Plus Xs) 15 ml PRN AFTMEALHC PRN PO DYSPEPSIA; Start 04/19/18 at 18:00 Magnesium Hydroxide (Milk Of Magnesia) 2,400 mg PRN QHS PRN PO CONSTIPATION Last administered on 04/26/18at 10:47; Start 04/19/18 at 18:00 Melatonin 6 mg QHS PO Last administered on 04/28/18at 20:02; Start 04/19/18 at 21 :00 Olanzapine (ZyPREXA IM) 5 mg PRN Q4HRS PRN IM AGITATION; Start 04/19/18 at 19: 45; Status Cancel Quetiapine Fumarate (SEROquel) 12.5 mg PRN DAILY PRN PO ANXIETY / AGITATION; Start 04/19/18 at 19:45; Stop 04/20/18 at 13:43; Status DC Quetiapine Fumarate (SEROquel) 50 mg TID PO Last administered on 04/19/18at 19: 54; Start 04/19/18 at 21:00; Stop 04/20/18 at 13:43; Status DC Acetaminophen (Tylenol) 650 mg PRN Q6HRS PRN PO PAIN / TEMP; Start 04/19/18 at 19:30; Status UNV Carbidopa/Levodopa (Sinemet 25/100) 1 tab TIDWMEALS PO Last administered on 04/28 17:39; Start 04/20/18 at 08:00 Clonidine HCl (Catapres Tts-2) 1 patch WEEKLY TD Last administered on 04/24/18 08:41; Start 04/24/18 at 09:00 Gabapentin (Neurontin) 300 mg PRN DAILY PRN PO NEUROPATHY; Start 04/19/18 at 19 :30 Ketoconazole (Nizoral 2% Topical) 1 giorgio DAILY TP Last administered on 04/28/18 10:42; Start 04/20/18 at 09:00 Lisinopril (Prinivil) 10 mg DAILY PO Last administered on 04/25/18 08:08; Start 04/20/18 at 09:00; Stop 04/27/18 at 11:13; Status DC Senna/Docusate Sodium (Senna Plus) 1 tab BID PO Last administered on 04/28/18 20:03; Start 04/19/18 at 21:00 Simvastatin (Zocor) 40 mg QHS PO Last administered on 04/28/18 20:03; Start at 21:00 Atenolol (Tenormin) 50 mg DAILY PO Last administered on 04/28/18 10:41; Start 04/20/18 at 09:00 Budesonide (Entocort) 3 mg DAILY PO Last administered on 04/27/18 08:57; Start 04/20/18 at 09:00; Stop 04/27/18 at 11:13; Status DC Hydrocortisone (Cortaid) 1 giorgio BID TP Last administered on 04/28/18at 20:03; Start 04/19/18 at 21:00 Non-Formulary Medication (Liraglutide (Victoza 3-Melvin)) 0.6 mg DAILY SQ ; Start 04/20/18 at 09:00; Status UNV Pantoprazole Sodium (Protonix) 40 mg BIDBFRMEAL PO Last administered on at 17:39; Start 04/20/18 at 07:30 Pioglitazone HCl (Actos) 15 mg DAILY PO Last administered on 04/28/18at 10:40; Start 04/20/18 at 09:00 Pramipexole Dihydrochloride (miraPEX) 0.5 mg [id number] PO Last administered on 04/28at 20:03; Start 04/19/18 at 21:00 Risperidone (RisperDAL) 1 mg DAILY SL Last administered on 04/21/18at 08:04; Start 04/20/18 at 09:00; Stop 04/21/18 at 18:50; Status DC Olanzapine (ZyPREXA ZYDIS) 5 mg PRN Q2HR PRN PO ANXIETY / AGITATION Last administered on 04/19/18at 19:55; Start 04/19/18 at 20:00 Olanzapine (ZyPREXA) 5 mg PRN Q4HRS PRN PO AGITATION; Start 04/19/18 at 19:49; Status Cancel Hydrochlorothiazide (Hydrodiuril) 6.25 mg DAILY PO Last administered on 08:07; Start 04/20/18 at 09:00; Stop 04/27/18 at 11:13; Status DC Olanzapine (ZyPREXA IM) 5 mg DAILY IM Last administered on 04/22/18at 11:28; Start 04/20/18 at 10:00; Stop 04/22/18 at 16:24; Status DC Clonidine HCl (Catapres Tts-2) 1 patch 1X ONCE TD Last administered on at 18:11; Start 04/20/18 at 18:15; Stop 04/20/18 at 18:16; Status DC Vitamin D (Vitamin D3) 50,000 unit WEEKLY PO Last administered on 04/28/18at 10: 42; Start 04/21/18 at 13:30 Cyanocobalamin (Vitamin B-12) 1,000 mcg DAILY IM Last administered on 8/6/18at 08:57; Start 04/22/18 at 09:00; Stop 04/28/18 at 10:40; Status DC Trazodone HCl (Desyrel) 100 mg QHS PO Last administered on 04/28/18at 20:03; Start 04/21/18 at 21:00 Trazodone HCl (Desyrel) 100 mg PRN QHS PRN PO insomnia; Start 04/21/18 at 17:00 Olanzapine (ZyPREXA ZYDIS) 5 mg DAILY PO Last administered on 04/28/18at 10:40; Start 04/23/18 at 09:00 Cyanocobalamin (Vitamin B-12) 1,000 mcg 1X ONCE IM Last administered on at 12:13; Start 04/24/18 at 12:00; Stop 04/24/18 at 12:01; Status DC Active Scripts Active Reported Clonidine Tts-2 (Clonidine) 1 Each Patch.tdwk 1 Patch TD WEEKLY Olanzapine 5 Mg Tablet 1 Tab PO PRN Q4HRS PRN Victoza 3-Melvin (Liraglutide) 0.6 Mg/0.1 Ml Pen.injctr 0.6 Mg SQ DAILY Simvastatin 40 Mg Tablet 1 Tab PO QHS Senna-Docusate Sodium Tablet (Sennosides/Docusate Sodium) 1 Each Tablet 1 Each PO BID Seroquel (Quetiapine Fumarate) 50 Mg Tablet 1 Tab PO TID Seroquel (Quetiapine Fumarate) 25 Mg Tablet 12.5 Mg PO PRN DAILY PRN Mirapex (Pramipexole Di-Hcl) 0.25 Mg Tablet 0.5 Mg PO TID Actos (Pioglitazone Hcl) 15 Mg Tablet 1 Tab PO DAILY Pantoprazole Sodium 40 Mg Tablet.dr 1 Tab PO BIDBFRMEAL Melatonin 3 Mg Tablet 6 Mg PO QHS Lisinopril 10 Mg Tablet 10 Mg PO DAILY Ketoconazole 15 Gm Cream..g. 1 Giorgio TP DAILY Hydrocortisone 453.6 Gm Cream..g. 1 Giorgio TP BID Gabapentin 300 Mg Capsule 300 Mg PO PRN DAILY PRN Sinemet 25-100 Mg Tablet (Carbidopa/Levodopa) 1 Each Tablet 1 Tab PO TIDWMEALS Entocort Ec (Budesonide) 3 Mg Capdr...er 3 Cap PO DAILY Bisoprolol-Hctz 5-6.25 Mg Tab (Bisoprolol Fumarate/Hctz) 1 Each Tablet 1 Tab PO DAILY Tylenol (Acetaminophen) 325 Mg Tablet 650 Mg PO PRN Q6HRS PRN I have reviewed the current psychotropics carefully including drug interactions. Risk benefit ratio favors no change other than as noted in my dictated progress note. 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
--- NOTE | 2018-04-28 22:36 | PN ---
DATE: 04/27/2018 This is a late entry of 04/27/2018, covers elements not covered in my initial note. SUBJECTIVE: I met with the patient in the evening. The patient slept 6-3/4 hours previous evening. BUN and creatinine are elevated. Hydrochlorothiazide discontinued per Dr. Carmichael. Cognitively, he has appeared clear. Still intermittently anxious, delusional, but less so than before. REVIEW OF SYSTEMS: Ambulation impaired, in wheelchair. No CV, , pulmonary, eye, ENT system symptoms on review. MENTAL STATUS EXAM: Oriented to himself, situation. He was aware of the date, though he is one day off. Complains of difficulty with his movements and this consequent to the Parkinson's. Speech, moderate latency, often responses monosyllabic. Abstraction fair, computation impaired, language function intact, and attention span short. Mood and affect somewhat withdrawn. LABORATORY DATA: Reviewed. IMPRESSION: Psychotic disorder, unspecified; bipolar 1 disorder, mixed with psychotic features; major neurocognitive disorder; Lewy body early with delusions. PLAN: Continue psychotropics from initial note. May consider reducing Zyprexa with the ultimate goal of discontinuing it. Continue Seroquel at current dosage. Rest unchanged. I have completed yet another form to activate the healthcare DPOA for the patient's daughter and previously had completed a statement indicating that he needed assistance for making financial decisions. MAN Dalton CHAMPAGNE MD DR: SERENITY/rebecca JOB#: [id number] / [id number]
[2018-04-29 05:50] VITALS: BP 140/58
[2018-04-29] MEDS: MAGNESIUM HYDROXIDE 2,400 MG/30 ML ORAL.SUSP. PO PRN ×2 (08:27→23:14)
[2018-04-29] MEDS: PRAMIPEXOLE 0.5 MG TABLET. PO SCH ×3 (08:30→20:34)
[2018-04-29] MEDS: CARBIDOPA/LEVODOPA 25/100MG TABLET PO SCH ×3 (08:30→17:28)
[2018-04-29] MEDS: PIOGLITAZONE 15 MG TABLET. PO SCH (08:30)
[2018-04-29] MEDS: SENNOSIDES/DOCUSATE 8.6/50MG TABLET. PO SCH ×2 (08:31→20:34)
[2018-04-29] MEDS: KETOCONAZOLE 2% TOPICAL CREAM 30GM TUBE. TP SCH (08:31)
[2018-04-29] MEDS: HYDROCORTISONE 1% TOPICAL CREAM 30GM TUBE. TP SCH ×2 (08:31→20:34)
[2018-04-29] MEDS: ATENOLOL 50 MG TABLET PO SCH (08:31)
[2018-04-29] MEDS: PANTOPRAZOLE 40 MG TABLET. PO SCH ×3 (08:31→17:28)
[2018-04-29 16:19] VITALS: BP 129/68
[2018-04-29] MEDS: MELATONIN 3 MG TABLET PO SCH (20:31)
[2018-04-29] MEDS: traZODone 100 MG TABLET. PO SCH (20:33)
[2018-04-29] MEDS: SIMVASTATIN 40 MG TABLET. PO SCH (20:34)
--- NOTE | 2018-04-29 21:03 | PDOC ---
Exam Note: Nickolas Note: Please also refer to the separate dictated note~for this date of service dictated separately.~Patient seen individually. Discussed the patient with Nursing staff reviewed the chart.~Reviewed interim history and current functioning. Reviewed vital signs,~Labs/ Radiology~and current medications noted below. Continue current treatment with the changes noted in the dictated addendum note Assessment: Vital Signs: Vital Signs Date Time Temp Pulse Resp B/P (MAP) Pulse Ox O2 Delivery O2 Flow Rate FiO2 04/29/18 16:19 98.0 63 20 129/68 (88) 97 04/27/18 06:28 Room Air I&O Intake and Output 04/29/18 06:59 Intake Total 1320 ml Balance 1320 ml Intake Oral 1320 ml # Bowel Movements 1 Current Medications: Meds: Current Medications Acetaminophen (Tylenol) 650 mg PRN Q6HRS PRN PO PAIN / TEMP Last administered on 04/28/18 20:26; Start 04/19/18 at 18:00 Multi-Ingredient Ointment (Analgesic [place]) 1 giorgio PRN QID PRN TP MUSCLE PAIN; Start 04/19/18 at 18:00 Al Hydroxide/Mg Hydroxide (Mylanta Plus Xs) 15 ml PRN AFTMEALHC PRN PO DYSPEPSIA; Start 04/19/18 at 18:00 Magnesium Hydroxide (Milk Of Magnesia) 2,400 mg PRN QHS PRN PO CONSTIPATION Last administered on 04/29/18at 08:27; Start 04/19/18 at 18:00 Melatonin 6 mg QHS PO Last administered on 04/29/18at 20:31; Start 04/19/18 at 21 :00 Olanzapine (ZyPREXA IM) 5 mg PRN Q4HRS PRN IM AGITATION; Start 04/19/18 at 19: 45; Status Cancel Quetiapine Fumarate (SEROquel) 12.5 mg PRN DAILY PRN PO ANXIETY / AGITATION; Start 04/19/18 at 19:45; Stop 04/20/18 at 13:43; Status DC Quetiapine Fumarate (SEROquel) 50 mg TID PO Last administered on 04/19/18at 19: 54; Start 04/19/18 at 21:00; Stop 04/20/18 at 13:43; Status DC Acetaminophen (Tylenol) 650 mg PRN Q6HRS PRN PO PAIN / TEMP; Start 04/19/18 at 19:30; Status UNV Carbidopa/Levodopa (Sinemet 25/100) 1 tab TIDWMEALS PO Last administered on 04/29 17:28; Start 04/20/18 at 08:00 Clonidine HCl (Catapres Tts-2) 1 patch WEEKLY TD Last administered on 04/24/18 08:41; Start 04/24/18 at 09:00 Gabapentin (Neurontin) 300 mg PRN DAILY PRN PO NEUROPATHY; Start 04/19/18 at 19 :30 Ketoconazole (Nizoral 2% Topical) 1 giorgio DAILY TP Last administered on 04/29/18 08:31; Start 04/20/18 at 09:00 Lisinopril (Prinivil) 10 mg DAILY PO Last administered on 04/25/18 08:08; Start 04/20/18 at 09:00; Stop 04/27/18 at 11:13; Status DC Senna/Docusate Sodium (Senna Plus) 1 tab BID PO Last administered on 04/29/18 20:34; Start 04/19/18 at 21:00 Simvastatin (Zocor) 40 mg QHS PO Last administered on 04/29/18 20:34; Start at 21:00 Atenolol (Tenormin) 50 mg DAILY PO Last administered on 04/29/18 08:31; Start 04/20/18 at 09:00 Budesonide (Entocort) 3 mg DAILY PO Last administered on 04/27/18 08:57; Start 04/20/18 at 09:00; Stop 04/27/18 at 11:13; Status DC Hydrocortisone (Cortaid) 1 giorgio BID TP Last administered on 04/29/18 20:34; Start 04/19/18 at 21:00 Non-Formulary Medication (Liraglutide (Victoza 3-Melvin)) 0.6 mg DAILY SQ ; Start 04/20/18 at 09:00; Status UNV Pantoprazole Sodium (Protonix) 40 mg BIDBFRMEAL PO Last administered on 17:28; Start 04/20/18 at 07:30 Pioglitazone HCl (Actos) 15 mg DAILY PO Last administered on 04/29/18 08:30; Start 04/20/18 at 09:00 Pramipexole Dihydrochloride (miraPEX) 0.5 mg [id number] PO Last administered on 04/29at 20:34; Start 04/19/18 at 21:00 Risperidone (RisperDAL) 1 mg DAILY SL Last administered on 04/21/18at 08:04; Start 04/20/18 at 09:00; Stop 04/21/18 at 18:50; Status DC Olanzapine (ZyPREXA ZYDIS) 5 mg PRN Q2HR PRN PO ANXIETY / AGITATION Last administered on 04/19/18at 19:55; Start 04/19/18 at 20:00 Olanzapine (ZyPREXA) 5 mg PRN Q4HRS PRN PO AGITATION; Start 04/19/18 at 19:49; Status Cancel Hydrochlorothiazide (Hydrodiuril) 6.25 mg DAILY PO Last administered on at 08:07; Start 04/20/18 at 09:00; Stop 04/27/18 at 11:13; Status DC Olanzapine (ZyPREXA IM) 5 mg DAILY IM Last administered on 04/22/18at 11:28; Start 04/20/18 at 10:00; Stop 04/22/18 at 16:24; Status DC Clonidine HCl (Catapres Tts-2) 1 patch 1X ONCE TD Last administered on at 18:11; Start 04/20/18 at 18:15; Stop 04/20/18 at 18:16; Status DC Vitamin D (Vitamin D3) 50,000 unit WEEKLY PO Last administered on 04/28/18at 10: 42; Start 04/21/18 at 13:30 Cyanocobalamin (Vitamin B-12) 1,000 mcg DAILY IM Last administered on 04/27/18at 08:57; Start 04/22/18 at 09:00; Stop 04/28/18 at 10:40; Status DC Trazodone HCl (Desyrel) 100 mg QHS PO Last administered on 04/29/18at 20:33; Start 04/21/18 at 21:00 Trazodone HCl (Desyrel) 100 mg PRN QHS PRN PO insomnia; Start 04/21/18 at 17:00 Olanzapine (ZyPREXA ZYDIS) 5 mg DAILY PO Last administered on 04/29/18at 08:31; Start 04/23/18 at 09:00 Cyanocobalamin (Vitamin B-12) 1,000 mcg 1X ONCE IM Last administered on at 12:13; Start 04/24/18 at 12:00; Stop 04/24/18 at 12:01; Status DC Active Scripts Active Reported Clonidine Tts-2 (Clonidine) 1 Each Patch.tdwk 1 Patch TD WEEKLY Olanzapine 5 Mg Tablet 1 Tab PO PRN Q4HRS PRN Victoza 3-Melvin (Liraglutide) 0.6 Mg/0.1 Ml Pen.injctr 0.6 Mg SQ DAILY Simvastatin 40 Mg Tablet 1 Tab PO QHS Senna-Docusate Sodium Tablet (Sennosides/Docusate Sodium) 1 Each Tablet 1 Each PO BID Seroquel (Quetiapine Fumarate) 50 Mg Tablet 1 Tab PO TID Seroquel (Quetiapine Fumarate) 25 Mg Tablet 12.5 Mg PO PRN DAILY PRN Mirapex (Pramipexole Di-Hcl) 0.25 Mg Tablet 0.5 Mg PO TID Actos (Pioglitazone Hcl) 15 Mg Tablet 1 Tab PO DAILY Pantoprazole Sodium 40 Mg Tablet.dr 1 Tab PO BIDBFRMEAL Melatonin 3 Mg Tablet 6 Mg PO QHS Lisinopril 10 Mg Tablet 10 Mg PO DAILY Ketoconazole 15 Gm Cream..g. 1 Giorgio TP DAILY Hydrocortisone 453.6 Gm Cream..g. 1 Giorgio TP BID Gabapentin 300 Mg Capsule 300 Mg PO PRN DAILY PRN Sinemet 25-100 Mg Tablet (Carbidopa/Levodopa) 1 Each Tablet 1 Tab PO TIDWMEALS Entocort Ec (Budesonide) 3 Mg Capdr...er 3 Cap PO DAILY Bisoprolol-Hctz 5-6.25 Mg Tab (Bisoprolol Fumarate/Hctz) 1 Each Tablet 1 Tab PO DAILY Tylenol (Acetaminophen) 325 Mg Tablet 650 Mg PO PRN Q6HRS PRN I have reviewed the current psychotropics carefully including drug interactions. Risk benefit ratio favors no change other than as noted in my dictated progress note. Diagnosis: Problems: (1) Anxiety disorder (2) Impulse control disorder (3) Bipolar affective disorder, mixed (4) Parkinson's disease (5) Dementia due to Parkinson's disease with behavioral disturbance (6) Psychosis ALYSHA CHAMPAGNE MD Apr 29, 2018 21:02
--- NOTE | 2018-04-29 22:39 | PN ---
DATE: 04/28/2018 PSYCHIATRIC PROGRESS NOTE This is a late entry, 04/28, covers the elements not covered in my initial note 04/28. SUBJECTIVE: I met with the patient in the evening. The patient slept 6-1/4 hours previous evening. He is somewhat obsessed about his bowels, wanting milk of mag daily. He is compliant with medications, less confused. REVIEW OF SYSTEMS: Positive for the constipation, impaired ambulation, in wheelchair. No CV, , pulmonary, eye system symptoms on review. MENTAL STATUS EXAM: Oriented to himself and situation. Speech has some latency, coherent. Abstraction fair, computation impaired, language function intact, attention span short. Mood and affect somewhat withdrawn. He has a parkinsonian facial expression, but improved. No clear suicidal or homicidal ideations. Psychotic symptoms are much better. LABORATORY DATA: Reviewed. IMPRESSION: Psychotic disorder, unspecified; bipolar 1 disorder, mixed with psychotic features, rule out early Lewy body dementia. PLAN: No change from a psychiatric standpoint, continue psychotropics from initial note. MAN Dalton CHAMPAGNE MD DR: SERENITY/rebecca JOB#: [id number] / [id number]
[2018-04-30 06:20] VITALS: BP 140/57
[2018-04-30] MEDS: PANTOPRAZOLE 40 MG TABLET. PO SCH ×2 (09:36→17:33)
[2018-04-30] MEDS: PIOGLITAZONE 15 MG TABLET. PO SCH (09:36)
[2018-04-30] MEDS: CARBIDOPA/LEVODOPA 25/100MG TABLET PO SCH ×3 (09:36→17:33)
[2018-04-30] MEDS: HYDROCORTISONE 1% TOPICAL CREAM 30GM TUBE. TP SCH ×2 (09:37→19:23)
[2018-04-30] MEDS: SENNOSIDES/DOCUSATE 8.6/50MG TABLET. PO SCH ×2 (09:37→19:24)
[2018-04-30] MEDS: PRAMIPEXOLE 0.5 MG TABLET. PO SCH ×3 (09:37→19:24)
[2018-04-30] MEDS: ATENOLOL 50 MG TABLET PO SCH (09:37)
[2018-04-30] MEDS: KETOCONAZOLE 2% TOPICAL CREAM 30GM TUBE. TP SCH (09:37)
[2018-04-30 15:39] VITALS: BP 125/65
[2018-04-30] MEDS: MELATONIN 3 MG TABLET PO SCH (19:22)
[2018-04-30] MEDS: traZODone 100 MG TABLET. PO SCH (19:22)
[2018-04-30] MEDS: SIMVASTATIN 40 MG TABLET. PO SCH (19:23)
--- NOTE | 2018-04-30 20:21 | PDOC ---
Exam Note: Nickolas Note: Please also refer to the separate dictated note~for this date of service dictated separately.~Patient seen individually. Discussed the patient with Nursing staff reviewed the chart.~Reviewed interim history and current functioning. Reviewed vital signs,~Labs/ Radiology~and current medications noted below. Continue current treatment with the changes noted in the dictated addendum note Assessment: Vital Signs: Vital Signs Date Time Temp Pulse Resp B/P (MAP) Pulse Ox O2 Delivery O2 Flow Rate FiO2 04/30/18 15:39 98.0 72 16 125/65 (85) 96 Room Air I&O Intake and Output 04/30/18 07:00 Intake Total 1440 ml Balance 1440 ml Intake Oral 1440 ml Current Medications: Meds: Current Medications Acetaminophen (Tylenol) 650 mg PRN Q6HRS PRN PO PAIN / TEMP Last administered on 04/28/18at 20:26; Start 04/19/18 at 18:00 Multi-Ingredient Ointment (Analgesic [place]) 1 giorgio PRN QID PRN TP MUSCLE PAIN; Start 04/19/18 at 18:00 Al Hydroxide/Mg Hydroxide (Mylanta Plus Xs) 15 ml PRN AFTMEALHC PRN PO DYSPEPSIA; Start 04/19/18 at 18:00 Magnesium Hydroxide (Milk Of Magnesia) 2,400 mg PRN QHS PRN PO CONSTIPATION Last administered on 04/29/18at 23:14; Start 04/19/18 at 18:00 Melatonin 6 mg QHS PO Last administered on 04/30/18at 19:22; Start 04/19/18 at 21 :00 Olanzapine (ZyPREXA IM) 5 mg PRN Q4HRS PRN IM AGITATION; Start 04/19/18 at 19: 45; Status Cancel Quetiapine Fumarate (SEROquel) 12.5 mg PRN DAILY PRN PO ANXIETY / AGITATION; Start 04/19/18 at 19:45; Stop 04/20/18 at 13:43; Status DC Quetiapine Fumarate (SEROquel) 50 mg TID PO Last administered on 04/19/18at 19: 54; Start 04/19/18 at 21:00; Stop 04/20/18 at 13:43; Status DC Acetaminophen (Tylenol) 650 mg PRN Q6HRS PRN PO PAIN / TEMP; Start 04/19/18 at 19:30; Status UNV Carbidopa/Levodopa (Sinemet 25/100) 1 tab TIDWMEALS PO Last administered on 04/30 17:33; Start 04/20/18 at 08:00 Clonidine HCl (Catapres Tts-2) 1 patch WEEKLY TD Last administered on 04/24/18 08:41; Start 04/24/18 at 09:00 Gabapentin (Neurontin) 300 mg PRN DAILY PRN PO NEUROPATHY; Start 04/19/18 at 19 :30 Ketoconazole (Nizoral 2% Topical) 1 giorgio DAILY TP Last administered on 04/30/18 09:37; Start 04/20/18 at 09:00 Lisinopril (Prinivil) 10 mg DAILY PO Last administered on 04/25/18 08:08; Start 04/20/18 at 09:00; Stop 04/27/18 at 11:13; Status DC Senna/Docusate Sodium (Senna Plus) 1 tab BID PO Last administered on 04/30/18 19:24; Start 04/19/18 at 21:00 Simvastatin (Zocor) 40 mg QHS PO Last administered on 04/30/18 19:23; Start at 21:00 Atenolol (Tenormin) 50 mg DAILY PO Last administered on 04/30/18 09:37; Start 04/20/18 at 09:00 Budesonide (Entocort) 3 mg DAILY PO Last administered on 04/27/18 08:57; Start 04/20/18 at 09:00; Stop 04/27/18 at 11:13; Status DC Hydrocortisone (Cortaid) 1 giorgio BID TP Last administered on 04/30/18 19:23; Start 04/19/18 at 21:00 Non-Formulary Medication (Liraglutide (Victoza 3-Melvin)) 0.6 mg DAILY SQ ; Start 04/20/18 at 09:00; Status UNV Pantoprazole Sodium (Protonix) 40 mg BIDBFRMEAL PO Last administered on 17:33; Start 04/20/18 at 07:30 Pioglitazone HCl (Actos) 15 mg DAILY PO Last administered on 04/30/18 09:36; Start 04/20/18 at 09:00 Pramipexole Dihydrochloride (miraPEX) 0.5 mg [id number] PO Last administered on 04/30at 19:24; Start 04/19/18 at 21:00 Risperidone (RisperDAL) 1 mg DAILY SL Last administered on 04/21/18at 08:04; Start 04/20/18 at 09:00; Stop 04/21/18 at 18:50; Status DC Olanzapine (ZyPREXA ZYDIS) 5 mg PRN Q2HR PRN PO ANXIETY / AGITATION Last administered on 04/19/18at 19:55; Start 04/19/18 at 20:00 Olanzapine (ZyPREXA) 5 mg PRN Q4HRS PRN PO AGITATION; Start 04/19/18 at 19:49; Status Cancel Hydrochlorothiazide (Hydrodiuril) 6.25 mg DAILY PO Last administered on at 08:07; Start 04/20/18 at 09:00; Stop 04/27/18 at 11:13; Status DC Olanzapine (ZyPREXA IM) 5 mg DAILY IM Last administered on 04/22/18at 11:28; Start 04/20/18 at 10:00; Stop 04/22/18 at 16:24; Status DC Clonidine HCl (Catapres Tts-2) 1 patch 1X ONCE TD Last administered on at 18:11; Start 04/20/18 at 18:15; Stop 04/20/18 at 18:16; Status DC Vitamin D (Vitamin D3) 50,000 unit WEEKLY PO Last administered on 04/28/18at 10: 42; Start 04/21/18 at 13:30 Cyanocobalamin (Vitamin B-12) 1,000 mcg DAILY IM Last administered on 04/27/18at 08:57; Start 04/22/18 at 09:00; Stop 04/28/18 at 10:40; Status DC Trazodone HCl (Desyrel) 100 mg QHS PO Last administered on 04/30/18at 19:22; Start 04/21/18 at 21:00 Trazodone HCl (Desyrel) 100 mg PRN QHS PRN PO insomnia; Start 04/21/18 at 17:00 Olanzapine (ZyPREXA ZYDIS) 5 mg DAILY PO Last administered on 04/30/18at 09:37; Start 04/23/18 at 09:00; Stop 04/30/18 at 11:14; Status DC Cyanocobalamin (Vitamin B-12) 1,000 mcg 1X ONCE IM Last administered on at 12:13; Start 04/24/18 at 12:00; Stop 04/24/18 at 12:01; Status DC Olanzapine (ZyPREXA ZYDIS) 7.5 mg DAILY PO ; Start 05/01/18 at 09:00 Active Scripts Active Reported Clonidine Tts-2 (Clonidine) 1 Each Patch.tdwk 1 Patch TD WEEKLY Olanzapine 5 Mg Tablet 1 Tab PO PRN Q4HRS PRN Victoza 3-Melvin (Liraglutide) 0.6 Mg/0.1 Ml Pen.injctr 0.6 Mg SQ DAILY Simvastatin 40 Mg Tablet 1 Tab PO QHS Senna-Docusate Sodium Tablet (Sennosides/Docusate Sodium) 1 Each Tablet 1 Each PO BID Seroquel (Quetiapine Fumarate) 50 Mg Tablet 1 Tab PO TID Seroquel (Quetiapine Fumarate) 25 Mg Tablet 12.5 Mg PO PRN DAILY PRN Mirapex (Pramipexole Di-Hcl) 0.25 Mg Tablet 0.5 Mg PO TID Actos (Pioglitazone Hcl) 15 Mg Tablet 1 Tab PO DAILY Pantoprazole Sodium 40 Mg Tablet.dr 1 Tab PO BIDBFRMEAL Melatonin 3 Mg Tablet 6 Mg PO QHS Lisinopril 10 Mg Tablet 10 Mg PO DAILY Ketoconazole 15 Gm Cream..g. 1 Giorgio TP DAILY Hydrocortisone 453.6 Gm Cream..g. 1 Giorgio TP BID Gabapentin 300 Mg Capsule 300 Mg PO PRN DAILY PRN Sinemet 25-100 Mg Tablet (Carbidopa/Levodopa) 1 Each Tablet 1 Tab PO TIDWMEALS Entocort Ec (Budesonide) 3 Mg Capdr...er 3 Cap PO DAILY Bisoprolol-Hctz 5-6.25 Mg Tab (Bisoprolol Fumarate/Hctz) 1 Each Tablet 1 Tab PO DAILY Tylenol (Acetaminophen) 325 Mg Tablet 650 Mg PO PRN Q6HRS PRN I have reviewed the current psychotropics carefully including drug interactions. Risk benefit ratio favors no change other than as noted in my dictated progress note. Diagnosis: Problems: (1) Anxiety disorder (2) Impulse control disorder (3) Bipolar affective disorder, mixed (4) Parkinson's disease (5) Dementia due to Parkinson's disease with behavioral disturbance (6) Psychosis ALYSHA CHAMPAGNE MD Apr 30, 2018 20:20
[2018-05-01 05:54] VITALS: BP 118/58
[2018-05-01] MEDS: SENNOSIDES/DOCUSATE 8.6/50MG TABLET. PO SCH ×2 (08:35→19:32)
[2018-05-01] MEDS: PRAMIPEXOLE 0.5 MG TABLET. PO SCH ×3 (08:35→19:31)
[2018-05-01] MEDS: PIOGLITAZONE 15 MG TABLET. PO SCH (08:35)
[2018-05-01] MEDS: PANTOPRAZOLE 40 MG TABLET. PO SCH ×2 (08:35→17:09)
[2018-05-01] MEDS: CARBIDOPA/LEVODOPA 25/100MG TABLET PO SCH ×3 (08:35→17:09)
[2018-05-01] MEDS: cloNIDine TTS-2 1 PATCH PATCH TD SCH (08:38)
[2018-05-01] MEDS: KETOCONAZOLE 2% TOPICAL CREAM 30GM TUBE. TP SCH (08:39)
[2018-05-01] MEDS: HYDROCORTISONE 1% TOPICAL CREAM 30GM TUBE. TP SCH ×2 (08:39→19:45)
[2018-05-01] MEDS: ATENOLOL 50 MG TABLET PO SCH (09:00)
--- NOTE | 2018-05-01 13:48 | PN ---
DATE: 04/29/2018 PSYCHIATRIC PROGRESS NOTE This is a late entry, 04/29, covers elements not covered in my initial note. SUBJECTIVE: I met with the patient evening of 04/29. Family expressed concern to the nursing staff previous evening that the patient had talked about wanting to be discharged from the hospital against medical advice. He needs continuous stay on account of his intermittent ongoing paranoia, delusions. He also needs longterm care and is receiving PT, OT for now. He has talked to his daughter about feeling this magnets on the floor holding him from walking. REVIEW OF SYSTEMS: Positive for impaired ambulation consequent to his Parkinson's. No CV, , pulmonary, eye, ENT system symptoms on review. MENTAL STATUS EXAM: Oriented to himself and situation. Speech has some latency consequent to his Parkinson's. Has a parkinsonian facial expression, low in rate and rhythm, low in volume. Abstraction fair, computation impaired, language function intact. Mood and affect somewhat withdrawn. LABORATORY DATA: Reviewed. IMPRESSION: Psychotic disorder, unspecified; bipolar 1 disorder, mixed with psychotic features; dementia, Lewy body early with delusions; behavioral disturbance. PLAN: Continue Seroquel 50 mg twice a day, but increase the 9 p.m. dosage to 62.5 mg due to his ongoing psychotic symptoms. Make further adjustments as clinically indicated. Rest unchanged. MAN Dalton CHAMPAGNE MD DR: SERENITY/rebecca JOB#: [id number] / [id number]
--- NOTE | 2018-05-01 13:54 | PN ---
DATE: 04/30/2018 PSYCHIATRIC PROGRESS NOTE This is a late entry, 04/30, covers elements not covered in my initial note. SUBJECTIVE: I met with the patient evening of 04/30 and staffed at treatment team meeting with the entire team in the morning and the patient attended this conference with Social Service, nursing staff and patient's daughter and son attended as well. Daughter shared how the previous evening patient had shared with her that there was a helicopter moving this unit, people were being poisoned, and he was talking about the "motorcycle thing." On careful review of all this information, he remains intermittently psychotic. REVIEW OF SYSTEMS: Ambulation impaired consequent to his Parkinson's. Abstraction fair. Computation impaired. MENTAL STATUS EXAM: Speech moderate latency, low in rate and rhythm, low in volume, remains delusional. No active suicidal or homicidal ideation. LABORATORY DATA: Reviewed. IMPRESSION: Unchanged from initial note. Psychotic disorder, unspecified; Lewy body dementia, early with delusions; bipolar 1 disorder, mixed with psychotic features. PLAN: We will go ahead and increase the Zyprexa to 7.5 mg daily from his current 5 mg a day. Scheduled Seroquel has been discontinued. Rest unchanged from initial note. The patient may need senior care care after he is psychiatrically stable. ALYSHA CHAMPAGNE MD DR: SERENITY/rebecca JOB#: [id number] / [id number]
[2018-05-01 16:15] VITALS: BP 103/64
[2018-05-01] MEDS: SIMVASTATIN 40 MG TABLET. PO SCH (19:32)
[2018-05-01] MEDS: MELATONIN 3 MG TABLET PO SCH (19:32)
[2018-05-01] MEDS: traZODone 100 MG TABLET. PO SCH (19:32)
--- NOTE | 2018-05-01 20:48 | PDOC ---
Exam Note: Nickolas Note: Please also refer to the separate dictated note~for this date of service dictated separately.~Patient seen individually. Discussed the patient with Nursing staff reviewed the chart.~Reviewed interim history and current functioning. Reviewed vital signs,~Labs/ Radiology~and current medications noted below. Continue current treatment with the changes noted in the dictated addendum note Assessment: Vital Signs: Vital Signs Date Time Temp Pulse Resp B/P (MAP) Pulse Ox O2 Delivery O2 Flow Rate FiO2 05/01/18 16:15 98.9 63 18 103/64 (77) 97 04/30/18 15:39 Room Air I&O Intake and Output 05/01/18 07:00 Intake Total 720 ml Balance 720 ml Intake Oral 720 ml # Voids 2 Current Medications: Meds: Current Medications Acetaminophen (Tylenol) 650 mg PRN Q6HRS PRN PO PAIN / TEMP Last administered on 04/28/18at 20:26; Start 04/19/18 at 18:00 Multi-Ingredient Ointment (Analgesic [place]) 1 giorgio PRN QID PRN TP MUSCLE PAIN; Start 04/19/18 at 18:00 Al Hydroxide/Mg Hydroxide (Mylanta Plus Xs) 15 ml PRN AFTMEALHC PRN PO DYSPEPSIA; Start 04/19/18 at 18:00 Magnesium Hydroxide (Milk Of Magnesia) 2,400 mg PRN QHS PRN PO CONSTIPATION Last administered on 04/29/18at 23:14; Start 04/19/18 at 18:00 Melatonin 6 mg QHS PO Last administered on 05/01/18at 19:32; Start 04/19/18 at 21:00 Olanzapine (ZyPREXA IM) 5 mg PRN Q4HRS PRN IM AGITATION; Start 04/19/18 at 19: 45; Status Cancel Quetiapine Fumarate (SEROquel) 12.5 mg PRN DAILY PRN PO ANXIETY / AGITATION; Start 04/19/18 at 19:45; Stop 04/20/18 at 13:43; Status DC Quetiapine Fumarate (SEROquel) 50 mg TID PO Last administered on 04/19/18at 19: 54; Start 04/19/18 at 21:00; Stop 04/20/18 at 13:43; Status DC Acetaminophen (Tylenol) 650 mg PRN Q6HRS PRN PO PAIN / TEMP; Start 04/19/18 at 19:30; Status UNV Carbidopa/Levodopa (Sinemet 25/100) 1 tab TIDWMEALS PO Last administered on 17:09; Start 04/20/18 at 08:00 Clonidine HCl (Catapres Tts-2) 1 patch WEEKLY TD Last administered on 08:38; Start 04/24/18 at 09:00 Gabapentin (Neurontin) 300 mg PRN DAILY PRN PO NEUROPATHY; Start 04/19/18 at 19 :30 Ketoconazole (Nizoral 2% Topical) 1 giorgio DAILY TP Last administered on 08:39; Start 04/20/18 at 09:00 Lisinopril (Prinivil) 10 mg DAILY PO Last administered on 04/25/18 08:08; Start 04/20/18 at 09:00; Stop 04/27/18 at 11:13; Status DC Senna/Docusate Sodium (Senna Plus) 1 tab BID PO Last administered on 05/01/18 19:32; Start 04/19/18 at 21:00 Simvastatin (Zocor) 40 mg QHS PO Last administered on 05/01/18 19:32; Start at 21:00 Atenolol (Tenormin) 50 mg DAILY PO Last administered on 04/30/18 09:37; Start 04/20/18 at 09:00 Budesonide (Entocort) 3 mg DAILY PO Last administered on 04/27/18 08:57; Start 04/20/18 at 09:00; Stop 04/27/18 at 11:13; Status DC Hydrocortisone (Cortaid) 1 giorgio BID TP Last administered on 05/01/18 19:45; Start 04/19/18 at 21:00 Non-Formulary Medication (Liraglutide (Victoza 3-Melvin)) 0.6 mg DAILY SQ ; Start 04/20/18 at 09:00; Status UNV Pantoprazole Sodium (Protonix) 40 mg BIDBFRMEAL PO Last administered on 17:09; Start 04/20/18 at 07:30 Pioglitazone HCl (Actos) 15 mg DAILY PO Last administered on 8/10/18at 08:35; Start 04/20/18 at 09:00 Pramipexole Dihydrochloride (miraPEX) 0.5 mg [id number] PO Last administered on 07/09at 19:31; Start 04/19/18 at 21:00 Risperidone (RisperDAL) 1 mg DAILY SL Last administered on 04/21/18at 08:04; Start 04/20/18 at 09:00; Stop 04/21/18 at 18:50; Status DC Olanzapine (ZyPREXA ZYDIS) 5 mg PRN Q2HR PRN PO ANXIETY / AGITATION Last administered on 04/19/18at 19:55; Start 04/19/18 at 20:00 Olanzapine (ZyPREXA) 5 mg PRN Q4HRS PRN PO AGITATION; Start 04/19/18 at 19:49; Status Cancel Hydrochlorothiazide (Hydrodiuril) 6.25 mg DAILY PO Last administered on at 08:07; Start 04/20/18 at 09:00; Stop 04/27/18 at 11:13; Status DC Olanzapine (ZyPREXA IM) 5 mg DAILY IM Last administered on 04/22/18at 11:28; Start 04/20/18 at 10:00; Stop 04/22/18 at 16:24; Status DC Clonidine HCl (Catapres Tts-2) 1 patch 1X ONCE TD Last administered on at 18:11; Start 04/20/18 at 18:15; Stop 04/20/18 at 18:16; Status DC Vitamin D (Vitamin D3) 50,000 unit WEEKLY PO Last administered on 04/28/18at 10: 42; Start 04/21/18 at 13:30 Cyanocobalamin (Vitamin B-12) 1,000 mcg DAILY IM Last administered on 04/27/18at 08:57; Start 04/22/18 at 09:00; Stop 04/28/18 at 10:40; Status DC Trazodone HCl (Desyrel) 100 mg QHS PO Last administered on 05/01/18at 19:32; Start 04/21/18 at 21:00 Trazodone HCl (Desyrel) 100 mg PRN QHS PRN PO insomnia; Start 04/21/18 at 17:00 Olanzapine (ZyPREXA ZYDIS) 5 mg DAILY PO Last administered on 04/30/18at 09:37; Start 04/23/18 at 09:00; Stop 04/30/18 at 11:14; Status DC Cyanocobalamin (Vitamin B-12) 1,000 mcg 1X ONCE IM Last administered on at 12:13; Start 04/24/18 at 12:00; Stop 04/24/18 at 12:01; Status DC Olanzapine (ZyPREXA ZYDIS) 7.5 mg DAILY PO Last administered on 05/01/18at 08:37 ; Start 05/01/18 at 09:00 Active Scripts Active Reported Clonidine Tts-2 (Clonidine) 1 Each Patch.tdwk 1 Patch TD WEEKLY Olanzapine 5 Mg Tablet 1 Tab PO PRN Q4HRS PRN Victoza 3-Melvin (Liraglutide) 0.6 Mg/0.1 Ml Pen.injctr 0.6 Mg SQ DAILY Simvastatin 40 Mg Tablet 1 Tab PO QHS Senna-Docusate Sodium Tablet (Sennosides/Docusate Sodium) 1 Each Tablet 1 Each PO BID Seroquel (Quetiapine Fumarate) 50 Mg Tablet 1 Tab PO TID Seroquel (Quetiapine Fumarate) 25 Mg Tablet 12.5 Mg PO PRN DAILY PRN Mirapex (Pramipexole Di-Hcl) 0.25 Mg Tablet 0.5 Mg PO TID Actos (Pioglitazone Hcl) 15 Mg Tablet 1 Tab PO DAILY Pantoprazole Sodium 40 Mg Tablet.dr 1 Tab PO BIDBFRMEAL Melatonin 3 Mg Tablet 6 Mg PO QHS Lisinopril 10 Mg Tablet 10 Mg PO DAILY Ketoconazole 15 Gm Cream..g. 1 Giorgio TP DAILY Hydrocortisone 453.6 Gm Cream..g. 1 Giorgio TP BID Gabapentin 300 Mg Capsule 300 Mg PO PRN DAILY PRN Sinemet 25-100 Mg Tablet (Carbidopa/Levodopa) 1 Each Tablet 1 Tab PO TIDWMEALS Entocort Ec (Budesonide) 3 Mg Capdr...er 3 Cap PO DAILY Bisoprolol-Hctz 5-6.25 Mg Tab (Bisoprolol Fumarate/Hctz) 1 Each Tablet 1 Tab PO DAILY Tylenol (Acetaminophen) 325 Mg Tablet 650 Mg PO PRN Q6HRS PRN I have reviewed the current psychotropics carefully including drug interactions. Risk benefit ratio favors no change other than as noted in my dictated progress note. Diagnosis: Problems: (1) Anxiety disorder (2) Impulse control disorder (3) Bipolar affective disorder, mixed (4) Parkinson's disease (5) Dementia due to Parkinson's disease with behavioral disturbance (6) Psychosis ALYSHA CHAMPAGNE MD May 01, 2018 20:48
[2018-05-02 06:42] VITALS: BP 115/58
[2018-05-02] MEDS: CARBIDOPA/LEVODOPA 25/100MG TABLET PO SCH ×3 (08:04→16:47)
[2018-05-02] MEDS: PANTOPRAZOLE 40 MG TABLET. PO SCH ×2 (08:04→16:47)
[2018-05-02] MEDS: SENNOSIDES/DOCUSATE 8.6/50MG TABLET. PO SCH ×2 (08:04→20:41)
[2018-05-02] MEDS: PRAMIPEXOLE 0.5 MG TABLET. PO SCH ×3 (08:04→20:41)
[2018-05-02] MEDS: PIOGLITAZONE 15 MG TABLET. PO SCH (08:04)
[2018-05-02] MEDS: ATENOLOL 50 MG TABLET PO SCH (08:05)
[2018-05-02] MEDS: HYDROCORTISONE 1% TOPICAL CREAM 30GM TUBE. TP SCH ×2 (08:22→20:41)
[2018-05-02] MEDS: KETOCONAZOLE 2% TOPICAL CREAM 30GM TUBE. TP SCH (08:22)
--- NOTE | 2018-05-02 13:24 | PN ---
DATE: 04/22/2018 SUBJECTIVE: The patient denies any new medical neurological complaints. [facility] was [facility] the [facility] for further evaluation of his psychosis. Neuro Service was called to follow up on the patient from neurological standpoint. The patient has had longstanding history of Parkinson disease and has been on his medication for several years. The patient had acute psychosis, required steroid injection. Dr. Carmichael has been following the patient from medical standpoint and he tapering his steroids gradually. Currently, the patient denies any new neurological complaints. He has been eating and sleeping well. However, he has been intermittently delusional. OBJECTIVE: GENERAL: Well-developed, well-nourished male, not in acute distress. VITAL SIGNS: Blood pressure is 101/57, respiratory rate 18, pulse is 67 and regular, temperature 98.1, oxygen saturation 96% on room air. HEENT: Normocephalic, atraumatic, otherwise unremarkable. NECK: Supple. Negative for carotid bruit, lymphadenopathy or thyromegaly. LUNGS: Clear to A and P. CARDIOVASCULAR: Regular rate and rhythm, normal S1, S2. ABDOMEN: Soft. Bowel sounds positive. EXTREMITIES: Negative for cyanosis, clubbing, or pitting edema. NEUROLOGICAL EXAM: Mental Status: The patient is alert and oriented to place and person. Speech is fluent. There are no language dysfunctions. He denies hallucination or delusion. Cranial nerves are intact. No focal motor or sensory deficit. Deep tendon reflexes were symmetric and hypoactive with absent Achilles responses. Gait: The patient started using a walker for ambulation. IMPRESSION: 1. Acute encephalopathy with intermittent psychosis - improved. 2. Longstanding history of Parkinson disease with dementia and possible Lewy body dementia type. 3. Multiple medical problems, includes hypertension, hyperlipidemia and diabetes mellitus. 4. Multiple psychiatric problems, includes depressions, bipolar disorder, and anxiety disorder. RECOMMENDATIONS: 1. We will continue with current management initiated by Dr. Carmichael and Dr. Dodge from medical and psychiatric standpoint, respectively. 2. We will continue with carbidopa/levodopa and Mirapex as it is. M Sp STRONG MD DR: MARCUS/rebecca JOB#: [id number] / [id number]
--- NOTE | 2018-05-02 13:31 | PN ---
DATE: 04/24/2018 SUBJECTIVE: The patient denies any new medical or neurological complaints. He eats and drinks well. He has been somewhat delusional, but less psychotic since admission to the [facility]. He is cooperative and interacts with other staff and patients. He denies any falls or injuries. Physical Therapy has been working with him and he is very cooperative with them as well. The patient continues to complain of intermittent tremor and some difficulty with walking. OBJECTIVE: GENERAL: Well-developed, well-nourished white male, not in acute distress. VITAL SIGNS: Blood pressure 120/63, respiratory rate is 17, pulse is 61 and regular, temperature 97.5, oxygen saturation is 98% on room air. HEENT: Normocephalic, atraumatic, otherwise unremarkable. NECK: Supple. Negative for carotid bruit, lymphadenopathy or thyromegaly. LUNGS: Clear to A and P. CARDIOVASCULAR: Regular rhythm, normal S1 and S2. There is no S3, S4, or murmur. ABDOMEN: Soft. Bowel sounds positive. EXTREMITIES: Negative for cyanosis, clubbing, or pitting edema. NEUROLOGICAL EXAM: Mental Status: The patient is alert and oriented x 3. Speech is fluent. There is no language dysfunction. The patient recalls 1/3 immediately and after 1 and 3 minutes. Judgment abstract and thinking are fair. The patient denies hallucination or delusion. The cranial nerves are intact. Motor Examination: No focal muscle bulk was seen. The tone is normal. The strength is 4/5 throughout. The patient has intermittent resting tremor of both hands. The tone is slightly increased in the lower extremities. Sensory examination revealed normal pinprick to light touch, vibratory, and position senses. Deep tendon reflexes were symmetric and hypoactive with absent Achilles responses. Gait: The patient uses a wheelchair and sometimes uses a walker, but he could not straight up his back. IMPRESSION: 1. Longstanding history of Parkinson's with early dementia, may represent Lewy body dementia. 2. Multiple medical problems, includes diabetes mellitus, hypertension, and hyperlipidemia. 3. Multiple psychiatric problems, includes bipolar disorder, depressions, and anxiety disorders. RECOMMENDATIONS: 1. We will continue with current medical and psychiatric care and continue with current Parkinson medications including carbidopa/levodopa and Mirapex as before. 2. Physical therapy as tolerated and encouraged patient with normal activities as walking. M Sp STRONG MD DR: MARCUS/rebecca JOB#: [id number] / [id number]
--- NOTE | 2018-05-02 13:53 | PN ---
DATE: 04/27/2018 SUBJECTIVE: The patient continues to have intermittent tremor of the upper extremities along with intermittent difficulty walking. He denies falls or injuries. The patient continues to have intermittent delusion and confusion. OBJECTIVE: GENERAL: Well-developed, well-nourished male, not in acute distress. VITAL SIGNS: Blood pressure 144/70, respiratory rate 18, pulse is 62 and regular, temperature 97.3, oxygen saturation 97% on room air. HEENT: Normocephalic, atraumatic, otherwise unremarkable. NECK: Supple. Negative for carotid bruit, lymphadenopathy or thyromegaly. LUNGS: Clear to A and P. CARDIOVASCULAR: Regular rhythm, normal S1, S2. ABDOMEN: Soft. Bowel sounds positive. EXTREMITIES: Negative for cyanosis, clubbing or pitting edema. NEUROLOGICAL EXAM: Mental Status: The patient is alert and oriented to himself. Speech is somewhat slow and . He recalls 1/3 immediately and after 1 and 3 minutes. Judgment abstract and thinkings are fair. The patient denies hallucination or delusion. The patient has difficulty in calculation and abstract thinking. Cranial nerves are intact. Motor examination: No focal muscle bulk was seen. The tone is normal. The strength is 5/5 throughout. The patient has intermittent resting tremor of the hands bilaterally. Sensory examination revealed normal pinprick and light touch senses throughout. Deep tendon reflexes were symmetric and hypoactive with absent Achilles responses. Gait: The patient uses a walker for ambulation. LABORATORY DATA: On 04/26/2018, CBC revealed white blood cells of 7.1, hemoglobin 10.3, hematocrit 32.6, platelet count 239,000. Chemistry revealed a sodium of 133, potassium of 4.6, chloride 99, CO2 27, BUN 43, creatinine 1.7, glucose is high at 269, calcium 8.5, protein is low at 2.5. IMPRESSION: 1. Acute encephalopathy - resolved. 2. Early dementia. 3. A long history of Parkinson disease - stable with the underlying dementia, these findings may represent early Lewy body dementia. 4. Multiple medical problems, includes diabetes mellitus, hypertension, hyperlipidemia and multiple psychiatric problems to include anxiety, bipolar disorder, and intermittent behavior disturbances. 5. His BUN/creatinine represents renal insufficiency/failure. RECOMMENDATIONS: 1. Treat underlying dehydration and renal failure probably by discontinuing hydrochlorothiazide and IV fluid. 2. Continue with current medical and psychiatric care. 3. Continue with carbidopa/levodopa and Mirapex for parkinsonism. M Sp STRONG MD DR: MARCUS/rebecca JOB#: [id number] / [id number]
--- NOTE | 2018-05-02 14:30 | PN ---
DATE: 04/29/2018 SUBJECTIVE: The patient denies any new medical or neurological complaints; however, he has been somewhat delusional and paranoid. The patient stated he wants to go home as soon as possible. When he walks, he uses a wheelchair and sometimes a walker. Physical Therapy has been walking with him as needed. The patient denies any medical complaints at this point. OBJECTIVE: GENERAL: Well-developed, well-nourished male, not in acute distress. VITAL SIGNS: Afebrile, blood pressure 129/68, respiratory rate 20, pulse is 63 and regular, temperature 98, oxygen saturation 97% on room air. HEENT: Normocephalic, atraumatic, otherwise unremarkable. NECK: Supple. Negative for carotid bruit, lymphadenopathy or thyromegaly. LUNGS: Clear to A and P. CARDIOVASCULAR: Regular rhythm, normal S1 and S2. ABDOMEN: Soft. Bowel sounds positive. EXTREMITIES: Negative for cyanosis, clubbing or pitting edema. NEUROLOGICAL EXAM: Mental Status: The patient is alert and oriented x 2. The speech is slow, but no language dysfunction. Memory, judgment, and abstract thinkings are fair. The patient denies hallucination or delusion. Cranial nerves are intact. Motor Examination: No focal muscle bulk was seen. The tone is increased in the lower extremities. There is a mild resting tremor of both upper extremities. The strength was 4/5 throughout. Sensory examination revealed normal pinprick and light touch senses throughout. Deep tendon reflexes were symmetric and hypoactive with absent Achilles responses. Gait: The patient ambulates with a wheelchair today. LABORATORY DATA: From 04/28/2018 revealed a sodium of 133, potassium 4.6, chloride 99, CO2 30, BUN 40, creatinine 1.5, glucose 210, calcium 9. IMPRESSION: 1. Acute encephalopathy - resolved. 2. Parkinson disease with early dementia raise a possibility of early Lewy body dementia. 3. Dehydration versus renal failure. 4. Multiple medical problems to include hypertension, hyperlipidemia, diabetes mellitus. 5. Multiple psychiatric problems to include bipolar disorder and anxiety disorder. RECOMMENDATIONS: 1. Continue his current medical care. 2. Continue with levodopa/depression 1 tablet t.i.d. and continue with Mirapex generic 0.5 mg t.i.d. 3. Encourage increased physical activities and walking and increase water intake. M Sp STRONG MD DR: MARCUS/rebecca JOB#: [id number] / [id number]
--- NOTE | 2018-05-02 14:40 | PN ---
DATE: 05/02/2018 SUBJECTIVE: The patient denies any new medical or neurological complaints; however, I saw him in the room this morning having difficulty getting up of the wheelchair. I tried to help him and he was able to get up and use the walker in the [place] without difficulties. I examined the patient in his room when he came back, he started having mild resting tremor in the upper extremity and the tremor is less than in the last visit. PHYSICAL EXAMINATION: GENERAL: Well-developed, well-nourished male, not in acute distress. VITAL SIGNS: Blood pressure 115/58, respiratory rate 18, pulse is 59, temperature 97, oxygen saturation 100% on room air. HEENT: Normocephalic, atraumatic, otherwise unremarkable. NECK: Supple. Negative for carotid bruit, lymphadenopathy or thyromegaly. LUNGS: Clear to A and P. CARDIOVASCULAR: Regular rhythm, normal S1, S2. ABDOMEN: Soft. Bowel sounds positive. EXTREMITIES: Negative for cyanosis, clubbing or pitting edema. NEUROLOGICAL EXAM: Mental Status: The patient is alert and oriented to himself and to situation. Speech is fluent. There is no language dysfunction. The patient recalls 2/3 immediately and 1/3 after 1 and 3 minutes. Judgment and abstract thinkings are fair. The patient denies hallucination or delusion. Cranial nerves are intact. No focal, motor, or sensory deficit. The tone is increased in the lower extremity, mild resting tremor was also noticed in both hands. Sensory examination revealed normal pinprick and light touch senses. Deep tendon reflexes were symmetric and hypoactive with absent Achilles responses. Gait: The patient uses a walker for ambulation. IMPRESSION: 1. Intermittent resting tremor with early dementia, may represent Lewy body dementia. 2. Multiple medical problems to include diabetes mellitus, hypertension, hyperlipidemia. 3. Multiple psychiatric problems to include Parkinson disease and possible early Lewy body dementia. 4. Multiple psychiatric problems to include depressions and anxiety. RECOMMENDATIONS: 1. Continue with current medical and psychiatric care. 2. Continue with current medications for Parkinson disease with carbidopa/levodopa 1 tablet 3 times a day and Mirapex 0.5 mg 1 tablet 3 times a day. M Sp STRONG MD DR: MARCUS/rebecca JOB#: [id number] / [id number]
[2018-05-02 16:30] VITALS: BP 137/66
[2018-05-02] MEDS: traZODone 100 MG TABLET. PO SCH (20:40)
[2018-05-02] MEDS: SIMVASTATIN 40 MG TABLET. PO SCH (20:41)
[2018-05-02] MEDS: MELATONIN 3 MG TABLET PO SCH (20:41)
--- NOTE | 2018-05-02 23:05 | PDOC ---
Exam Note: Nickolas Note: Please also refer to the separate dictated note~for this date of service dictated separately.~Patient seen individually. Discussed the patient with Nursing staff reviewed the chart.~Reviewed interim history and current functioning. Reviewed vital signs,~Labs/ Radiology~and current medications noted below. Continue current treatment with the changes noted in the dictated addendum note Assessment: Vital Signs: Vital Signs Date Time Temp Pulse Resp B/P (MAP) Pulse Ox O2 Delivery O2 Flow Rate FiO2 05/02/18 16:30 98.0 65 18 137/66 (89) 96 04/30/18 15:39 Room Air I&O Intake and Output 05/02/18 07:00 Intake Total 600 ml Balance 600 ml Intake Oral 600 ml Current Medications: Meds: Current Medications Acetaminophen (Tylenol) 650 mg PRN Q6HRS PRN PO PAIN / TEMP Last administered on 04/28/18at 20:26; Start 04/19/18 at 18:00 Multi-Ingredient Ointment (Analgesic Sims) 1 giorgio PRN QID PRN TP MUSCLE PAIN; Start 04/19/18 at 18:00 Al Hydroxide/Mg Hydroxide (Mylanta Plus Xs) 15 ml PRN AFTMEALHC PRN PO DYSPEPSIA; Start 04/19/18 at 18:00 Magnesium Hydroxide (Milk Of Magnesia) 2,400 mg PRN QHS PRN PO CONSTIPATION Last administered on 04/29/18at 23:14; Start 04/19/18 at 18:00 Melatonin 6 mg QHS PO Last administered on 05/02/18at 20:41; Start 04/19/18 at 21:00 Olanzapine (ZyPREXA IM) 5 mg PRN Q4HRS PRN IM AGITATION; Start 04/19/18 at 19: 45; Status Cancel Quetiapine Fumarate (SEROquel) 12.5 mg PRN DAILY PRN PO ANXIETY / AGITATION; Start 04/19/18 at 19:45; Stop 04/20/18 at 13:43; Status DC Quetiapine Fumarate (SEROquel) 50 mg TID PO Last administered on 04/19/18at 19: 54; Start 04/19/18 at 21:00; Stop 04/20/18 at 13:43; Status DC Acetaminophen (Tylenol) 650 mg PRN Q6HRS PRN PO PAIN / TEMP; Start 04/19/18 at 19:30; Status UNV Carbidopa/Levodopa (Sinemet 25/100) 1 tab TIDWMEALS PO Last administered on 16:47; Start 04/20/18 at 08:00 Clonidine HCl (Catapres Tts-2) 1 patch WEEKLY TD Last administered on 08:38; Start 04/24/18 at 09:00 Gabapentin (Neurontin) 300 mg PRN DAILY PRN PO NEUROPATHY; Start 04/19/18 at 19 :30 Ketoconazole (Nizoral 2% Topical) 1 giorgio DAILY TP Last administered on 08:22; Start 04/20/18 at 09:00 Lisinopril (Prinivil) 10 mg DAILY PO Last administered on 04/25/18 08:08; Start 04/20/18 at 09:00; Stop 04/27/18 at 11:13; Status DC Senna/Docusate Sodium (Senna Plus) 1 tab BID PO Last administered on 05/02/18 20:41; Start 04/19/18 at 21:00 Simvastatin (Zocor) 40 mg QHS PO Last administered on 05/02/18 20:41; Start at 21:00 Atenolol (Tenormin) 50 mg DAILY PO Last administered on 04/30/18 09:37; Start 04/20/18 at 09:00; Stop 05/02/18 at 13:19; Status DC Budesonide (Entocort) 3 mg DAILY PO Last administered on 04/27/18at 08:57; Start 04/20/18 at 09:00; Stop 04/27/18 at 11:13; Status DC Hydrocortisone (Cortaid) 1 giorgio BID TP Last administered on 05/02/18 20:41; Start 04/19/18 at 21:00 Non-Formulary Medication (Liraglutide (Victoza 3-Melvin)) 0.6 mg DAILY SQ ; Start 04/20/18 at 09:00; Status UNV Pantoprazole Sodium (Protonix) 40 mg BIDBFRMEAL PO Last administered on 16:47; Start 04/20/18 at 07:30 Pioglitazone HCl (Actos) 15 mg DAILY PO Last administered on 05/02/18at 08:04; Start 04/20/18 at 09:00 Pramipexole Dihydrochloride (miraPEX) 0.5 mg [id number] PO Last administered on 08/09at 20:41; Start 04/19/18 at 21:00 Risperidone (RisperDAL) 1 mg DAILY SL Last administered on 04/21/18at 08:04; Start 04/20/18 at 09:00; Stop 04/21/18 at 18:50; Status DC Olanzapine (ZyPREXA ZYDIS) 5 mg PRN Q2HR PRN PO ANXIETY / AGITATION Last administered on 04/19/18at 19:55; Start 04/19/18 at 20:00 Olanzapine (ZyPREXA) 5 mg PRN Q4HRS PRN PO AGITATION; Start 04/19/18 at 19:49; Status Cancel Hydrochlorothiazide (Hydrodiuril) 6.25 mg DAILY PO Last administered on at 08:07; Start 04/20/18 at 09:00; Stop 04/27/18 at 11:13; Status DC Olanzapine (ZyPREXA IM) 5 mg DAILY IM Last administered on 04/22/18at 11:28; Start 04/20/18 at 10:00; Stop 04/22/18 at 16:24; Status DC Clonidine HCl (Catapres Tts-2) 1 patch 1X ONCE TD Last administered on at 18:11; Start 04/20/18 at 18:15; Stop 04/20/18 at 18:16; Status DC Vitamin D (Vitamin D3) 50,000 unit WEEKLY PO Last administered on 04/28/18at 10: 42; Start 04/21/18 at 13:30 Cyanocobalamin (Vitamin B-12) 1,000 mcg DAILY IM Last administered on 04/27/18at 08:57; Start 04/22/18 at 09:00; Stop 04/28/18 at 10:40; Status DC Trazodone HCl (Desyrel) 100 mg QHS PO Last administered on 05/02/18at 20:40; Start 04/21/18 at 21:00 Trazodone HCl (Desyrel) 100 mg PRN QHS PRN PO insomnia; Start 04/21/18 at 17:00 Olanzapine (ZyPREXA ZYDIS) 5 mg DAILY PO Last administered on 04/30/18at 09:37; Start 04/23/18 at 09:00; Stop 04/30/18 at 11:14; Status DC Cyanocobalamin (Vitamin B-12) 1,000 mcg 1X ONCE IM Last administered on at 12:13; Start 04/24/18 at 12:00; Stop 04/24/18 at 12:01; Status DC Olanzapine (ZyPREXA ZYDIS) 7.5 mg DAILY PO Last administered on 05/02/18at 08:07 ; Start 05/01/18 at 09:00 Atenolol (Tenormin) 25 mg DAILY PO ; Start 05/03/18 at 09:00 Active Scripts Active Reported Clonidine Tts-2 (Clonidine) 1 Each Patch.tdwk 1 Patch TD WEEKLY Olanzapine 5 Mg Tablet 1 Tab PO PRN Q4HRS PRN Victoza 3-Melvin (Liraglutide) 0.6 Mg/0.1 Ml Pen.injctr 0.6 Mg SQ DAILY Simvastatin 40 Mg Tablet 1 Tab PO QHS Senna-Docusate Sodium Tablet (Sennosides/Docusate Sodium) 1 Each Tablet 1 Each PO BID Seroquel (Quetiapine Fumarate) 50 Mg Tablet 1 Tab PO TID Seroquel (Quetiapine Fumarate) 25 Mg Tablet 12.5 Mg PO PRN DAILY PRN Mirapex (Pramipexole Di-Hcl) 0.25 Mg Tablet 0.5 Mg PO TID Actos (Pioglitazone Hcl) 15 Mg Tablet 1 Tab PO DAILY Pantoprazole Sodium 40 Mg Tablet.dr 1 Tab PO BIDBFRMEAL Melatonin 3 Mg Tablet 6 Mg PO QHS Lisinopril 10 Mg Tablet 10 Mg PO DAILY Ketoconazole 15 Gm Cream..g. 1 Giorgio TP DAILY Hydrocortisone 453.6 Gm Cream..g. 1 Giorgio TP BID Gabapentin 300 Mg Capsule 300 Mg PO PRN DAILY PRN Sinemet 25-100 Mg Tablet (Carbidopa/Levodopa) 1 Each Tablet 1 Tab PO TIDWMEALS Entocort Ec (Budesonide) 3 Mg Capdr...er 3 Cap PO DAILY Bisoprolol-Hctz 5-6.25 Mg Tab (Bisoprolol Fumarate/Hctz) 1 Each Tablet 1 Tab PO DAILY Tylenol (Acetaminophen) 325 Mg Tablet 650 Mg PO PRN Q6HRS PRN I have reviewed the current psychotropics carefully including drug interactions. Risk benefit ratio favors no change other than as noted in my dictated progress note. Diagnosis: Problems: (1) Anxiety disorder (2) Impulse control disorder (3) Bipolar affective disorder, mixed (4) Parkinson's disease (5) Dementia due to Parkinson's disease with behavioral disturbance (6) Psychosis ALYSHA CHAMPAGNE MD May 02, 2018 23:05
[2018-05-03 07:13] VITALS: BP 126/60
[2018-05-03 07:30] LABS: BASO # 0.1 x10^3/uL (0.0-0.2); BASO % 1 % (0-3); EOS # 0.3 x10^3/uL (0.0-0.7); EOS % 4 % (0-3); HEMATOCRIT 32.8 % (39.0-53.0); HEMOGLOBIN 10.5 g/dL (13.0-17.5); LYMPH # 2.4 x10^3/uL (1.0-4.8); LYMPH % 31 % (24-48); MEAN CORPUSCULAR HEMOGLOBIN 24 pg (25-35); MEAN CORPUSCULAR HGB CONC 32 g/dL (31-37); MEAN CORPUSCULAR VOLUME 76 fL (79-100); MONO # 0.4 x10^3/uL (0.0-1.1); MONO % 5 % (0-9); NEUT # 4.4 x10^3uL (1.8-7.7); NEUT % 59 % (31-73); PLATELET COUNT 237 x10^3/uL (140-400); RED CELL DISTRIBUTION WIDTH 16.9 % (11.5-14.5); WHITE BLOOD COUNT 7.6 x10^3/uL (4.0-11.0)
[2018-05-03 07:43] LABS: ALBUMIN 2.9 g/dL (3.4-5.0); ALBUMIN/GLOBULIN RATIO 0.7 (1.0-1.7); CALCIUM 9.2 mg/dL (8.5-10.1); CREATININE 1.5 mg/dL (0.7-1.3); POTASSIUM 4.4 mmol/L (3.5-5.1); TOTAL BILIRUBIN 0.4 mg/dL (0.2-1.0)
[2018-05-03] MEDS: CARBIDOPA/LEVODOPA 25/100MG TABLET PO SCH ×3 (08:21→17:14)
[2018-05-03] MEDS: ATENOLOL 25 MG TABLET PO SCH (08:21)
[2018-05-03] MEDS: PANTOPRAZOLE 40 MG TABLET. PO SCH ×2 (08:21→17:14)
[2018-05-03] MEDS: PIOGLITAZONE 15 MG TABLET. PO SCH (08:21)
[2018-05-03] MEDS: SENNOSIDES/DOCUSATE 8.6/50MG TABLET. PO SCH ×2 (08:21→21:06)
[2018-05-03] MEDS: PRAMIPEXOLE 0.5 MG TABLET. PO SCH ×3 (08:21→21:06)
--- NOTE | 2018-05-03 11:01 | PN ---
DATE: 05/02/2018 This is a late entry for 05/02/2018, covers elements not covered in my initial note. SUBJECTIVE: I met with the patient in the evening. The patient slept 6-3/4 hours previous evening. At one point, he was inappropriate with female staff stating that he could look down her shirt and grabbed the bottom of another female staff member. Though this was addressed with him, he did redirect. REVIEW OF SYSTEMS: Ambulation impaired with walker. No CV, , pulmonary, eye, ENT system symptoms on review. MENTAL STATUS EXAM: Oriented to himself and situation. Speech moderate latency, often responses monosyllabic. Abstraction fair, computation impaired, language function intact, attention span short. Mood and affect consistent with Parkinson's. LABORATORY DATA: Reviewed. IMPRESSION: Bipolar 1 disorder, mixed with psychotic features; psychotic disorder, unspecified; probable Lewy body dementia with delusion; behavioral disturbance. PLAN: Continue psychotropics from initial note. Zyprexa was increased for his psychotic symptoms. MAN Dalton CHAMPAGNE MD DR: SERENITY/rebecca JOB#: [id number] / [id number]
--- NOTE | 2018-05-03 11:46 | PN ---
DATE: 05/01/2018 PSYCHIATRIC PROGRESS NOTE This late entry 05/01/2018 covers elements, not covered in my initial note. SUBJECTIVE: I met with the patient in the evening. The patient has been somewhat delusional at times, asking nursing staff to check him for ticks because he thinks he might have [place] spotted fever. He has been somewhat suspicious of staff as well. REVIEW OF SYSTEMS: Ambulation impaired, ambulates with a walker consistent with his Parkinson's, has some tremors, parkinsonian facial expression. No CV, , pulmonary, eye, ENT system symptoms on review. MENTAL STATUS EXAM: Oriented to himself and situation. Speech has some latency, coherent. Abstraction fair, computation impaired, language function intact, attention span short. Mood and affect somewhat withdrawn. LABORATORY DATA: Reviewed. IMPRESSION: Unchanged from initial note. Psychotic disorder, unspecified; bipolar 1 disorder, mixed with psychotic features. PLAN: No change from a psychiatric standpoint, defer management to Parkinson's to Dr. Calderon. MAN Dalton CHAMPAGNE MD DR: SERENITY/rebecca JOB#: [id number] / [id number]
[2018-05-03] MEDS: HYDROCORTISONE 1% TOPICAL CREAM 30GM TUBE. TP SCH ×2 (12:08→21:07)
[2018-05-03] MEDS: KETOCONAZOLE 2% TOPICAL CREAM 30GM TUBE. TP SCH (12:09)
[2018-05-03 15:59] VITALS: BP 107/56
--- NOTE | 2018-05-03 20:01 | PDOC ---
Exam Note: Nickolas Note: Please also refer to the separate dictated note~for this date of service dictated separately.~Patient seen individually. Discussed the patient with Nursing staff reviewed the chart.~Reviewed interim history and current functioning. Reviewed vital signs,~Labs/ Radiology~and current medications noted below. Continue current treatment with the changes noted in the dictated addendum note Assessment: Vital Signs: Vital Signs Date Time Temp Pulse Resp B/P (MAP) Pulse Ox O2 Delivery O2 Flow Rate FiO2 05/03/18 15:59 98.6 58 18 107/56 (73) 96 04/30/18 15:39 Room Air I&O Intake and Output 05/03/18 06:59 Intake Total 1200 ml Balance 1200 ml Intake Oral 1200 ml Labs: Laboratory Tests Test 05/03/18 07:22 White Blood Count 7.6 x10^3/uL (4.0-11.0) Red Blood Count 4.30 x10^6/uL (4.30-5.70) Hemoglobin 10.5 g/dL (13.0-17.5) L Hematocrit 32.8 % (39.0-53.0) L Mean Corpuscular Volume 76 fL (79-100) L Mean Corpuscular Hemoglobin 24 pg (25-35) L Mean Corpuscular Hemoglobin Concent 32 g/dL (31-37) Red Cell Distribution Width 16.9 % (11.5-14.5) H Platelet Count 237 x10^3/uL (140-400) Neutrophils (%) (Auto) 59 % (31-73) Lymphocytes (%) (Auto) 31 % (24-48) Monocytes (%) (Auto) 5 % (0-9) Eosinophils (%) (Auto) 4 % (0-3) H Basophils (%) (Auto) 1 % (0-3) Neutrophils # (Auto) 4.4 x10^3uL (1.8-7.7) Lymphocytes # (Auto) 2.4 x10^3/uL (1.0-4.8) Monocytes # (Auto) 0.4 x10^3/uL (0.0-1.1) Eosinophils # (Auto) 0.3 x10^3/uL (0.0-0.7) Basophils # (Auto) 0.1 x10^3/uL (0.0-0.2) Sodium Level 136 mmol/L (136-145) Potassium Level 4.4 mmol/L (3.5-5.1) Chloride Level 102 mmol/L (98-107) Carbon Dioxide Level 28 mmol/L (21-32) Anion Gap 6 (6-14) Blood Urea Nitrogen 27 mg/dL (8-26) H Creatinine 1.5 mg/dL (0.7-1.3) H Estimated GFR (Cockcroft-Gault) 46.0 BUN/Creatinine Ratio 18 (6-20) Glucose Level 194 mg/dL (70-99) H Calcium Level 9.2 mg/dL (8.5-10.1) Total Bilirubin 0.4 mg/dL (0.2-1.0) Aspartate Amino Transferase (AST) 22 U/L (15-37) Alanine Aminotransferase (ALT) 24 U/L (16-63) Alkaline Phosphatase 110 U/L (46-116) Total Protein 7.0 g/dL (6.4-8.2) Albumin 2.9 g/dL (3.4-5.0) L Albumin/Globulin Ratio 0.7 (1.0-1.7) L Current Medications: Meds: Current Medications Acetaminophen (Tylenol) 650 mg PRN Q6HRS PRN PO PAIN / TEMP Last administered on 04/28/18at 20:26; Start 04/19/18 at 18:00 Multi-Ingredient Ointment (Analgesic [place]) 1 giorgio PRN QID PRN TP MUSCLE PAIN; Start 04/19/18 at 18:00 Al Hydroxide/Mg Hydroxide (Mylanta Plus Xs) 15 ml PRN AFTMEALHC PRN PO DYSPEPSIA; Start 04/19/18 at 18:00 Magnesium Hydroxide (Milk Of Magnesia) 2,400 mg PRN QHS PRN PO CONSTIPATION Last administered on 04/29/18 23:14; Start 04/19/18 at 18:00 Melatonin 6 mg QHS PO Last administered on 05/02/18at 20:41; Start 04/19/18 at 21:00 Olanzapine (ZyPREXA IM) 5 mg PRN Q4HRS PRN IM AGITATION; Start 04/19/18 at 19: 45; Status Cancel Quetiapine Fumarate (SEROquel) 12.5 mg PRN DAILY PRN PO ANXIETY / AGITATION; Start 04/19/18 at 19:45; Stop 04/20/18 at 13:43; Status DC Quetiapine Fumarate (SEROquel) 50 mg TID PO Last administered on 04/19/18at 19: 54; Start 04/19/18 at 21:00; Stop 04/20/18 at 13:43; Status DC Acetaminophen (Tylenol) 650 mg PRN Q6HRS PRN PO PAIN / TEMP; Start 04/19/18 at 19:30; Status UNV Carbidopa/Levodopa (Sinemet 25/100) 1 tab TIDWMEALS PO Last administered on 09/08at 17:14; Start 04/20/18 at 08:00 Clonidine HCl (Catapres Tts-2) 1 patch WEEKLY TD Last administered on at 08:38; Start 04/24/18 at 09:00 Gabapentin (Neurontin) 300 mg PRN DAILY PRN PO NEUROPATHY; Start 04/19/18 at 19 :30 Ketoconazole (Nizoral 2% Topical) 1 giorgio DAILY TP Last administered on at 12:09; Start 04/20/18 at 09:00 Lisinopril (Prinivil) 10 mg DAILY PO Last administered on 04/25/18 08:08; Start 04/20/18 at 09:00; Stop 04/27/18 at 11:13; Status DC Senna/Docusate Sodium (Senna Plus) 1 tab BID PO Last administered on 05/03/18at 08:21; Start 04/19/18 at 21:00 Simvastatin (Zocor) 40 mg QHS PO Last administered on 05/02/18at 20:41; Start at 21:00 Atenolol (Tenormin) 50 mg DAILY PO Last administered on 04/30/18at 09:37; Start 04/20/18 at 09:00; Stop 05/02/18 at 13:19; Status DC Budesonide (Entocort) 3 mg DAILY PO Last administered on 04/27/18at 08:57; Start 04/20/18 at 09:00; Stop 04/27/18 at 11:13; Status DC Hydrocortisone (Cortaid) 1 giorgio BID TP Last administered on 05/03/18at 12:08; Start 04/19/18 at 21:00 Non-Formulary Medication (Liraglutide (Victoza 3-Melvin)) 0.6 mg DAILY SQ ; Start 04/20/18 at 09:00; Status UNV Pantoprazole Sodium (Protonix) 40 mg BIDBFRMEAL PO Last administered on at 17:14; Start 04/20/18 at 07:30 Pioglitazone HCl (Actos) 15 mg DAILY PO Last administered on 05/03/18at 08:21; Start 04/20/18 at 09:00 Pramipexole Dihydrochloride (miraPEX) 0.5 mg [id number] PO Last administered on 13:01; Start 04/19/18 at 21:00 Risperidone (RisperDAL) 1 mg DAILY SL Last administered on 04/21/18at 08:04; Start 04/20/18 at 09:00; Stop 04/21/18 at 18:50; Status DC Olanzapine (ZyPREXA ZYDIS) 5 mg PRN Q2HR PRN PO ANXIETY / AGITATION Last administered on 04/19/18at 19:55; Start 04/19/18 at 20:00 Olanzapine (ZyPREXA) 5 mg PRN Q4HRS PRN PO AGITATION; Start 04/19/18 at 19:49; Status Cancel Hydrochlorothiazide (Hydrodiuril) 6.25 mg DAILY PO Last administered on at 08:07; Start 04/20/18 at 09:00; Stop 04/27/18 at 11:13; Status DC Olanzapine (ZyPREXA IM) 5 mg DAILY IM Last administered on 04/22/18at 11:28; Start 04/20/18 at 10:00; Stop 04/22/18 at 16:24; Status DC Clonidine HCl (Catapres Tts-2) 1 patch 1X ONCE TD Last administered on at 18:11; Start 04/20/18 at 18:15; Stop 04/20/18 at 18:16; Status DC Vitamin D (Vitamin D3) 50,000 unit WEEKLY PO Last administered on 04/28/18at 10: 42; Start 04/21/18 at 13:30 Cyanocobalamin (Vitamin B-12) 1,000 mcg DAILY IM Last administered on 04/27/18at 08:57; Start 04/22/18 at 09:00; Stop 04/28/18 at 10:40; Status DC Trazodone HCl (Desyrel) 100 mg QHS PO Last administered on 05/02/18at 20:40; Start 04/21/18 at 21:00 Trazodone HCl (Desyrel) 100 mg PRN QHS PRN PO insomnia; Start 04/21/18 at 17:00 Olanzapine (ZyPREXA ZYDIS) 5 mg DAILY PO Last administered on 04/30/18at 09:37; Start 04/23/18 at 09:00; Stop 04/30/18 at 11:14; Status DC Cyanocobalamin (Vitamin B-12) 1,000 mcg 1X ONCE IM Last administered on at 12:13; Start 04/24/18 at 12:00; Stop 04/24/18 at 12:01; Status DC Olanzapine (ZyPREXA ZYDIS) 7.5 mg DAILY PO Last administered on 05/03/18at 08:22 ; Start 05/01/18 at 09:00 Atenolol (Tenormin) 25 mg DAILY PO ; Start 05/03/18 at 09:00 Active Scripts Active Reported Clonidine Tts-2 (Clonidine) 1 Each Patch.tdwk 1 Patch TD WEEKLY Olanzapine 5 Mg Tablet 1 Tab PO PRN Q4HRS PRN Victoza 3-Melvin (Liraglutide) 0.6 Mg/0.1 Ml Pen.injctr 0.6 Mg SQ DAILY Simvastatin 40 Mg Tablet 1 Tab PO QHS Senna-Docusate Sodium Tablet (Sennosides/Docusate Sodium) 1 Each Tablet 1 Each PO BID Seroquel (Quetiapine Fumarate) 50 Mg Tablet 1 Tab PO TID Seroquel (Quetiapine Fumarate) 25 Mg Tablet 12.5 Mg PO PRN DAILY PRN Mirapex (Pramipexole Di-Hcl) 0.25 Mg Tablet 0.5 Mg PO TID Actos (Pioglitazone Hcl) 15 Mg Tablet 1 Tab PO DAILY Pantoprazole Sodium 40 Mg Tablet.dr 1 Tab PO BIDBFRMEAL Melatonin 3 Mg Tablet 6 Mg PO QHS Lisinopril 10 Mg Tablet 10 Mg PO DAILY Ketoconazole 15 Gm Cream..g. 1 Giorgio TP DAILY Hydrocortisone 453.6 Gm Cream..g. 1 Giorgio TP BID Gabapentin 300 Mg Capsule 300 Mg PO PRN DAILY PRN Sinemet 25-100 Mg Tablet (Carbidopa/Levodopa) 1 Each Tablet 1 Tab PO TIDWMEALS Entocort Ec (Budesonide) 3 Mg Capdr...er 3 Cap PO DAILY Bisoprolol-Hctz 5-6.25 Mg Tab (Bisoprolol Fumarate/Hctz) 1 Each Tablet 1 Tab PO DAILY Tylenol (Acetaminophen) 325 Mg Tablet 650 Mg PO PRN Q6HRS PRN I have reviewed the current psychotropics carefully including drug interactions. Risk benefit ratio favors no change other than as noted in my dictated progress note. Diagnosis: Problems: (1) Anxiety disorder (2) Impulse control disorder (3) Bipolar affective disorder, mixed (4) Parkinson's disease (5) Dementia due to Parkinson's disease with behavioral disturbance (6) Psychosis ALYSHA CHAMPAGNE MD May 03, 2018 20:01
[2018-05-03] MEDS: MELATONIN 3 MG TABLET PO SCH (21:06)
[2018-05-03] MEDS: SIMVASTATIN 40 MG TABLET. PO SCH (21:06)
[2018-05-03] MEDS: traZODone 100 MG TABLET. PO SCH (21:06)
[2018-05-04 06:16] VITALS: BP 112/82
[2018-05-04] MEDS: CARBIDOPA/LEVODOPA 25/100MG TABLET PO SCH ×3 (07:45→17:10)
[2018-05-04] MEDS: PANTOPRAZOLE 40 MG TABLET. PO SCH ×2 (07:45→17:10)
[2018-05-04] MEDS: PRAMIPEXOLE 0.5 MG TABLET. PO SCH ×3 (07:46→19:50)
[2018-05-04] MEDS: SENNOSIDES/DOCUSATE 8.6/50MG TABLET. PO SCH ×2 (07:46→19:50)
[2018-05-04] MEDS: PIOGLITAZONE 15 MG TABLET. PO SCH (07:46)
[2018-05-04] MEDS: KETOCONAZOLE 2% TOPICAL CREAM 30GM TUBE. TP SCH (09:00)
[2018-05-04] MEDS: HYDROCORTISONE 1% TOPICAL CREAM 30GM TUBE. TP SCH ×2 (09:00→19:53)
[2018-05-04] MEDS: ATENOLOL 25 MG TABLET PO SCH (09:00)
[2018-05-04 16:19] VITALS: BP 116/58
[2018-05-04] MEDS: SIMVASTATIN 40 MG TABLET. PO SCH (19:50)
[2018-05-04] MEDS: traZODone 100 MG TABLET. PO SCH (19:50)
[2018-05-04] MEDS: MELATONIN 3 MG TABLET PO SCH (19:50)
[2018-05-04] MEDS: DIVALPROEX 125 MG CAP.SPRINK PO SCH (19:56)
--- NOTE | 2018-05-04 22:20 | PDOC ---
Exam Note: Nickolas Note: Please also refer to the separate dictated note~for this date of service dictated separately.~Patient seen individually. Discussed the patient with Nursing staff reviewed the chart.~Reviewed interim history and current functioning. Reviewed vital signs,~Labs/ Radiology~and current medications noted below. Continue current treatment with the changes noted in the dictated addendum note Assessment: Vital Signs: Vital Signs Date Time Temp Pulse Resp B/P (MAP) Pulse Ox O2 Delivery O2 Flow Rate FiO2 05/04/18 16:19 97.2 64 16 116/58 (77) 99 05/04/18 06:16 Room Air I&O Intake and Output 05/04/18 06:59 Intake Total 720 ml Balance 720 ml Intake Oral 720 ml Current Medications: Meds: Current Medications Acetaminophen (Tylenol) 650 mg PRN Q6HRS PRN PO PAIN / TEMP Last administered on 04/28/18at 20:26; Start 04/19/18 at 18:00 Multi-Ingredient Ointment (Analgesic [place]) 1 giorgio PRN QID PRN TP MUSCLE PAIN; Start 04/19/18 at 18:00 Al Hydroxide/Mg Hydroxide (Mylanta Plus Xs) 15 ml PRN AFTMEALHC PRN PO DYSPEPSIA; Start 04/19/18 at 18:00 Magnesium Hydroxide (Milk Of Magnesia) 2,400 mg PRN QHS PRN PO CONSTIPATION Last administered on 04/29/18at 23:14; Start 04/19/18 at 18:00 Melatonin 6 mg QHS PO Last administered on 05/04/18at 19:50; Start 04/19/18 at 21:00 Olanzapine (ZyPREXA IM) 5 mg PRN Q4HRS PRN IM AGITATION; Start 04/19/18 at 19: 45; Status Cancel Quetiapine Fumarate (SEROquel) 12.5 mg PRN DAILY PRN PO ANXIETY / AGITATION; Start 04/19/18 at 19:45; Stop 04/20/18 at 13:43; Status DC Quetiapine Fumarate (SEROquel) 50 mg TID PO Last administered on 04/19/18at 19: 54; Start 04/19/18 at 21:00; Stop 04/20/18 at 13:43; Status DC Acetaminophen (Tylenol) 650 mg PRN Q6HRS PRN PO PAIN / TEMP; Start 04/19/18 at 19:30; Status UNV Carbidopa/Levodopa (Sinemet 25/100) 1 tab TIDWMEALS PO Last administered on 17:10; Start 04/20/18 at 08:00 Clonidine HCl (Catapres Tts-2) 1 patch WEEKLY TD Last administered on 08:38; Start 04/24/18 at 09:00 Gabapentin (Neurontin) 300 mg PRN DAILY PRN PO NEUROPATHY; Start 04/19/18 at 19 :30 Ketoconazole (Nizoral 2% Topical) 1 giorgio DAILY TP Last administered on 12:09; Start 04/20/18 at 09:00 Lisinopril (Prinivil) 10 mg DAILY PO Last administered on 04/25/18 08:08; Start 04/20/18 at 09:00; Stop 04/27/18 at 11:13; Status DC Senna/Docusate Sodium (Senna Plus) 1 tab BID PO Last administered on 05/04/18 19:50; Start 04/19/18 at 21:00 Simvastatin (Zocor) 40 mg QHS PO Last administered on 05/04/18 19:50; Start at 21:00 Atenolol (Tenormin) 50 mg DAILY PO Last administered on 04/30/18 09:37; Start 04/20/18 at 09:00; Stop 05/02/18 at 13:19; Status DC Budesonide (Entocort) 3 mg DAILY PO Last administered on 04/27/18at 08:57; Start 04/20/18 at 09:00; Stop 04/27/18 at 11:13; Status DC Hydrocortisone (Cortaid) 1 giorgio BID TP Last administered on 05/04/18 19:53; Start 04/19/18 at 21:00 Non-Formulary Medication (Liraglutide (Victoza 3-Melvin)) 0.6 mg DAILY SQ ; Start 04/20/18 at 09:00; Status UNV Pantoprazole Sodium (Protonix) 40 mg BIDBFRMEAL PO Last administered on at 17:10; Start 04/20/18 at 07:30 Pioglitazone HCl (Actos) 15 mg DAILY PO Last administered on 05/04/18at 07:46; Start 04/20/18 at 09:00 Pramipexole Dihydrochloride (miraPEX) 0.5 mg [id number] PO Last administered on at 19:50; Start 04/19/18 at 21:00 Risperidone (RisperDAL) 1 mg DAILY SL Last administered on 04/21/18at 08:04; Start 04/20/18 at 09:00; Stop 04/21/18 at 18:50; Status DC Olanzapine (ZyPREXA ZYDIS) 5 mg PRN Q2HR PRN PO ANXIETY / AGITATION Last administered on 04/19/18at 19:55; Start 04/19/18 at 20:00 Olanzapine (ZyPREXA) 5 mg PRN Q4HRS PRN PO AGITATION; Start 04/19/18 at 19:49; Status Cancel Hydrochlorothiazide (Hydrodiuril) 6.25 mg DAILY PO Last administered on at 08:07; Start 04/20/18 at 09:00; Stop 04/27/18 at 11:13; Status DC Olanzapine (ZyPREXA IM) 5 mg DAILY IM Last administered on 04/22/18at 11:28; Start 04/20/18 at 10:00; Stop 04/22/18 at 16:24; Status DC Clonidine HCl (Catapres Tts-2) 1 patch 1X ONCE TD Last administered on at 18:11; Start 04/20/18 at 18:15; Stop 04/20/18 at 18:16; Status DC Vitamin D (Vitamin D3) 50,000 unit WEEKLY PO Last administered on 04/28/18at 10: 42; Start 04/21/18 at 13:30 Cyanocobalamin (Vitamin B-12) 1,000 mcg DAILY IM Last administered on 04/27/18at 08:57; Start 04/22/18 at 09:00; Stop 04/28/18 at 10:40; Status DC Trazodone HCl (Desyrel) 100 mg QHS PO Last administered on 05/04/18at 19:50; Start 04/21/18 at 21:00 Trazodone HCl (Desyrel) 100 mg PRN QHS PRN PO insomnia; Start 04/21/18 at 17:00 Olanzapine (ZyPREXA ZYDIS) 5 mg DAILY PO Last administered on 04/30/18at 09:37; Start 04/23/18 at 09:00; Stop 04/30/18 at 11:14; Status DC Cyanocobalamin (Vitamin B-12) 1,000 mcg 1X ONCE IM Last administered on at 12:13; Start 04/24/18 at 12:00; Stop 04/24/18 at 12:01; Status DC Olanzapine (ZyPREXA ZYDIS) 7.5 mg DAILY PO Last administered on 05/03/18at 08:22 ; Start 05/01/18 at 09:00; Stop 05/03/18 at 20:36; Status DC Atenolol (Tenormin) 25 mg DAILY PO ; Start 05/03/18 at 09:00 Olanzapine (ZyPREXA ZYDIS) 10 mg DAILY PO Last administered on 05/04/18at 07:47 ; Start 05/04/18 at 09:00 Divalproex Sodium (Depakote Sprinkles) 125 mg BID PO Last administered on at 19:56; Start 05/04/18 at 21:00 Active Scripts Active Reported Clonidine Tts-2 (Clonidine) 1 Each Patch.tdwk 1 Patch TD WEEKLY Olanzapine 5 Mg Tablet 1 Tab PO PRN Q4HRS PRN Victoza 3-Melvin (Liraglutide) 0.6 Mg/0.1 Ml Pen.injctr 0.6 Mg SQ DAILY Simvastatin 40 Mg Tablet 1 Tab PO QHS Senna-Docusate Sodium Tablet (Sennosides/Docusate Sodium) 1 Each Tablet 1 Each PO BID Seroquel (Quetiapine Fumarate) 50 Mg Tablet 1 Tab PO TID Seroquel (Quetiapine Fumarate) 25 Mg Tablet 12.5 Mg PO PRN DAILY PRN Mirapex (Pramipexole Di-Hcl) 0.25 Mg Tablet 0.5 Mg PO TID Actos (Pioglitazone Hcl) 15 Mg Tablet 1 Tab PO DAILY Pantoprazole Sodium 40 Mg Tablet.dr 1 Tab PO BIDBFRMEAL Melatonin 3 Mg Tablet 6 Mg PO QHS Lisinopril 10 Mg Tablet 10 Mg PO DAILY Ketoconazole 15 Gm Cream..g. 1 Giorgio TP DAILY Hydrocortisone 453.6 Gm Cream..g. 1 Giorgio TP BID Gabapentin 300 Mg Capsule 300 Mg PO PRN DAILY PRN Sinemet 25-100 Mg Tablet (Carbidopa/Levodopa) 1 Each Tablet 1 Tab PO TIDWMEALS Entocort Ec (Budesonide) 3 Mg Capdr...er 3 Cap PO DAILY Bisoprolol-Hctz 5-6.25 Mg Tab (Bisoprolol Fumarate/Hctz) 1 Each Tablet 1 Tab PO DAILY Tylenol (Acetaminophen) 325 Mg Tablet 650 Mg PO PRN Q6HRS PRN I have reviewed the current psychotropics carefully including drug interactions. Risk benefit ratio favors no change other than as noted in my dictated progress note. ALYSHA CHAMPAGEN MD May 04, 2018 22:20
--- NOTE | 2018-05-04 23:30 | PN ---
DATE: 05/03/2018 PSYCHIATRIC PROGRESS NOTE This is a late entry, 05/03, covers elements not covered in my initial note. SUBJECTIVE: I met with the patient in the evening. The patient slept 7-1/2 hours previous evening. He continues to be intermittently psychotic. Has possible hallucinations, delusional at times. REVIEW OF SYSTEMS: Ambulation impaired, in wheelchair. No CV, , pulmonary, eye, ENT system symptoms on review. MENTAL STATUS EXAM: Speech moderate latency, low in rate and rhythm, often responses monosyllabic, suspicious and paranoid. Abstraction fair, computation impaired, language function intact, attention span short. Mood and affect somewhat withdrawn. LABORATORY DATA: Reviewed. IMPRESSION: Bipolar 1 disorder, mixed with psychotic features; major neurocognitive disorder; early Lewy body with delusion; behavioral disturbance. PLAN: Increase Zyprexa to 10 mg daily. Continue rest unchanged. Defer management of Parkinson's to Dr. Calderon. MAN Dalton CHAMPAGNE MD DR: SERENITY/rebecca JOB#: [id number] / [id number]
[2018-05-05 06:08] VITALS: BP 105/53
[2018-05-05] MEDS: CARBIDOPA/LEVODOPA 25/100MG TABLET PO SCH ×3 (07:42→17:04)
[2018-05-05] MEDS: PANTOPRAZOLE 40 MG TABLET. PO SCH ×2 (07:42→17:04)
[2018-05-05] MEDS: SENNOSIDES/DOCUSATE 8.6/50MG TABLET. PO SCH ×2 (07:42→20:01)
[2018-05-05] MEDS: PIOGLITAZONE 15 MG TABLET. PO SCH (07:42)
[2018-05-05] MEDS: DIVALPROEX 125 MG CAP.SPRINK PO SCH ×2 (07:42→20:02)
[2018-05-05] MEDS: PRAMIPEXOLE 0.5 MG TABLET. PO SCH ×3 (07:43→20:01)
[2018-05-05] MEDS: CHOLECALCIFEROL (VITAMIN D3) 50,000 UNIT CAPSULE PO SCH (07:43)
[2018-05-05] MEDS: KETOCONAZOLE 2% TOPICAL CREAM 30GM TUBE. TP SCH (07:44)
[2018-05-05] MEDS: HYDROCORTISONE 1% TOPICAL CREAM 30GM TUBE. TP SCH ×2 (07:44→20:03)
[2018-05-05] MEDS: ATENOLOL 25 MG TABLET PO SCH (12:45)
[2018-05-05 12:55] VITALS: BP 128/55
[2018-05-05 16:07] VITALS: BP 104/61
[2018-05-05] MEDS: traZODone 100 MG TABLET. PO SCH (20:01)
[2018-05-05] MEDS: SIMVASTATIN 40 MG TABLET. PO SCH (20:01)
[2018-05-05] MEDS: MELATONIN 3 MG TABLET PO SCH (20:02)
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
[2018-05-06 05:33] VITALS: BP 124/51
[2018-05-06] MEDS: ATENOLOL 25 MG TABLET PO SCH (07:29)
[2018-05-06] MEDS: CARBIDOPA/LEVODOPA 25/100MG TABLET PO SCH ×3 (07:29→16:59)
[2018-05-06] MEDS: SENNOSIDES/DOCUSATE 8.6/50MG TABLET. PO SCH ×2 (07:29→19:58)
[2018-05-06] MEDS: PIOGLITAZONE 15 MG TABLET. PO SCH (07:29)
[2018-05-06] MEDS: PRAMIPEXOLE 0.5 MG TABLET. PO SCH ×3 (07:29→20:03)
[2018-05-06] MEDS: DIVALPROEX 125 MG CAP.SPRINK PO SCH ×2 (07:30→19:58)
[2018-05-06] MEDS: PANTOPRAZOLE 40 MG TABLET. PO SCH ×2 (07:30→16:59)
[2018-05-06] MEDS: KETOCONAZOLE 2% TOPICAL CREAM 30GM TUBE. TP SCH (07:34)
[2018-05-06] MEDS: HYDROCORTISONE 1% TOPICAL CREAM 30GM TUBE. TP SCH ×2 (07:34→20:03)
[2018-05-06] MEDS ORDERED: SALIVA STIMULANT AGENT MOUTHWASH 237ML BOTTLE. PO PRN (10:00)
[2018-05-06] MEDS ORDERED: traZODone 150 MG TABLET. PO PRN (16:00)
[2018-05-06 16:04] VITALS: BP 120/51
[2018-05-06] MEDS: MELATONIN 3 MG TABLET PO SCH (19:58)
[2018-05-06] MEDS: SIMVASTATIN 40 MG TABLET. PO SCH (19:58)
[2018-05-06] MEDS: traZODone 150 MG TABLET. PO SCH (20:03)
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
--- NOTE | 2018-05-07 02:41 | PDOC ---
Exam Note: Nickolas Note: Please also refer to the separate dictated note~for this date of service dictated separately.~Patient seen individually. Discussed the patient with Nursing staff reviewed the chart.~Reviewed interim history and current functioning. Reviewed vital signs,~Labs/ Radiology~and current medications noted below. Continue current treatment with the changes noted in the dictated addendum note Assessment: Vital Signs: Vital Signs Date Time Temp Pulse Resp B/P (MAP) Pulse Ox O2 Delivery O2 Flow Rate FiO2 05/06/18 16:04 97.9 61 16 120/51 (74) 99 05/05/18 16:07 Room Air I&O Intake and Output 05/07/18 07:00 Intake Total 600 ml Balance 600 ml Intake Oral 600 ml # Voids 1 Current Medications: Meds: Current Medications Acetaminophen (Tylenol) 650 mg PRN Q6HRS PRN PO PAIN / TEMP Last administered on 04/28/18at 20:26; Start 04/19/18 at 18:00 Multi-Ingredient Ointment (Analgesic [place]) 1 giorgio PRN QID PRN TP MUSCLE PAIN; Start 04/19/18 at 18:00 Al Hydroxide/Mg Hydroxide (Mylanta Plus Xs) 15 ml PRN AFTMEALHC PRN PO DYSPEPSIA; Start 04/19/18 at 18:00 Magnesium Hydroxide (Milk Of Magnesia) 2,400 mg PRN QHS PRN PO CONSTIPATION Last administered on 04/29/18at 23:14; Start 04/19/18 at 18:00 Melatonin 6 mg QHS PO Last administered on 05/06/18at 19:58; Start 04/19/18 at 21:00 Olanzapine (ZyPREXA IM) 5 mg PRN Q4HRS PRN IM AGITATION; Start 04/19/18 at 19: 45; Status Cancel Quetiapine Fumarate (SEROquel) 12.5 mg PRN DAILY PRN PO ANXIETY / AGITATION; Start 04/19/18 at 19:45; Stop 04/20/18 at 13:43; Status DC Quetiapine Fumarate (SEROquel) 50 mg TID PO Last administered on 04/19/18at 19: 54; Start 04/19/18 at 21:00; Stop 04/20/18 at 13:43; Status DC Acetaminophen (Tylenol) 650 mg PRN Q6HRS PRN PO PAIN / TEMP; Start 04/19/18 at 19:30; Status UNV Carbidopa/Levodopa (Sinemet 25/100) 1 tab TIDWMEALS PO Last administered on 16:59; Start 04/20/18 at 08:00 Clonidine HCl (Catapres Tts-2) 1 patch WEEKLY TD Last administered on at 08:38; Start 04/24/18 at 09:00 Gabapentin (Neurontin) 300 mg PRN DAILY PRN PO NEUROPATHY; Start 04/19/18 at 19 :30 Ketoconazole (Nizoral 2% Topical) 1 giorgio DAILY TP Last administered on 07:34; Start 04/20/18 at 09:00 Lisinopril (Prinivil) 10 mg DAILY PO Last administered on 04/25/18 08:08; Start 04/20/18 at 09:00; Stop 04/27/18 at 11:13; Status DC Senna/Docusate Sodium (Senna Plus) 1 tab BID PO Last administered on 05/06/18 19:58; Start 04/19/18 at 21:00 Simvastatin (Zocor) 40 mg QHS PO Last administered on 05/06/18 19:58; Start at 21:00 Atenolol (Tenormin) 50 mg DAILY PO Last administered on 04/30/18at 09:37; Start 04/20/18 at 09:00; Stop 05/02/18 at 13:19; Status DC Budesonide (Entocort) 3 mg DAILY PO Last administered on 04/27/18at 08:57; Start 04/20/18 at 09:00; Stop 04/27/18 at 11:13; Status DC Hydrocortisone (Cortaid) 1 giorgio BID TP Last administered on 05/06/18at 20:03; Start 04/19/18 at 21:00 Non-Formulary Medication (Liraglutide (Victoza 3-Melvin)) 0.6 mg DAILY SQ ; Start 04/20/18 at 09:00; Status UNV Pantoprazole Sodium (Protonix) 40 mg BIDBFRMEAL PO Last administered on at 16:59; Start 04/20/18 at 07:30 Pioglitazone HCl (Actos) 15 mg DAILY PO Last administered on 05/06/18at 07:29; Start 04/20/18 at 09:00 Pramipexole Dihydrochloride (miraPEX) 0.5 mg [id number] PO Last administered on at 20:03; Start 04/19/18 at 21:00 Risperidone (RisperDAL) 1 mg DAILY SL Last administered on 04/21/18at 08:04; Start 04/20/18 at 09:00; Stop 04/21/18 at 18:50; Status DC Olanzapine (ZyPREXA ZYDIS) 5 mg PRN Q2HR PRN PO ANXIETY / AGITATION Last administered on 04/19/18at 19:55; Start 04/19/18 at 20:00 Olanzapine (ZyPREXA) 5 mg PRN Q4HRS PRN PO AGITATION; Start 04/19/18 at 19:49; Status Cancel Hydrochlorothiazide (Hydrodiuril) 6.25 mg DAILY PO Last administered on at 08:07; Start 04/20/18 at 09:00; Stop 04/27/18 at 11:13; Status DC Olanzapine (ZyPREXA IM) 5 mg DAILY IM Last administered on 04/22/18at 11:28; Start 04/20/18 at 10:00; Stop 04/22/18 at 16:24; Status DC Clonidine HCl (Catapres Tts-2) 1 patch 1X ONCE TD Last administered on at 18:11; Start 04/20/18 at 18:15; Stop 04/20/18 at 18:16; Status DC Vitamin D (Vitamin D3) 50,000 unit WEEKLY PO Last administered on 05/05/18at 07: 43; Start 04/21/18 at 13:30 Cyanocobalamin (Vitamin B-12) 1,000 mcg DAILY IM Last administered on 04/27/18at 08:57; Start 04/22/18 at 09:00; Stop 04/28/18 at 10:40; Status DC Trazodone HCl (Desyrel) 100 mg QHS PO Last administered on 05/05/18at 20:01; Start 04/21/18 at 21:00; Stop 05/06/18 at 15:59; Status DC Trazodone HCl (Desyrel) 100 mg PRN QHS PRN PO insomnia; Start 04/21/18 at 17:00 ; Stop 05/06/18 at 15:55; Status DC Olanzapine (ZyPREXA ZYDIS) 5 mg DAILY PO Last administered on 04/30/18at 09:37; Start 04/23/18 at 09:00; Stop 04/30/18 at 11:14; Status DC Cyanocobalamin (Vitamin B-12) 1,000 mcg 1X ONCE IM Last administered on at 12:13; Start 04/24/18 at 12:00; Stop 04/24/18 at 12:01; Status DC Olanzapine (ZyPREXA ZYDIS) 7.5 mg DAILY PO Last administered on 05/03/18at 08:22 ; Start 05/01/18 at 09:00; Stop 05/03/18 at 20:36; Status DC Atenolol (Tenormin) 25 mg DAILY PO Last administered on 05/06/18at 07:29; Start 05/03/18 at 09:00 Olanzapine (ZyPREXA ZYDIS) 10 mg DAILY PO Last administered on 05/06/18at 07:30 ; Start 05/04/18 at 09:00 Divalproex Sodium (Depakote Sprinkles) 125 mg BID PO Last administered on at 19:58; Start 05/04/18 at 21:00 Saliva Substitute (Biotene Dry Mouth) 1 giorgio PRN TID PRN PO DRY MOUTH; Start at 10:00 Trazodone HCl (Desyrel) 150 mg PRN QHS PRN PO INSOMNIA; Start 05/06/18 at 16:00 Trazodone HCl (Desyrel) 150 mg QHS PO Last administered on 05/06/18at 20:03; Start 05/06/18 at 21:00 Active Scripts Active Reported Clonidine Tts-2 (Clonidine) 1 Each Patch.tdwk 1 Patch TD WEEKLY Olanzapine 5 Mg Tablet 1 Tab PO PRN Q4HRS PRN Victoza 3-Melvin (Liraglutide) 0.6 Mg/0.1 Ml Pen.injctr 0.6 Mg SQ DAILY Simvastatin 40 Mg Tablet 1 Tab PO QHS Senna-Docusate Sodium Tablet (Sennosides/Docusate Sodium) 1 Each Tablet 1 Each PO BID Seroquel (Quetiapine Fumarate) 50 Mg Tablet 1 Tab PO TID Seroquel (Quetiapine Fumarate) 25 Mg Tablet 12.5 Mg PO PRN DAILY PRN Mirapex (Pramipexole Di-Hcl) 0.25 Mg Tablet 0.5 Mg PO TID Actos (Pioglitazone Hcl) 15 Mg Tablet 1 Tab PO DAILY Pantoprazole Sodium 40 Mg Tablet.dr 1 Tab PO BIDBFRMEAL Melatonin 3 Mg Tablet 6 Mg PO QHS Lisinopril 10 Mg Tablet 10 Mg PO DAILY Ketoconazole 15 Gm Cream..g. 1 Giorgio TP DAILY Hydrocortisone 453.6 Gm Cream..g. 1 Giorgio TP BID Gabapentin 300 Mg Capsule 300 Mg PO PRN DAILY PRN Sinemet 25-100 Mg Tablet (Carbidopa/Levodopa) 1 Each Tablet 1 Tab PO TIDWMEALS Entocort Ec (Budesonide) 3 Mg Capdr...er 3 Cap PO DAILY Bisoprolol-Hctz 5-6.25 Mg Tab (Bisoprolol Fumarate/Hctz) 1 Each Tablet 1 Tab PO DAILY Tylenol (Acetaminophen) 325 Mg Tablet 650 Mg PO PRN Q6HRS PRN I have reviewed the current psychotropics carefully including drug interactions. Risk benefit ratio favors no change other than as noted in my dictated progress note. Diagnosis: Problems: (1) Anxiety disorder (2) Impulse control disorder (3) Bipolar affective disorder, mixed (4) Parkinson's disease (5) Dementia due to Parkinson's disease with behavioral disturbance (6) Psychosis ALYSHA CHAMPAGNE MD May 07, 2018 02:40
[2018-05-07 06:15] VITALS: BP 130/71
[2018-05-07 07:36] LABS: BASO # 0.1 x10^3/uL (0.0-0.2); BASO % 1 % (0-3); EOS # 0.4 x10^3/uL (0.0-0.7); EOS % 4 % (0-3); HEMATOCRIT 32.5 % (39.0-53.0); HEMOGLOBIN 10.3 g/dL (13.0-17.5); LYMPH # 3.9 x10^3/uL (1.0-4.8); LYMPH % 39 % (24-48); MEAN CORPUSCULAR HEMOGLOBIN 24 pg (25-35); MEAN CORPUSCULAR HGB CONC 32 g/dL (31-37); MEAN CORPUSCULAR VOLUME 77 fL (79-100); MONO # 0.4 x10^3/uL (0.0-1.1); MONO % 4 % (0-9); NEUT # 5.2 x10^3uL (1.8-7.7); NEUT % 53 % (31-73); PLATELET COUNT 236 x10^3/uL (140-400); RED BLOOD COUNT 4.25 x10^6/uL (4.30-5.70); WHITE BLOOD COUNT 9.9 x10^3/uL (4.0-11.0)
[2018-05-07 07:44] LABS: ALBUMIN 2.8 g/dL (3.4-5.0); ALBUMIN/GLOBULIN RATIO 0.7 (1.0-1.7); ALK PHOS 106 U/L (46-116); ALT (SGPT) 24 U/L (16-63); ANION GAP 7 (6-14); AST (SGOT) 32 U/L (15-37); BLOOD UREA NITROGEN 26 mg/dL (8-26); BUN/CREATININE RATIO 19 (6-20); CARBON DIOXIDE 30 mmol/L (21-32); CHLORIDE 104 mmol/L (98-107); CREATININE 1.4 mg/dL (0.7-1.3); GFR 49.8; GLUCOSE 158 mg/dL (70-99); POTASSIUM 4.1 mmol/L (3.5-5.1); SODIUM 141 mmol/L (136-145); TOTAL BILIRUBIN 0.4 mg/dL (0.2-1.0); TOTAL PROTEIN 6.8 g/dL (6.4-8.2)
[2018-05-07 07:51] LABS: VAL ACID 16 mcg/mL (50-100)
[2018-05-07] MEDS: DIVALPROEX 125 MG CAP.SPRINK PO SCH ×2 (07:52→20:23)
[2018-05-07] MEDS: PANTOPRAZOLE 40 MG TABLET. PO SCH ×2 (07:52→16:38)
[2018-05-07] MEDS: PIOGLITAZONE 15 MG TABLET. PO SCH (07:52)
[2018-05-07] MEDS: SENNOSIDES/DOCUSATE 8.6/50MG TABLET. PO SCH ×2 (07:52→20:21)
[2018-05-07] MEDS: PRAMIPEXOLE 0.5 MG TABLET. PO SCH ×3 (07:52→20:21)
[2018-05-07] MEDS: ATENOLOL 25 MG TABLET PO SCH (07:53)
[2018-05-07] MEDS: CARBIDOPA/LEVODOPA 25/100MG TABLET PO SCH ×3 (07:54→16:44)
[2018-05-07] MEDS: HYDROCORTISONE 1% TOPICAL CREAM 30GM TUBE. TP SCH ×2 (07:58→20:23)
[2018-05-07] MEDS: KETOCONAZOLE 2% TOPICAL CREAM 30GM TUBE. TP SCH (07:59)
[2018-05-07 15:53] VITALS: BP 136/83
--- NOTE | 2018-05-07 20:10 | PDOC ---
Exam Note: Nickolas Note: Please also refer to the separate dictated note~for this date of service dictated separately.~Patient seen individually. Discussed the patient with Nursing staff reviewed the chart.~Reviewed interim history and current functioning. Reviewed vital signs,~Labs/ Radiology~and current medications noted below. Continue current treatment with the changes noted in the dictated addendum note Assessment: Vital Signs: Vital Signs Date Time Temp Pulse Resp B/P (MAP) Pulse Ox O2 Delivery O2 Flow Rate FiO2 05/07/18 15:53 97.5 64 20 136/83 (100) 97 Room Air I&O Intake and Output 05/07/18 06:59 Intake Total 600 ml Balance 600 ml Intake Oral 600 ml # Voids 1 Labs: Laboratory Tests Test 05/07/18 07:11 White Blood Count 9.9 x10^3/uL (4.0-11.0) Red Blood Count 4.25 x10^6/uL (4.30-5.70) L Hemoglobin 10.3 g/dL (13.0-17.5) L Hematocrit 32.5 % (39.0-53.0) L Mean Corpuscular Volume 77 fL (79-100) L Mean Corpuscular Hemoglobin 24 pg (25-35) L Mean Corpuscular Hemoglobin Concent 32 g/dL (31-37) Red Cell Distribution Width 17.0 % (11.5-14.5) H Platelet Count 236 x10^3/uL (140-400) Neutrophils (%) (Auto) 53 % (31-73) Lymphocytes (%) (Auto) 39 % (24-48) Monocytes (%) (Auto) 4 % (0-9) Eosinophils (%) (Auto) 4 % (0-3) H Basophils (%) (Auto) 1 % (0-3) Neutrophils # (Auto) 5.2 x10^3uL (1.8-7.7) Lymphocytes # (Auto) 3.9 x10^3/uL (1.0-4.8) Monocytes # (Auto) 0.4 x10^3/uL (0.0-1.1) Eosinophils # (Auto) 0.4 x10^3/uL (0.0-0.7) Basophils # (Auto) 0.1 x10^3/uL (0.0-0.2) Sodium Level 141 mmol/L (136-145) Potassium Level 4.1 mmol/L (3.5-5.1) Chloride Level 104 mmol/L (98-107) Carbon Dioxide Level 30 mmol/L (21-32) Anion Gap 7 (6-14) Blood Urea Nitrogen 26 mg/dL (8-26) Creatinine 1.4 mg/dL (0.7-1.3) H Estimated GFR (Cockcroft-Gault) 49.8 BUN/Creatinine Ratio 19 (6-20) Glucose Level 158 mg/dL (70-99) H Calcium Level 9.0 mg/dL (8.5-10.1) Total Bilirubin 0.4 mg/dL (0.2-1.0) Aspartate Amino Transferase (AST) 32 U/L (15-37) Alanine Aminotransferase (ALT) 24 U/L (16-63) Alkaline Phosphatase 106 U/L (46-116) Total Protein 6.8 g/dL (6.4-8.2) Albumin 2.8 g/dL (3.4-5.0) L Albumin/Globulin Ratio 0.7 (1.0-1.7) L Valproic Acid Level 16 mcg/mL (50-100) L Valproic Acid Last Dose Date 05/06/18 Valproic Acid Last Dose Time 2100 Current Medications: Meds: Current Medications Acetaminophen (Tylenol) 650 mg PRN Q6HRS PRN PO PAIN / TEMP Last administered on 04/28/18at 20:26; Start 04/19/18 at 18:00 Multi-Ingredient Ointment (Analgesic [place]) 1 giorgio PRN QID PRN TP MUSCLE PAIN; Start 04/19/18 at 18:00 Al Hydroxide/Mg Hydroxide (Mylanta Plus Xs) 15 ml PRN AFTMEALHC PRN PO DYSPEPSIA; Start 04/19/18 at 18:00 Magnesium Hydroxide (Milk Of Magnesia) 2,400 mg PRN QHS PRN PO CONSTIPATION Last administered on 04/29/18at 23:14; Start 04/19/18 at 18:00 Melatonin 6 mg QHS PO Last administered on 05/06/18at 19:58; Start 04/19/18 at 21:00 Olanzapine (ZyPREXA IM) 5 mg PRN Q4HRS PRN IM AGITATION; Start 04/19/18 at 19: 45; Status Cancel Quetiapine Fumarate (SEROquel) 12.5 mg PRN DAILY PRN PO ANXIETY / AGITATION; Start 04/19/18 at 19:45; Stop 04/20/18 at 13:43; Status DC Quetiapine Fumarate (SEROquel) 50 mg TID PO Last administered on 04/19/18at 19: 54; Start 04/19/18 at 21:00; Stop 04/20/18 at 13:43; Status DC Acetaminophen (Tylenol) 650 mg PRN Q6HRS PRN PO PAIN / TEMP; Start 04/19/18 at 19:30; Status UNV Carbidopa/Levodopa (Sinemet 25/100) 1 tab TIDWMEALS PO Last administered on at 16:44; Start 04/20/18 at 08:00 Clonidine HCl (Catapres Tts-2) 1 patch WEEKLY TD Last administered on at 08:38; Start 04/24/18 at 09:00 Gabapentin (Neurontin) 300 mg PRN DAILY PRN PO NEUROPATHY; Start 04/19/18 at 19 :30 Ketoconazole (Nizoral 2% Topical) 1 giorgio DAILY TP Last administered on at 07:59; Start 04/20/18 at 09:00 Lisinopril (Prinivil) 10 mg DAILY PO Last administered on 04/25/18at 08:08; Start 04/20/18 at 09:00; Stop 04/27/18 at 11:13; Status DC Senna/Docusate Sodium (Senna Plus) 1 tab BID PO Last administered on 05/07/18at 07:52; Start 04/19/18 at 21:00 Simvastatin (Zocor) 40 mg QHS PO Last administered on 05/06/18at 19:58; Start at 21:00 Atenolol (Tenormin) 50 mg DAILY PO Last administered on 04/30/18at 09:37; Start 04/20/18 at 09:00; Stop 05/02/18 at 13:19; Status DC Budesonide (Entocort) 3 mg DAILY PO Last administered on 04/27/18at 08:57; Start 04/20/18 at 09:00; Stop 04/27/18 at 11:13; Status DC Hydrocortisone (Cortaid) 1 giorgio BID TP Last administered on 05/07/18at 07:58; Start 04/19/18 at 21:00 Non-Formulary Medication (Liraglutide (Victoza 3-Melvin)) 0.6 mg DAILY SQ ; Start 04/20/18 at 09:00; Status UNV Pantoprazole Sodium (Protonix) 40 mg BIDBFRMEAL PO Last administered on at 16:38; Start 04/20/18 at 07:30 Pioglitazone HCl (Actos) 15 mg DAILY PO Last administered on 05/07/18at 07:52; Start 04/20/18 at 09:00 Pramipexole Dihydrochloride (miraPEX) 0.5 mg [id number] PO Last administered on at 12:28; Start 04/19/18 at 21:00 Risperidone (RisperDAL) 1 mg DAILY SL Last administered on 04/21/18at 08:04; Start 04/20/18 at 09:00; Stop 04/21/18 at 18:50; Status DC Olanzapine (ZyPREXA ZYDIS) 5 mg PRN Q2HR PRN PO ANXIETY / AGITATION Last administered on 04/19/18at 19:55; Start 04/19/18 at 20:00 Olanzapine (ZyPREXA) 5 mg PRN Q4HRS PRN PO AGITATION; Start 04/19/18 at 19:49; Status Cancel Hydrochlorothiazide (Hydrodiuril) 6.25 mg DAILY PO Last administered on at 08:07; Start 04/20/18 at 09:00; Stop 04/27/18 at 11:13; Status DC Olanzapine (ZyPREXA IM) 5 mg DAILY IM Last administered on 04/22/18at 11:28; Start 04/20/18 at 10:00; Stop 04/22/18 at 16:24; Status DC Clonidine HCl (Catapres Tts-2) 1 patch 1X ONCE TD Last administered on at 18:11; Start 04/20/18 at 18:15; Stop 04/20/18 at 18:16; Status DC Vitamin D (Vitamin D3) 50,000 unit WEEKLY PO Last administered on 05/05/18at 07: 43; Start 04/21/18 at 13:30 Cyanocobalamin (Vitamin B-12) 1,000 mcg DAILY IM Last administered on 04/27/18at 08:57; Start 04/22/18 at 09:00; Stop 04/28/18 at 10:40; Status DC Trazodone HCl (Desyrel) 100 mg QHS PO Last administered on 05/05/18at 20:01; Start 04/21/18 at 21:00; Stop 05/06/18 at 15:59; Status DC Trazodone HCl (Desyrel) 100 mg PRN QHS PRN PO insomnia; Start 04/21/18 at 17:00 ; Stop 05/06/18 at 15:55; Status DC Olanzapine (ZyPREXA ZYDIS) 5 mg DAILY PO Last administered on 04/30/18at 09:37; Start 04/23/18 at 09:00; Stop 04/30/18 at 11:14; Status DC Cyanocobalamin (Vitamin B-12) 1,000 mcg 1X ONCE IM Last administered on at 12:13; Start 04/24/18 at 12:00; Stop 04/24/18 at 12:01; Status DC Olanzapine (ZyPREXA ZYDIS) 7.5 mg DAILY PO Last administered on 05/03/18at 08:22 ; Start 05/01/18 at 09:00; Stop 05/03/18 at 20:36; Status DC Atenolol (Tenormin) 25 mg DAILY PO Last administered on 05/07/18at 07:53; Start 05/03/18 at 09:00 Olanzapine (ZyPREXA ZYDIS) 10 mg DAILY PO Last administered on 05/07/18at 07:52 ; Start 05/04/18 at 09:00 Divalproex Sodium (Depakote Sprinkles) 125 mg BID PO Last administered on at 07:52; Start 05/04/18 at 21:00; Stop 05/07/18 at 10:24; Status DC Saliva Substitute (Biotene Dry Mouth) 1 giorgio PRN TID PRN PO DRY MOUTH; Start at 10:00; Stop 05/07/18 at 13:18; Status DC Trazodone HCl (Desyrel) 150 mg PRN QHS PRN PO INSOMNIA; Start 05/06/18 at 16:00 Trazodone HCl (Desyrel) 150 mg QHS PO Last administered on 05/06/18at 20:03; Start 05/06/18 at 21:00 Divalproex Sodium (Depakote Sprinkles) 250 mg BID PO ; Start 05/07/18 at 21:00 Saliva Substitute (Biotene Dry Mouth) 1 giorgio PRN Q15MIN PRN PO DRY MOUTH; Start 05/07/18 at 13:15 Active Scripts Active Reported Clonidine Tts-2 (Clonidine) 1 Each Patch.tdwk 1 Patch TD WEEKLY Olanzapine 5 Mg Tablet 1 Tab PO PRN Q4HRS PRN Victoza 3-Melvin (Liraglutide) 0.6 Mg/0.1 Ml Pen.injctr 0.6 Mg SQ DAILY Simvastatin 40 Mg Tablet 1 Tab PO QHS Senna-Docusate Sodium Tablet (Sennosides/Docusate Sodium) 1 Each Tablet 1 Each PO BID Seroquel (Quetiapine Fumarate) 50 Mg Tablet 1 Tab PO TID Seroquel (Quetiapine Fumarate) 25 Mg Tablet 12.5 Mg PO PRN DAILY PRN Mirapex (Pramipexole Di-Hcl) 0.25 Mg Tablet 0.5 Mg PO TID Actos (Pioglitazone Hcl) 15 Mg Tablet 1 Tab PO DAILY Pantoprazole Sodium 40 Mg Tablet.dr 1 Tab PO BIDBFRMEAL Melatonin 3 Mg Tablet 6 Mg PO QHS Lisinopril 10 Mg Tablet 10 Mg PO DAILY Ketoconazole 15 Gm Cream..g. 1 Giorgio TP DAILY Hydrocortisone 453.6 Gm Cream..g. 1 Giorgio TP BID Gabapentin 300 Mg Capsule 300 Mg PO PRN DAILY PRN Sinemet 25-100 Mg Tablet (Carbidopa/Levodopa) 1 Each Tablet 1 Tab PO TIDWMEALS Entocort Ec (Budesonide) 3 Mg Capdr...er 3 Cap PO DAILY Bisoprolol-Hctz 5-6.25 Mg Tab (Bisoprolol Fumarate/Hctz) 1 Each Tablet 1 Tab PO DAILY Tylenol (Acetaminophen) 325 Mg Tablet 650 Mg PO PRN Q6HRS PRN I have reviewed the current psychotropics carefully including drug interactions. Risk benefit ratio favors no change other than as noted in my dictated progress note. Diagnosis: Problems: (1) Anxiety disorder (2) Impulse control disorder (3) Bipolar affective disorder, mixed (4) Parkinson's disease (5) Dementia due to Parkinson's disease with behavioral disturbance (6) Psychosis ALYSHA CHAMPAGNE MD May 07, 2018 20:10
[2018-05-07] MEDS: traZODone 150 MG TABLET. PO SCH (20:21)
[2018-05-07] MEDS: MELATONIN 3 MG TABLET PO SCH (20:22)
[2018-05-07] MEDS: SIMVASTATIN 40 MG TABLET. PO SCH (20:22)
--- NOTE | 2018-05-07 20:44 | PDOC ---
Exam Note: Nickolas Note: Late entry for DOS May 05, 2018. Please also refer to the separate dictated note~for this date of service dictated separately.~Patient seen individually. Discussed the patient with Nursing staff reviewed the chart.~Reviewed interim history and current functioning. Reviewed vital signs,~Labs/ Radiology~and current medications noted below. Continue current treatment with the changes noted in the dictated addendum note Assessment: Vital Signs: VS - Last 72 Hours, by Label Date Time Temp Pulse Resp B/P (MAP) Pulse Ox O2 Delivery O2 Flow Rate FiO2 05/07/18 15:53 97.5 64 20 136/83 (100) 97 Room Air 05/07/18 07:53 63 130/71 05/07/18 06:15 97.3 63 20 130/71 (90) 95 Room Air 05/06/18 16:04 97.9 61 16 120/51 (74) 99 05/06/18 07:29 54 124/51 05/06/18 05:33 97.6 54 16 124/51 (75) 97 05/05/18 16:07 97.6 61 18 104/61 (75) 100 Room Air 05/05/18 12:55 97.1 67 18 128/55 (79) 96 Room Air 05/05/18 12:45 67 128/55 05/05/18 06:08 97.5 62 16 105/53 (70) 95 Vital Signs Date Time Temp Pulse Resp B/P (MAP) Pulse Ox O2 Delivery O2 Flow Rate FiO2 05/07/18 15:53 97.5 64 20 136/83 (100) 97 Room Air I&O Intake and Output 05/07/18 06:59 Intake Total 600 ml Balance 600 ml Intake Oral 600 ml # Voids 1 Labs: Laboratory Tests Test 05/07/18 07:11 White Blood Count 9.9 x10^3/uL (4.0-11.0) Red Blood Count 4.25 x10^6/uL (4.30-5.70) L Hemoglobin 10.3 g/dL (13.0-17.5) L Hematocrit 32.5 % (39.0-53.0) L Mean Corpuscular Volume 77 fL (79-100) L Mean Corpuscular Hemoglobin 24 pg (25-35) L Mean Corpuscular Hemoglobin Concent 32 g/dL (31-37) Red Cell Distribution Width 17.0 % (11.5-14.5) H Platelet Count 236 x10^3/uL (140-400) Neutrophils (%) (Auto) 53 % (31-73) Lymphocytes (%) (Auto) 39 % (24-48) Monocytes (%) (Auto) 4 % (0-9) Eosinophils (%) (Auto) 4 % (0-3) H Basophils (%) (Auto) 1 % (0-3) Neutrophils # (Auto) 5.2 x10^3uL (1.8-7.7) Lymphocytes # (Auto) 3.9 x10^3/uL (1.0-4.8) Monocytes # (Auto) 0.4 x10^3/uL (0.0-1.1) Eosinophils # (Auto) 0.4 x10^3/uL (0.0-0.7) Basophils # (Auto) 0.1 x10^3/uL (0.0-0.2) Sodium Level 141 mmol/L (136-145) Potassium Level 4.1 mmol/L (3.5-5.1) Chloride Level 104 mmol/L (98-107) Carbon Dioxide Level 30 mmol/L (21-32) Anion Gap 7 (6-14) Blood Urea Nitrogen 26 mg/dL (8-26) Creatinine 1.4 mg/dL (0.7-1.3) H Estimated GFR (Cockcroft-Gault) 49.8 BUN/Creatinine Ratio 19 (6-20) Glucose Level 158 mg/dL (70-99) H Calcium Level 9.0 mg/dL (8.5-10.1) Total Bilirubin 0.4 mg/dL (0.2-1.0) Aspartate Amino Transferase (AST) 32 U/L (15-37) Alanine Aminotransferase (ALT) 24 U/L (16-63) Alkaline Phosphatase 106 U/L (46-116) Total Protein 6.8 g/dL (6.4-8.2) Albumin 2.8 g/dL (3.4-5.0) L Albumin/Globulin Ratio 0.7 (1.0-1.7) L Valproic Acid Level 16 mcg/mL (50-100) L Valproic Acid Last Dose Date 05/06/18 Valproic Acid Last Dose Time 2100 Current Medications: Meds: Current Medications Acetaminophen (Tylenol) 650 mg PRN Q6HRS PRN PO PAIN / TEMP Last administered on 04/28/18at 20:26; Start 04/19/18 at 18:00 Multi-Ingredient Ointment (Analgesic [place]) 1 giorgio PRN QID PRN TP MUSCLE PAIN; Start 04/19/18 at 18:00 Al Hydroxide/Mg Hydroxide (Mylanta Plus Xs) 15 ml PRN AFTMEALHC PRN PO DYSPEPSIA; Start 04/19/18 at 18:00 Magnesium Hydroxide (Milk Of Magnesia) 2,400 mg PRN QHS PRN PO CONSTIPATION Last administered on 04/29/18at 23:14; Start 04/19/18 at 18:00 Melatonin 6 mg QHS PO Last administered on 05/07/18at 20:22; Start 04/19/18 at 21:00 Olanzapine (ZyPREXA IM) 5 mg PRN Q4HRS PRN IM AGITATION; Start 04/19/18 at 19: 45; Status Cancel Quetiapine Fumarate (SEROquel) 12.5 mg PRN DAILY PRN PO ANXIETY / AGITATION; Start 04/19/18 at 19:45; Stop 04/20/18 at 13:43; Status DC Quetiapine Fumarate (SEROquel) 50 mg TID PO Last administered on 04/19/18at 19: 54; Start 04/19/18 at 21:00; Stop 04/20/18 at 13:43; Status DC Acetaminophen (Tylenol) 650 mg PRN Q6HRS PRN PO PAIN / TEMP; Start 04/19/18 at 19:30; Status UNV Carbidopa/Levodopa (Sinemet 25/100) 1 tab TIDWMEALS PO Last administered on at 16:44; Start 04/20/18 at 08:00 Clonidine HCl (Catapres Tts-2) 1 patch WEEKLY TD Last administered on at 08:38; Start 04/24/18 at 09:00 Gabapentin (Neurontin) 300 mg PRN DAILY PRN PO NEUROPATHY; Start 04/19/18 at 19 :30 Ketoconazole (Nizoral 2% Topical) 1 giorgio DAILY TP Last administered on at 07:59; Start 04/20/18 at 09:00 Lisinopril (Prinivil) 10 mg DAILY PO Last administered on 04/25/18 08:08; Start 04/20/18 at 09:00; Stop 04/27/18 at 11:13; Status DC Senna/Docusate Sodium (Senna Plus) 1 tab BID PO Last administered on 05/07/18 20:21; Start 04/19/18 at 21:00 Simvastatin (Zocor) 40 mg QHS PO Last administered on 05/07/18at 20:22; Start at 21:00 Atenolol (Tenormin) 50 mg DAILY PO Last administered on 04/30/18 09:37; Start 04/20/18 at 09:00; Stop 05/02/18 at 13:19; Status DC Budesonide (Entocort) 3 mg DAILY PO Last administered on 04/27/18at 08:57; Start 04/20/18 at 09:00; Stop 04/27/18 at 11:13; Status DC Hydrocortisone (Cortaid) 1 giorgio BID TP Last administered on 05/07/18 20:23; Start 04/19/18 at 21:00 Non-Formulary Medication (Liraglutide (Victoza 3-Melvin)) 0.6 mg DAILY SQ ; Start 04/20/18 at 09:00; Status UNV Pantoprazole Sodium (Protonix) 40 mg BIDBFRMEAL PO Last administered on at 16:38; Start 04/20/18 at 07:30 Pioglitazone HCl (Actos) 15 mg DAILY PO Last administered on 05/07/18at 07:52; Start 04/20/18 at 09:00 Pramipexole Dihydrochloride (miraPEX) 0.5 mg [id number] PO Last administered on 20:21; Start 04/19/18 at 21:00 Risperidone (RisperDAL) 1 mg DAILY SL Last administered on 04/21/18at 08:04; Start 04/20/18 at 09:00; Stop 04/21/18 at 18:50; Status DC Olanzapine (ZyPREXA ZYDIS) 5 mg PRN Q2HR PRN PO ANXIETY / AGITATION Last administered on 04/19/18at 19:55; Start 04/19/18 at 20:00 Olanzapine (ZyPREXA) 5 mg PRN Q4HRS PRN PO AGITATION; Start 04/19/18 at 19:49; Status Cancel Hydrochlorothiazide (Hydrodiuril) 6.25 mg DAILY PO Last administered on at 08:07; Start 04/20/18 at 09:00; Stop 04/27/18 at 11:13; Status DC Olanzapine (ZyPREXA IM) 5 mg DAILY IM Last administered on 04/22/18at 11:28; Start 04/20/18 at 10:00; Stop 04/22/18 at 16:24; Status DC Clonidine HCl (Catapres Tts-2) 1 patch 1X ONCE TD Last administered on at 18:11; Start 04/20/18 at 18:15; Stop 04/20/18 at 18:16; Status DC Vitamin D (Vitamin D3) 50,000 unit WEEKLY PO Last administered on 05/05/18at 07: 43; Start 04/21/18 at 13:30 Cyanocobalamin (Vitamin B-12) 1,000 mcg DAILY IM Last administered on 04/27/18at 08:57; Start 04/22/18 at 09:00; Stop 04/28/18 at 10:40; Status DC Trazodone HCl (Desyrel) 100 mg QHS PO Last administered on 05/05/18at 20:01; Start 04/21/18 at 21:00; Stop 05/06/18 at 15:59; Status DC Trazodone HCl (Desyrel) 100 mg PRN QHS PRN PO insomnia; Start 04/21/18 at 17:00 ; Stop 05/06/18 at 15:55; Status DC Olanzapine (ZyPREXA ZYDIS) 5 mg DAILY PO Last administered on 04/30/18at 09:37; Start 04/23/18 at 09:00; Stop 04/30/18 at 11:14; Status DC Cyanocobalamin (Vitamin B-12) 1,000 mcg 1X ONCE IM Last administered on at 12:13; Start 04/24/18 at 12:00; Stop 04/24/18 at 12:01; Status DC Olanzapine (ZyPREXA ZYDIS) 7.5 mg DAILY PO Last administered on 05/03/18at 08:22 ; Start 05/01/18 at 09:00; Stop 05/03/18 at 20:36; Status DC Atenolol (Tenormin) 25 mg DAILY PO Last administered on 05/07/18at 07:53; Start 05/03/18 at 09:00 Olanzapine (ZyPREXA ZYDIS) 10 mg DAILY PO Last administered on 05/07/18at 07:52 ; Start 05/04/18 at 09:00 Divalproex Sodium (Depakote Sprinkles) 125 mg BID PO Last administered on at 07:52; Start 05/04/18 at 21:00; Stop 05/07/18 at 10:24; Status DC Saliva Substitute (Biotene Dry Mouth) 1 giorgio PRN TID PRN PO DRY MOUTH; Start at 10:00; Stop 05/07/18 at 13:18; Status DC Trazodone HCl (Desyrel) 150 mg PRN QHS PRN PO INSOMNIA; Start 05/06/18 at 16:00 Trazodone HCl (Desyrel) 150 mg QHS PO Last administered on 05/07/18at 20:21; Start 05/06/18 at 21:00 Divalproex Sodium (Depakote Sprinkles) 250 mg BID PO Last administered on at 20:23; Start 05/07/18 at 21:00 Saliva Substitute (Biotene Dry Mouth) 1 giorgio PRN Q15MIN PRN PO DRY MOUTH; Start 05/07/18 at 13:15 Active Scripts Active Reported Clonidine Tts-2 (Clonidine) 1 Each Patch.tdwk 1 Patch TD WEEKLY Olanzapine 5 Mg Tablet 1 Tab PO PRN Q4HRS PRN Victoza 3-Melvin (Liraglutide) 0.6 Mg/0.1 Ml Pen.injctr 0.6 Mg SQ DAILY Simvastatin 40 Mg Tablet 1 Tab PO QHS Senna-Docusate Sodium Tablet (Sennosides/Docusate Sodium) 1 Each Tablet 1 Each PO BID Seroquel (Quetiapine Fumarate) 50 Mg Tablet 1 Tab PO TID Seroquel (Quetiapine Fumarate) 25 Mg Tablet 12.5 Mg PO PRN DAILY PRN Mirapex (Pramipexole Di-Hcl) 0.25 Mg Tablet 0.5 Mg PO TID Actos (Pioglitazone Hcl) 15 Mg Tablet 1 Tab PO DAILY Pantoprazole Sodium 40 Mg Tablet.dr 1 Tab PO BIDBFRMEAL Melatonin 3 Mg Tablet 6 Mg PO QHS Lisinopril 10 Mg Tablet 10 Mg PO DAILY Ketoconazole 15 Gm Cream..g. 1 Giorgio TP DAILY Hydrocortisone 453.6 Gm Cream..g. 1 Giorgio TP BID Gabapentin 300 Mg Capsule 300 Mg PO PRN DAILY PRN Sinemet 25-100 Mg Tablet (Carbidopa/Levodopa) 1 Each Tablet 1 Tab PO TIDWMEALS Entocort Ec (Budesonide) 3 Mg Capdr...er 3 Cap PO DAILY Bisoprolol-Hctz 5-6.25 Mg Tab (Bisoprolol Fumarate/Hctz) 1 Each Tablet 1 Tab PO DAILY Tylenol (Acetaminophen) 325 Mg Tablet 650 Mg PO PRN Q6HRS PRN I have reviewed the current psychotropics carefully including drug interactions. Risk benefit ratio favors no change other than as noted in my dictated progress note. Diagnosis: Problems: (1) Anxiety disorder (2) Impulse control disorder (3) Bipolar affective disorder, mixed (4) Parkinson's disease (5) Dementia due to Parkinson's disease with behavioral disturbance (6) Psychosis ALYSHA CHAMPAGNE MD May 07, 2018 20:44
--- NOTE | 2018-05-07 21:34 | PN ---
DATE: 05/06/2018 PSYCHIATRIC PROGRESS NOTE This is a late entry 05/06/2018, covers elements not covered in my initial note. SUBJECTIVE: I met with the patient in the evening. The patient slept 4-1/2 hours previous evening. He is quite fixated on having a dry mouth, wanting Biotene for it. The nursing staff will address this. He slept just 4-1/2 hours and we will increase the trazodone p.r.n. On further review, in fact he has not been getting the trazodone p.r.n. then we will change it to 100 mg at bedtime scheduled, may repeat x 1 p.r.n. for insomnia. REVIEW OF SYSTEMS: Ambulation impaired, in wheelchair and motor movements impaired due to his Parkinson's. No CV, , pulmonary, eye system symptoms on review. MENTAL STATUS EXAM: Oriented to himself and situation. Speech has some latency, low in volume, often responses monosyllabic, coherent, abstraction fair, computation impaired, language function intact. Mood and affect showing improvement, less labile. LABORATORY DATA: Reviewed. IMPRESSION: Unchanged from initial note. PLAN: No change other than noted above. Continue rest per the initial note. ALYSHA CHAMPAGNE MD DR: SERENITY/rebecca JOB#: [id number] / [id number]
--- NOTE | 2018-05-08 01:13 | PDOC ---
Exam Note: Nickolas Note: Please also refer to the separate dictated note~for this date of service dictated separately.~Patient seen individually. Discussed the patient with Nursing staff reviewed the chart.~Reviewed interim history and current functioning. Reviewed vital signs,~Labs/ Radiology~and current medications noted below. Continue current treatment with the changes noted in the dictated addendum note Assessment: Vital Signs: Vital Signs Date Time Temp Pulse Resp B/P (MAP) Pulse Ox O2 Delivery O2 Flow Rate FiO2 05/07/18 15:53 97.5 64 20 136/83 (100) 97 Room Air I&O Intake and Output 05/08/18 07:00 Intake Total 1080 ml Balance 1080 ml Intake Oral 1080 ml # Bowel Movements 1 Labs: Laboratory Tests Test 05/07/18 07:11 White Blood Count 9.9 x10^3/uL (4.0-11.0) Red Blood Count 4.25 x10^6/uL (4.30-5.70) L Hemoglobin 10.3 g/dL (13.0-17.5) L Hematocrit 32.5 % (39.0-53.0) L Mean Corpuscular Volume 77 fL (79-100) L Mean Corpuscular Hemoglobin 24 pg (25-35) L Mean Corpuscular Hemoglobin Concent 32 g/dL (31-37) Red Cell Distribution Width 17.0 % (11.5-14.5) H Platelet Count 236 x10^3/uL (140-400) Neutrophils (%) (Auto) 53 % (31-73) Lymphocytes (%) (Auto) 39 % (24-48) Monocytes (%) (Auto) 4 % (0-9) Eosinophils (%) (Auto) 4 % (0-3) H Basophils (%) (Auto) 1 % (0-3) Neutrophils # (Auto) 5.2 x10^3uL (1.8-7.7) Lymphocytes # (Auto) 3.9 x10^3/uL (1.0-4.8) Monocytes # (Auto) 0.4 x10^3/uL (0.0-1.1) Eosinophils # (Auto) 0.4 x10^3/uL (0.0-0.7) Basophils # (Auto) 0.1 x10^3/uL (0.0-0.2) Sodium Level 141 mmol/L (136-145) Potassium Level 4.1 mmol/L (3.5-5.1) Chloride Level 104 mmol/L (98-107) Carbon Dioxide Level 30 mmol/L (21-32) Anion Gap 7 (6-14) Blood Urea Nitrogen 26 mg/dL (8-26) Creatinine 1.4 mg/dL (0.7-1.3) H Estimated GFR (Cockcroft-Gault) 49.8 BUN/Creatinine Ratio 19 (6-20) Glucose Level 158 mg/dL (70-99) H Calcium Level 9.0 mg/dL (8.5-10.1) Total Bilirubin 0.4 mg/dL (0.2-1.0) Aspartate Amino Transferase (AST) 32 U/L (15-37) Alanine Aminotransferase (ALT) 24 U/L (16-63) Alkaline Phosphatase 106 U/L (46-116) Total Protein 6.8 g/dL (6.4-8.2) Albumin 2.8 g/dL (3.4-5.0) L Albumin/Globulin Ratio 0.7 (1.0-1.7) L Valproic Acid Level 16 mcg/mL (50-100) L Valproic Acid Last Dose Date 05/06/18 Valproic Acid Last Dose Time 2100 Current Medications: Meds: Current Medications Acetaminophen (Tylenol) 650 mg PRN Q6HRS PRN PO PAIN / TEMP Last administered on 04/28/18at 20:26; Start 04/19/18 at 18:00 Multi-Ingredient Ointment (Analgesic [place]) 1 giorgio PRN QID PRN TP MUSCLE PAIN; Start 04/19/18 at 18:00 Al Hydroxide/Mg Hydroxide (Mylanta Plus Xs) 15 ml PRN AFTMEALHC PRN PO DYSPEPSIA; Start 04/19/18 at 18:00 Magnesium Hydroxide (Milk Of Magnesia) 2,400 mg PRN QHS PRN PO CONSTIPATION Last administered on 04/29/18at 23:14; Start 04/19/18 at 18:00 Melatonin 6 mg QHS PO Last administered on 05/07/18at 20:22; Start 04/19/18 at 21:00 Olanzapine (ZyPREXA IM) 5 mg PRN Q4HRS PRN IM AGITATION; Start 04/19/18 at 19: 45; Status Cancel Quetiapine Fumarate (SEROquel) 12.5 mg PRN DAILY PRN PO ANXIETY / AGITATION; Start 04/19/18 at 19:45; Stop 04/20/18 at 13:43; Status DC Quetiapine Fumarate (SEROquel) 50 mg TID PO Last administered on 04/19/18at 19: 54; Start 04/19/18 at 21:00; Stop 04/20/18 at 13:43; Status DC Acetaminophen (Tylenol) 650 mg PRN Q6HRS PRN PO PAIN / TEMP; Start 04/19/18 at 19:30; Status UNV Carbidopa/Levodopa (Sinemet 25/100) 1 tab TIDWMEALS PO Last administered on at 16:44; Start 04/20/18 at 08:00 Clonidine HCl (Catapres Tts-2) 1 patch WEEKLY TD Last administered on at 08:38; Start 04/24/18 at 09:00 Gabapentin (Neurontin) 300 mg PRN DAILY PRN PO NEUROPATHY; Start 04/19/18 at 19 :30 Ketoconazole (Nizoral 2% Topical) 1 giorgio DAILY TP Last administered on at 07:59; Start 04/20/18 at 09:00 Lisinopril (Prinivil) 10 mg DAILY PO Last administered on 04/25/18at 08:08; Start 04/20/18 at 09:00; Stop 04/27/18 at 11:13; Status DC Senna/Docusate Sodium (Senna Plus) 1 tab BID PO Last administered on 05/07/18at 20:21; Start 04/19/18 at 21:00 Simvastatin (Zocor) 40 mg QHS PO Last administered on 05/07/18at 20:22; Start at 21:00 Atenolol (Tenormin) 50 mg DAILY PO Last administered on 04/30/18at 09:37; Start 04/20/18 at 09:00; Stop 05/02/18 at 13:19; Status DC Budesonide (Entocort) 3 mg DAILY PO Last administered on 04/27/18at 08:57; Start 04/20/18 at 09:00; Stop 04/27/18 at 11:13; Status DC Hydrocortisone (Cortaid) 1 giorgio BID TP Last administered on 05/07/18at 20:23; Start 04/19/18 at 21:00 Non-Formulary Medication (Liraglutide (Victoza 3-Melvin)) 0.6 mg DAILY SQ ; Start 04/20/18 at 09:00; Status UNV Pantoprazole Sodium (Protonix) 40 mg BIDBFRMEAL PO Last administered on at 16:38; Start 04/20/18 at 07:30 Pioglitazone HCl (Actos) 15 mg DAILY PO Last administered on 05/07/18at 07:52; Start 04/20/18 at 09:00 Pramipexole Dihydrochloride (miraPEX) 0.5 mg [id number] PO Last administered on at 20:21; Start 04/19/18 at 21:00 Risperidone (RisperDAL) 1 mg DAILY SL Last administered on 04/21/18at 08:04; Start 04/20/18 at 09:00; Stop 04/21/18 at 18:50; Status DC Olanzapine (ZyPREXA ZYDIS) 5 mg PRN Q2HR PRN PO ANXIETY / AGITATION Last administered on 04/19/18at 19:55; Start 04/19/18 at 20:00 Olanzapine (ZyPREXA) 5 mg PRN Q4HRS PRN PO AGITATION; Start 04/19/18 at 19:49; Status Cancel Hydrochlorothiazide (Hydrodiuril) 6.25 mg DAILY PO Last administered on at 08:07; Start 04/20/18 at 09:00; Stop 04/27/18 at 11:13; Status DC Olanzapine (ZyPREXA IM) 5 mg DAILY IM Last administered on 04/22/18at 11:28; Start 04/20/18 at 10:00; Stop 04/22/18 at 16:24; Status DC Clonidine HCl (Catapres Tts-2) 1 patch 1X ONCE TD Last administered on at 18:11; Start 04/20/18 at 18:15; Stop 04/20/18 at 18:16; Status DC Vitamin D (Vitamin D3) 50,000 unit WEEKLY PO Last administered on 05/05/18at 07: 43; Start 04/21/18 at 13:30 Cyanocobalamin (Vitamin B-12) 1,000 mcg DAILY IM Last administered on 04/27/18at 08:57; Start 04/22/18 at 09:00; Stop 04/28/18 at 10:40; Status DC Trazodone HCl (Desyrel) 100 mg QHS PO Last administered on 05/05/18at 20:01; Start 04/21/18 at 21:00; Stop 05/06/18 at 15:59; Status DC Trazodone HCl (Desyrel) 100 mg PRN QHS PRN PO insomnia; Start 04/21/18 at 17:00 ; Stop 05/06/18 at 15:55; Status DC Olanzapine (ZyPREXA ZYDIS) 5 mg DAILY PO Last administered on 04/30/18at 09:37; Start 04/23/18 at 09:00; Stop 04/30/18 at 11:14; Status DC Cyanocobalamin (Vitamin B-12) 1,000 mcg 1X ONCE IM Last administered on at 12:13; Start 04/24/18 at 12:00; Stop 04/24/18 at 12:01; Status DC Olanzapine (ZyPREXA ZYDIS) 7.5 mg DAILY PO Last administered on 05/03/18at 08:22 ; Start 05/01/18 at 09:00; Stop 05/03/18 at 20:36; Status DC Atenolol (Tenormin) 25 mg DAILY PO Last administered on 05/07/18at 07:53; Start 05/03/18 at 09:00 Olanzapine (ZyPREXA ZYDIS) 10 mg DAILY PO Last administered on 05/07/18at 07:52 ; Start 05/04/18 at 09:00 Divalproex Sodium (Depakote Sprinkles) 125 mg BID PO Last administered on at 07:52; Start 05/04/18 at 21:00; Stop 05/07/18 at 10:24; Status DC Saliva Substitute (Biotene Dry Mouth) 1 giorgio PRN TID PRN PO DRY MOUTH; Start at 10:00; Stop 05/07/18 at 13:18; Status DC Trazodone HCl (Desyrel) 150 mg PRN QHS PRN PO INSOMNIA; Start 05/06/18 at 16:00 Trazodone HCl (Desyrel) 150 mg QHS PO Last administered on 05/07/18at 20:21; Start 05/06/18 at 21:00 Divalproex Sodium (Depakote Sprinkles) 250 mg BID PO Last administered on at 20:23; Start 05/07/18 at 21:00 Saliva Substitute (Biotene Dry Mouth) 1 giorgio PRN Q15MIN PRN PO DRY MOUTH; Start 05/07/18 at 13:15 Active Scripts Active Reported Clonidine Tts-2 (Clonidine) 1 Each Patch.tdwk 1 Patch TD WEEKLY Olanzapine 5 Mg Tablet 1 Tab PO PRN Q4HRS PRN Victoza 3-Melvin (Liraglutide) 0.6 Mg/0.1 Ml Pen.injctr 0.6 Mg SQ DAILY Simvastatin 40 Mg Tablet 1 Tab PO QHS Senna-Docusate Sodium Tablet (Sennosides/Docusate Sodium) 1 Each Tablet 1 Each PO BID Seroquel (Quetiapine Fumarate) 50 Mg Tablet 1 Tab PO TID Seroquel (Quetiapine Fumarate) 25 Mg Tablet 12.5 Mg PO PRN DAILY PRN Mirapex (Pramipexole Di-Hcl) 0.25 Mg Tablet 0.5 Mg PO TID Actos (Pioglitazone Hcl) 15 Mg Tablet 1 Tab PO DAILY Pantoprazole Sodium 40 Mg Tablet.dr 1 Tab PO BIDBFRMEAL Melatonin 3 Mg Tablet 6 Mg PO QHS Lisinopril 10 Mg Tablet 10 Mg PO DAILY Ketoconazole 15 Gm Cream..g. 1 Giorgio TP DAILY Hydrocortisone 453.6 Gm Cream..g. 1 Giorgio TP BID Gabapentin 300 Mg Capsule 300 Mg PO PRN DAILY PRN Sinemet 25-100 Mg Tablet (Carbidopa/Levodopa) 1 Each Tablet 1 Tab PO TIDWMEALS Entocort Ec (Budesonide) 3 Mg Capdr...er 3 Cap PO DAILY Bisoprolol-Hctz 5-6.25 Mg Tab (Bisoprolol Fumarate/Hctz) 1 Each Tablet 1 Tab PO DAILY Tylenol (Acetaminophen) 325 Mg Tablet 650 Mg PO PRN Q6HRS PRN I have reviewed the current psychotropics carefully including drug interactions. Risk benefit ratio favors no change other than as noted in my dictated progress note. Diagnosis: Problems: (1) Anxiety disorder (2) Impulse control disorder (3) Bipolar affective disorder, mixed (4) Parkinson's disease (5) Dementia due to Parkinson's disease with behavioral disturbance (6) Psychosis ALYSHA CHAMPAGNE MD May 08, 2018 01:13
[2018-05-08 05:51] VITALS: BP 142/41
[2018-05-08] MEDS: PANTOPRAZOLE 40 MG TABLET. PO SCH ×2 (07:46→15:55)
[2018-05-08] MEDS: PIOGLITAZONE 15 MG TABLET. PO SCH (07:52)
[2018-05-08] MEDS: PRAMIPEXOLE 0.5 MG TABLET. PO SCH ×3 (07:52→19:43)
[2018-05-08] MEDS: CARBIDOPA/LEVODOPA 25/100MG TABLET PO SCH ×3 (07:53→16:42)
[2018-05-08] MEDS: SENNOSIDES/DOCUSATE 8.6/50MG TABLET. PO SCH ×2 (07:53→19:44)
[2018-05-08] MEDS: DIVALPROEX 125 MG CAP.SPRINK PO SCH ×2 (07:53→19:44)
[2018-05-08] MEDS: cloNIDine TTS-2 1 PATCH PATCH TD SCH (07:55)
[2018-05-08] MEDS: KETOCONAZOLE 2% TOPICAL CREAM 30GM TUBE. TP SCH (07:58)
[2018-05-08] MEDS: HYDROCORTISONE 1% TOPICAL CREAM 30GM TUBE. TP SCH ×2 (07:58→19:44)
[2018-05-08 08:00] VITALS: BP 104/63
[2018-05-08] MEDS: ATENOLOL 25 MG TABLET PO SCH (08:19)
[2018-05-08] MEDS: SALIVA STIMULANT AGENT MOUTHWASH 237ML BOTTLE. PO PRN ×3 (08:42→18:14)
[2018-05-08] MEDS: ACETAMINOPHEN 325 MG TABLET PO PRN (10:55)
--- NOTE | 2018-05-08 12:19 | PN ---
DATE: 05/07/2018 PSYCHIATRIC PROGRESS NOTE This is a late entry, 05/07, covers elements not covered in my initial note. SUBJECTIVE: I met with the patient in the evenings, staffed at treatment team meeting with the entire team in the morning. The patient's daughter, Angela, attended. The patient tends to do little for himself even though he can do it. Nursing staff are encouraging him to do as much as he can. Appetite 60%, sleeping over 6 hours average. Valproic acid level is 16 on Depakote 125 b.i.d. He continues to be somewhat withdrawn at times, but less psychotic, even though earlier in the week, he was quite psychotic, delusional as noted in my earlier notes. REVIEW OF SYSTEMS: Ambulation impaired, in wheelchair, secondary to Parkinson's. No CV, , pulmonary, eye, ENT system symptoms on review. MENTAL STATUS EXAM: Oriented to himself and situation. Speech moderate latency, low in rate and rhythm, low in volume, coherent, abstraction fair, computation impaired, language function intact. Short-term memory has some impairment, not aggressive. No suicidal or homicidal ideation. LABORATORY DATA: Reviewed. IMPRESSION: Bipolar 1 disorder, mixed with psychotic features, probable dementia, Lewy body early with delusions. Rest unchanged. PLAN: Increase Depakote Sprinkles 250 b.i.d. Check CBC, CMP, valproic acid level, ammonia level in 3 days. Continue rest unchanged per initial note. ALYSHA CHAMPAGNE MD DR: SERENITY/rebecca JOB#: [id number] / [id number]
[2018-05-08 15:47] VITALS: BP 116/69
[2018-05-08] MEDS: traZODone 150 MG TABLET. PO SCH (19:44)
[2018-05-08] MEDS: MELATONIN 3 MG TABLET PO SCH (19:44)
[2018-05-08] MEDS: SIMVASTATIN 40 MG TABLET. PO SCH (19:44)
--- NOTE | 2018-05-08 20:17 | PDOC ---
Exam Note: Nickolas Note: Please also refer to the separate dictated note~for this date of service dictated separately.~Patient seen individually. Discussed the patient with Nursing staff reviewed the chart.~Reviewed interim history and current functioning. Reviewed vital signs,~Labs/ Radiology~and current medications noted below. Continue current treatment with the changes noted in the dictated addendum note Assessment: Vital Signs: Vital Signs Date Time Temp Pulse Resp B/P (MAP) Pulse Ox O2 Delivery O2 Flow Rate FiO2 05/08/18 15:47 98.1 57 18 116/69 (85) 100 Room Air I&O Intake and Output 05/08/18 06:59 Intake Total 1080 ml Balance 1080 ml Intake Oral 1080 ml # Bowel Movements 1 Current Medications: Meds: Current Medications Acetaminophen (Tylenol) 650 mg PRN Q6HRS PRN PO PAIN / TEMP Last administered on 05/08/18at 10:55; Start 04/19/18 at 18:00 Multi-Ingredient Ointment (Analgesic [place]) 1 giorgio PRN QID PRN TP MUSCLE PAIN; Start 04/19/18 at 18:00 Al Hydroxide/Mg Hydroxide (Mylanta Plus Xs) 15 ml PRN AFTMEALHC PRN PO DYSPEPSIA; Start 04/19/18 at 18:00 Magnesium Hydroxide (Milk Of Magnesia) 2,400 mg PRN QHS PRN PO CONSTIPATION Last administered on 04/29/18at 23:14; Start 04/19/18 at 18:00 Melatonin 6 mg QHS PO Last administered on 05/08/18at 19:44; Start 04/19/18 at 21:00 Olanzapine (ZyPREXA IM) 5 mg PRN Q4HRS PRN IM AGITATION; Start 04/19/18 at 19: 45; Status Cancel Quetiapine Fumarate (SEROquel) 12.5 mg PRN DAILY PRN PO ANXIETY / AGITATION; Start 04/19/18 at 19:45; Stop 04/20/18 at 13:43; Status DC Quetiapine Fumarate (SEROquel) 50 mg TID PO Last administered on 04/19/18at 19: 54; Start 04/19/18 at 21:00; Stop 04/20/18 at 13:43; Status DC Acetaminophen (Tylenol) 650 mg PRN Q6HRS PRN PO PAIN / TEMP; Start 04/19/18 at 19:30; Status UNV Carbidopa/Levodopa (Sinemet 25/100) 1 tab TIDWMEALS PO Last administered on at 16:42; Start 04/20/18 at 08:00 Clonidine HCl (Catapres Tts-2) 1 patch WEEKLY TD Last administered on at 07:55; Start 04/24/18 at 09:00 Gabapentin (Neurontin) 300 mg PRN DAILY PRN PO NEUROPATHY; Start 04/19/18 at 19 :30 Ketoconazole (Nizoral 2% Topical) 1 giorgio DAILY TP Last administered on at 07:58; Start 04/20/18 at 09:00 Lisinopril (Prinivil) 10 mg DAILY PO Last administered on 04/25/18 08:08; Start 04/20/18 at 09:00; Stop 04/27/18 at 11:13; Status DC Senna/Docusate Sodium (Senna Plus) 1 tab BID PO Last administered on 05/08/18at 19:44; Start 04/19/18 at 21:00 Simvastatin (Zocor) 40 mg QHS PO Last administered on 05/08/18at 19:44; Start at 21:00 Atenolol (Tenormin) 50 mg DAILY PO Last administered on 04/30/18at 09:37; Start 04/20/18 at 09:00; Stop 05/02/18 at 13:19; Status DC Budesonide (Entocort) 3 mg DAILY PO Last administered on 04/27/18at 08:57; Start 04/20/18 at 09:00; Stop 04/27/18 at 11:13; Status DC Hydrocortisone (Cortaid) 1 giorgio BID TP Last administered on 05/08/18 19:44; Start 04/19/18 at 21:00 Non-Formulary Medication (Liraglutide (Victoza 3-Melvin)) 0.6 mg DAILY SQ ; Start 04/20/18 at 09:00; Status UNV Pantoprazole Sodium (Protonix) 40 mg BIDBFRMEAL PO Last administered on at 15:55; Start 04/20/18 at 07:30 Pioglitazone HCl (Actos) 15 mg DAILY PO Last administered on 8/17/18at 07:52; Start 04/20/18 at 09:00 Pramipexole Dihydrochloride (miraPEX) 0.5 mg [id number] PO Last administered on at 19:43; Start 04/19/18 at 21:00 Risperidone (RisperDAL) 1 mg DAILY SL Last administered on 04/21/18at 08:04; Start 04/20/18 at 09:00; Stop 04/21/18 at 18:50; Status DC Olanzapine (ZyPREXA ZYDIS) 5 mg PRN Q2HR PRN PO ANXIETY / AGITATION Last administered on 04/19/18at 19:55; Start 04/19/18 at 20:00 Olanzapine (ZyPREXA) 5 mg PRN Q4HRS PRN PO AGITATION; Start 04/19/18 at 19:49; Status Cancel Hydrochlorothiazide (Hydrodiuril) 6.25 mg DAILY PO Last administered on at 08:07; Start 04/20/18 at 09:00; Stop 04/27/18 at 11:13; Status DC Olanzapine (ZyPREXA IM) 5 mg DAILY IM Last administered on 04/22/18at 11:28; Start 04/20/18 at 10:00; Stop 04/22/18 at 16:24; Status DC Clonidine HCl (Catapres Tts-2) 1 patch 1X ONCE TD Last administered on at 18:11; Start 04/20/18 at 18:15; Stop 04/20/18 at 18:16; Status DC Vitamin D (Vitamin D3) 50,000 unit WEEKLY PO Last administered on 05/05/18at 07: 43; Start 04/21/18 at 13:30 Cyanocobalamin (Vitamin B-12) 1,000 mcg DAILY IM Last administered on 04/27/18at 08:57; Start 04/22/18 at 09:00; Stop 04/28/18 at 10:40; Status DC Trazodone HCl (Desyrel) 100 mg QHS PO Last administered on 05/05/18at 20:01; Start 04/21/18 at 21:00; Stop 05/06/18 at 15:59; Status DC Trazodone HCl (Desyrel) 100 mg PRN QHS PRN PO insomnia; Start 04/21/18 at 17:00 ; Stop 05/06/18 at 15:55; Status DC Olanzapine (ZyPREXA ZYDIS) 5 mg DAILY PO Last administered on 04/30/18at 09:37; Start 04/23/18 at 09:00; Stop 04/30/18 at 11:14; Status DC Cyanocobalamin (Vitamin B-12) 1,000 mcg 1X ONCE IM Last administered on at 12:13; Start 04/24/18 at 12:00; Stop 04/24/18 at 12:01; Status DC Olanzapine (ZyPREXA ZYDIS) 7.5 mg DAILY PO Last administered on 05/03/18at 08:22 ; Start 05/01/18 at 09:00; Stop 05/03/18 at 20:36; Status DC Atenolol (Tenormin) 25 mg DAILY PO Last administered on 05/08/18at 08:19; Start 05/03/18 at 09:00 Olanzapine (ZyPREXA ZYDIS) 10 mg DAILY PO Last administered on 05/08/18at 07:53 ; Start 05/04/18 at 09:00 Divalproex Sodium (Depakote Sprinkles) 125 mg BID PO Last administered on at 07:52; Start 05/04/18 at 21:00; Stop 05/07/18 at 10:24; Status DC Saliva Substitute (Biotene Dry Mouth) 1 giorgio PRN TID PRN PO DRY MOUTH; Start at 10:00; Stop 05/07/18 at 13:18; Status DC Trazodone HCl (Desyrel) 150 mg PRN QHS PRN PO INSOMNIA; Start 05/06/18 at 16:00 Trazodone HCl (Desyrel) 150 mg QHS PO Last administered on 05/08/18at 19:44; Start 05/06/18 at 21:00 Divalproex Sodium (Depakote Sprinkles) 250 mg BID PO Last administered on at 19:44; Start 05/07/18 at 21:00 Saliva Substitute (Biotene Dry Mouth) 1 giorgio PRN Q15MIN PRN PO DRY MOUTH Last administered on 05/08/18at 18:14; Start 05/07/18 at 13:15 Active Scripts Active Reported Clonidine Tts-2 (Clonidine) 1 Each Patch.tdwk 1 Patch TD WEEKLY Olanzapine 5 Mg Tablet 1 Tab PO PRN Q4HRS PRN Victoza 3-Melvin (Liraglutide) 0.6 Mg/0.1 Ml Pen.injctr 0.6 Mg SQ DAILY Simvastatin 40 Mg Tablet 1 Tab PO QHS Senna-Docusate Sodium Tablet (Sennosides/Docusate Sodium) 1 Each Tablet 1 Each PO BID Seroquel (Quetiapine Fumarate) 50 Mg Tablet 1 Tab PO TID Seroquel (Quetiapine Fumarate) 25 Mg Tablet 12.5 Mg PO PRN DAILY PRN Mirapex (Pramipexole Di-Hcl) 0.25 Mg Tablet 0.5 Mg PO TID Actos (Pioglitazone Hcl) 15 Mg Tablet 1 Tab PO DAILY Pantoprazole Sodium 40 Mg Tablet.dr 1 Tab PO BIDBFRMEAL Melatonin 3 Mg Tablet 6 Mg PO QHS Lisinopril 10 Mg Tablet 10 Mg PO DAILY Ketoconazole 15 Gm Cream..g. 1 Giorgio TP DAILY Hydrocortisone 453.6 Gm Cream..g. 1 Giorgio TP BID Gabapentin 300 Mg Capsule 300 Mg PO PRN DAILY PRN Sinemet 25-100 Mg Tablet (Carbidopa/Levodopa) 1 Each Tablet 1 Tab PO TIDWMEALS Entocort Ec (Budesonide) 3 Mg Capdr...er 3 Cap PO DAILY Bisoprolol-Hctz 5-6.25 Mg Tab (Bisoprolol Fumarate/Hctz) 1 Each Tablet 1 Tab PO DAILY Tylenol (Acetaminophen) 325 Mg Tablet 650 Mg PO PRN Q6HRS PRN I have reviewed the current psychotropics carefully including drug interactions. Risk benefit ratio favors no change other than as noted in my dictated progress note. Diagnosis: Problems: (1) Anxiety disorder (2) Impulse control disorder (3) Bipolar affective disorder, mixed (4) Parkinson's disease (5) Dementia due to Parkinson's disease with behavioral disturbance (6) Psychosis ALYSHA CHAMPAGNE MD May 08, 2018 20:17
[2018-05-09 05:47] VITALS: BP 137/63
[2018-05-09] MEDS: PANTOPRAZOLE 40 MG TABLET. PO SCH ×2 (08:40→16:13)
[2018-05-09] MEDS: CARBIDOPA/LEVODOPA 25/100MG TABLET PO SCH ×3 (08:40→16:13)
[2018-05-09] MEDS: PRAMIPEXOLE 0.5 MG TABLET. PO SCH ×3 (08:41→19:44)
[2018-05-09] MEDS: PIOGLITAZONE 15 MG TABLET. PO SCH (08:41)
[2018-05-09] MEDS: DIVALPROEX 125 MG CAP.SPRINK PO SCH ×2 (08:41→19:44)
[2018-05-09] MEDS: SENNOSIDES/DOCUSATE 8.6/50MG TABLET. PO SCH ×2 (08:41→19:45)
[2018-05-09] MEDS: HYDROCORTISONE 1% TOPICAL CREAM 30GM TUBE. TP SCH ×2 (09:00→19:45)
[2018-05-09] MEDS: KETOCONAZOLE 2% TOPICAL CREAM 30GM TUBE. TP SCH (09:00)
--- NOTE | 2018-05-09 10:36 | PN ---
DATE: 05/08/2018 PSYCHIATRIC PROGRESS NOTE This is a late entry 05/08/2018, covers elements not covered in my initial note. SUBJECTIVE: I met with the patient evening of 05/08/2018. Overall, the patient is doing better, less delusional, not aggressive. Ambulation impaired, in wheelchair. REVIEW OF SYSTEMS: No CV, , pulmonary, eye system symptoms on review. MENTAL STATUS EXAM: Oriented to himself and situation. Speech moderate latency, low in volume, often responses monosyllabic consistent with his Parkinson's. Abstraction fair, computation impaired, language function intact. Mood and affect somewhat withdrawn. LABORATORY DATA: Reviewed. IMPRESSION: Unchanged from initial note. PLAN: No change from initial note. He did receive some Tylenol after working with physical therapy with that she was cooperative. MAN Dalton CHAMPAGNE MD DR: SERENITY/rebecca JOB#: [id number] / [id number]
[2018-05-09] MEDS: ATENOLOL 25 MG TABLET PO SCH (10:41)
[2018-05-09 16:18] VITALS: BP 97/53
[2018-05-09] MEDS: traZODone 150 MG TABLET. PO SCH (19:44)
[2018-05-09] MEDS: MELATONIN 3 MG TABLET PO SCH (19:45)
[2018-05-09] MEDS: SIMVASTATIN 40 MG TABLET. PO SCH (19:45)
[2018-05-09] MEDS: SALIVA STIMULANT AGENT MOUTHWASH 237ML BOTTLE. PO PRN (19:49)
--- NOTE | 2018-05-09 22:09 | PDOC ---
Exam Note: Nickolas Note: Please also refer to the separate dictated note~for this date of service dictated separately.~Patient seen individually. Discussed the patient with Nursing staff reviewed the chart.~Reviewed interim history and current functioning. Reviewed vital signs,~Labs/ Radiology~and current medications noted below. Continue current treatment with the changes noted in the dictated addendum note Assessment: Vital Signs: Vital Signs Date Time Temp Pulse Resp B/P (MAP) Pulse Ox O2 Delivery O2 Flow Rate FiO2 05/09/18 16:18 97.7 69 19 97/53 (68) 99 05/08/18 15:47 Room Air I&O Intake and Output 05/09/18 07:00 Intake Total 720 ml Balance 720 ml Intake Oral 720 ml # Bowel Movements 1 Current Medications: Meds: Current Medications Acetaminophen (Tylenol) 650 mg PRN Q6HRS PRN PO PAIN / TEMP Last administered on 05/08/18at 10:55; Start 04/19/18 at 18:00 Multi-Ingredient Ointment (Analgesic [place]) 1 giorgio PRN QID PRN TP MUSCLE PAIN; Start 04/19/18 at 18:00 Al Hydroxide/Mg Hydroxide (Mylanta Plus Xs) 15 ml PRN AFTMEALHC PRN PO DYSPEPSIA; Start 04/19/18 at 18:00 Magnesium Hydroxide (Milk Of Magnesia) 2,400 mg PRN QHS PRN PO CONSTIPATION Last administered on 04/29/18at 23:14; Start 04/19/18 at 18:00 Melatonin 6 mg QHS PO Last administered on 05/09/18at 19:45; Start 04/19/18 at 21:00 Olanzapine (ZyPREXA IM) 5 mg PRN Q4HRS PRN IM AGITATION; Start 04/19/18 at 19: 45; Status Cancel Quetiapine Fumarate (SEROquel) 12.5 mg PRN DAILY PRN PO ANXIETY / AGITATION; Start 04/19/18 at 19:45; Stop 04/20/18 at 13:43; Status DC Quetiapine Fumarate (SEROquel) 50 mg TID PO Last administered on 04/19/18at 19: 54; Start 04/19/18 at 21:00; Stop 04/20/18 at 13:43; Status DC Acetaminophen (Tylenol) 650 mg PRN Q6HRS PRN PO PAIN / TEMP; Start 04/19/18 at 19:30; Status UNV Carbidopa/Levodopa (Sinemet 25/100) 1 tab TIDWMEALS PO Last administered on at 16:13; Start 04/20/18 at 08:00 Clonidine HCl (Catapres Tts-2) 1 patch WEEKLY TD Last administered on at 07:55; Start 04/24/18 at 09:00 Gabapentin (Neurontin) 300 mg PRN DAILY PRN PO NEUROPATHY; Start 04/19/18 at 19 :30 Ketoconazole (Nizoral 2% Topical) 1 giorgio DAILY TP Last administered on at 09:00; Start 04/20/18 at 09:00 Lisinopril (Prinivil) 10 mg DAILY PO Last administered on 04/25/18at 08:08; Start 04/20/18 at 09:00; Stop 04/27/18 at 11:13; Status DC Senna/Docusate Sodium (Senna Plus) 1 tab BID PO Last administered on 05/09/18at 19:45; Start 04/19/18 at 21:00 Simvastatin (Zocor) 40 mg QHS PO Last administered on 05/09/18at 19:45; Start at 21:00 Atenolol (Tenormin) 50 mg DAILY PO Last administered on 04/30/18at 09:37; Start 04/20/18 at 09:00; Stop 05/02/18 at 13:19; Status DC Budesonide (Entocort) 3 mg DAILY PO Last administered on 04/27/18at 08:57; Start 04/20/18 at 09:00; Stop 04/27/18 at 11:13; Status DC Hydrocortisone (Cortaid) 1 giorgio BID TP Last administered on 05/09/18at 19:45; Start 04/19/18 at 21:00 Non-Formulary Medication (Liraglutide (Victoza 3-Melvin)) 0.6 mg DAILY SQ ; Start 04/20/18 at 09:00; Status UNV Pantoprazole Sodium (Protonix) 40 mg BIDBFRMEAL PO Last administered on at 16:13; Start 04/20/18 at 07:30 Pioglitazone HCl (Actos) 15 mg DAILY PO Last administered on 05/09/18at 08:41; Start 04/20/18 at 09:00 Pramipexole Dihydrochloride (miraPEX) 0.5 mg [id number] PO Last administered on at 19:44; Start 04/19/18 at 21:00 Risperidone (RisperDAL) 1 mg DAILY SL Last administered on 04/21/18at 08:04; Start 04/20/18 at 09:00; Stop 04/21/18 at 18:50; Status DC Olanzapine (ZyPREXA ZYDIS) 5 mg PRN Q2HR PRN PO ANXIETY / AGITATION Last administered on 04/19/18at 19:55; Start 04/19/18 at 20:00 Olanzapine (ZyPREXA) 5 mg PRN Q4HRS PRN PO AGITATION; Start 04/19/18 at 19:49; Status Cancel Hydrochlorothiazide (Hydrodiuril) 6.25 mg DAILY PO Last administered on at 08:07; Start 04/20/18 at 09:00; Stop 04/27/18 at 11:13; Status DC Olanzapine (ZyPREXA IM) 5 mg DAILY IM Last administered on 04/22/18at 11:28; Start 04/20/18 at 10:00; Stop 04/22/18 at 16:24; Status DC Clonidine HCl (Catapres Tts-2) 1 patch 1X ONCE TD Last administered on at 18:11; Start 04/20/18 at 18:15; Stop 04/20/18 at 18:16; Status DC Vitamin D (Vitamin D3) 50,000 unit WEEKLY PO Last administered on 05/05/18at 07: 43; Start 04/21/18 at 13:30 Cyanocobalamin (Vitamin B-12) 1,000 mcg DAILY IM Last administered on 04/27/18at 08:57; Start 04/22/18 at 09:00; Stop 04/28/18 at 10:40; Status DC Trazodone HCl (Desyrel) 100 mg QHS PO Last administered on 05/05/18at 20:01; Start 04/21/18 at 21:00; Stop 05/06/18 at 15:59; Status DC Trazodone HCl (Desyrel) 100 mg PRN QHS PRN PO insomnia; Start 04/21/18 at 17:00 ; Stop 05/06/18 at 15:55; Status DC Olanzapine (ZyPREXA ZYDIS) 5 mg DAILY PO Last administered on 04/30/18at 09:37; Start 04/23/18 at 09:00; Stop 04/30/18 at 11:14; Status DC Cyanocobalamin (Vitamin B-12) 1,000 mcg 1X ONCE IM Last administered on 12:13; Start 04/24/18 at 12:00; Stop 04/24/18 at 12:01; Status DC Olanzapine (ZyPREXA ZYDIS) 7.5 mg DAILY PO Last administered on 05/03/18 08:22 ; Start 05/01/18 at 09:00; Stop 05/03/18 at 20:36; Status DC Atenolol (Tenormin) 25 mg DAILY PO Last administered on 05/08/18 08:19; Start 05/03/18 at 09:00 Olanzapine (ZyPREXA ZYDIS) 10 mg DAILY PO Last administered on 05/09/18 08:43 ; Start 05/04/18 at 09:00 Divalproex Sodium (Depakote Sprinkles) 125 mg BID PO Last administered on at 07:52; Start 05/04/18 at 21:00; Stop 05/07/18 at 10:24; Status DC Saliva Substitute (Biotene Dry Mouth) 1 giorgio PRN TID PRN PO DRY MOUTH; Start at 10:00; Stop 05/07/18 at 13:18; Status DC Trazodone HCl (Desyrel) 150 mg PRN QHS PRN PO INSOMNIA; Start 05/06/18 at 16:00 Trazodone HCl (Desyrel) 150 mg QHS PO Last administered on 05/09/18 19:44; Start 05/06/18 at 21:00 Divalproex Sodium (Depakote Sprinkles) 250 mg BID PO Last administered on at 19:44; Start 05/07/18 at 21:00 Saliva Substitute (Biotene Dry Mouth) 1 giorgio PRN Q15MIN PRN PO DRY MOUTH Last administered on 8/18/18at 19:49; Start 05/07/18 at 13:15 Active Scripts Active Reported Clonidine Tts-2 (Clonidine) 1 Each Patch.tdwk 1 Patch TD WEEKLY Olanzapine 5 Mg Tablet 1 Tab PO PRN Q4HRS PRN Victoza 3-Melvin (Liraglutide) 0.6 Mg/0.1 Ml Pen.injctr 0.6 Mg SQ DAILY Simvastatin 40 Mg Tablet 1 Tab PO QHS Senna-Docusate Sodium Tablet (Sennosides/Docusate Sodium) 1 Each Tablet 1 Each PO BID Seroquel (Quetiapine Fumarate) 50 Mg Tablet 1 Tab PO TID Seroquel (Quetiapine Fumarate) 25 Mg Tablet 12.5 Mg PO PRN DAILY PRN Mirapex (Pramipexole Di-Hcl) 0.25 Mg Tablet 0.5 Mg PO TID Actos (Pioglitazone Hcl) 15 Mg Tablet 1 Tab PO DAILY Pantoprazole Sodium 40 Mg Tablet.dr 1 Tab PO BIDBFRMEAL Melatonin 3 Mg Tablet 6 Mg PO QHS Lisinopril 10 Mg Tablet 10 Mg PO DAILY Ketoconazole 15 Gm Cream..g. 1 Giorgio TP DAILY Hydrocortisone 453.6 Gm Cream..g. 1 Giorgio TP BID Gabapentin 300 Mg Capsule 300 Mg PO PRN DAILY PRN Sinemet 25-100 Mg Tablet (Carbidopa/Levodopa) 1 Each Tablet 1 Tab PO TIDWMEALS Entocort Ec (Budesonide) 3 Mg Capdr...er 3 Cap PO DAILY Bisoprolol-Hctz 5-6.25 Mg Tab (Bisoprolol Fumarate/Hctz) 1 Each Tablet 1 Tab PO DAILY Tylenol (Acetaminophen) 325 Mg Tablet 650 Mg PO PRN Q6HRS PRN I have reviewed the current psychotropics carefully including drug interactions. Risk benefit ratio favors no change other than as noted in my dictated progress note. Diagnosis: Problems: (1) Anxiety disorder (2) Impulse control disorder (3) Bipolar affective disorder, mixed (4) Parkinson's disease (5) Dementia due to Parkinson's disease with behavioral disturbance (6) Psychosis ALYSHA CHAMPAGNE MD May 09, 2018 22:09
[2018-05-10 05:46] VITALS: BP 130/55
[2018-05-10] MEDS: PRAMIPEXOLE 0.5 MG TABLET. PO SCH ×3 (08:20→19:44)
[2018-05-10] MEDS: PANTOPRAZOLE 40 MG TABLET. PO SCH ×2 (08:20→17:12)
[2018-05-10] MEDS: CARBIDOPA/LEVODOPA 25/100MG TABLET PO SCH ×3 (08:20→17:12)
[2018-05-10] MEDS: SENNOSIDES/DOCUSATE 8.6/50MG TABLET. PO SCH ×2 (08:21→19:44)
[2018-05-10] MEDS: PIOGLITAZONE 15 MG TABLET. PO SCH (08:23)
[2018-05-10] MEDS: DIVALPROEX 125 MG CAP.SPRINK PO SCH ×2 (08:23→19:44)
[2018-05-10] MEDS: ATENOLOL 25 MG TABLET PO SCH (09:00)
[2018-05-10 10:42] LABS: BASO # 0.1 x10^3/uL (0.0-0.2); BASO % 1 % (0-3); EOS # 0.3 x10^3/uL (0.0-0.7); EOS % 4 % (0-3); HEMATOCRIT 33.8 % (39.0-53.0); HEMOGLOBIN 10.5 g/dL (13.0-17.5); LYMPH # 2.1 x10^3/uL (1.0-4.8); LYMPH % 27 % (24-48); MEAN CORPUSCULAR HEMOGLOBIN 24 pg (25-35); MEAN CORPUSCULAR HGB CONC 31 g/dL (31-37); MEAN CORPUSCULAR VOLUME 77 fL (79-100); MONO # 0.3 x10^3/uL (0.0-1.1); MONO % 4 % (0-9); NEUT # 4.9 x10^3uL (1.8-7.7); NEUT % 63 % (31-73); PLATELET COUNT 236 x10^3/uL (140-400); RED BLOOD COUNT 4.38 x10^6/uL (4.30-5.70); RED CELL DISTRIBUTION WIDTH 17.6 % (11.5-14.5); WHITE BLOOD COUNT 7.7 x10^3/uL (4.0-11.0)
[2018-05-10 10:45] LABS: ALBUMIN 2.9 g/dL (3.4-5.0); ALBUMIN/GLOBULIN RATIO 0.7 (1.0-1.7); ALK PHOS 100 U/L (46-116); ALT (SGPT) 11 U/L (16-63); ANION GAP 7 (6-14); AST (SGOT) 21 U/L (15-37); BLOOD UREA NITROGEN 23 mg/dL (8-26); BUN/CREATININE RATIO 16 (6-20); CALCIUM 8.7 mg/dL (8.5-10.1); CARBON DIOXIDE 29 mmol/L (21-32); CHLORIDE 103 mmol/L (98-107); CREATININE 1.4 mg/dL (0.7-1.3); GFR 49.8; GLUCOSE 210 mg/dL (70-99); POTASSIUM 4.4 mmol/L (3.5-5.1); SODIUM 139 mmol/L (136-145); TOTAL BILIRUBIN 0.4 mg/dL (0.2-1.0)
[2018-05-10 10:51] LABS: VAL ACID 43 mcg/mL (50-100)
[2018-05-10] MEDS: HYDROCORTISONE 1% TOPICAL CREAM 30GM TUBE. TP SCH ×2 (11:06→19:46)
[2018-05-10] MEDS: KETOCONAZOLE 2% TOPICAL CREAM 30GM TUBE. TP SCH (11:06)
[2018-05-10 16:12] VITALS: BP 117/60
[2018-05-10] MEDS: SIMVASTATIN 40 MG TABLET. PO SCH (19:44)
[2018-05-10] MEDS: MELATONIN 3 MG TABLET PO SCH (19:44)
[2018-05-10] MEDS: traZODone 150 MG TABLET. PO SCH (19:44)
--- NOTE | 2018-05-10 20:46 | PDOC ---
Exam Note: Nickolas Note: Please also refer to the separate dictated note~for this date of service dictated separately.~Patient seen individually. Discussed the patient with Nursing staff reviewed the chart.~Reviewed interim history and current functioning. Reviewed vital signs,~Labs/ Radiology~and current medications noted below. Continue current treatment with the changes noted in the dictated addendum note Assessment: Vital Signs: Vital Signs Date Time Temp Pulse Resp B/P (MAP) Pulse Ox O2 Delivery O2 Flow Rate FiO2 05/10/18 16:12 97.4 67 20 117/60 (79) 97 05/08/18 15:47 Room Air I&O Intake and Output 05/10/18 07:01 Intake Total 1200 ml Balance 1200 ml Intake Oral 1200 ml # Voids 1 # Bowel Movements 1 Labs: Laboratory Tests Test 05/10/18 10:04 White Blood Count 7.7 x10^3/uL (4.0-11.0) Red Blood Count 4.38 x10^6/uL (4.30-5.70) Hemoglobin 10.5 g/dL (13.0-17.5) L Hematocrit 33.8 % (39.0-53.0) L Mean Corpuscular Volume 77 fL (79-100) L Mean Corpuscular Hemoglobin 24 pg (25-35) L Mean Corpuscular Hemoglobin Concent 31 g/dL (31-37) Red Cell Distribution Width 17.6 % (11.5-14.5) H Platelet Count 236 x10^3/uL (140-400) Neutrophils (%) (Auto) 63 % (31-73) Lymphocytes (%) (Auto) 27 % (24-48) Monocytes (%) (Auto) 4 % (0-9) Eosinophils (%) (Auto) 4 % (0-3) H Basophils (%) (Auto) 1 % (0-3) Neutrophils # (Auto) 4.9 x10^3uL (1.8-7.7) Lymphocytes # (Auto) 2.1 x10^3/uL (1.0-4.8) Monocytes # (Auto) 0.3 x10^3/uL (0.0-1.1) Eosinophils # (Auto) 0.3 x10^3/uL (0.0-0.7) Basophils # (Auto) 0.1 x10^3/uL (0.0-0.2) Sodium Level 139 mmol/L (136-145) Potassium Level 4.4 mmol/L (3.5-5.1) Chloride Level 103 mmol/L (98-107) Carbon Dioxide Level 29 mmol/L (21-32) Anion Gap 7 (6-14) Blood Urea Nitrogen 23 mg/dL (8-26) Creatinine 1.4 mg/dL (0.7-1.3) H Estimated GFR (Cockcroft-Gault) 49.8 BUN/Creatinine Ratio 16 (6-20) Glucose Level 210 mg/dL (70-99) H Calcium Level 8.7 mg/dL (8.5-10.1) Total Bilirubin 0.4 mg/dL (0.2-1.0) Aspartate Amino Transferase (AST) 21 U/L (15-37) Alanine Aminotransferase (ALT) 11 U/L (16-63) L Alkaline Phosphatase 100 U/L (46-116) Ammonia 11 mcmol/L (11-34) Total Protein 7.0 g/dL (6.4-8.2) Albumin 2.9 g/dL (3.4-5.0) L Albumin/Globulin Ratio 0.7 (1.0-1.7) L Valproic Acid Level 43 mcg/mL (50-100) L Valproic Acid Last Dose Date 05/09/2018 Valproic Acid Last Dose Time 2100 Current Medications: Meds: Current Medications Acetaminophen (Tylenol) 650 mg PRN Q6HRS PRN PO PAIN / TEMP Last administered on 05/08/18at 10:55; Start 04/19/18 at 18:00 Multi-Ingredient Ointment (Analgesic Tillar) 1 giorgio PRN QID PRN TP MUSCLE PAIN; Start 04/19/18 at 18:00 Al Hydroxide/Mg Hydroxide (Mylanta Plus Xs) 15 ml PRN AFTMEALHC PRN PO DYSPEPSIA; Start 04/19/18 at 18:00 Magnesium Hydroxide (Milk Of Magnesia) 2,400 mg PRN QHS PRN PO CONSTIPATION Last administered on 04/29/18at 23:14; Start 04/19/18 at 18:00 Melatonin 6 mg QHS PO Last administered on 05/10/18at 19:44; Start 04/19/18 at 21:00 Olanzapine (ZyPREXA IM) 5 mg PRN Q4HRS PRN IM AGITATION; Start 04/19/18 at 19: 45; Status Cancel Quetiapine Fumarate (SEROquel) 12.5 mg PRN DAILY PRN PO ANXIETY / AGITATION; Start 04/19/18 at 19:45; Stop 04/20/18 at 13:43; Status DC Quetiapine Fumarate (SEROquel) 50 mg TID PO Last administered on 04/19/18at 19: 54; Start 04/19/18 at 21:00; Stop 04/20/18 at 13:43; Status DC Acetaminophen (Tylenol) 650 mg PRN Q6HRS PRN PO PAIN / TEMP; Start 04/19/18 at 19:30; Status UNV Carbidopa/Levodopa (Sinemet 25/100) 1 tab TIDWMEALS PO Last administered on at 17:12; Start 04/20/18 at 08:00 Clonidine HCl (Catapres Tts-2) 1 patch WEEKLY TD Last administered on at 07:55; Start 04/24/18 at 09:00 Gabapentin (Neurontin) 300 mg PRN DAILY PRN PO NEUROPATHY; Start 04/19/18 at 19 :30 Ketoconazole (Nizoral 2% Topical) 1 giorgio DAILY TP Last administered on at 11:06; Start 04/20/18 at 09:00 Lisinopril (Prinivil) 10 mg DAILY PO Last administered on 04/25/18 08:08; Start 04/20/18 at 09:00; Stop 04/27/18 at 11:13; Status DC Senna/Docusate Sodium (Senna Plus) 1 tab BID PO Last administered on 05/10/18at 19:44; Start 04/19/18 at 21:00 Simvastatin (Zocor) 40 mg QHS PO Last administered on 05/10/18 19:44; Start at 21:00 Atenolol (Tenormin) 50 mg DAILY PO Last administered on 04/30/18at 09:37; Start 04/20/18 at 09:00; Stop 05/02/18 at 13:19; Status DC Budesonide (Entocort) 3 mg DAILY PO Last administered on 8/6/18at 08:57; Start 04/20/18 at 09:00; Stop 04/27/18 at 11:13; Status DC Hydrocortisone (Cortaid) 1 giorgio BID TP Last administered on 05/10/18at 19:46; Start 04/19/18 at 21:00 Non-Formulary Medication (Liraglutide (Victoza 3-Melvin)) 0.6 mg DAILY SQ ; Start 04/20/18 at 09:00; Status UNV Pantoprazole Sodium (Protonix) 40 mg BIDBFRMEAL PO Last administered on at 17:12; Start 04/20/18 at 07:30 Pioglitazone HCl (Actos) 15 mg DAILY PO Last administered on 05/10/18at 08:23; Start 04/20/18 at 09:00; Stop 05/10/18 at 13:23; Status DC Pramipexole Dihydrochloride (miraPEX) 0.5 mg [id number] PO Last administered on at 19:44; Start 04/19/18 at 21:00 Risperidone (RisperDAL) 1 mg DAILY SL Last administered on 04/21/18at 08:04; Start 04/20/18 at 09:00; Stop 04/21/18 at 18:50; Status DC Olanzapine (ZyPREXA ZYDIS) 5 mg PRN Q2HR PRN PO ANXIETY / AGITATION Last administered on 04/19/18at 19:55; Start 04/19/18 at 20:00 Olanzapine (ZyPREXA) 5 mg PRN Q4HRS PRN PO AGITATION; Start 04/19/18 at 19:49; Status Cancel Hydrochlorothiazide (Hydrodiuril) 6.25 mg DAILY PO Last administered on 08:07; Start 04/20/18 at 09:00; Stop 04/27/18 at 11:13; Status DC Olanzapine (ZyPREXA IM) 5 mg DAILY IM Last administered on 04/22/18at 11:28; Start 04/20/18 at 10:00; Stop 04/22/18 at 16:24; Status DC Clonidine HCl (Catapres Tts-2) 1 patch 1X ONCE TD Last administered on at 18:11; Start 04/20/18 at 18:15; Stop 04/20/18 at 18:16; Status DC Vitamin D (Vitamin D3) 50,000 unit WEEKLY PO Last administered on 05/05/18at 07: 43; Start 04/21/18 at 13:30 Cyanocobalamin (Vitamin B-12) 1,000 mcg DAILY IM Last administered on 04/27/18at 08:57; Start 04/22/18 at 09:00; Stop 04/28/18 at 10:40; Status DC Trazodone HCl (Desyrel) 100 mg QHS PO Last administered on 05/05/18at 20:01; Start 04/21/18 at 21:00; Stop 05/06/18 at 15:59; Status DC Trazodone HCl (Desyrel) 100 mg PRN QHS PRN PO insomnia; Start 04/21/18 at 17:00 ; Stop 05/06/18 at 15:55; Status DC Olanzapine (ZyPREXA ZYDIS) 5 mg DAILY PO Last administered on 04/30/18at 09:37; Start 04/23/18 at 09:00; Stop 04/30/18 at 11:14; Status DC Cyanocobalamin (Vitamin B-12) 1,000 mcg 1X ONCE IM Last administered on at 12:13; Start 04/24/18 at 12:00; Stop 04/24/18 at 12:01; Status DC Olanzapine (ZyPREXA ZYDIS) 7.5 mg DAILY PO Last administered on 05/03/18at 08:22 ; Start 05/01/18 at 09:00; Stop 05/03/18 at 20:36; Status DC Atenolol (Tenormin) 25 mg DAILY PO Last administered on 05/08/18at 08:19; Start 05/03/18 at 09:00 Olanzapine (ZyPREXA ZYDIS) 10 mg DAILY PO Last administered on 05/10/18at 08:23 ; Start 05/04/18 at 09:00 Divalproex Sodium (Depakote Sprinkles) 125 mg BID PO Last administered on at 07:52; Start 05/04/18 at 21:00; Stop 05/07/18 at 10:24; Status DC Saliva Substitute (Biotene Dry Mouth) 1 giorgio PRN TID PRN PO DRY MOUTH; Start at 10:00; Stop 05/07/18 at 13:18; Status DC Trazodone HCl (Desyrel) 150 mg PRN QHS PRN PO INSOMNIA Last administered on at 01:21; Start 05/06/18 at 16:00 Trazodone HCl (Desyrel) 150 mg QHS PO Last administered on 05/10/18at 19:44; Start 05/06/18 at 21:00 Divalproex Sodium (Depakote Sprinkles) 250 mg BID PO Last administered on at 08:23; Start 05/07/18 at 21:00; Stop 05/10/18 at 18:24; Status DC Saliva Substitute (Biotene Dry Mouth) 1 giorgio PRN Q15MIN PRN PO DRY MOUTH Last administered on 05/09/18at 19:49; Start 05/07/18 at 13:15 Pioglitazone HCl (Actos) 30 mg DAILY PO ; Start 05/11/18 at 09:00 Divalproex Sodium (Depakote Sprinkles) 375 mg BID PO Last administered on at 19:44; Start 05/10/18 at 21:00 Active Scripts Active Reported Clonidine Tts-2 (Clonidine) 1 Each Patch.tdwk 1 Patch TD WEEKLY Olanzapine 5 Mg Tablet 1 Tab PO PRN Q4HRS PRN Victoza 3-Melvin (Liraglutide) 0.6 Mg/0.1 Ml Pen.injctr 0.6 Mg SQ DAILY Simvastatin 40 Mg Tablet 1 Tab PO QHS Senna-Docusate Sodium Tablet (Sennosides/Docusate Sodium) 1 Each Tablet 1 Each PO BID Seroquel (Quetiapine Fumarate) 50 Mg Tablet 1 Tab PO TID Seroquel (Quetiapine Fumarate) 25 Mg Tablet 12.5 Mg PO PRN DAILY PRN Mirapex (Pramipexole Di-Hcl) 0.25 Mg Tablet 0.5 Mg PO TID Actos (Pioglitazone Hcl) 15 Mg Tablet 1 Tab PO DAILY Pantoprazole Sodium 40 Mg Tablet.dr 1 Tab PO BIDBFRMEAL Melatonin 3 Mg Tablet 6 Mg PO QHS Lisinopril 10 Mg Tablet 10 Mg PO DAILY Ketoconazole 15 Gm Cream..g. 1 Giorgio TP DAILY Hydrocortisone 453.6 Gm Cream..g. 1 Giorgio TP BID Gabapentin 300 Mg Capsule 300 Mg PO PRN DAILY PRN Sinemet 25-100 Mg Tablet (Carbidopa/Levodopa) 1 Each Tablet 1 Tab PO TIDWMEALS Entocort Ec (Budesonide) 3 Mg Capdr...er 3 Cap PO DAILY Bisoprolol-Hctz 5-6.25 Mg Tab (Bisoprolol Fumarate/Hctz) 1 Each Tablet 1 Tab PO DAILY Tylenol (Acetaminophen) 325 Mg Tablet 650 Mg PO PRN Q6HRS PRN I have reviewed the current psychotropics carefully including drug interactions. Risk benefit ratio favors no change other than as noted in my dictated progress note. Diagnosis: Problems: (1) Anxiety disorder (2) Impulse control disorder (3) Bipolar affective disorder, mixed (4) Parkinson's disease (5) Dementia due to Parkinson's disease with behavioral disturbance (6) Psychosis ALYSHA CHAMPAGNE MD May 10, 2018 20:46
--- NOTE | 2018-05-10 22:35 | PN ---
DATE: 05/09/2018 PSYCHIATRIC PROGRESS NOTE This late entry 05/09/2018 covers elements not covered in my initial note. SUBJECTIVE: I met with the patient in the morning. The patient has not been sexually aggressive. He is somewhat delusional previous evening and at one point was questionably hallucinating, seeing and swatting at spiders of the physical therapists. He was talking about having had two spider bites. REVIEW OF SYSTEMS: Ambulation impaired, in wheelchair. No CV, , pulmonary, eye, ENT system symptoms on review. Reliability varies. MENTAL STATUS EXAM: Oriented to himself and situation. Speech coherent, abstraction fair, computation impaired, language function intact, attention span short. Mood and affect somewhat anxious, labile at times. LABORATORY DATA: Reviewed. IMPRESSION: Bipolar 1 disorder, mixed anxiety disorder, unspecified. Early Lewy body dementia with delusion, depression. PLAN: No change from initial note for now. MAN Dalton CHAMPAGNE MD DR: SERENITY/rebecca JOB#: [id number] / [id number]
[2018-05-11 05:50] VITALS: BP 140/69
[2018-05-11] MEDS: CARBIDOPA/LEVODOPA 25/100MG TABLET PO SCH ×3 (08:48→17:02)
[2018-05-11] MEDS: PANTOPRAZOLE 40 MG TABLET. PO SCH ×2 (08:48→17:02)
[2018-05-11] MEDS: PIOGLITAZONE 15 MG TABLET. PO SCH (08:49)
[2018-05-11] MEDS: DIVALPROEX 125 MG CAP.SPRINK PO SCH ×2 (08:50→19:28)
[2018-05-11] MEDS: PRAMIPEXOLE 0.5 MG TABLET. PO SCH ×3 (08:50→19:28)
[2018-05-11] MEDS: SENNOSIDES/DOCUSATE 8.6/50MG TABLET. PO SCH ×2 (08:50→19:28)
[2018-05-11] MEDS: ATENOLOL 25 MG TABLET PO SCH (08:51)
[2018-05-11] MEDS: HYDROCORTISONE 1% TOPICAL CREAM 30GM TUBE. TP SCH ×2 (09:05→19:29)
[2018-05-11] MEDS: KETOCONAZOLE 2% TOPICAL CREAM 30GM TUBE. TP SCH (09:05)
[2018-05-11 15:42] VITALS: BP 114/62
[2018-05-11] MEDS: traZODone 150 MG TABLET. PO SCH (19:28)
[2018-05-11] MEDS: SIMVASTATIN 40 MG TABLET. PO SCH (19:28)
[2018-05-11] MEDS: MELATONIN 3 MG TABLET PO SCH (19:28)
--- NOTE | 2018-05-11 20:50 | PDOC ---
Exam Note: Nickolas Note: Please also refer to the separate dictated note~for this date of service dictated separately.~Patient seen individually. Discussed the patient with Nursing staff reviewed the chart.~Reviewed interim history and current functioning. Reviewed vital signs,~Labs/ Radiology~and current medications noted below. Continue current treatment with the changes noted in the dictated addendum note Assessment: Vital Signs: Vital Signs Date Time Temp Pulse Resp B/P (MAP) Pulse Ox O2 Delivery O2 Flow Rate FiO2 05/11/18 15:42 97.6 68 19 114/62 (79) 95 05/08/18 15:47 Room Air I&O Intake and Output 05/11/18 07:01 Intake Total 900 ml Output Total 300 ml Balance 600 ml Intake Oral 900 ml Output Urine Total 300 ml # Voids 1 Labs: Laboratory Tests Test 05/11/18 19:20 Glucose (Fingerstick) 184 mg/dL (70-99) H Current Medications: Meds: Current Medications Acetaminophen (Tylenol) 650 mg PRN Q6HRS PRN PO PAIN / TEMP Last administered on 05/08/18at 10:55; Start 04/19/18 at 18:00 Multi-Ingredient Ointment (Analgesic Fletcher) 1 giorgio PRN QID PRN TP MUSCLE PAIN; Start 04/19/18 at 18:00 Al Hydroxide/Mg Hydroxide (Mylanta Plus Xs) 15 ml PRN AFTMEALHC PRN PO DYSPEPSIA; Start 04/19/18 at 18:00 Magnesium Hydroxide (Milk Of Magnesia) 2,400 mg PRN QHS PRN PO CONSTIPATION Last administered on 04/29/18at 23:14; Start 04/19/18 at 18:00 Melatonin 6 mg QHS PO Last administered on 05/11/18at 19:28; Start 04/19/18 at 21:00 Olanzapine (ZyPREXA IM) 5 mg PRN Q4HRS PRN IM AGITATION; Start 04/19/18 at 19: 45; Status Cancel Quetiapine Fumarate (SEROquel) 12.5 mg PRN DAILY PRN PO ANXIETY / AGITATION; Start 04/19/18 at 19:45; Stop 04/20/18 at 13:43; Status DC Quetiapine Fumarate (SEROquel) 50 mg TID PO Last administered on 04/19/18at 19: 54; Start 04/19/18 at 21:00; Stop 04/20/18 at 13:43; Status DC Acetaminophen (Tylenol) 650 mg PRN Q6HRS PRN PO PAIN / TEMP; Start 04/19/18 at 19:30; Status UNV Carbidopa/Levodopa (Sinemet 25/100) 1 tab TIDWMEALS PO Last administered on at 17:02; Start 04/20/18 at 08:00 Clonidine HCl (Catapres Tts-2) 1 patch WEEKLY TD Last administered on at 07:55; Start 04/24/18 at 09:00 Gabapentin (Neurontin) 300 mg PRN DAILY PRN PO NEUROPATHY; Start 04/19/18 at 19 :30 Ketoconazole (Nizoral 2% Topical) 1 giorgio DAILY TP Last administered on at 09:05; Start 04/20/18 at 09:00 Lisinopril (Prinivil) 10 mg DAILY PO Last administered on 04/25/18at 08:08; Start 04/20/18 at 09:00; Stop 04/27/18 at 11:13; Status DC Senna/Docusate Sodium (Senna Plus) 1 tab BID PO Last administered on 05/11/18 19:28; Start 04/19/18 at 21:00 Simvastatin (Zocor) 40 mg QHS PO Last administered on 05/11/18at 19:28; Start at 21:00 Atenolol (Tenormin) 50 mg DAILY PO Last administered on 04/30/18at 09:37; Start 04/20/18 at 09:00; Stop 05/02/18 at 13:19; Status DC Budesonide (Entocort) 3 mg DAILY PO Last administered on 04/27/18at 08:57; Start 04/20/18 at 09:00; Stop 04/27/18 at 11:13; Status DC Hydrocortisone (Cortaid) 1 giorgio BID TP Last administered on 05/11/18at 19:29; Start 04/19/18 at 21:00 Non-Formulary Medication (Liraglutide (Victoza 3-Melvin)) 0.6 mg DAILY SQ ; Start 04/20/18 at 09:00; Status UNV Pantoprazole Sodium (Protonix) 40 mg BIDBFRMEAL PO Last administered on at 17:02; Start 04/20/18 at 07:30 Pioglitazone HCl (Actos) 15 mg DAILY PO Last administered on 05/10/18at 08:23; Start 04/20/18 at 09:00; Stop 05/10/18 at 13:23; Status DC Pramipexole Dihydrochloride (miraPEX) 0.5 mg [id number] PO Last administered on at 19:28; Start 04/19/18 at 21:00 Risperidone (RisperDAL) 1 mg DAILY SL Last administered on 04/21/18at 08:04; Start 04/20/18 at 09:00; Stop 04/21/18 at 18:50; Status DC Olanzapine (ZyPREXA ZYDIS) 5 mg PRN Q2HR PRN PO ANXIETY / AGITATION Last administered on 04/19/18at 19:55; Start 04/19/18 at 20:00 Olanzapine (ZyPREXA) 5 mg PRN Q4HRS PRN PO AGITATION; Start 04/19/18 at 19:49; Status Cancel Hydrochlorothiazide (Hydrodiuril) 6.25 mg DAILY PO Last administered on at 08:07; Start 04/20/18 at 09:00; Stop 04/27/18 at 11:13; Status DC Olanzapine (ZyPREXA IM) 5 mg DAILY IM Last administered on 04/22/18at 11:28; Start 04/20/18 at 10:00; Stop 04/22/18 at 16:24; Status DC Clonidine HCl (Catapres Tts-2) 1 patch 1X ONCE TD Last administered on at 18:11; Start 04/20/18 at 18:15; Stop 04/20/18 at 18:16; Status DC Vitamin D (Vitamin D3) 50,000 unit WEEKLY PO Last administered on 05/05/18at 07: 43; Start 04/21/18 at 13:30 Cyanocobalamin (Vitamin B-12) 1,000 mcg DAILY IM Last administered on 04/27/18at 08:57; Start 04/22/18 at 09:00; Stop 04/28/18 at 10:40; Status DC Trazodone HCl (Desyrel) 100 mg QHS PO Last administered on 05/05/18at 20:01; Start 04/21/18 at 21:00; Stop 05/06/18 at 15:59; Status DC Trazodone HCl (Desyrel) 100 mg PRN QHS PRN PO insomnia; Start 04/21/18 at 17:00 ; Stop 05/06/18 at 15:55; Status DC Olanzapine (ZyPREXA ZYDIS) 5 mg DAILY PO Last administered on 04/30/18at 09:37; Start 04/23/18 at 09:00; Stop 04/30/18 at 11:14; Status DC Cyanocobalamin (Vitamin B-12) 1,000 mcg 1X ONCE IM Last administered on at 12:13; Start 04/24/18 at 12:00; Stop 04/24/18 at 12:01; Status DC Olanzapine (ZyPREXA ZYDIS) 7.5 mg DAILY PO Last administered on 05/03/18at 08:22 ; Start 05/01/18 at 09:00; Stop 05/03/18 at 20:36; Status DC Atenolol (Tenormin) 25 mg DAILY PO Last administered on 05/11/18at 08:51; Start 05/03/18 at 09:00 Olanzapine (ZyPREXA ZYDIS) 10 mg DAILY PO Last administered on 05/11/18at 08:51 ; Start 05/04/18 at 09:00 Divalproex Sodium (Depakote Sprinkles) 125 mg BID PO Last administered on at 07:52; Start 05/04/18 at 21:00; Stop 05/07/18 at 10:24; Status DC Saliva Substitute (Biotene Dry Mouth) 1 giorgio PRN TID PRN PO DRY MOUTH; Start at 10:00; Stop 05/07/18 at 13:18; Status DC Trazodone HCl (Desyrel) 150 mg PRN QHS PRN PO INSOMNIA Last administered on at 01:21; Start 05/06/18 at 16:00 Trazodone HCl (Desyrel) 150 mg QHS PO Last administered on 05/11/18at 19:28; Start 05/06/18 at 21:00 Divalproex Sodium (Depakote Sprinkles) 250 mg BID PO Last administered on at 08:23; Start 05/07/18 at 21:00; Stop 05/10/18 at 18:24; Status DC Saliva Substitute (Biotene Dry Mouth) 1 giorigo PRN Q15MIN PRN PO DRY MOUTH Last administered on 05/09/18at 19:49; Start 05/07/18 at 13:15 Pioglitazone HCl (Actos) 30 mg DAILY PO Last administered on 05/11/18at 08:49; Start 05/11/18 at 09:00 Divalproex Sodium (Depakote Sprinkles) 375 mg BID PO Last administered on at 19:28; Start 05/10/18 at 21:00 Active Scripts Active Reported Clonidine Tts-2 (Clonidine) 1 Each Patch.tdwk 1 Patch TD WEEKLY Olanzapine 5 Mg Tablet 1 Tab PO PRN Q4HRS PRN Victoza 3-Melvin (Liraglutide) 0.6 Mg/0.1 Ml Pen.injctr 0.6 Mg SQ DAILY Simvastatin 40 Mg Tablet 1 Tab PO QHS Senna-Docusate Sodium Tablet (Sennosides/Docusate Sodium) 1 Each Tablet 1 Each PO BID Seroquel (Quetiapine Fumarate) 50 Mg Tablet 1 Tab PO TID Seroquel (Quetiapine Fumarate) 25 Mg Tablet 12.5 Mg PO PRN DAILY PRN Mirapex (Pramipexole Di-Hcl) 0.25 Mg Tablet 0.5 Mg PO TID Actos (Pioglitazone Hcl) 15 Mg Tablet 1 Tab PO DAILY Pantoprazole Sodium 40 Mg Tablet.dr 1 Tab PO BIDBFRMEAL Melatonin 3 Mg Tablet 6 Mg PO QHS Lisinopril 10 Mg Tablet 10 Mg PO DAILY Ketoconazole 15 Gm Cream..g. 1 Giorgio TP DAILY Hydrocortisone 453.6 Gm Cream..g. 1 Giorgio TP BID Gabapentin 300 Mg Capsule 300 Mg PO PRN DAILY PRN Sinemet 25-100 Mg Tablet (Carbidopa/Levodopa) 1 Each Tablet 1 Tab PO TIDWMEALS Entocort Ec (Budesonide) 3 Mg Capdr...er 3 Cap PO DAILY Bisoprolol-Hctz 5-6.25 Mg Tab (Bisoprolol Fumarate/Hctz) 1 Each Tablet 1 Tab PO DAILY Tylenol (Acetaminophen) 325 Mg Tablet 650 Mg PO PRN Q6HRS PRN I have reviewed the current psychotropics carefully including drug interactions. Risk benefit ratio favors no change other than as noted in my dictated progress note. Diagnosis: Problems: (1) Anxiety disorder (2) Impulse control disorder (3) Bipolar affective disorder, mixed (4) Parkinson's disease (5) Dementia due to Parkinson's disease with behavioral disturbance (6) Psychosis ALYSHA CHAMPAGNE MD May 11, 2018 20:50
--- NOTE | 2018-05-11 22:45 | PN ---
DATE: 05/10/2018 PSYCHIATRIC PROGRESS NOTE This is a late entry, 05/10, covers elements not covered in my initial note. SUBJECTIVE: I met with the patient in the evening. The patient slept 4 hours previous evening. He remains a little anxious at times, but irritability for the most part is better. Valproic acid level is 43, subtherapeutic on Depakote 250 b.i.d. We will increase it to 375 b.i.d. Check CBC, CMP, valproic acid level in 3 days. REVIEW OF SYSTEMS: Ambulation impaired, in wheelchair. No CV, , pulmonary, eye, ENT system symptoms on review. MENTAL STATUS EXAM: Oriented to himself and situation. Speech is coherent, has some latency, often responses monosyllabic. Abstraction fair, computation impaired, language function intact, attention span short. Mood and affect showing some improvement. LABORATORY DATA: Reviewed. IMPRESSION: Unchanged from initial note. PLAN: No change from initial note. Adjust the Depakote as noted. ALYSHA CHAMPAGNE MD DR: SERENITY/rebecca JOB#: [id number] / [id number]
[2018-05-12 05:37] VITALS: BP 98/60
[2018-05-12] MEDS: PANTOPRAZOLE 40 MG TABLET. PO SCH ×2 (07:37→16:57)
[2018-05-12] MEDS: CHOLECALCIFEROL (VITAMIN D3) 50,000 UNIT CAPSULE PO SCH (10:07)
[2018-05-12] MEDS: DIVALPROEX 125 MG CAP.SPRINK PO SCH ×2 (10:07→20:02)
[2018-05-12] MEDS: PRAMIPEXOLE 0.5 MG TABLET. PO SCH ×3 (10:08→20:02)
[2018-05-12] MEDS: ATENOLOL 25 MG TABLET PO SCH (10:08)
[2018-05-12] MEDS: CARBIDOPA/LEVODOPA 25/100MG TABLET PO SCH ×3 (10:08→16:58)
[2018-05-12] MEDS: PIOGLITAZONE 15 MG TABLET. PO SCH (10:09)
[2018-05-12] MEDS: SENNOSIDES/DOCUSATE 8.6/50MG TABLET. PO SCH ×2 (10:09→20:11)
[2018-05-12] MEDS: KETOCONAZOLE 2% TOPICAL CREAM 30GM TUBE. TP SCH (10:10)
[2018-05-12] MEDS: HYDROCORTISONE 1% TOPICAL CREAM 30GM TUBE. TP SCH ×2 (10:10→20:12)
[2018-05-12 10:11] VITALS: BP 101/60
[2018-05-12] MEDS: SALIVA STIMULANT AGENT MOUTHWASH 237ML BOTTLE. PO PRN ×2 (15:02→15:08)
[2018-05-12 15:55] VITALS: BP 129/69
[2018-05-12] MEDS ORDERED: traZODone 100 MG TABLET. PO PRN (16:30)
[2018-05-12] MEDS: MELATONIN 3 MG TABLET PO SCH (20:02)
[2018-05-12] MEDS: SIMVASTATIN 40 MG TABLET. PO SCH (20:11)
[2018-05-12] MEDS: traZODone 100 MG TABLET. PO SCH (20:12)
--- NOTE | 2018-05-12 20:45 | PDOC ---
Exam Note: Nickolas Note: Please also refer to the separate dictated note~for this date of service dictated separately.~Patient seen individually. Discussed the patient with Nursing staff reviewed the chart.~Reviewed interim history and current functioning. Reviewed vital signs,~Labs/ Radiology~and current medications noted below. Continue current treatment with the changes noted in the dictated addendum note Assessment: Vital Signs: Vital Signs Date Time Temp Pulse Resp B/P (MAP) Pulse Ox O2 Delivery O2 Flow Rate FiO2 05/12/18 15:55 98.1 64 18 129/69 (89) 97 05/12/18 10:11 Room Air I&O Intake and Output 05/12/18 07:00 Intake Total 840 ml Balance 840 ml Intake Oral 840 ml # Voids 1 Labs: Laboratory Tests Test 05/12/18 07:12 05/12/18 19:11 Glucose (Fingerstick) 145 mg/dL (70-99) H 167 mg/dL (70-99) H Current Medications: Meds: Current Medications Acetaminophen (Tylenol) 650 mg PRN Q6HRS PRN PO PAIN / TEMP Last administered on 05/08/18at 10:55; Start 04/19/18 at 18:00 Multi-Ingredient Ointment (Analgesic [place]) 1 giorgio PRN QID PRN TP MUSCLE PAIN; Start 04/19/18 at 18:00 Al Hydroxide/Mg Hydroxide (Mylanta Plus Xs) 15 ml PRN AFTMEALHC PRN PO DYSPEPSIA; Start 04/19/18 at 18:00 Magnesium Hydroxide (Milk Of Magnesia) 2,400 mg PRN QHS PRN PO CONSTIPATION Last administered on 04/29/18at 23:14; Start 04/19/18 at 18:00 Melatonin 6 mg QHS PO Last administered on 05/12/18at 20:02; Start 04/19/18 at 21:00 Olanzapine (ZyPREXA IM) 5 mg PRN Q4HRS PRN IM AGITATION; Start 04/19/18 at 19: 45; Status Cancel Quetiapine Fumarate (SEROquel) 12.5 mg PRN DAILY PRN PO ANXIETY / AGITATION; Start 04/19/18 at 19:45; Stop 04/20/18 at 13:43; Status DC Quetiapine Fumarate (SEROquel) 50 mg TID PO Last administered on 04/19/18at 19: 54; Start 04/19/18 at 21:00; Stop 04/20/18 at 13:43; Status DC Acetaminophen (Tylenol) 650 mg PRN Q6HRS PRN PO PAIN / TEMP; Start 04/19/18 at 19:30; Status UNV Carbidopa/Levodopa (Sinemet 25/100) 1 tab TIDWMEALS PO Last administered on at 16:58; Start 04/20/18 at 08:00 Clonidine HCl (Catapres Tts-2) 1 patch WEEKLY TD Last administered on at 07:55; Start 04/24/18 at 09:00 Gabapentin (Neurontin) 300 mg PRN DAILY PRN PO NEUROPATHY; Start 04/19/18 at 19 :30 Ketoconazole (Nizoral 2% Topical) 1 giorgio DAILY TP Last administered on at 10:10; Start 04/20/18 at 09:00 Lisinopril (Prinivil) 10 mg DAILY PO Last administered on 04/25/18at 08:08; Start 04/20/18 at 09:00; Stop 04/27/18 at 11:13; Status DC Senna/Docusate Sodium (Senna Plus) 1 tab BID PO Last administered on 05/12/18at 20:11; Start 04/19/18 at 21:00 Simvastatin (Zocor) 40 mg QHS PO Last administered on 05/12/18at 20:11; Start at 21:00 Atenolol (Tenormin) 50 mg DAILY PO Last administered on 04/30/18at 09:37; Start 04/20/18 at 09:00; Stop 05/02/18 at 13:19; Status DC Budesonide (Entocort) 3 mg DAILY PO Last administered on 04/27/18at 08:57; Start 04/20/18 at 09:00; Stop 04/27/18 at 11:13; Status DC Hydrocortisone (Cortaid) 1 giorgio BID TP Last administered on 05/12/18at 20:12; Start 04/19/18 at 21:00 Non-Formulary Medication (Liraglutide (Victoza 3-Melvin)) 0.6 mg DAILY SQ ; Start 04/20/18 at 09:00; Status UNV Pantoprazole Sodium (Protonix) 40 mg BIDBFRMEAL PO Last administered on at 16:57; Start 04/20/18 at 07:30 Pioglitazone HCl (Actos) 15 mg DAILY PO Last administered on 05/10/18at 08:23; Start 04/20/18 at 09:00; Stop 05/10/18 at 13:23; Status DC Pramipexole Dihydrochloride (miraPEX) 0.5 mg [id number] PO Last administered on at 20:02; Start 04/19/18 at 21:00 Risperidone (RisperDAL) 1 mg DAILY SL Last administered on 04/21/18at 08:04; Start 04/20/18 at 09:00; Stop 04/21/18 at 18:50; Status DC Olanzapine (ZyPREXA ZYDIS) 5 mg PRN Q2HR PRN PO ANXIETY / AGITATION Last administered on 04/19/18at 19:55; Start 04/19/18 at 20:00 Olanzapine (ZyPREXA) 5 mg PRN Q4HRS PRN PO AGITATION; Start 04/19/18 at 19:49; Status Cancel Hydrochlorothiazide (Hydrodiuril) 6.25 mg DAILY PO Last administered on at 08:07; Start 04/20/18 at 09:00; Stop 04/27/18 at 11:13; Status DC Olanzapine (ZyPREXA IM) 5 mg DAILY IM Last administered on 04/22/18at 11:28; Start 04/20/18 at 10:00; Stop 04/22/18 at 16:24; Status DC Clonidine HCl (Catapres Tts-2) 1 patch 1X ONCE TD Last administered on at 18:11; Start 04/20/18 at 18:15; Stop 04/20/18 at 18:16; Status DC Vitamin D (Vitamin D3) 50,000 unit WEEKLY PO Last administered on 05/12/18at 10: 07; Start 04/21/18 at 13:30 Cyanocobalamin (Vitamin B-12) 1,000 mcg DAILY IM Last administered on 04/27/18at 08:57; Start 04/22/18 at 09:00; Stop 04/28/18 at 10:40; Status DC Trazodone HCl (Desyrel) 100 mg QHS PO Last administered on 05/05/18at 20:01; Start 04/21/18 at 21:00; Stop 05/06/18 at 15:59; Status DC Trazodone HCl (Desyrel) 100 mg PRN QHS PRN PO insomnia; Start 04/21/18 at 17:00 ; Stop 05/06/18 at 15:55; Status DC Olanzapine (ZyPREXA ZYDIS) 5 mg DAILY PO Last administered on 04/30/18at 09:37; Start 04/23/18 at 09:00; Stop 04/30/18 at 11:14; Status DC Cyanocobalamin (Vitamin B-12) 1,000 mcg 1X ONCE IM Last administered on at 12:13; Start 04/24/18 at 12:00; Stop 04/24/18 at 12:01; Status DC Olanzapine (ZyPREXA ZYDIS) 7.5 mg DAILY PO Last administered on 05/03/18at 08:22 ; Start 05/01/18 at 09:00; Stop 05/03/18 at 20:36; Status DC Atenolol (Tenormin) 25 mg DAILY PO Last administered on 05/12/18at 10:08; Start 05/03/18 at 09:00 Olanzapine (ZyPREXA ZYDIS) 10 mg DAILY PO Last administered on 05/12/18at 10:07 ; Start 05/04/18 at 09:00 Divalproex Sodium (Depakote Sprinkles) 125 mg BID PO Last administered on at 07:52; Start 05/04/18 at 21:00; Stop 05/07/18 at 10:24; Status DC Saliva Substitute (Biotene Dry Mouth) 1 giorgio PRN TID PRN PO DRY MOUTH; Start at 10:00; Stop 05/07/18 at 13:18; Status DC Trazodone HCl (Desyrel) 150 mg PRN QHS PRN PO INSOMNIA Last administered on at 01:21; Start 05/06/18 at 16:00; Stop 05/12/18 at 16:21; Status DC Trazodone HCl (Desyrel) 150 mg QHS PO Last administered on 05/11/18at 19:28; Start 05/06/18 at 21:00; Stop 05/12/18 at 16:21; Status DC Divalproex Sodium (Depakote Sprinkles) 250 mg BID PO Last administered on at 08:23; Start 05/07/18 at 21:00; Stop 05/10/18 at 18:24; Status DC Saliva Substitute (Biotene Dry Mouth) 1 giorgio PRN Q15MIN PRN PO DRY MOUTH Last administered on 05/12/18at 15:02; Start 05/07/18 at 13:15 Pioglitazone HCl (Actos) 30 mg DAILY PO Last administered on 05/12/18at 10:09; Start 05/11/18 at 09:00 Divalproex Sodium (Depakote Sprinkles) 375 mg BID PO Last administered on at 20:02; Start 05/10/18 at 21:00 Trazodone HCl (Desyrel) 200 mg PRN QHS PRN PO INSOMNIA; Start 05/12/18 at 16:30 Trazodone HCl (Desyrel) 200 mg QHS PO Last administered on 05/12/18at 20:12; Start 05/12/18 at 21:00 Active Scripts Active Reported Clonidine Tts-2 (Clonidine) 1 Each Patch.tdwk 1 Patch TD WEEKLY Olanzapine 5 Mg Tablet 1 Tab PO PRN Q4HRS PRN Victoza 3-Melvin (Liraglutide) 0.6 Mg/0.1 Ml Pen.injctr 0.6 Mg SQ DAILY Simvastatin 40 Mg Tablet 1 Tab PO QHS Senna-Docusate Sodium Tablet (Sennosides/Docusate Sodium) 1 Each Tablet 1 Each PO BID Seroquel (Quetiapine Fumarate) 50 Mg Tablet 1 Tab PO TID Seroquel (Quetiapine Fumarate) 25 Mg Tablet 12.5 Mg PO PRN DAILY PRN Mirapex (Pramipexole Di-Hcl) 0.25 Mg Tablet 0.5 Mg PO TID Actos (Pioglitazone Hcl) 15 Mg Tablet 1 Tab PO DAILY Pantoprazole Sodium 40 Mg Tablet.dr 1 Tab PO BIDBFRMEAL Melatonin 3 Mg Tablet 6 Mg PO QHS Lisinopril 10 Mg Tablet 10 Mg PO DAILY Ketoconazole 15 Gm Cream..g. 1 Giorgio TP DAILY Hydrocortisone 453.6 Gm Cream..g. 1 Giorgio TP BID Gabapentin 300 Mg Capsule 300 Mg PO PRN DAILY PRN Sinemet 25-100 Mg Tablet (Carbidopa/Levodopa) 1 Each Tablet 1 Tab PO TIDWMEALS Entocort Ec (Budesonide) 3 Mg Capdr...er 3 Cap PO DAILY Bisoprolol-Hctz 5-6.25 Mg Tab (Bisoprolol Fumarate/Hctz) 1 Each Tablet 1 Tab PO DAILY Tylenol (Acetaminophen) 325 Mg Tablet 650 Mg PO PRN Q6HRS PRN I have reviewed the current psychotropics carefully including drug interactions. Risk benefit ratio favors no change other than as noted in my dictated progress note. Diagnosis: Problems: (1) Anxiety disorder (2) Impulse control disorder (3) Bipolar affective disorder, mixed (4) Parkinson's disease (5) Dementia due to Parkinson's disease with behavioral disturbance (6) Psychosis ALYSHA CHAMPAGNE MD May 12, 2018 20:45
--- NOTE | 2018-05-13 00:34 | PN ---
DATE: 05/11/2018 PSYCHIATRIC PROGRESS NOTE This is a late entry, 05/11, covers elements not covered in my initial note. SUBJECTIVE: I met with the patient in the evening. The patient slept 6-3/4 hours previous evening. He did reasonably well during the day, somewhat delusional the previous night, felt he was being monitored through the oxygen. He said he had found a piece of paper in his bed to confirm this. Also had a message to call the patient's daughter, Angela, . I did talk with Angela. Angela shared that the patient was extremely delusional the previous evening when she talked to him for 45 minutes, suspicious and paranoid. Nevertheless, the patient has not been aggressive and we discussed the risks-benefit ratio of increasing atypical antipsychotics significantly which could impair his Parkinson's management. Additionally, we started Depakote as a mood stabilizer and perhaps the regimen if adequate for now and then in a few weeks, a determination can be made on the full efficacy. REVIEW OF SYSTEMS: Ambulation impaired, in wheelchair. No CV, , pulmonary, eye, ENT system symptoms on review. MENTAL STATUS EXAM: Oriented to himself and situation. Speech moderate latency, often responses monosyllabic, has some parkinsonian facial expression, abstraction fair, computation impaired, language function intact, attention span short. Mood and affect remains somewhat withdrawn, still paranoid, delusional, but not aggressive, disruptive. LABORATORY DATA: Reviewed. IMPRESSION: Bipolar 1 disorder, mixed with psychotic features; psychotic disorder, unspecified; dementia, early Lewy body with delusion, depression. Rest unchanged including Parkinson's disease. PLAN: No change from a psychiatric standpoint for now. MAN Dalton CHAMPAGNE MD DR: SERENITY/rebecca JOB#: [id number] / [id number]
[2018-05-13 05:30] VITALS: BP 137/56
[2018-05-13 07:31] LABS: BASO # 0.1 x10^3/uL (0.0-0.2); BASO % 1 % (0-3); EOS # 0.4 x10^3/uL (0.0-0.7); EOS % 5 % (0-3); HEMATOCRIT 28.8 % (39.0-53.0); HEMOGLOBIN 9.2 g/dL (13.0-17.5); LYMPH % 41 % (24-48); MEAN CORPUSCULAR HEMOGLOBIN 25 pg (25-35); MEAN CORPUSCULAR HGB CONC 32 g/dL (31-37); MEAN CORPUSCULAR VOLUME 77 fL (79-100); MONO # 0.4 x10^3/uL (0.0-1.1); MONO % 5 % (0-9); NEUT # 3.6 x10^3uL (1.8-7.7); NEUT % 48 % (31-73); PLATELET COUNT 175 x10^3/uL (140-400); RED BLOOD COUNT 3.76 x10^6/uL (4.30-5.70); RED CELL DISTRIBUTION WIDTH 17.5 % (11.5-14.5); WHITE BLOOD COUNT 7.4 x10^3/uL (4.0-11.0)
[2018-05-13 07:43] LABS: ALBUMIN 2.4 g/dL (3.4-5.0); ALBUMIN/GLOBULIN RATIO 0.7 (1.0-1.7); ALK PHOS 78 U/L (46-116); ALT (SGPT) 17 U/L (16-63); ANION GAP 7 (6-14); AST (SGOT) 24 U/L (15-37); BLOOD UREA NITROGEN 25 mg/dL (8-26); BUN/CREATININE RATIO 19 (6-20); CALCIUM 8.5 mg/dL (8.5-10.1); CARBON DIOXIDE 30 mmol/L (21-32); CHLORIDE 106 mmol/L (98-107); CREATININE 1.3 mg/dL (0.7-1.3); GFR 54.1; GLUCOSE 130 mg/dL (70-99); SODIUM 143 mmol/L (136-145); TOTAL BILIRUBIN 0.3 mg/dL (0.2-1.0); TOTAL PROTEIN 5.8 g/dL (6.4-8.2)
[2018-05-13] MEDS: PRAMIPEXOLE 0.5 MG TABLET. PO SCH ×3 (07:44→19:58)
[2018-05-13] MEDS: PANTOPRAZOLE 40 MG TABLET. PO SCH ×2 (07:44→17:15)
[2018-05-13 07:45] LABS: VAL ACID 38 mcg/mL (50-100)
[2018-05-13] MEDS: PIOGLITAZONE 15 MG TABLET. PO SCH (07:46)
[2018-05-13] MEDS: CARBIDOPA/LEVODOPA 25/100MG TABLET PO SCH ×3 (07:46→17:15)
[2018-05-13] MEDS: SENNOSIDES/DOCUSATE 8.6/50MG TABLET. PO SCH ×2 (07:46→19:59)
[2018-05-13] MEDS: ACETAMINOPHEN 325 MG TABLET PO PRN (07:46)
[2018-05-13] MEDS: DIVALPROEX 125 MG CAP.SPRINK PO SCH ×2 (07:46→19:59)
[2018-05-13] MEDS: KETOCONAZOLE 2% TOPICAL CREAM 30GM TUBE. TP SCH (07:47)
[2018-05-13] MEDS: HYDROCORTISONE 1% TOPICAL CREAM 30GM TUBE. TP SCH ×2 (07:47→20:00)
[2018-05-13] MEDS: ATENOLOL 25 MG TABLET PO SCH (11:58)
[2018-05-13 15:52] VITALS: BP 149/74
[2018-05-13] MEDS: traZODone 100 MG TABLET. PO SCH (19:58)
[2018-05-13] MEDS: SIMVASTATIN 40 MG TABLET. PO SCH (19:58)
[2018-05-13] MEDS: MELATONIN 3 MG TABLET PO SCH (19:59)
--- NOTE | 2018-05-13 20:53 | PDOC ---
Exam Note: Nickolas Note: Please also refer to the separate dictated note~for this date of service dictated separately.~Patient seen individually. Discussed the patient with Nursing staff reviewed the chart.~Reviewed interim history and current functioning. Reviewed vital signs,~Labs/ Radiology~and current medications noted below. Continue current treatment with the changes noted in the dictated addendum note Assessment: Vital Signs: Vital Signs Date Time Temp Pulse Resp B/P (MAP) Pulse Ox O2 Delivery O2 Flow Rate FiO2 05/13/18 15:52 97.2 66 20 149/74 (99) 99 05/12/18 10:11 Room Air I&O Intake and Output 05/13/18 07:00 Intake Total 1560 ml Balance 1560 ml Intake Oral 1560 ml Labs: Laboratory Tests Test 05/13/18 06:51 05/13/18 07:25 05/13/18 16:29 05/13/18 19:10 White Blood Count 7.4 x10^3/uL (4.0-11.0) Red Blood Count 3.76 x10^6/uL (4.30-5.70) L Hemoglobin 9.2 g/dL (13.0-17.5) L Hematocrit 28.8 % (39.0-53.0) L Mean Corpuscular Volume 77 fL (79-100) L Mean Corpuscular Hemoglobin 25 pg (25-35) Mean Corpuscular Hemoglobin Concent 32 g/dL (31-37) Red Cell Distribution Width 17.5 % (11.5-14.5) H Platelet Count 175 x10^3/uL (140-400) Neutrophils (%) (Auto) 48 % (31-73) Lymphocytes (%) (Auto) 41 % (24-48) Monocytes (%) (Auto) 5 % (0-9) Eosinophils (%) (Auto) 5 % (0-3) H Basophils (%) (Auto) 1 % (0-3) Neutrophils # (Auto) 3.6 x10^3uL (1.8-7.7) Lymphocytes # (Auto) 3.0 x10^3/uL (1.0-4.8) Monocytes # (Auto) 0.4 x10^3/uL (0.0-1.1) Eosinophils # (Auto) 0.4 x10^3/uL (0.0-0.7) Basophils # (Auto) 0.1 x10^3/uL (0.0-0.2) Sodium Level 143 mmol/L (136-145) Potassium Level 4.0 mmol/L (3.5-5.1) Chloride Level 106 mmol/L (98-107) Carbon Dioxide Level 30 mmol/L (21-32) Anion Gap 7 (6-14) Blood Urea Nitrogen 25 mg/dL (8-26) Creatinine 1.3 mg/dL (0.7-1.3) Estimated GFR (Cockcroft-Gault) 54.1 BUN/Creatinine Ratio 19 (6-20) Glucose Level 130 mg/dL (70-99) H Calcium Level 8.5 mg/dL (8.5-10.1) Total Bilirubin 0.3 mg/dL (0.2-1.0) Aspartate Amino Transferase (AST) 24 U/L (15-37) Alanine Aminotransferase (ALT) 17 U/L (16-63) Alkaline Phosphatase 78 U/L (46-116) Total Protein 5.8 g/dL (6.4-8.2) L Albumin 2.4 g/dL (3.4-5.0) L Albumin/Globulin Ratio 0.7 (1.0-1.7) L Valproic Acid Level 38 mcg/mL (50-100) L Valproic Acid Last Dose Date 05/12/2018 Valproic Acid Last Dose Time 2100 Glucose (Fingerstick) 133 mg/dL (70-99) H 221 mg/dL (70-99) H 159 mg/dL (70-99) H Current Medications: Meds: Current Medications Acetaminophen (Tylenol) 650 mg PRN Q6HRS PRN PO PAIN / TEMP Last administered on 05/13/18at 07:46; Start 04/19/18 at 18:00 Multi-Ingredient Ointment (Analgesic [place]) 1 giorgio PRN QID PRN TP MUSCLE PAIN; Start 04/19/18 at 18:00 Al Hydroxide/Mg Hydroxide (Mylanta Plus Xs) 15 ml PRN AFTMEALHC PRN PO DYSPEPSIA; Start 04/19/18 at 18:00 Magnesium Hydroxide (Milk Of Magnesia) 2,400 mg PRN QHS PRN PO CONSTIPATION Last administered on 04/29/18at 23:14; Start 04/19/18 at 18:00 Melatonin 6 mg QHS PO Last administered on 05/13/18at 19:59; Start 04/19/18 at 21:00 Olanzapine (ZyPREXA IM) 5 mg PRN Q4HRS PRN IM AGITATION; Start 04/19/18 at 19: 45; Status Cancel Quetiapine Fumarate (SEROquel) 12.5 mg PRN DAILY PRN PO ANXIETY / AGITATION; Start 04/19/18 at 19:45; Stop 04/20/18 at 13:43; Status DC Quetiapine Fumarate (SEROquel) 50 mg TID PO Last administered on 04/19/18at 19: 54; Start 04/19/18 at 21:00; Stop 04/20/18 at 13:43; Status DC Acetaminophen (Tylenol) 650 mg PRN Q6HRS PRN PO PAIN / TEMP; Start 04/19/18 at 19:30; Status UNV Carbidopa/Levodopa (Sinemet 25/100) 1 tab TIDWMEALS PO Last administered on at 17:15; Start 04/20/18 at 08:00 Clonidine HCl (Catapres Tts-2) 1 patch WEEKLY TD Last administered on at 07:55; Start 04/24/18 at 09:00 Gabapentin (Neurontin) 300 mg PRN DAILY PRN PO NEUROPATHY; Start 04/19/18 at 19 :30 Ketoconazole (Nizoral 2% Topical) 1 giorgio DAILY TP Last administered on at 07:47; Start 04/20/18 at 09:00 Lisinopril (Prinivil) 10 mg DAILY PO Last administered on 04/25/18at 08:08; Start 04/20/18 at 09:00; Stop 04/27/18 at 11:13; Status DC Senna/Docusate Sodium (Senna Plus) 1 tab BID PO Last administered on 05/13/18at 19:59; Start 04/19/18 at 21:00 Simvastatin (Zocor) 40 mg QHS PO Last administered on 05/13/18at 19:58; Start at 21:00 Atenolol (Tenormin) 50 mg DAILY PO Last administered on 04/30/18at 09:37; Start 04/20/18 at 09:00; Stop 05/02/18 at 13:19; Status DC Budesonide (Entocort) 3 mg DAILY PO Last administered on 04/27/18at 08:57; Start 04/20/18 at 09:00; Stop 04/27/18 at 11:13; Status DC Hydrocortisone (Cortaid) 1 giorgio BID TP Last administered on 05/13/18at 20:00; Start 04/19/18 at 21:00 Non-Formulary Medication (Liraglutide (Victoza 3-Melvin)) 0.6 mg DAILY SQ ; Start 04/20/18 at 09:00; Status UNV Pantoprazole Sodium (Protonix) 40 mg BIDBFRMEAL PO Last administered on at 17:15; Start 04/20/18 at 07:30 Pioglitazone HCl (Actos) 15 mg DAILY PO Last administered on 05/10/18at 08:23; Start 04/20/18 at 09:00; Stop 05/10/18 at 13:23; Status DC Pramipexole Dihydrochloride (miraPEX) 0.5 mg [id number] PO Last administered on at 19:58; Start 04/19/18 at 21:00 Risperidone (RisperDAL) 1 mg DAILY SL Last administered on 04/21/18at 08:04; Start 04/20/18 at 09:00; Stop 04/21/18 at 18:50; Status DC Olanzapine (ZyPREXA ZYDIS) 5 mg PRN Q2HR PRN PO ANXIETY / AGITATION Last administered on 04/19/18at 19:55; Start 04/19/18 at 20:00 Olanzapine (ZyPREXA) 5 mg PRN Q4HRS PRN PO AGITATION; Start 04/19/18 at 19:49; Status Cancel Hydrochlorothiazide (Hydrodiuril) 6.25 mg DAILY PO Last administered on at 08:07; Start 04/20/18 at 09:00; Stop 04/27/18 at 11:13; Status DC Olanzapine (ZyPREXA IM) 5 mg DAILY IM Last administered on 04/22/18at 11:28; Start 04/20/18 at 10:00; Stop 04/22/18 at 16:24; Status DC Clonidine HCl (Catapres Tts-2) 1 patch 1X ONCE TD Last administered on at 18:11; Start 04/20/18 at 18:15; Stop 04/20/18 at 18:16; Status DC Vitamin D (Vitamin D3) 50,000 unit WEEKLY PO Last administered on 05/12/18at 10: 07; Start 04/21/18 at 13:30 Cyanocobalamin (Vitamin B-12) 1,000 mcg DAILY IM Last administered on 04/27/18at 08:57; Start 04/22/18 at 09:00; Stop 04/28/18 at 10:40; Status DC Trazodone HCl (Desyrel) 100 mg QHS PO Last administered on 05/05/18at 20:01; Start 04/21/18 at 21:00; Stop 05/06/18 at 15:59; Status DC Trazodone HCl (Desyrel) 100 mg PRN QHS PRN PO insomnia; Start 04/21/18 at 17:00 ; Stop 05/06/18 at 15:55; Status DC Olanzapine (ZyPREXA ZYDIS) 5 mg DAILY PO Last administered on 04/30/18at 09:37; Start 04/23/18 at 09:00; Stop 04/30/18 at 11:14; Status DC Cyanocobalamin (Vitamin B-12) 1,000 mcg 1X ONCE IM Last administered on at 12:13; Start 04/24/18 at 12:00; Stop 04/24/18 at 12:01; Status DC Olanzapine (ZyPREXA ZYDIS) 7.5 mg DAILY PO Last administered on 05/03/18at 08:22 ; Start 05/01/18 at 09:00; Stop 05/03/18 at 20:36; Status DC Atenolol (Tenormin) 25 mg DAILY PO Last administered on 05/12/18at 10:08; Start 05/03/18 at 09:00 Olanzapine (ZyPREXA ZYDIS) 10 mg DAILY PO Last administered on 05/13/18at 07:45 ; Start 05/04/18 at 09:00 Divalproex Sodium (Depakote Sprinkles) 125 mg BID PO Last administered on at 07:52; Start 05/04/18 at 21:00; Stop 05/07/18 at 10:24; Status DC Saliva Substitute (Biotene Dry Mouth) 1 giorgio PRN TID PRN PO DRY MOUTH; Start at 10:00; Stop 05/07/18 at 13:18; Status DC Trazodone HCl (Desyrel) 150 mg PRN QHS PRN PO INSOMNIA Last administered on at 01:21; Start 05/06/18 at 16:00; Stop 05/12/18 at 16:21; Status DC Trazodone HCl (Desyrel) 150 mg QHS PO Last administered on 05/11/18at 19:28; Start 05/06/18 at 21:00; Stop 05/12/18 at 16:21; Status DC Divalproex Sodium (Depakote Sprinkles) 250 mg BID PO Last administered on at 08:23; Start 05/07/18 at 21:00; Stop 05/10/18 at 18:24; Status DC Saliva Substitute (Biotene Dry Mouth) 1 giorgio PRN Q15MIN PRN PO DRY MOUTH Last administered on 05/12/18at 15:02; Start 05/07/18 at 13:15 Pioglitazone HCl (Actos) 30 mg DAILY PO Last administered on 05/13/18at 07:46; Start 05/11/18 at 09:00 Divalproex Sodium (Depakote Sprinkles) 375 mg BID PO Last administered on at 19:59; Start 05/10/18 at 21:00 Trazodone HCl (Desyrel) 200 mg PRN QHS PRN PO INSOMNIA; Start 05/12/18 at 16:30 Trazodone HCl (Desyrel) 200 mg QHS PO Last administered on 05/13/18at 19:58; Start 05/12/18 at 21:00 Active Scripts Active Reported Clonidine Tts-2 (Clonidine) 1 Each Patch.tdwk 1 Patch TD WEEKLY Olanzapine 5 Mg Tablet 1 Tab PO PRN Q4HRS PRN Victoza 3-Melvin (Liraglutide) 0.6 Mg/0.1 Ml Pen.injctr 0.6 Mg SQ DAILY Simvastatin 40 Mg Tablet 1 Tab PO QHS Senna-Docusate Sodium Tablet (Sennosides/Docusate Sodium) 1 Each Tablet 1 Each PO BID Seroquel (Quetiapine Fumarate) 50 Mg Tablet 1 Tab PO TID Seroquel (Quetiapine Fumarate) 25 Mg Tablet 12.5 Mg PO PRN DAILY PRN Mirapex (Pramipexole Di-Hcl) 0.25 Mg Tablet 0.5 Mg PO TID Actos (Pioglitazone Hcl) 15 Mg Tablet 1 Tab PO DAILY Pantoprazole Sodium 40 Mg Tablet.dr 1 Tab PO BIDBFRMEAL Melatonin 3 Mg Tablet 6 Mg PO QHS Lisinopril 10 Mg Tablet 10 Mg PO DAILY Ketoconazole 15 Gm Cream..g. 1 Giorgio TP DAILY Hydrocortisone 453.6 Gm Cream..g. 1 Giorgio TP BID Gabapentin 300 Mg Capsule 300 Mg PO PRN DAILY PRN Sinemet 25-100 Mg Tablet (Carbidopa/Levodopa) 1 Each Tablet 1 Tab PO TIDWMEALS Entocort Ec (Budesonide) 3 Mg Capdr...er 3 Cap PO DAILY Bisoprolol-Hctz 5-6.25 Mg Tab (Bisoprolol Fumarate/Hctz) 1 Each Tablet 1 Tab PO DAILY Tylenol (Acetaminophen) 325 Mg Tablet 650 Mg PO PRN Q6HRS PRN I have reviewed the current psychotropics carefully including drug interactions. Risk benefit ratio favors no change other than as noted in my dictated progress note. Diagnosis: Problems: (1) Anxiety disorder (2) Impulse control disorder (3) Bipolar affective disorder, mixed (4) Parkinson's disease (5) Dementia due to Parkinson's disease with behavioral disturbance (6) Psychosis ALYSHA CHAMPAGNE MD May 13, 2018 20:52
[2018-05-13] MEDS: SALIVA STIMULANT AGENT MOUTHWASH 237ML BOTTLE. PO PRN (21:19)
--- NOTE | 2018-05-13 22:45 | PN ---
DATE: 05/12/2018 ADDENDUM Given the patient's ongoing insomnia, we will increase trazodone to 200 mg p.o. at bedtime, january repeat x 1 p.r.n. insomnia. ALYSHA CHAMPAGNE MD DR: SERENITY/rebecca JOB#: [id number] / [id number]
--- NOTE | 2018-05-13 22:45 | PN ---
DATE: 05/12/2018 This late entry for 05/12/2018 covers elements not covered in my initial note. SUBJECTIVE: I met with the patient in the evening of 05/12/2018. The patient slept 3-1/2 hours previous evening. He has been somewhat sexually inappropriate and shower with female nursing staff, talking about some inappropriate sexual comments somewhat graphically, but did redirect when staff intervened. REVIEW OF SYSTEMS: Ambulation impaired, in wheelchair. Motor movements impacted due to his Parkinson's. No CV, , pulmonary, eye, ENT system symptoms on review. MENTAL STATUS EXAM: Oriented to himself and situation. Speech moderate latency, low in rate and rhythm, low in volume consequent to his Parkinson's. Abstraction fair. Computation able to do two-step serial sevens, remembered 2/3 objects at 3 minutes. No active suicidal or homicidal ideation. Mood and affect remain somewhat anxious, but improved. LABORATORY DATA: Reviewed. Valproic acid level is 43. IMPRESSION: Bipolar 1 disorder, mixed with psychotic features, dementia, Lewy body early with delusions. PLAN: Depakote was increased. Repeat labs level are awaited. Maintain rest of the psychotropics per initial note. Transition to [facility] possibly on 05/13/2018. MAN Dalton CHAMPAGNE MD DR: SERENITY/rebecca JOB#: [id number] / [id number]
[2018-05-14 05:48] VITALS: BP_SYST 127; BP_SYST 136; BP_DIAS 61; BP_DIAS 67
[2018-05-14] MEDS: PANTOPRAZOLE 40 MG TABLET. PO SCH ×2 (08:26→17:04)
[2018-05-14] MEDS: CARBIDOPA/LEVODOPA 25/100MG TABLET PO SCH ×3 (08:26→17:04)
[2018-05-14] MEDS: ATENOLOL 25 MG TABLET PO SCH (08:27)
[2018-05-14] MEDS: PIOGLITAZONE 15 MG TABLET. PO SCH (08:27)
[2018-05-14] MEDS: PRAMIPEXOLE 0.5 MG TABLET. PO SCH ×3 (08:28→19:38)
[2018-05-14] MEDS: SENNOSIDES/DOCUSATE 8.6/50MG TABLET. PO SCH ×2 (08:28→19:38)
[2018-05-14] MEDS: HYDROCORTISONE 1% TOPICAL CREAM 30GM TUBE. TP SCH ×2 (08:28→19:40)
[2018-05-14] MEDS: KETOCONAZOLE 2% TOPICAL CREAM 30GM TUBE. TP SCH (08:28)
[2018-05-14] MEDS: DIVALPROEX 125 MG CAP.SPRINK PO SCH ×2 (08:28→19:37)
[2018-05-14 15:51] VITALS: BP 106/63
[2018-05-14] MEDS: MELATONIN 3 MG TABLET PO SCH (19:38)
[2018-05-14] MEDS: traZODone 100 MG TABLET. PO SCH (19:38)
[2018-05-14] MEDS: SIMVASTATIN 40 MG TABLET. PO SCH (19:38)
--- NOTE | 2018-05-14 20:27 | PDOC ---
Exam Note: Nickolas Note: Please also refer to the separate dictated note~for this date of service dictated separately.~Patient seen individually. Discussed the patient with Nursing staff reviewed the chart.~Reviewed interim history and current functioning. Reviewed vital signs,~Labs/ Radiology~and current medications noted below. Continue current treatment with the changes noted in the dictated addendum note Assessment: Vital Signs: Vital Signs Date Time Temp Pulse Resp B/P (MAP) Pulse Ox O2 Delivery O2 Flow Rate FiO2 05/14/18 15:51 97.7 67 17 106/63 (77) 94 Room Air I&O Intake and Output 05/14/18 07:00 Intake Total 980 ml Balance 980 ml Intake Oral 980 ml # Voids 1 # Bowel Movements 1 Labs: Laboratory Tests Test 05/14/18 07:11 Glucose (Fingerstick) 131 mg/dL (70-99) H Current Medications: Meds: Current Medications Acetaminophen (Tylenol) 650 mg PRN Q6HRS PRN PO PAIN / TEMP Last administered on 05/13/18at 07:46; Start 04/19/18 at 18:00 Multi-Ingredient Ointment (Analgesic [place]) 1 giorgio PRN QID PRN TP MUSCLE PAIN; Start 04/19/18 at 18:00 Al Hydroxide/Mg Hydroxide (Mylanta Plus Xs) 15 ml PRN AFTMEALHC PRN PO DYSPEPSIA; Start 04/19/18 at 18:00 Magnesium Hydroxide (Milk Of Magnesia) 2,400 mg PRN QHS PRN PO CONSTIPATION Last administered on 04/29/18at 23:14; Start 04/19/18 at 18:00 Melatonin 6 mg QHS PO Last administered on 05/14/18at 19:38; Start 04/19/18 at 21:00 Olanzapine (ZyPREXA IM) 5 mg PRN Q4HRS PRN IM AGITATION; Start 04/19/18 at 19: 45; Status Cancel Quetiapine Fumarate (SEROquel) 12.5 mg PRN DAILY PRN PO ANXIETY / AGITATION; Start 04/19/18 at 19:45; Stop 04/20/18 at 13:43; Status DC Quetiapine Fumarate (SEROquel) 50 mg TID PO Last administered on 04/19/18at 19: 54; Start 04/19/18 at 21:00; Stop 04/20/18 at 13:43; Status DC Acetaminophen (Tylenol) 650 mg PRN Q6HRS PRN PO PAIN / TEMP; Start 04/19/18 at 19:30; Status UNV Carbidopa/Levodopa (Sinemet 25/100) 1 tab TIDWMEALS PO Last administered on 17:04; Start 04/20/18 at 08:00 Clonidine HCl (Catapres Tts-2) 1 patch WEEKLY TD Last administered on at 07:55; Start 04/24/18 at 09:00 Gabapentin (Neurontin) 300 mg PRN DAILY PRN PO NEUROPATHY; Start 04/19/18 at 19 :30 Ketoconazole (Nizoral 2% Topical) 1 giorgio DAILY TP Last administered on 08:28; Start 04/20/18 at 09:00 Lisinopril (Prinivil) 10 mg DAILY PO Last administered on 04/25/18 08:08; Start 04/20/18 at 09:00; Stop 04/27/18 at 11:13; Status DC Senna/Docusate Sodium (Senna Plus) 1 tab BID PO Last administered on 05/14/18 19:38; Start 04/19/18 at 21:00 Simvastatin (Zocor) 40 mg QHS PO Last administered on 05/14/18 19:38; Start at 21:00 Atenolol (Tenormin) 50 mg DAILY PO Last administered on 04/30/18 09:37; Start 04/20/18 at 09:00; Stop 05/02/18 at 13:19; Status DC Budesonide (Entocort) 3 mg DAILY PO Last administered on 04/27/18 08:57; Start 04/20/18 at 09:00; Stop 04/27/18 at 11:13; Status DC Hydrocortisone (Cortaid) 1 giorgio BID TP Last administered on 05/14/18 19:40; Start 04/19/18 at 21:00 Non-Formulary Medication (Liraglutide (Victoza 3-Melvin)) 0.6 mg DAILY SQ ; Start 04/20/18 at 09:00; Status UNV Pantoprazole Sodium (Protonix) 40 mg BIDBFRMEAL PO Last administered on 17:04; Start 04/20/18 at 07:30 Pioglitazone HCl (Actos) 15 mg DAILY PO Last administered on 05/10/18at 08:23; Start 04/20/18 at 09:00; Stop 05/10/18 at 13:23; Status DC Pramipexole Dihydrochloride (miraPEX) 0.5 mg [id number] PO Last administered on at 19:38; Start 04/19/18 at 21:00 Risperidone (RisperDAL) 1 mg DAILY SL Last administered on 04/21/18at 08:04; Start 04/20/18 at 09:00; Stop 04/21/18 at 18:50; Status DC Olanzapine (ZyPREXA ZYDIS) 5 mg PRN Q2HR PRN PO ANXIETY / AGITATION Last administered on 04/19/18at 19:55; Start 04/19/18 at 20:00 Olanzapine (ZyPREXA) 5 mg PRN Q4HRS PRN PO AGITATION; Start 04/19/18 at 19:49; Status Cancel Hydrochlorothiazide (Hydrodiuril) 6.25 mg DAILY PO Last administered on at 08:07; Start 04/20/18 at 09:00; Stop 04/27/18 at 11:13; Status DC Olanzapine (ZyPREXA IM) 5 mg DAILY IM Last administered on 04/22/18at 11:28; Start 04/20/18 at 10:00; Stop 04/22/18 at 16:24; Status DC Clonidine HCl (Catapres Tts-2) 1 patch 1X ONCE TD Last administered on at 18:11; Start 04/20/18 at 18:15; Stop 04/20/18 at 18:16; Status DC Vitamin D (Vitamin D3) 50,000 unit WEEKLY PO Last administered on 05/12/18at 10: 07; Start 04/21/18 at 13:30 Cyanocobalamin (Vitamin B-12) 1,000 mcg DAILY IM Last administered on 04/27/18at 08:57; Start 04/22/18 at 09:00; Stop 04/28/18 at 10:40; Status DC Trazodone HCl (Desyrel) 100 mg QHS PO Last administered on 05/05/18at 20:01; Start 04/21/18 at 21:00; Stop 05/06/18 at 15:59; Status DC Trazodone HCl (Desyrel) 100 mg PRN QHS PRN PO insomnia; Start 04/21/18 at 17:00 ; Stop 05/06/18 at 15:55; Status DC Olanzapine (ZyPREXA ZYDIS) 5 mg DAILY PO Last administered on 04/30/18at 09:37; Start 04/23/18 at 09:00; Stop 04/30/18 at 11:14; Status DC Cyanocobalamin (Vitamin B-12) 1,000 mcg 1X ONCE IM Last administered on at 12:13; Start 04/24/18 at 12:00; Stop 04/24/18 at 12:01; Status DC Olanzapine (ZyPREXA ZYDIS) 7.5 mg DAILY PO Last administered on 05/03/18at 08:22 ; Start 05/01/18 at 09:00; Stop 05/03/18 at 20:36; Status DC Atenolol (Tenormin) 25 mg DAILY PO Last administered on 05/14/18at 08:27; Start 05/03/18 at 09:00 Olanzapine (ZyPREXA ZYDIS) 10 mg DAILY PO Last administered on 05/14/18at 08:27 ; Start 05/04/18 at 09:00 Divalproex Sodium (Depakote Sprinkles) 125 mg BID PO Last administered on at 07:52; Start 05/04/18 at 21:00; Stop 05/07/18 at 10:24; Status DC Saliva Substitute (Biotene Dry Mouth) 1 giorgio PRN TID PRN PO DRY MOUTH; Start at 10:00; Stop 05/07/18 at 13:18; Status DC Trazodone HCl (Desyrel) 150 mg PRN QHS PRN PO INSOMNIA Last administered on at 01:21; Start 05/06/18 at 16:00; Stop 05/12/18 at 16:21; Status DC Trazodone HCl (Desyrel) 150 mg QHS PO Last administered on 05/11/18at 19:28; Start 05/06/18 at 21:00; Stop 05/12/18 at 16:21; Status DC Divalproex Sodium (Depakote Sprinkles) 250 mg BID PO Last administered on at 08:23; Start 05/07/18 at 21:00; Stop 05/10/18 at 18:24; Status DC Saliva Substitute (Biotene Dry Mouth) 1 giorgio PRN Q15MIN PRN PO DRY MOUTH Last administered on 05/13/18at 21:19; Start 05/07/18 at 13:15 Pioglitazone HCl (Actos) 30 mg DAILY PO Last administered on 05/14/18at 08:27; Start 05/11/18 at 09:00 Divalproex Sodium (Depakote Sprinkles) 375 mg BID PO Last administered on at 19:37; Start 05/10/18 at 21:00 Trazodone HCl (Desyrel) 200 mg PRN QHS PRN PO INSOMNIA; Start 05/12/18 at 16:30 Trazodone HCl (Desyrel) 200 mg QHS PO Last administered on 05/14/18at 19:38; Start 05/12/18 at 21:00 Active Scripts Active Reported Clonidine Tts-2 (Clonidine) 1 Each Patch.tdwk 1 Patch TD WEEKLY Olanzapine 5 Mg Tablet 1 Tab PO PRN Q4HRS PRN Victoza 3-Melvin (Liraglutide) 0.6 Mg/0.1 Ml Pen.injctr 0.6 Mg SQ DAILY Simvastatin 40 Mg Tablet 1 Tab PO QHS Senna-Docusate Sodium Tablet (Sennosides/Docusate Sodium) 1 Each Tablet 1 Each PO BID Seroquel (Quetiapine Fumarate) 50 Mg Tablet 1 Tab PO TID Seroquel (Quetiapine Fumarate) 25 Mg Tablet 12.5 Mg PO PRN DAILY PRN Mirapex (Pramipexole Di-Hcl) 0.25 Mg Tablet 0.5 Mg PO TID Actos (Pioglitazone Hcl) 15 Mg Tablet 1 Tab PO DAILY Pantoprazole Sodium 40 Mg Tablet.dr 1 Tab PO BIDBFRMEAL Melatonin 3 Mg Tablet 6 Mg PO QHS Lisinopril 10 Mg Tablet 10 Mg PO DAILY Ketoconazole 15 Gm Cream..g. 1 Giorgio TP DAILY Hydrocortisone 453.6 Gm Cream..g. 1 Giorgio TP BID Gabapentin 300 Mg Capsule 300 Mg PO PRN DAILY PRN Sinemet 25-100 Mg Tablet (Carbidopa/Levodopa) 1 Each Tablet 1 Tab PO TIDWMEALS Entocort Ec (Budesonide) 3 Mg Capdr...er 3 Cap PO DAILY Bisoprolol-Hctz 5-6.25 Mg Tab (Bisoprolol Fumarate/Hctz) 1 Each Tablet 1 Tab PO DAILY Tylenol (Acetaminophen) 325 Mg Tablet 650 Mg PO PRN Q6HRS PRN I have reviewed the current psychotropics carefully including drug interactions. Risk benefit ratio favors no change other than as noted in my dictated progress note. Diagnosis: Problems: (1) Anxiety disorder (2) Impulse control disorder (3) Bipolar affective disorder, mixed (4) Parkinson's disease (5) Dementia due to Parkinson's disease with behavioral disturbance (6) Psychosis ALYSHA CHAMPAGNE MD May 14, 2018 20:27
[2018-05-15 05:45] VITALS: BP 138/64
[2018-05-15] MEDS: cloNIDine TTS-2 1 PATCH PATCH TD SCH (07:31)
[2018-05-15] MEDS: ATENOLOL 25 MG TABLET PO SCH (07:32)
[2018-05-15] MEDS: DIVALPROEX 125 MG CAP.SPRINK PO SCH ×2 (07:32→19:35)
[2018-05-15] MEDS: SENNOSIDES/DOCUSATE 8.6/50MG TABLET. PO SCH ×2 (07:32→19:35)
[2018-05-15] MEDS: CARBIDOPA/LEVODOPA 25/100MG TABLET PO SCH ×3 (07:32→17:41)
[2018-05-15] MEDS: PANTOPRAZOLE 40 MG TABLET. PO SCH ×2 (07:32→17:41)
[2018-05-15] MEDS: PRAMIPEXOLE 0.5 MG TABLET. PO SCH ×3 (07:32→19:35)
[2018-05-15] MEDS: PIOGLITAZONE 15 MG TABLET. PO SCH (07:32)
[2018-05-15] MEDS: KETOCONAZOLE 2% TOPICAL CREAM 30GM TUBE. TP SCH (07:33)
[2018-05-15] MEDS: HYDROCORTISONE 1% TOPICAL CREAM 30GM TUBE. TP SCH ×2 (07:33→21:00)
[2018-05-15 16:28] VITALS: BP 113/75
[2018-05-15] MEDS: MELATONIN 3 MG TABLET PO SCH (19:35)
[2018-05-15] MEDS: traZODone 100 MG TABLET. PO SCH (19:35)
[2018-05-15] MEDS: SIMVASTATIN 40 MG TABLET. PO SCH (19:35)
--- NOTE | 2018-05-15 21:44 | PN ---
DATE: 05/13/2018 PSYCHIATRIC PROGRESS NOTE This late entry 05/13/2018 covers elements not covered in my initial note. SUBJECTIVE: Met with the patient in the evening. The patient slept 5-1/2 hours previous night. It [birth year] birthday and his daughter, Angela, came to visit him and he was very verbal, talking about this. He gets a little anxious at times. REVIEW OF SYSTEMS: Ambulation is impaired, in wheelchair, difficulty feeding himself consequent to Parkinson's. No CV, , pulmonary, eye, ENT system symptoms on review. MENTAL STATUS EXAM: Oriented to himself and situation. Speech moderate latency, low in volume consistent with Parkinson's. Thought processes goal directed. Abstraction fair. Computation able to do one step serial 7's. Memory, he remembered 2 out 3 objects at 3 minutes. No suicidal or homicidal ideation. Attention span short, language function intact. LABORATORY DATA: Reviewed. IMPRESSION: Bipolar 1 disorder, mixed, Lewy body dementia with delusion, behavioral disturbance. Rest unchanged. PLAN: Continue current psychotropics. Valproic acid level is 43. We have adjusted the Depakote. Repeat labs level. Rest unchanged per initial note. MAN Dalton CHAMPAGNE MD DR: SERENITY/rebecca JOB#: [id number] / [id number]
--- NOTE | 2018-05-16 00:37 | PN ---
DATE: 05/14/2018 PSYCHIATRIC PROGRESS NOTE This is a late entry 05/14/2018 covers elements not covered in my initial note. SUBJECTIVE: I met with the patient in the evening, staffed at treatment team meeting with the entire team. His daughter was to attend, but was unavailable. He has been sexually inappropriate and comments to female nursing staff at time, but then redirects. Previous night he was demanding, slept 7-1/2 hours. He remains confused, wants to resign from the [employer]. REVIEW OF SYSTEMS: Ambulation impaired, in wheelchair. No CV, , pulmonary, eye, ENT system symptoms on review. He does have the Parkinson's with impaired ambulation. MENTAL STATUS EXAM: Oriented to himself, situation, speech low in rate and rhythm, low in volume, coherent, abstraction fair, computation impaired, language function intact, attention span short. Mood and affect somewhat withdrawn, less psychotic. LABORATORY DATA: Reviewed. IMPRESSION: Unchanged from initial note. Valproic acid level is 38. PLAN: Continue psychotropics from initial note. Adjust as clinically indicated. MAN Dalton CHAMPAGNE MD DR: SERENITY/rebecca JOB#: [id number] / [id number]
[2018-05-16 06:18] VITALS: BP 137/51
[2018-05-16] MEDS: PANTOPRAZOLE 40 MG TABLET. PO SCH ×2 (08:22→17:07)
[2018-05-16] MEDS: CARBIDOPA/LEVODOPA 25/100MG TABLET PO SCH ×3 (08:22→17:07)
[2018-05-16] MEDS: PIOGLITAZONE 15 MG TABLET. PO SCH (08:23)
[2018-05-16] MEDS: DIVALPROEX 125 MG CAP.SPRINK PO SCH ×2 (08:23→19:37)
[2018-05-16] MEDS: PRAMIPEXOLE 0.5 MG TABLET. PO SCH ×3 (08:23→19:37)
[2018-05-16] MEDS: SENNOSIDES/DOCUSATE 8.6/50MG TABLET. PO SCH ×2 (08:23→19:38)
[2018-05-16 08:26] VITALS: BP 94/58
[2018-05-16] MEDS: ATENOLOL 25 MG TABLET PO SCH (08:27)
[2018-05-16] MEDS: HYDROCORTISONE 1% TOPICAL CREAM 30GM TUBE. TP SCH ×2 (09:00→19:40)
[2018-05-16] MEDS: KETOCONAZOLE 2% TOPICAL CREAM 30GM TUBE. TP SCH (09:00)
[2018-05-16 15:58] VITALS: BP 124/62
[2018-05-16] MEDS: traZODone 100 MG TABLET. PO SCH (19:37)
[2018-05-16] MEDS: SIMVASTATIN 40 MG TABLET. PO SCH (19:37)
[2018-05-16] MEDS: MELATONIN 3 MG TABLET PO SCH (19:38)
--- NOTE | 2018-05-16 22:17 | PDOC ---
Exam Note: Nickolas Note: Please also refer to the separate dictated note~for this date of service dictated separately.~Patient seen individually. Discussed the patient with Nursing staff reviewed the chart.~Reviewed interim history and current functioning. Reviewed vital signs,~Labs/ Radiology~and current medications noted below. Continue current treatment with the changes noted in the dictated addendum note Assessment: Vital Signs: Vital Signs Date Time Temp Pulse Resp B/P (MAP) Pulse Ox O2 Delivery O2 Flow Rate FiO2 05/16/18 15:58 97.6 60 16 124/62 (82) 98 05/16/18 06:18 Room Air I&O Intake and Output 05/16/18 07:00 Intake Total 1080 ml Balance 1080 ml Intake Oral 1080 ml Labs: Laboratory Tests Test 05/16/18 07:12 05/16/18 19:17 Glucose (Fingerstick) 117 mg/dL (70-99) H 163 mg/dL (70-99) H Current Medications: Meds: Current Medications Acetaminophen (Tylenol) 650 mg PRN Q6HRS PRN PO PAIN / TEMP Last administered on 05/13/18at 07:46; Start 04/19/18 at 18:00 Multi-Ingredient Ointment (Analgesic [place]) 1 giorgio PRN QID PRN TP MUSCLE PAIN; Start 04/19/18 at 18:00 Al Hydroxide/Mg Hydroxide (Mylanta Plus Xs) 15 ml PRN AFTMEALHC PRN PO DYSPEPSIA; Start 04/19/18 at 18:00 Magnesium Hydroxide (Milk Of Magnesia) 2,400 mg PRN QHS PRN PO CONSTIPATION Last administered on 04/29/18at 23:14; Start 04/19/18 at 18:00 Melatonin 6 mg QHS PO Last administered on 05/16/18at 19:38; Start 04/19/18 at 21:00 Olanzapine (ZyPREXA IM) 5 mg PRN Q4HRS PRN IM AGITATION; Start 04/19/18 at 19: 45; Status Cancel Quetiapine Fumarate (SEROquel) 12.5 mg PRN DAILY PRN PO ANXIETY / AGITATION; Start 04/19/18 at 19:45; Stop 04/20/18 at 13:43; Status DC Quetiapine Fumarate (SEROquel) 50 mg TID PO Last administered on 04/19/18at 19: 54; Start 04/19/18 at 21:00; Stop 04/20/18 at 13:43; Status DC Acetaminophen (Tylenol) 650 mg PRN Q6HRS PRN PO PAIN / TEMP; Start 04/19/18 at 19:30; Status UNV Carbidopa/Levodopa (Sinemet 25/100) 1 tab TIDWMEALS PO Last administered on 17:07; Start 04/20/18 at 08:00 Clonidine HCl (Catapres Tts-2) 1 patch WEEKLY TD Last administered on 07:31; Start 04/24/18 at 09:00 Gabapentin (Neurontin) 300 mg PRN DAILY PRN PO NEUROPATHY; Start 04/19/18 at 19 :30 Ketoconazole (Nizoral 2% Topical) 1 giorgio DAILY TP Last administered on 07:33; Start 04/20/18 at 09:00 Lisinopril (Prinivil) 10 mg DAILY PO Last administered on 04/25/18 08:08; Start 04/20/18 at 09:00; Stop 04/27/18 at 11:13; Status DC Senna/Docusate Sodium (Senna Plus) 1 tab BID PO Last administered on 05/16/18 19:38; Start 04/19/18 at 21:00 Simvastatin (Zocor) 40 mg QHS PO Last administered on 05/16/18 19:37; Start at 21:00 Atenolol (Tenormin) 50 mg DAILY PO Last administered on 04/30/18at 09:37; Start 04/20/18 at 09:00; Stop 05/02/18 at 13:19; Status DC Budesonide (Entocort) 3 mg DAILY PO Last administered on 04/27/18 08:57; Start 04/20/18 at 09:00; Stop 04/27/18 at 11:13; Status DC Hydrocortisone (Cortaid) 1 giorgio BID TP Last administered on 05/15/18at 07:33; Start 04/19/18 at 21:00 Non-Formulary Medication (Liraglutide (Victoza 3-Melvin)) 0.6 mg DAILY SQ ; Start 04/20/18 at 09:00; Status UNV Pantoprazole Sodium (Protonix) 40 mg BIDBFRMEAL PO Last administered on at 17:07; Start 04/20/18 at 07:30 Pioglitazone HCl (Actos) 15 mg DAILY PO Last administered on 05/10/18at 08:23; Start 04/20/18 at 09:00; Stop 05/10/18 at 13:23; Status DC Pramipexole Dihydrochloride (miraPEX) 0.5 mg [id number] PO Last administered on at 19:37; Start 04/19/18 at 21:00 Risperidone (RisperDAL) 1 mg DAILY SL Last administered on 04/21/18at 08:04; Start 04/20/18 at 09:00; Stop 04/21/18 at 18:50; Status DC Olanzapine (ZyPREXA ZYDIS) 5 mg PRN Q2HR PRN PO ANXIETY / AGITATION Last administered on 04/19/18at 19:55; Start 04/19/18 at 20:00 Olanzapine (ZyPREXA) 5 mg PRN Q4HRS PRN PO AGITATION; Start 04/19/18 at 19:49; Status Cancel Hydrochlorothiazide (Hydrodiuril) 6.25 mg DAILY PO Last administered on at 08:07; Start 04/20/18 at 09:00; Stop 04/27/18 at 11:13; Status DC Olanzapine (ZyPREXA IM) 5 mg DAILY IM Last administered on 04/22/18at 11:28; Start 04/20/18 at 10:00; Stop 04/22/18 at 16:24; Status DC Clonidine HCl (Catapres Tts-2) 1 patch 1X ONCE TD Last administered on at 18:11; Start 04/20/18 at 18:15; Stop 04/20/18 at 18:16; Status DC Vitamin D (Vitamin D3) 50,000 unit WEEKLY PO Last administered on 05/12/18at 10: 07; Start 04/21/18 at 13:30 Cyanocobalamin (Vitamin B-12) 1,000 mcg DAILY IM Last administered on 04/27/18at 08:57; Start 04/22/18 at 09:00; Stop 04/28/18 at 10:40; Status DC Trazodone HCl (Desyrel) 100 mg QHS PO Last administered on 05/05/18at 20:01; Start 04/21/18 at 21:00; Stop 05/06/18 at 15:59; Status DC Trazodone HCl (Desyrel) 100 mg PRN QHS PRN PO insomnia; Start 04/21/18 at 17:00 ; Stop 05/06/18 at 15:55; Status DC Olanzapine (ZyPREXA ZYDIS) 5 mg DAILY PO Last administered on 04/30/18at 09:37; Start 04/23/18 at 09:00; Stop 04/30/18 at 11:14; Status DC Cyanocobalamin (Vitamin B-12) 1,000 mcg 1X ONCE IM Last administered on at 12:13; Start 04/24/18 at 12:00; Stop 04/24/18 at 12:01; Status DC Olanzapine (ZyPREXA ZYDIS) 7.5 mg DAILY PO Last administered on 05/03/18at 08:22 ; Start 05/01/18 at 09:00; Stop 05/03/18 at 20:36; Status DC Atenolol (Tenormin) 25 mg DAILY PO Last administered on 05/15/18at 07:32; Start 05/03/18 at 09:00 Olanzapine (ZyPREXA ZYDIS) 10 mg DAILY PO Last administered on 05/16/18at 08:27 ; Start 05/04/18 at 09:00 Divalproex Sodium (Depakote Sprinkles) 125 mg BID PO Last administered on at 07:52; Start 05/04/18 at 21:00; Stop 05/07/18 at 10:24; Status DC Saliva Substitute (Biotene Dry Mouth) 1 giorgio PRN TID PRN PO DRY MOUTH; Start at 10:00; Stop 05/07/18 at 13:18; Status DC Trazodone HCl (Desyrel) 150 mg PRN QHS PRN PO INSOMNIA Last administered on at 01:21; Start 05/06/18 at 16:00; Stop 05/12/18 at 16:21; Status DC Trazodone HCl (Desyrel) 150 mg QHS PO Last administered on 05/11/18 19:28; Start 05/06/18 at 21:00; Stop 05/12/18 at 16:21; Status DC Divalproex Sodium (Depakote Sprinkles) 250 mg BID PO Last administered on at 08:23; Start 05/07/18 at 21:00; Stop 05/10/18 at 18:24; Status DC Saliva Substitute (Biotene Dry Mouth) 1 giorgio PRN Q15MIN PRN PO DRY MOUTH Last administered on 05/13/18at 21:19; Start 05/07/18 at 13:15 Pioglitazone HCl (Actos) 30 mg DAILY PO Last administered on 05/16/18 08:23; Start 05/11/18 at 09:00 Divalproex Sodium (Depakote Sprinkles) 375 mg BID PO Last administered on 19:37; Start 05/10/18 at 21:00 Trazodone HCl (Desyrel) 200 mg PRN QHS PRN PO INSOMNIA; Start 05/12/18 at 16:30 Trazodone HCl (Desyrel) 200 mg QHS PO Last administered on 05/16/18 19:37; Start 05/12/18 at 21:00 Active Scripts Active Reported Clonidine Tts-2 (Clonidine) 1 Each Patch.tdwk 1 Patch TD WEEKLY Olanzapine 5 Mg Tablet 1 Tab PO PRN Q4HRS PRN Victoza 3-Melvin (Liraglutide) 0.6 Mg/0.1 Ml Pen.injctr 0.6 Mg SQ DAILY Simvastatin 40 Mg Tablet 1 Tab PO QHS Senna-Docusate Sodium Tablet (Sennosides/Docusate Sodium) 1 Each Tablet 1 Each PO BID Seroquel (Quetiapine Fumarate) 50 Mg Tablet 1 Tab PO TID Seroquel (Quetiapine Fumarate) 25 Mg Tablet 12.5 Mg PO PRN DAILY PRN Mirapex (Pramipexole Di-Hcl) 0.25 Mg Tablet 0.5 Mg PO TID Actos (Pioglitazone Hcl) 15 Mg Tablet 1 Tab PO DAILY Pantoprazole Sodium 40 Mg Tablet.dr 1 Tab PO BIDBFRMEAL Melatonin 3 Mg Tablet 6 Mg PO QHS Lisinopril 10 Mg Tablet 10 Mg PO DAILY Ketoconazole 15 Gm Cream..g. 1 Giorgio TP DAILY Hydrocortisone 453.6 Gm Cream..g. 1 Giorgio TP BID Gabapentin 300 Mg Capsule 300 Mg PO PRN DAILY PRN Sinemet 25-100 Mg Tablet (Carbidopa/Levodopa) 1 Each Tablet 1 Tab PO TIDWMEALS Entocort Ec (Budesonide) 3 Mg Capdr...er 3 Cap PO DAILY Bisoprolol-Hctz 5-6.25 Mg Tab (Bisoprolol Fumarate/Hctz) 1 Each Tablet 1 Tab PO DAILY Tylenol (Acetaminophen) 325 Mg Tablet 650 Mg PO PRN Q6HRS PRN I have reviewed the current psychotropics carefully including drug interactions. Risk benefit ratio favors no change other than as noted in my dictated progress note. Diagnosis: Problems: (1) Anxiety disorder (2) Impulse control disorder (3) Bipolar affective disorder, mixed (4) Parkinson's disease (5) Dementia due to Parkinson's disease with behavioral disturbance (6) Psychosis ALYSHA CHAMPAGNE MD May 16, 2018 22:17
[2018-05-17] MEDS: ACETAMINOPHEN 325 MG TABLET PO PRN (05:32)
[2018-05-17 05:52] VITALS: BP 146/65
[2018-05-17] MEDS: CARBIDOPA/LEVODOPA 25/100MG TABLET PO SCH ×3 (08:07→17:04)
[2018-05-17] MEDS: PIOGLITAZONE 15 MG TABLET. PO SCH (08:07)
[2018-05-17] MEDS: PANTOPRAZOLE 40 MG TABLET. PO SCH ×2 (08:07→17:04)
[2018-05-17] MEDS: DIVALPROEX 125 MG CAP.SPRINK PO SCH ×2 (08:08→19:08)
[2018-05-17] MEDS: SENNOSIDES/DOCUSATE 8.6/50MG TABLET. PO SCH ×2 (08:08→19:08)
[2018-05-17] MEDS: PRAMIPEXOLE 0.5 MG TABLET. PO SCH ×3 (08:08→19:08)
[2018-05-17] MEDS: ATENOLOL 25 MG TABLET PO SCH (08:09)
[2018-05-17] MEDS: KETOCONAZOLE 2% TOPICAL CREAM 30GM TUBE. TP SCH (08:09)
[2018-05-17] MEDS: HYDROCORTISONE 1% TOPICAL CREAM 30GM TUBE. TP SCH ×2 (09:00→19:09)
[2018-05-17 16:19] VITALS: BP 123/55
[2018-05-17] MEDS: MELATONIN 3 MG TABLET PO SCH (19:08)
[2018-05-17] MEDS: traZODone 100 MG TABLET. PO SCH (19:08)
[2018-05-17] MEDS: SIMVASTATIN 40 MG TABLET. PO SCH (19:09)
--- NOTE | 2018-05-17 19:50 | PDOC ---
Exam Note: Nickolas Note: Late entry for date of service April.Please also refer to the separate dictated note~for this date of service dictated separately.~Patient seen individually. Discussed the patient with Nursing staff reviewed the chart.~ Reviewed interim history and current functioning. Reviewed vital signs,~Labs/ Radiology~and current medications noted below. Continue current treatment with the changes noted in the dictated addendum note Assessment: Vital Signs: VS - Last 72 Hours, by Label Date Time Temp Pulse Resp B/P (MAP) Pulse Ox O2 Delivery O2 Flow Rate FiO2 05/17/18 16:19 97.6 60 18 123/55 (77) 100 05/17/18 08:09 72 146/65 05/17/18 05:52 97.9 72 20 146/65 (92) 97 Room Air 05/16/18 15:58 97.6 60 16 124/62 (82) 98 05/16/18 08:26 62 94/58 (70) 05/16/18 06:18 97.2 61 18 137/51 (79) 96 Room Air 05/15/18 16:28 97.7 61 17 113/75 (88) 100 Room Air 05/15/18 07:32 62 138/64 05/15/18 05:45 97.6 62 18 138/64 (88) 95 Vital Signs Date Time Temp Pulse Resp B/P (MAP) Pulse Ox O2 Delivery O2 Flow Rate FiO2 05/17/18 16:19 97.6 60 18 123/55 (77) 100 05/17/18 05:52 Room Air I&O Intake and Output 05/17/18 07:00 Intake Total 960 ml Balance 960 ml Intake Oral 960 ml Labs: Laboratory Tests Test 05/17/18 07:28 05/17/18 19:03 Glucose (Fingerstick) 129 mg/dL (70-99) H 211 mg/dL (70-99) H Current Medications: Meds: Current Medications Acetaminophen (Tylenol) 650 mg PRN Q6HRS PRN PO PAIN / TEMP Last administered on 05/17/18at 05:32; Start 04/19/18 at 18:00 Multi-Ingredient Ointment (Analgesic [place]) 1 giorgio PRN QID PRN TP MUSCLE PAIN; Start 04/19/18 at 18:00 Al Hydroxide/Mg Hydroxide (Mylanta Plus Xs) 15 ml PRN AFTMEALHC PRN PO DYSPEPSIA; Start 04/19/18 at 18:00 Magnesium Hydroxide (Milk Of Magnesia) 2,400 mg PRN QHS PRN PO CONSTIPATION Last administered on 04/29/18 23:14; Start 04/19/18 at 18:00 Melatonin 6 mg QHS PO Last administered on 05/17/18 19:08; Start 04/19/18 at 21:00 Olanzapine (ZyPREXA IM) 5 mg PRN Q4HRS PRN IM AGITATION; Start 04/19/18 at 19: 45; Status Cancel Quetiapine Fumarate (SEROquel) 12.5 mg PRN DAILY PRN PO ANXIETY / AGITATION; Start 04/19/18 at 19:45; Stop 04/20/18 at 13:43; Status DC Quetiapine Fumarate (SEROquel) 50 mg TID PO Last administered on 04/19/18at 19: 54; Start 04/19/18 at 21:00; Stop 04/20/18 at 13:43; Status DC Acetaminophen (Tylenol) 650 mg PRN Q6HRS PRN PO PAIN / TEMP; Start 04/19/18 at 19:30; Status UNV Carbidopa/Levodopa (Sinemet 25/100) 1 tab TIDWMEALS PO Last administered on at 17:04; Start 04/20/18 at 08:00 Clonidine HCl (Catapres Tts-2) 1 patch WEEKLY TD Last administered on at 07:31; Start 04/24/18 at 09:00 Gabapentin (Neurontin) 300 mg PRN DAILY PRN PO NEUROPATHY; Start 04/19/18 at 19 :30 Ketoconazole (Nizoral 2% Topical) 1 giorgio DAILY TP Last administered on 08:09; Start 04/20/18 at 09:00 Lisinopril (Prinivil) 10 mg DAILY PO Last administered on 04/25/18 08:08; Start 04/20/18 at 09:00; Stop 04/27/18 at 11:13; Status DC Senna/Docusate Sodium (Senna Plus) 1 tab BID PO Last administered on 05/17/18at 19:08; Start 04/19/18 at 21:00 Simvastatin (Zocor) 40 mg QHS PO Last administered on 05/17/18 19:09; Start at 21:00 Atenolol (Tenormin) 50 mg DAILY PO Last administered on 04/30/18at 09:37; Start 04/20/18 at 09:00; Stop 05/02/18 at 13:19; Status DC Budesonide (Entocort) 3 mg DAILY PO Last administered on 04/27/18at 08:57; Start 04/20/18 at 09:00; Stop 04/27/18 at 11:13; Status DC Hydrocortisone (Cortaid) 1 giorgio BID TP Last administered on 05/17/18 19:09; Start 04/19/18 at 21:00 Non-Formulary Medication (Liraglutide (Victoza 3-Melvin)) 0.6 mg DAILY SQ ; Start 04/20/18 at 09:00; Status UNV Pantoprazole Sodium (Protonix) 40 mg BIDBFRMEAL PO Last administered on at 17:04; Start 04/20/18 at 07:30 Pioglitazone HCl (Actos) 15 mg DAILY PO Last administered on 05/10/18 08:23; Start 04/20/18 at 09:00; Stop 05/10/18 at 13:23; Status DC Pramipexole Dihydrochloride (miraPEX) 0.5 mg [id number] PO Last administered on 19:08; Start 04/19/18 at 21:00 Risperidone (RisperDAL) 1 mg DAILY SL Last administered on 04/21/18at 08:04; Start 04/20/18 at 09:00; Stop 04/21/18 at 18:50; Status DC Olanzapine (ZyPREXA ZYDIS) 5 mg PRN Q2HR PRN PO ANXIETY / AGITATION Last administered on 04/19/18at 19:55; Start 04/19/18 at 20:00 Olanzapine (ZyPREXA) 5 mg PRN Q4HRS PRN PO AGITATION; Start 04/19/18 at 19:49; Status Cancel Hydrochlorothiazide (Hydrodiuril) 6.25 mg DAILY PO Last administered on at 08:07; Start 04/20/18 at 09:00; Stop 04/27/18 at 11:13; Status DC Olanzapine (ZyPREXA IM) 5 mg DAILY IM Last administered on 04/22/18at 11:28; Start 04/20/18 at 10:00; Stop 04/22/18 at 16:24; Status DC Clonidine HCl (Catapres Tts-2) 1 patch 1X ONCE TD Last administered on at 18:11; Start 04/20/18 at 18:15; Stop 04/20/18 at 18:16; Status DC Vitamin D (Vitamin D3) 50,000 unit WEEKLY PO Last administered on 05/12/18at 10: 07; Start 04/21/18 at 13:30 Cyanocobalamin (Vitamin B-12) 1,000 mcg DAILY IM Last administered on 04/27/18at 08:57; Start 04/22/18 at 09:00; Stop 04/28/18 at 10:40; Status DC Trazodone HCl (Desyrel) 100 mg QHS PO Last administered on 05/05/18at 20:01; Start 04/21/18 at 21:00; Stop 05/06/18 at 15:59; Status DC Trazodone HCl (Desyrel) 100 mg PRN QHS PRN PO insomnia; Start 04/21/18 at 17:00 ; Stop 05/06/18 at 15:55; Status DC Olanzapine (ZyPREXA ZYDIS) 5 mg DAILY PO Last administered on 04/30/18at 09:37; Start 04/23/18 at 09:00; Stop 04/30/18 at 11:14; Status DC Cyanocobalamin (Vitamin B-12) 1,000 mcg 1X ONCE IM Last administered on at 12:13; Start 04/24/18 at 12:00; Stop 04/24/18 at 12:01; Status DC Olanzapine (ZyPREXA ZYDIS) 7.5 mg DAILY PO Last administered on 05/03/18at 08:22 ; Start 05/01/18 at 09:00; Stop 05/03/18 at 20:36; Status DC Atenolol (Tenormin) 25 mg DAILY PO Last administered on 05/17/18at 08:09; Start 05/03/18 at 09:00 Olanzapine (ZyPREXA ZYDIS) 10 mg DAILY PO Last administered on 05/17/18at 08:10 ; Start 05/04/18 at 09:00 Divalproex Sodium (Depakote Sprinkles) 125 mg BID PO Last administered on at 07:52; Start 05/04/18 at 21:00; Stop 05/07/18 at 10:24; Status DC Saliva Substitute (Biotene Dry Mouth) 1 giorgio PRN TID PRN PO DRY MOUTH; Start at 10:00; Stop 05/07/18 at 13:18; Status DC Trazodone HCl (Desyrel) 150 mg PRN QHS PRN PO INSOMNIA Last administered on at 01:21; Start 05/06/18 at 16:00; Stop 05/12/18 at 16:21; Status DC Trazodone HCl (Desyrel) 150 mg QHS PO Last administered on 05/11/18at 19:28; Start 05/06/18 at 21:00; Stop 05/12/18 at 16:21; Status DC Divalproex Sodium (Depakote Sprinkles) 250 mg BID PO Last administered on at 08:23; Start 05/07/18 at 21:00; Stop 05/10/18 at 18:24; Status DC Saliva Substitute (Biotene Dry Mouth) 1 giorgio PRN Q15MIN PRN PO DRY MOUTH Last administered on 05/13/18at 21:19; Start 05/07/18 at 13:15 Pioglitazone HCl (Actos) 30 mg DAILY PO Last administered on 05/17/18at 08:07; Start 05/11/18 at 09:00 Divalproex Sodium (Depakote Sprinkles) 375 mg BID PO Last administered on at 19:08; Start 05/10/18 at 21:00 Trazodone HCl (Desyrel) 200 mg PRN QHS PRN PO INSOMNIA; Start 05/12/18 at 16:30 Trazodone HCl (Desyrel) 200 mg QHS PO Last administered on 05/17/18at 19:08; Start 05/12/18 at 21:00 Active Scripts Active Reported Clonidine Tts-2 (Clonidine) 1 Each Patch.tdwk 1 Patch TD WEEKLY Olanzapine 5 Mg Tablet 1 Tab PO PRN Q4HRS PRN Victoza 3-Melvin (Liraglutide) 0.6 Mg/0.1 Ml Pen.injctr 0.6 Mg SQ DAILY Simvastatin 40 Mg Tablet 1 Tab PO QHS Senna-Docusate Sodium Tablet (Sennosides/Docusate Sodium) 1 Each Tablet 1 Each PO BID Seroquel (Quetiapine Fumarate) 50 Mg Tablet 1 Tab PO TID Seroquel (Quetiapine Fumarate) 25 Mg Tablet 12.5 Mg PO PRN DAILY PRN Mirapex (Pramipexole Di-Hcl) 0.25 Mg Tablet 0.5 Mg PO TID Actos (Pioglitazone Hcl) 15 Mg Tablet 1 Tab PO DAILY Pantoprazole Sodium 40 Mg Tablet.dr 1 Tab PO BIDBFRMEAL Melatonin 3 Mg Tablet 6 Mg PO QHS Lisinopril 10 Mg Tablet 10 Mg PO DAILY Ketoconazole 15 Gm Cream..g. 1 Giorgio TP DAILY Hydrocortisone 453.6 Gm Cream..g. 1 Giorgio TP BID Gabapentin 300 Mg Capsule 300 Mg PO PRN DAILY PRN Sinemet 25-100 Mg Tablet (Carbidopa/Levodopa) 1 Each Tablet 1 Tab PO TIDWMEALS Entocort Ec (Budesonide) 3 Mg Capdr...er 3 Cap PO DAILY Bisoprolol-Hctz 5-6.25 Mg Tab (Bisoprolol Fumarate/Hctz) 1 Each Tablet 1 Tab PO DAILY Tylenol (Acetaminophen) 325 Mg Tablet 650 Mg PO PRN Q6HRS PRN I have reviewed the current psychotropics carefully including drug interactions. Risk benefit ratio favors no change other than as noted in my dictated progress note. Diagnosis: Problems: (1) Anxiety disorder (2) Impulse control disorder (3) Bipolar affective disorder, mixed (4) Parkinson's disease (5) Dementia due to Parkinson's disease with behavioral disturbance (6) Psychosis ALYSHA CHAMPAGNE MD May 17, 2018 19:50
--- NOTE | 2018-05-18 01:30 | PN ---
DATE: 05/15/2018 PSYCHIATRIC PROGRESS NOTE This is a late entry 05/15/2018, covers elements not covered in my initial note. SUBJECTIVE: I met with the patient in the evening. Overall, the patient has had no sexually inappropriate behavior. He is compliant with medications and cares. Slept 6-3/4 hours. REVIEW OF SYSTEMS: Ambulation impaired, in wheelchair. No CV, , pulmonary, eye, ENT system symptoms on review. MENTAL STATUS EXAM: Oriented to himself and situation. Speech, moderate latency, often responses monosyllabic. Abstraction fair, computation impaired, language function intact, attention span short. Mood and affect remains withdrawn at times, but less labile. LABORATORY DATA: Reviewed. IMPRESSION: Unchanged from initial note. PLAN: No change from initial note. MAN Dalton CHAMPAGNE MD DR: SERENITY/rebecca JOB#: [id number] / [id number]
[2018-05-18 05:26] VITALS: BP 138/65
[2018-05-18] MEDS: PIOGLITAZONE 15 MG TABLET. PO SCH (07:45)
[2018-05-18] MEDS: PRAMIPEXOLE 0.5 MG TABLET. PO SCH ×3 (07:45→19:21)
[2018-05-18] MEDS: DIVALPROEX 125 MG CAP.SPRINK PO SCH ×2 (07:45→19:21)
[2018-05-18] MEDS: SENNOSIDES/DOCUSATE 8.6/50MG TABLET. PO SCH ×2 (07:46→19:21)
[2018-05-18] MEDS: ATENOLOL 25 MG TABLET PO SCH (07:46)
[2018-05-18] MEDS: CARBIDOPA/LEVODOPA 25/100MG TABLET PO SCH ×3 (07:49→17:30)
[2018-05-18] MEDS: PANTOPRAZOLE 40 MG TABLET. PO SCH ×2 (07:49→17:30)
[2018-05-18 07:59] LABS: BASO # 0.1 x10^3/uL (0.0-0.2); BASO % 1 % (0-3); EOS # 0.4 x10^3/uL (0.0-0.7); EOS % 6 % (0-3); HEMATOCRIT 32.9 % (39.0-53.0); HEMOGLOBIN 10.5 g/dL (13.0-17.5); LYMPH # 2.1 x10^3/uL (1.0-4.8); LYMPH % 34 % (24-48); MEAN CORPUSCULAR HEMOGLOBIN 25 pg (25-35); MEAN CORPUSCULAR HGB CONC 32 g/dL (31-37); MEAN CORPUSCULAR VOLUME 78 fL (79-100); MONO # 0.4 x10^3/uL (0.0-1.1); MONO % 6 % (0-9); NEUT # 3.3 x10^3uL (1.8-7.7); NEUT % 53 % (31-73); PLATELET COUNT 158 x10^3/uL (140-400); RED BLOOD COUNT 4.24 x10^6/uL (4.30-5.70); RED CELL DISTRIBUTION WIDTH 18.3 % (11.5-14.5); WHITE BLOOD COUNT 6.2 x10^3/uL (4.0-11.0)
[2018-05-18 08:21] LABS: ALBUMIN 2.6 g/dL (3.4-5.0); ALBUMIN/GLOBULIN RATIO 0.7 (1.0-1.7); CALCIUM 8.8 mg/dL (8.5-10.1); CREATININE 1.2 mg/dL (0.7-1.3); GFR 59.3; POTASSIUM 4.3 mmol/L (3.5-5.1); TOTAL BILIRUBIN 0.3 mg/dL (0.2-1.0); TOTAL PROTEIN 6.5 g/dL (6.4-8.2)
[2018-05-18] MEDS: KETOCONAZOLE 2% TOPICAL CREAM 30GM TUBE. TP SCH (09:00)
[2018-05-18] MEDS: HYDROCORTISONE 1% TOPICAL CREAM 30GM TUBE. TP SCH ×2 (09:00→19:25)
[2018-05-18] MEDS: SALIVA STIMULANT AGENT MOUTHWASH 237ML BOTTLE. PO PRN (13:44)
[2018-05-18 15:36] VITALS: BP 108/56
[2018-05-18] MEDS: traZODone 100 MG TABLET. PO SCH (19:21)
[2018-05-18] MEDS: MELATONIN 3 MG TABLET PO SCH (19:21)
[2018-05-18] MEDS: SIMVASTATIN 40 MG TABLET. PO SCH (19:21)
--- NOTE | 2018-05-18 20:46 | PDOC ---
Exam Note: Nickolas Note: Please also refer to the separate dictated note~for this date of service dictated separately.~Patient seen individually. Discussed the patient with Nursing staff reviewed the chart.~Reviewed interim history and current functioning. Reviewed vital signs,~Labs/ Radiology~and current medications noted below. Continue current treatment with the changes noted in the dictated addendum note Assessment: Vital Signs: Vital Signs Date Time Temp Pulse Resp B/P (MAP) Pulse Ox O2 Delivery O2 Flow Rate FiO2 05/18/18 15:36 99.1 63 17 108/56 (73) 96 Room Air I&O Intake and Output 05/18/18 07:00 Intake Total 1040 ml Balance 1040 ml Intake Oral 1040 ml Labs: Laboratory Tests Test 05/18/18 07:12 05/18/18 07:20 05/18/18 16:37 Glucose (Fingerstick) 133 mg/dL (70-99) H 196 mg/dL (70-99) H White Blood Count 6.2 x10^3/uL (4.0-11.0) Red Blood Count 4.24 x10^6/uL (4.30-5.70) L Hemoglobin 10.5 g/dL (13.0-17.5) L Hematocrit 32.9 % (39.0-53.0) L Mean Corpuscular Volume 78 fL (79-100) L Mean Corpuscular Hemoglobin 25 pg (25-35) Mean Corpuscular Hemoglobin Concent 32 g/dL (31-37) Red Cell Distribution Width 18.3 % (11.5-14.5) H Platelet Count 158 x10^3/uL (140-400) Neutrophils (%) (Auto) 53 % (31-73) Lymphocytes (%) (Auto) 34 % (24-48) Monocytes (%) (Auto) 6 % (0-9) Eosinophils (%) (Auto) 6 % (0-3) H Basophils (%) (Auto) 1 % (0-3) Neutrophils # (Auto) 3.3 x10^3uL (1.8-7.7) Lymphocytes # (Auto) 2.1 x10^3/uL (1.0-4.8) Monocytes # (Auto) 0.4 x10^3/uL (0.0-1.1) Eosinophils # (Auto) 0.4 x10^3/uL (0.0-0.7) Basophils # (Auto) 0.1 x10^3/uL (0.0-0.2) Sodium Level 142 mmol/L (136-145) Potassium Level 4.3 mmol/L (3.5-5.1) Chloride Level 105 mmol/L (98-107) Carbon Dioxide Level 34 mmol/L (21-32) H Anion Gap 3 (6-14) L Blood Urea Nitrogen 23 mg/dL (8-26) Creatinine 1.2 mg/dL (0.7-1.3) Estimated GFR (Cockcroft-Gault) 59.3 BUN/Creatinine Ratio 19 (6-20) Glucose Level 148 mg/dL (70-99) H Calcium Level 8.8 mg/dL (8.5-10.1) Total Bilirubin 0.3 mg/dL (0.2-1.0) Aspartate Amino Transferase (AST) 21 U/L (15-37) Alanine Aminotransferase (ALT) 21 U/L (16-63) Alkaline Phosphatase 93 U/L (46-116) Total Protein 6.5 g/dL (6.4-8.2) Albumin 2.6 g/dL (3.4-5.0) L Albumin/Globulin Ratio 0.7 (1.0-1.7) L Current Medications: Meds: Current Medications Acetaminophen (Tylenol) 650 mg PRN Q6HRS PRN PO PAIN / TEMP Last administered on 05/17/18at 05:32; Start 04/19/18 at 18:00 Multi-Ingredient Ointment (Analgesic [place]) 1 giorgio PRN QID PRN TP MUSCLE PAIN; Start 04/19/18 at 18:00 Al Hydroxide/Mg Hydroxide (Mylanta Plus Xs) 15 ml PRN AFTMEALHC PRN PO DYSPEPSIA; Start 04/19/18 at 18:00 Magnesium Hydroxide (Milk Of Magnesia) 2,400 mg PRN QHS PRN PO CONSTIPATION Last administered on 04/29/18at 23:14; Start 04/19/18 at 18:00 Melatonin 6 mg QHS PO Last administered on 05/18/18at 19:21; Start 04/19/18 at 21:00 Olanzapine (ZyPREXA IM) 5 mg PRN Q4HRS PRN IM AGITATION; Start 04/19/18 at 19: 45; Status Cancel Quetiapine Fumarate (SEROquel) 12.5 mg PRN DAILY PRN PO ANXIETY / AGITATION; Start 04/19/18 at 19:45; Stop 04/20/18 at 13:43; Status DC Quetiapine Fumarate (SEROquel) 50 mg TID PO Last administered on 04/19/18at 19: 54; Start 04/19/18 at 21:00; Stop 04/20/18 at 13:43; Status DC Acetaminophen (Tylenol) 650 mg PRN Q6HRS PRN PO PAIN / TEMP; Start 04/19/18 at 19:30; Status UNV Carbidopa/Levodopa (Sinemet 25/100) 1 tab TIDWMEALS PO Last administered on at 17:30; Start 04/20/18 at 08:00 Clonidine HCl (Catapres Tts-2) 1 patch WEEKLY TD Last administered on at 07:31; Start 04/24/18 at 09:00 Gabapentin (Neurontin) 300 mg PRN DAILY PRN PO NEUROPATHY; Start 04/19/18 at 19 :30 Ketoconazole (Nizoral 2% Topical) 1 giorgio DAILY TP Last administered on at 08:09; Start 04/20/18 at 09:00 Lisinopril (Prinivil) 10 mg DAILY PO Last administered on 04/25/18 08:08; Start 04/20/18 at 09:00; Stop 04/27/18 at 11:13; Status DC Senna/Docusate Sodium (Senna Plus) 1 tab BID PO Last administered on 05/18/18 19:21; Start 04/19/18 at 21:00 Simvastatin (Zocor) 40 mg QHS PO Last administered on 05/18/18 19:21; Start at 21:00 Atenolol (Tenormin) 50 mg DAILY PO Last administered on 04/30/18at 09:37; Start 04/20/18 at 09:00; Stop 05/02/18 at 13:19; Status DC Budesonide (Entocort) 3 mg DAILY PO Last administered on 04/27/18at 08:57; Start 04/20/18 at 09:00; Stop 04/27/18 at 11:13; Status DC Hydrocortisone (Cortaid) 1 giorgio BID TP Last administered on 05/18/18at 19:25; Start 04/19/18 at 21:00 Non-Formulary Medication (Liraglutide (Victoza 3-Melvin)) 0.6 mg DAILY SQ ; Start 04/20/18 at 09:00; Status UNV Pantoprazole Sodium (Protonix) 40 mg BIDBFRMEAL PO Last administered on at 17:30; Start 04/20/18 at 07:30 Pioglitazone HCl (Actos) 15 mg DAILY PO Last administered on 05/10/18at 08:23; Start 04/20/18 at 09:00; Stop 05/10/18 at 13:23; Status DC Pramipexole Dihydrochloride (miraPEX) 0.5 mg [id number] PO Last administered on at 19:21; Start 04/19/18 at 21:00 Risperidone (RisperDAL) 1 mg DAILY SL Last administered on 04/21/18at 08:04; Start 04/20/18 at 09:00; Stop 04/21/18 at 18:50; Status DC Olanzapine (ZyPREXA ZYDIS) 5 mg PRN Q2HR PRN PO ANXIETY / AGITATION Last administered on 04/19/18at 19:55; Start 04/19/18 at 20:00 Olanzapine (ZyPREXA) 5 mg PRN Q4HRS PRN PO AGITATION; Start 04/19/18 at 19:49; Status Cancel Hydrochlorothiazide (Hydrodiuril) 6.25 mg DAILY PO Last administered on at 08:07; Start 04/20/18 at 09:00; Stop 04/27/18 at 11:13; Status DC Olanzapine (ZyPREXA IM) 5 mg DAILY IM Last administered on 04/22/18at 11:28; Start 04/20/18 at 10:00; Stop 04/22/18 at 16:24; Status DC Clonidine HCl (Catapres Tts-2) 1 patch 1X ONCE TD Last administered on at 18:11; Start 04/20/18 at 18:15; Stop 04/20/18 at 18:16; Status DC Vitamin D (Vitamin D3) 50,000 unit WEEKLY PO Last administered on 05/12/18at 10: 07; Start 04/21/18 at 13:30 Cyanocobalamin (Vitamin B-12) 1,000 mcg DAILY IM Last administered on 04/27/18at 08:57; Start 04/22/18 at 09:00; Stop 04/28/18 at 10:40; Status DC Trazodone HCl (Desyrel) 100 mg QHS PO Last administered on 05/05/18at 20:01; Start 04/21/18 at 21:00; Stop 05/06/18 at 15:59; Status DC Trazodone HCl (Desyrel) 100 mg PRN QHS PRN PO insomnia; Start 04/21/18 at 17:00 ; Stop 05/06/18 at 15:55; Status DC Olanzapine (ZyPREXA ZYDIS) 5 mg DAILY PO Last administered on 04/30/18at 09:37; Start 04/23/18 at 09:00; Stop 04/30/18 at 11:14; Status DC Cyanocobalamin (Vitamin B-12) 1,000 mcg 1X ONCE IM Last administered on at 12:13; Start 04/24/18 at 12:00; Stop 04/24/18 at 12:01; Status DC Olanzapine (ZyPREXA ZYDIS) 7.5 mg DAILY PO Last administered on 05/03/18at 08:22 ; Start 05/01/18 at 09:00; Stop 05/03/18 at 20:36; Status DC Atenolol (Tenormin) 25 mg DAILY PO Last administered on 05/18/18at 07:46; Start 05/03/18 at 09:00 Olanzapine (ZyPREXA ZYDIS) 10 mg DAILY PO Last administered on 05/18/18at 07:45 ; Start 05/04/18 at 09:00 Divalproex Sodium (Depakote Sprinkles) 125 mg BID PO Last administered on at 07:52; Start 05/04/18 at 21:00; Stop 05/07/18 at 10:24; Status DC Saliva Substitute (Biotene Dry Mouth) 1 giorgio PRN TID PRN PO DRY MOUTH; Start at 10:00; Stop 05/07/18 at 13:18; Status DC Trazodone HCl (Desyrel) 150 mg PRN QHS PRN PO INSOMNIA Last administered on at 01:21; Start 05/06/18 at 16:00; Stop 05/12/18 at 16:21; Status DC Trazodone HCl (Desyrel) 150 mg QHS PO Last administered on 05/11/18at 19:28; Start 05/06/18 at 21:00; Stop 05/12/18 at 16:21; Status DC Divalproex Sodium (Depakote Sprinkles) 250 mg BID PO Last administered on at 08:23; Start 05/07/18 at 21:00; Stop 05/10/18 at 18:24; Status DC Saliva Substitute (Biotene Dry Mouth) 1 giorgio PRN Q15MIN PRN PO DRY MOUTH Last administered on 05/18/18at 13:44; Start 05/07/18 at 13:15 Pioglitazone HCl (Actos) 30 mg DAILY PO Last administered on 05/18/18at 07:45; Start 05/11/18 at 09:00 Divalproex Sodium (Depakote Sprinkles) 375 mg BID PO Last administered on at 19:21; Start 05/10/18 at 21:00 Trazodone HCl (Desyrel) 200 mg PRN QHS PRN PO INSOMNIA; Start 05/12/18 at 16:30 Trazodone HCl (Desyrel) 200 mg QHS PO Last administered on 05/18/18at 19:21; Start 05/12/18 at 21:00 Active Scripts Active Reported Clonidine Tts-2 (Clonidine) 1 Each Patch.tdwk 1 Patch TD WEEKLY Olanzapine 5 Mg Tablet 1 Tab PO PRN Q4HRS PRN Victoza 3-Melvin (Liraglutide) 0.6 Mg/0.1 Ml Pen.injctr 0.6 Mg SQ DAILY Simvastatin 40 Mg Tablet 1 Tab PO QHS Senna-Docusate Sodium Tablet (Sennosides/Docusate Sodium) 1 Each Tablet 1 Each PO BID Seroquel (Quetiapine Fumarate) 50 Mg Tablet 1 Tab PO TID Seroquel (Quetiapine Fumarate) 25 Mg Tablet 12.5 Mg PO PRN DAILY PRN Mirapex (Pramipexole Di-Hcl) 0.25 Mg Tablet 0.5 Mg PO TID Actos (Pioglitazone Hcl) 15 Mg Tablet 1 Tab PO DAILY Pantoprazole Sodium 40 Mg Tablet.dr 1 Tab PO BIDBFRMEAL Melatonin 3 Mg Tablet 6 Mg PO QHS Lisinopril 10 Mg Tablet 10 Mg PO DAILY Ketoconazole 15 Gm Cream..g. 1 Giorgio TP DAILY Hydrocortisone 453.6 Gm Cream..g. 1 Giorgio TP BID Gabapentin 300 Mg Capsule 300 Mg PO PRN DAILY PRN Sinemet 25-100 Mg Tablet (Carbidopa/Levodopa) 1 Each Tablet 1 Tab PO TIDWMEALS Entocort Ec (Budesonide) 3 Mg Capdr...er 3 Cap PO DAILY Bisoprolol-Hctz 5-6.25 Mg Tab (Bisoprolol Fumarate/Hctz) 1 Each Tablet 1 Tab PO DAILY Tylenol (Acetaminophen) 325 Mg Tablet 650 Mg PO PRN Q6HRS PRN I have reviewed the current psychotropics carefully including drug interactions. Risk benefit ratio favors no change other than as noted in my dictated progress note. Diagnosis: Problems: (1) Anxiety disorder (2) Impulse control disorder (3) Bipolar affective disorder, mixed (4) Parkinson's disease (5) Dementia due to Parkinson's disease with behavioral disturbance (6) Psychosis ALYSHA CHAMPAGNE MD May 18, 2018 20:46
--- NOTE | 2018-05-19 03:43 | PN ---
DATE: 05/16/2018 This is a late entry for 05/16/2018 covers elements not covered in my initial note. SUBJECTIVE: I met with the patient in the evening. Overall, the patient has been cooperative, calm, does have short-term memory deficits, at times sexually inappropriate, but less so than before. REVIEW OF SYSTEMS: Ambulation impaired, in wheelchair. No CV, , pulmonary, eye, ENT system symptoms on review. He does have Parkinsonian facial expression. MENTAL STATUS EXAM: Speech moderate latency, low in volume, coherent, abstraction fair, computation impaired, language function intact. No active suicidal or homicidal ideation. LABORATORY DATA: Reviewed. IMPRESSION: Unchanged from initial note. The patient slept 5-1/2 hours previous evening. PLAN: No change from initial note. MAN Dalton CHAMPAGNE MD DR: SERENITY/rebecca JOB#: [id number] / [id number]
--- NOTE | 2018-05-19 04:09 | PN ---
DATE: 05/17/2018 PSYCHIATRIC PROGRESS NOTE This is a late entry for 05/17/2018, covers elements not covered in my initial note. SUBJECTIVE: I met with the patient in the evening. The patient slept 6 hours previous evening. He has been cooperative, calm, no sexual comments noted. REVIEW OF SYSTEMS: Ambulation impaired, in wheelchair. No CV, , pulmonary, eye system symptoms on review. MENTAL STATUS EXAM: Oriented to himself and situation. Speech moderate latency, low in rate and rhythm, low in volume. He has a parkinsonian facial expression, abstraction fair, computation impaired, language function intact. Mood and affect somewhat withdrawn. LABORATORY DATA: Reviewed. IMPRESSION: Unchanged from initial note. PLAN: No change from initial note. The patient was on a telephone conversation with his daughter prior to my visit. This appeared to go well. MAN Dalton CHMAPAGNE MD DR: SERENITY/rebecca JOB#: [id number] / [id number]
[2018-05-19] MEDS ORDERED: ATEN25TA PO (04:24)
[2018-05-19] MEDS ORDERED: METH29OI TP (04:26)
[2018-05-19] MEDS ORDERED: DIVA125C PO (04:28)
[2018-05-19] MEDS ORDERED: TRAZ-86 PO ×2 (04:29→04:30)
[2018-05-19] MEDS ORDERED: OLAN10TA5 PO (04:32)
[2018-05-19] MEDS ORDERED: MAG30ORA2 PO (04:35)
[2018-05-19] MEDS ORDERED: MAGN400O7 PO (04:36)
[2018-05-19] MEDS ORDERED: CHOL500021 PO (04:37)
[2018-05-19] MEDS ORDERED: SALI10002 MM (04:39)
[2018-05-19] MEDS ORDERED: OLAN5TAB5 PO (04:39)
[2018-05-19 05:27] VITALS: BP 148/61
[2018-05-19] MEDS: CARBIDOPA/LEVODOPA 25/100MG TABLET PO SCH (07:49)
[2018-05-19] MEDS: DIVALPROEX 125 MG CAP.SPRINK PO SCH (07:50)
[2018-05-19] MEDS: PIOGLITAZONE 15 MG TABLET. PO SCH (07:53)
[2018-05-19] MEDS: PRAMIPEXOLE 0.5 MG TABLET. PO SCH (07:53)
[2018-05-19] MEDS: SENNOSIDES/DOCUSATE 8.6/50MG TABLET. PO SCH (07:54)
[2018-05-19 07:55] VITALS: BP 148/61
[2018-05-19] MEDS: PANTOPRAZOLE 40 MG TABLET. PO SCH (07:55)
[2018-05-19] MEDS: ATENOLOL 25 MG TABLET PO SCH (07:55)
[2018-05-19] MEDS: KETOCONAZOLE 2% TOPICAL CREAM 30GM TUBE. TP SCH (07:57)
[2018-05-19] MEDS: CHOLECALCIFEROL (VITAMIN D3) 50,000 UNIT CAPSULE PO SCH (07:57)
[2018-05-19] MEDS: HYDROCORTISONE 1% TOPICAL CREAM 30GM TUBE. TP SCH (07:57)
--- NOTE | 2018-05-19 18:50 | PDOC ---
Exam Note: Nickolas Note: Please also refer to the separate dictated note~for this date of service dictated separately.~Patient seen individually. Discussed the patient with Nursing staff reviewed the chart.~Reviewed interim history and current functioning. Reviewed vital signs,~Labs/ Radiology~and current medications noted below. Continue current treatment with the changes noted in the dictated addendum note Assessment: Vital Signs: Vital Signs Date Time Temp Pulse Resp B/P (MAP) Pulse Ox O2 Delivery O2 Flow Rate FiO2 05/19/18 07:55 57 148/61 05/19/18 05:27 97.7 16 94 05/18/18 15:36 Room Air I&O Intake and Output 05/19/18 07:00 Intake Total 1200 ml Balance 1200 ml Intake Oral 1200 ml Labs: Laboratory Tests Test 05/18/18 19:09 05/19/18 07:30 Glucose (Fingerstick) 182 mg/dL (70-99) H 148 mg/dL (70-99) H Current Medications: Meds: Current Medications Acetaminophen (Tylenol) 650 mg PRN Q6HRS PRN PO PAIN / TEMP Last administered on 05/17/18at 05:32; Start 04/19/18 at 18:00; Stop 05/19/18 at 12:17; Status DC Multi-Ingredient Ointment (Analgesic [place]) 1 giorgio PRN QID PRN TP MUSCLE PAIN; Start 04/19/18 at 18:00; Stop 05/19/18 at 12:17; Status DC Al Hydroxide/Mg Hydroxide (Mylanta Plus Xs) 15 ml PRN AFTMEALHC PRN PO DYSPEPSIA; Start 04/19/18 at 18:00; Stop 05/19/18 at 12:17; Status DC Magnesium Hydroxide (Milk Of Magnesia) 2,400 mg PRN QHS PRN PO CONSTIPATION Last administered on 04/29/18at 23:14; Start 04/19/18 at 18:00; Stop 05/19/18 at 12:17; Status DC Melatonin 6 mg QHS PO Last administered on 05/18/18at 19:21; Start 04/19/18 at 21:00; Stop 05/19/18 at 12:17; Status DC Olanzapine (ZyPREXA IM) 5 mg PRN Q4HRS PRN IM AGITATION; Start 04/19/18 at 19: 45; Status Cancel Quetiapine Fumarate (SEROquel) 12.5 mg PRN DAILY PRN PO ANXIETY / AGITATION; Start 04/19/18 at 19:45; Stop 04/20/18 at 13:43; Status DC Quetiapine Fumarate (SEROquel) 50 mg TID PO Last administered on 04/19/18at 19: 54; Start 04/19/18 at 21:00; Stop 04/20/18 at 13:43; Status DC Acetaminophen (Tylenol) 650 mg PRN Q6HRS PRN PO PAIN / TEMP; Start 04/19/18 at 19:30; Status UNV Carbidopa/Levodopa (Sinemet 25/100) 1 tab TIDWMEALS PO Last administered on at 07:49; Start 04/20/18 at 08:00; Stop 05/19/18 at 12:17; Status DC Clonidine HCl (Catapres Tts-2) 1 patch WEEKLY TD Last administered on at 07:31; Start 04/24/18 at 09:00; Stop 05/19/18 at 12:17; Status DC Gabapentin (Neurontin) 300 mg PRN DAILY PRN PO NEUROPATHY; Start 04/19/18 at 19 :30; Stop 05/19/18 at 12:17; Status DC Ketoconazole (Nizoral 2% Topical) 1 giorgio DAILY TP Last administered on at 07:57; Start 04/20/18 at 09:00; Stop 05/19/18 at 12:17; Status DC Lisinopril (Prinivil) 10 mg DAILY PO Last administered on 04/25/18at 08:08; Start 04/20/18 at 09:00; Stop 04/27/18 at 11:13; Status DC Senna/Docusate Sodium (Senna Plus) 1 tab BID PO Last administered on 05/19/18at 07:54; Start 04/19/18 at 21:00; Stop 05/19/18 at 12:17; Status DC Simvastatin (Zocor) 40 mg QHS PO Last administered on 05/18/18at 19:21; Start at 21:00; Stop 05/19/18 at 12:17; Status DC Atenolol (Tenormin) 50 mg DAILY PO Last administered on 04/30/18at 09:37; Start 04/20/18 at 09:00; Stop 05/02/18 at 13:19; Status DC Budesonide (Entocort) 3 mg DAILY PO Last administered on 04/27/18at 08:57; Start 04/20/18 at 09:00; Stop 04/27/18 at 11:13; Status DC Hydrocortisone (Cortaid) 1 giorgio BID TP Last administered on 05/19/18at 07:57; Start 04/19/18 at 21:00; Stop 05/19/18 at 12:17; Status DC Non-Formulary Medication (Liraglutide (Victoza 3-Melvin)) 0.6 mg DAILY SQ ; Start 04/20/18 at 09:00; Status UNV Pantoprazole Sodium (Protonix) 40 mg BIDBFRMEAL PO Last administered on at 07:55; Start 04/20/18 at 07:30; Stop 05/19/18 at 12:17; Status DC Pioglitazone HCl (Actos) 15 mg DAILY PO Last administered on 05/10/18at 08:23; Start 04/20/18 at 09:00; Stop 05/10/18 at 13:23; Status DC Pramipexole Dihydrochloride (miraPEX) 0.5 mg [id number] PO Last administered on at 07:53; Start 04/19/18 at 21:00; Stop 05/19/18 at 12:17; Status DC Risperidone (RisperDAL) 1 mg DAILY SL Last administered on 04/21/18at 08:04; Start 04/20/18 at 09:00; Stop 04/21/18 at 18:50; Status DC Olanzapine (ZyPREXA ZYDIS) 5 mg PRN Q2HR PRN PO ANXIETY / AGITATION Last administered on 04/19/18at 19:55; Start 04/19/18 at 20:00; Stop 05/19/18 at 12:17 ; Status DC Olanzapine (ZyPREXA) 5 mg PRN Q4HRS PRN PO AGITATION; Start 04/19/18 at 19:49; Status Cancel Hydrochlorothiazide (Hydrodiuril) 6.25 mg DAILY PO Last administered on at 08:07; Start 04/20/18 at 09:00; Stop 04/27/18 at 11:13; Status DC Olanzapine (ZyPREXA IM) 5 mg DAILY IM Last administered on 04/22/18at 11:28; Start 04/20/18 at 10:00; Stop 04/22/18 at 16:24; Status DC Clonidine HCl (Catapres Tts-2) 1 patch 1X ONCE TD Last administered on at 18:11; Start 04/20/18 at 18:15; Stop 04/20/18 at 18:16; Status DC Vitamin D (Vitamin D3) 50,000 unit WEEKLY PO Last administered on 05/19/18at 07: 57; Start 04/21/18 at 13:30; Stop 05/19/18 at 12:17; Status DC Cyanocobalamin (Vitamin B-12) 1,000 mcg DAILY IM Last administered on 04/27/18at 08:57; Start 04/22/18 at 09:00; Stop 04/28/18 at 10:40; Status DC Trazodone HCl (Desyrel) 100 mg QHS PO Last administered on 05/05/18at 20:01; Start 04/21/18 at 21:00; Stop 05/06/18 at 15:59; Status DC Trazodone HCl (Desyrel) 100 mg PRN QHS PRN PO insomnia; Start 04/21/18 at 17:00 ; Stop 05/06/18 at 15:55; Status DC Olanzapine (ZyPREXA ZYDIS) 5 mg DAILY PO Last administered on 04/30/18at 09:37; Start 04/23/18 at 09:00; Stop 04/30/18 at 11:14; Status DC Cyanocobalamin (Vitamin B-12) 1,000 mcg 1X ONCE IM Last administered on at 12:13; Start 04/24/18 at 12:00; Stop 04/24/18 at 12:01; Status DC Olanzapine (ZyPREXA ZYDIS) 7.5 mg DAILY PO Last administered on 05/03/18at 08:22 ; Start 05/01/18 at 09:00; Stop 05/03/18 at 20:36; Status DC Atenolol (Tenormin) 25 mg DAILY PO Last administered on 05/19/18at 07:55; Start 05/03/18 at 09:00; Stop 05/19/18 at 12:17; Status DC Olanzapine (ZyPREXA ZYDIS) 10 mg DAILY PO Last administered on 05/19/18at 07:55 ; Start 05/04/18 at 09:00; Stop 05/19/18 at 12:17; Status DC Divalproex Sodium (Depakote Sprinkles) 125 mg BID PO Last administered on at 07:52; Start 05/04/18 at 21:00; Stop 05/07/18 at 10:24; Status DC Saliva Substitute (Biotene Dry Mouth) 1 giorgio PRN TID PRN PO DRY MOUTH; Start at 10:00; Stop 05/07/18 at 13:18; Status DC Trazodone HCl (Desyrel) 150 mg PRN QHS PRN PO INSOMNIA Last administered on at 01:21; Start 05/06/18 at 16:00; Stop 05/12/18 at 16:21; Status DC Trazodone HCl (Desyrel) 150 mg QHS PO Last administered on 05/11/18at 19:28; Start 05/06/18 at 21:00; Stop 05/12/18 at 16:21; Status DC Divalproex Sodium (Depakote Sprinkles) 250 mg BID PO Last administered on at 08:23; Start 05/07/18 at 21:00; Stop 05/10/18 at 18:24; Status DC Saliva Substitute (Biotene Dry Mouth) 1 giorgio PRN Q15MIN PRN PO DRY MOUTH Last administered on 05/18/18at 13:44; Start 05/07/18 at 13:15; Stop 05/19/18 at 12:17 ; Status DC Pioglitazone HCl (Actos) 30 mg DAILY PO Last administered on 05/19/18at 07:53; Start 05/11/18 at 09:00; Stop 05/19/18 at 12:17; Status DC Divalproex Sodium (Depakote Sprinkles) 375 mg BID PO Last administered on at 07:50; Start 05/10/18 at 21:00; Stop 05/19/18 at 12:17; Status DC Trazodone HCl (Desyrel) 200 mg PRN QHS PRN PO INSOMNIA; Start 05/12/18 at 16:30 ; Stop 05/19/18 at 12:17; Status DC Trazodone HCl (Desyrel) 200 mg QHS PO Last administered on 05/18/18at 19:21; Start 05/12/18 at 21:00; Stop 05/19/18 at 12:17; Status DC Active Scripts Active Reported Zyprexa Zydis (Olanzapine) 5 Mg Tab.rapdis 5 Mg PO PRN Q2HR PRN Biotene (Saliva Substitution Combo No.9) 1,000 Ml Mouthwash 1 Giorgio MM PRN Q15MIN PRN D3-50 (Cholecalciferol (Vitamin D3)) 50,000 Unit Capsule 50,000 Unit PO WEEKLY Milk Of Magnesia (Magnesium Hydroxide) 400 Mg/5 Ml Oral.susp 2,400 Mg PO PRN QHS PRN Mag-Al Plus Xs Suspension (Mag Hydrox/Al Hydrox/Simeth) 30 Ml Oral.susp 15 Ml PO PRN AFTMEALHC PRN Zyprexa Zydis (Olanzapine) 10 Mg Tab.rapdis 10 Mg PO DAILY Trazodone Hcl 100 Mg Tablet 200 Mg PO QHS Trazodone Hcl 100 Mg Tablet 200 Mg PO PRN QHS PRN Depakote Sprinkle (Divalproex Sodium) 125 Mg Cap.sprink 375 Mg PO BID Analgesic [place] (Methyl Salicylate/Menthol) 28 Gm Oint...g. 1 Giorgio TP PRN QID PRN Atenolol 25 Mg Tablet 25 Mg PO DAILY Clonidine Tts-2 (Clonidine) 1 Each Patch.tdwk 1 Patch TD WEEKLY Simvastatin 40 Mg Tablet 1 Tab PO QHS Senna-Docusate Sodium Tablet (Sennosides/Docusate Sodium) 1 Each Tablet 1 Each PO BID Mirapex (Pramipexole Di-Hcl) 0.25 Mg Tablet 0.5 Mg PO [id number] Actos (Pioglitazone Hcl) 15 Mg Tablet 30 Mg PO DAILY Pantoprazole Sodium 40 Mg Tablet.dr 1 Tab PO BIDBFRMEAL Melatonin 3 Mg Tablet 6 Mg PO QHS Ketoconazole 15 Gm Cream..g. 1 Giorgio TP DAILY Hydrocortisone 453.6 Gm Cream..g. 1 Giorgio TP BID Gabapentin 300 Mg Capsule 300 Mg PO PRN DAILY PRN Sinemet 25-100 Mg Tablet (Carbidopa/Levodopa) 1 Each Tablet 1 Tab PO TIDWMEALS Tylenol (Acetaminophen) 325 Mg Tablet 650 Mg PO PRN Q6HRS PRN I have reviewed the current psychotropics carefully including drug interactions. Risk benefit ratio favors no change other than as noted in my dictated progress note. 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
--- NOTE | 2018-05-19 22:54 | PN ---
DATE: 05/18/2018 PSYCHIATRIC PROGRESS NOTE This is a late entry 05/18/2018 covers elements not covered in my initial note. SUBJECTIVE: I met with the patient in the evening. Per nursing report, the patient slept 7 hours previous night. He has not been sexually aggressive. Overall, mood is improved, less labile, less aggressive. REVIEW OF SYSTEMS: Ambulation impaired, in wheelchair. He has difficulty expressing himself and with psychomotor activity consistent with his Parkinson's. No CV, , pulmonary, eye, ENT system symptoms on review. MENTAL STATUS EXAM: Oriented to himself and situation. Speech is low in rate and rhythm, low in volume, consequent to Parkinson's. Abstraction fair, computation impaired, language function intact, attention span short. Mood and affect still somewhat anxious, but improved. LABORATORY DATA: Reviewed. IMPRESSION: Unchanged from initial note. PLAN: No change from initial note. Transition to [facility] 05/19/2018. ALYSHA CHAMPAGNE MD DR: SERENITY/rebecca JOB#: [id number] / [id number]
--- NOTE | 2018-05-20 14:26 | DS ---
DATE OF DISCHARGE: 05/19/2018 DISCHARGE SUMMARY AND PSYCHIATRIC PROGRESS NOTE This is a late entry for 05/19/2018 and covers elements not covered in my initial note. REASON FOR ADMISSION: Please refer to the admission history for details. Briefly, the patient is a 72-year-old male who was referred to us from [facility] Medical/Surgical floor by Dr. Carmichael after he was medically stabilized and admitted there on a transfer from [facility] for intermediate care. However, when the patient arrived for the skilled hospitalization, he was extremely psychotic, aggressive, disruptive, trying to suffocate himself, hitting, biting aggressive to everyone around him, intent on ending his own life and hurting others around him. Security had to intervene. He was on one-on-one status, extremely psychotic. His psychotropics were adjusted to help settle some of this down and once he is medically stable, he was transferred to [facility] for further psychiatric stabilization. SIGNIFICANT FINDINGS AND CLINICAL COURSE: Following admission, the patient was seen daily individually by myself from a psychiatric standpoint, medical followup with Dr. Carmichael/Dr. Buckner. He had significant symptoms of Parkinson's followed by Dr. Calderon, Neurology and noted to have symptoms of early Lewy body dementia with delusions, behavioral disturbance. Adjustments were made in his psychotropics. He seemed to respond to a combination of melatonin 6 mg at bedtime, Zyprexa p.r.n., trazodone 200 mg at bedtime, may repeat x 1 for insomnia, Depakote 375 mg b.i.d., valproic acid level was slightly subtherapeutic at 38, but clinically adequate. Gradually, mood appeared to improve. He was still ambulating in his wheelchair with parkinsonian facial expression, but no suicidal or homicidal ideation noted. REVIEW OF SYSTEMS: Prior to discharge, 05/19/2018, ambulation impaired, in wheelchair. No CV, , pulmonary, eye, ENT system symptoms on review. MENTAL STATUS EXAM: Reasonably oriented. Speech has moderate latency, often responses monosyllabic, parkinsonian facial expression, abstraction fair, computation impaired, language function intact, attention span short. Mood and affect, lability was much improved. No suicidal or homicidal ideation at discharge. CONDITION ON DISCHARGE: Improved. 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 Despite his Lewy body dementia diagnosis, he was reasonably oriented, but the preponderance of symptoms and presentation was certainly suggestive of this together with bipolar cyanosis noted. DISCHARGE MEDICATIONS: Please refer to MAR. DISCHARGE INSTRUCTIONS: [facility]. Outpatient psychiatric and medical followup at the [facility]. Time for discharge day management is greater than 30 minutes. ALYSHA CHAMPAGNE MD DR: SERENITY/rebecca JOB#: [id number] / [id number]
== END 2018-05-19 11:45 | DRG 885 ==
LOC: GEROPSY 17:25
PROVIDERS: ADMIT Psychiatry & Neurology Psychiatry; ATTEND Psychiatry & Neurology Psychiatry
DX: F31.64 Bipolar disorder, current episode mixed, severe, with psychotic features (principal); G93.40 Encephalopathy, unspecified; K50.90 Crohn's disease, unspecified, without complications; R45.851 Suicidal ideations; E11.9 Type 2 diabetes mellitus without complications; E53.8 Deficiency of other specified B group vitamins; E55.9 Vitamin D deficiency, unspecified; E78.5 Hyperlipidemia, unspecified; F01.50 Vascular dementia, unspecified severity, without behavioral disturbance, psychotic disturbance, mood disturbance, and anxiety; F19.959 Other psychoactive substance use, unspecified with psychoactive substance-induced psychotic disorder, unspecified; F41.9 Anxiety disorder, unspecified; G47.00 Insomnia, unspecified; I10 Essential (primary) hypertension; I25.10 Atherosclerotic heart disease of native coronary artery without angina pectoris; K21.9 Gastro-esophageal reflux disease without esophagitis; F63.9 Impulse disorder, unspecified; G31.83 Neurocognitive disorder with Lewy bodies; G89.29 Other chronic pain; N28.9 Disorder of kidney and ureter, unspecified; Z95.1 Presence of aortocoronary bypass graft; Z66 Do not resuscitate
CPT/HCPCS: 36415; 80048; 80053; 80061; 80164; 81001; 82140; 82306; 82607; 82947; 83036; 83540; 83550; 83735; 84436; 84443; 84480; 85025; 86592; J3420; J3490; 97110; 97116; 97530; 97535